=== PATIENT | male | born 1970 | race Caucasian/White ===

== ENCOUNTER 2017-07-04 15:00 | Outpatient (RCR) | payer MEDICAID, SELFPAY ==
--- NOTE | 2017-06-15 13:02 | HP.PTEVAL_ITS ---
Patient's Visit Information CHINYERE RESENDEZ is a 47 year old M referred to Physical Therapy by VON TONG with a diagnosis of B RTC syndrome. Date of Evaluation: 06/13/17 Physical Therapist: Donta Adkins - Visit Plan Frequency: 2x /Week Duration: 4 Weeks Plan: Start with - Subjective Subjective: Pt. is here today for his initial evaluation with diagnosis of B shoulder RTC syndrome. He reports having pain for many years. Pt. reports pain mostly in his shoulders, into his shoulder blades. He denies radiating pain into his arms. Pt. reports no mechanism of injury, but has had a gradual onset of symptoms. He work for a [employer] company and reports increased difficulty with reaching over head. Pt. reports both shoulders are similar in pain. Increases pain: raising arm over head, lifting, exercises, work over head and sleeping. Pt. reprots a gradual worsening of symptoms and now are to a point where he is having difficulty with many ADLs and recreational activities. He reports having difficulty picking up his children and any cleaning with pressure through his shoulders. He has not had any Xrays or MRIs at this point in time. He is hopeful to reduce symptoms in order to get back to all recreational and work related activities with increased tolerance. - Pain R shoulder Pain Intensity (Out of 10): 2 Pain Intensity Range: 0, 6 L shoulder Pain Intensity (Out of 10): 2 Pain Intensity Range: 0, 6 - Objective POSTURE: Pt. has rounded shoulders, protracted scapulea, FH positioing. Pt. tends to have increased shoulder elevation bilaterally. PALPATION: Pt. has increased tenderness to palpation of bilateral bicipital groove, bilateral anterior subacromial space. Pt. has tenderness along medial board of scapulea bilaterally. No pain at AC joint or clavicle. NEUROLOGICAL: Pt. has normal sensation throughout bilateral UEs to light and sharp touch. Pt. has 2+ biceps and triceps DTR bilaterally. ROM: AROM- R shoulder- flexion 125deg, abd 118deg , ext 50deg, functional ER external auditory meatus (abherrant motion), functional IR L5 increase NW. L shoulder- flexion 129deg, abd 118deg, ext 48deg , functional ER external auditory meatus, functional IR L5 increase NW. PROM- R shoulder flexion 165deg, abd 161deg, ER at 90deg 65deg. L shoulder- flexion 168deg, abd 161deg, ER at 90deg 68deg. Pt. limited secondary to pain with all AROM and PROM motions. Pt. had empty end feels with all PROM motions. MMT- RUE - elbow 5/5 throughout; shoulder- flexion 4+/5 increase NW, abd 4/5 increase NW , ER 4/5 increase NW, IR 5/5 NE, ext 5/5 NE. LUE- elbow 5/5 throughout; shoulder- flexion 4+/5 increase NW, abd 4/5 increase NW, ER 4/5 increase NW, IR 5-/5 NE, ext 5-/5 NE. - Special Tests R Shoulder Lift Off Test - Subscapular Tear: Positive R Shoulder Drop Sign - IS Test: Negative R Shoulder Empty Can - SS: Positive R Shoulder Belly Press - SupScap: Positive R Shoulder Neer - Impingement: Positive R Shoulder Valdez Bsasem - Impingement: Positive R Shoulder Biceps Load Test - Labrum: Negative R Shoulder Yeargasons - SLAP: Negative R Shoulder Speeds Test - Labrum/Biceps: Positive R Shoulder Shrug Sign - OA/Adhesive Capsulitis: Negative L Shoulder Lift Off Test - Subscapular Tear: Positive L Shoulder Drop Sign - IS Test: Negative L Shoulder Empty Can - SS: Positive L Shoulder Belly Press - SupScap: Positive L Shoulder Neer - Impingement: Positive L Shoulder Valdez Bassem - Impingement: Positive L Shoulder Biceps Load Test - Labrum: Negative L Shoulder Yeargasons - SLAP: Negative L Shoulder Speeds Test - Labrum/Biceps: Positive - Goals Goal 1:: Pt. to be I with HEP. Goal Time Frame: 4-6 Weeks Goal 2:: Pt. to have increased AROM of bilateral shoulders by 25% without increase in symptoms in all directions. Goal Time Frame: 4-6 Weeks Goal 3:: Pt. to have increased bilateral shoulder strength increased by 1/2 grade of all effected musculature. Goal Time Frame: 4-6 Weeks Goal 4:: Pt. to sleep throughout the night with 0-2/10 pain allowing for increased quality of life. Goal Time Frame: 4-6 Weeks Goal 5:: Pt. to complete all work related activities with 0-2/10 pain in bilatearl shoulders. Goal Time Frame: 4-6 Weeks - Rehabilitation Potential Physical Therapy Diagnosis: Pt. has signs and symptoms consistent with RTC syndrome of bilateral shoulders. He has positive signs of impingement syndrome bilaterally, but has increased symptoms with contractile tissue. He has poor posture reducing subacromial space with overhead activities as well. 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 All of this suggests over use injury resulting in RTC tendonitis with possibly degenerative tearing bilaterally. Rehabilitation Potential: Fair - Anticipated Interventions Patient/Client Instruction: Educate patient on: Condition, Plan of Care, Risk Factors, Benefits of Fitness Program For the Purpose of:: To improve health and function, To foster healthy habits, To improve decision making, To facilitate caregiver knowledge, To improve self management, To prevent re-injury, To improve ability to perform tasks related to life management, To improve tolerance to ADL's Therapeutic Exercise to Include: Strength training, Power training, Postural training, Flexibilty training, Passive ROM, Active ROM, [place] Exercises, Scapular Strength/Stabilization For the Purpose of:: To decrease pain, To increase ROM, To improve nutrient delivery to tissue, To increase oxygenation perfusion, To improve muscle performance and motor function, To improve ability to perform ADL's, To increase tolerance to activity/condition/position, To improve health of tissue, To decrease soft tissue restriction, To increase flexibility/ROM Manual Therapy Techniques to Include: Mobilization, Passive ROM, Functional dry needling, Soft tissue mobilization For the Purpose of:: To decrease pain, To increase ROM, To improve nutrient delivery to tissue, To increase oxygenation perfusion, To improve muscle performance and motor function IF ES: Yes Cryotherapy (ice pack, ice massage): Yes Thermo therapy (hot pack): Yes Ultrasound (thermal/non thermal): Yes For the Purpose of:: To decrease pain, To decrease swelling/inflammation, To increase ROM, To improve nutrient delivery to tissue, To increase oxygenation perfusion Thank you for the opportunity to evaluate your patient. For Medicare and Medicare HMO plans, please review the plan of care and approve it. It will need to be FAXED BACK to us at [phone] for Medicare purposes. Please let me know if there are questions or concerns regarding this plan of care. Physician Signature: Date:
--- NOTE | 2017-07-05 13:56 | HP.PTREVAL_ITS ---
VON RAZA, ,VON It has been my pleasure to treat CHINYERE RESENDEZ over the last 4 visits for B RTC syndrome. Please see the progress note below for an update on the physical therapy plan of care! Subjective: Pt. reports I am about the same. Nothing has really helped me out. He reports increased pain with all exercises, but does tolerated light RTC isometrics. Pt. has increased pain with inferior glides and capsule stretching. Pt. reports continued pain with reaching overhead and with work related activities as well as with upper body dressing. Objective/Function: ROM- AROM- R shoulder- flexion 160deg abherrant motion, abd 135deg abherrant motion, functional ER external auditory meatus, IR SI region. L shoulder- flexion 159deg, abd 142deg, functional ER occiput, functional IR L5. PROM- R shoulder- flexon 176deg, abd 167deg, ER at 90deg 30deg, IR at 90deg of abd 22deg. L shoulder- flexion 173deg increase NW, abd 164deg increase NW, ER at 90deg of abd 40deg, IR at 90deg of abd 23deg. MMT- R shoulder- flexion 4/5 increase NW, abd 4/5 increase NW, ER 4/5 increase NE IR 4+ /5 NE, ext 4+/5 NE/. L shoulder- flexion 4/5 increase NW, abd 4/5 increase NW, ER 4/5 increase NW, IR 4+/5 increase NW, ext 5/5 increase NW Plan Plan: Pt. to be referred back to physician at this point in time to determine best course of action. Goals Goal 1:: Pt. to be I with HEP. Goal Time Frame: 4-6 Weeks Goal Progress: Goal Met Goal 2:: Pt. to have increased AROM of bilateral shoulders by 25% without increase in symptoms in all directions. Goal Time Frame: 4-6 Weeks Goal Progress: Progressing Goal 3:: Pt. to have increased bilateral shoulder strength increased by 1/2 grade of all effected musculature. Goal Time Frame: 4-6 Weeks Goal Progress: Not Progressing Goal 4:: Pt. to sleep throughout the night with 0-2/10 pain allowing for increased quality of life. Goal Time Frame: 4-6 Weeks Goal Progress: Not Progressing Goal 5:: Pt. to complete all work related activities with 0-2/10 pain in bilatearl shoulders. Goal Time Frame: 4-6 Weeks Anticipated Interventions Patient/Client Instruction: Educate patient on: Condition, Plan of Care, Risk Factors, Benefits of Fitness Program For the Purpose of:: To improve health and function, To foster healthy habits, To improve decision making, To facilitate caregiver knowledge, To improve self management, To prevent re-injury, To improve ability to perform tasks related to life management, To improve tolerance to ADL's Therapeutic Exercise to Include: Strength training, Power training, Postural training, Flexibilty training, Passive ROM, Active ROM, [place] Exercises, Scapular Strength/Stabilization For the Purpose of:: To decrease pain, To increase ROM, To improve nutrient delivery to tissue, To increase oxygenation perfusion, To improve muscle performance and motor function, To improve ability to perform ADL's, To increase tolerance to activity/condition/position, To improve health of tissue, To decrease soft tissue restriction, To increase flexibility/ROM Manual Therapy Techniques to Include: Mobilization, Passive ROM, Functional dry needling, Soft tissue mobilization For the Purpose of:: To decrease pain, To increase ROM, To improve nutrient delivery to tissue, To increase oxygenation perfusion, To improve muscle performance and motor function IF ES: Yes Cryotherapy (ice pack, ice massage): Yes Thermo therapy (hot pack): Yes Ultrasound (thermal/non thermal): Yes For the Purpose of:: To decrease pain, To decrease swelling/inflammation, To increase ROM, To improve nutrient delivery to tissue, To increase oxygenation perfusion Please do not hesitate to contact me at [phone] by phone or Fax: if you have questions or concerns regarding this new plan of care! Sincerely, Donta Adkins
--- NOTE | 2017-10-23 19:01 | HP.PTDCSUM_ITS ---
HP - PT D/C Summary It has been my pleasure to treat CHINYERE RESENDEZ under orders from VON RAZA, for the diagnosis of B RTC syndrome for a total of 4 visit(s). Discharge Date: Please see the following information for a summary of their discharge status. - Subjective Subjective: Pt. reports I am about the same. Nothing has really helped me out. He reports increased pain with all exercises, but does tolerated light RTC isometrics. Pt. has increased pain with inferior glides and capsule stretching. Pt. reports continued pain with reaching overhead and with work related activities as well as with upper body dressing. - Pain R shoulder Pain Intensity (Out of 10): 4 L shoulder Pain Intensity (Out of 10): 4 - Objective Objective/Function: ROM- AROM- R shoulder- flexion 160deg abherrant motion, abd 135deg abherrant motion, functional ER external auditory meatus, IR SI region. L shoulder- flexion 159deg, abd 142deg, functional ER occiput, functional IR L5. PROM- R shoulder- flexon 176deg, abd 167deg, ER at 90deg 30deg, IR at 90deg of abd 22deg. L shoulder- flexion 173deg increase NW, abd 164deg increase NW, ER at 90deg of abd 40deg, IR at 90deg of abd 23deg. MMT- R shoulder- flexion 4/5 increase NW, abd 4/5 increase NW, ER 4/5 increase NE IR 4+ /5 NE, ext 4+/5 NE/. L shoulder- flexion 4/5 increase NW, abd 4/5 increase NW, ER 4/5 increase NW, IR 4+/5 increase NW, ext 5/5 increase NW - Goals Goal 1:: Pt. to be I with HEP. Goal Progress: Goal Met Goal 2:: Pt. to have increased AROM of bilateral shoulders by 25% without increase in symptoms in all directions. Goal Progress: Progressing Goal 3:: Pt. to have increased bilateral shoulder strength increased by 1/2 grade of all effected musculature. Goal Progress: Not Progressing Goal 4:: Pt. to sleep throughout the night with 0-2/10 pain allowing for increased quality of life. Goal Progress: Not Progressing Goal 5:: Pt. to complete all work related activities with 0-2/10 pain in bilatearl shoulders. - Plan Plan: Pt. to be referred back to physician at this point in time to determine best course of action. - D/C Information If there are questions or concerns regarding this patient's physical therapy, please feel free to call me at [phone]. Thank you for the referral of this patient. Sincerely, Donta Adkins
== END 2017-07-04 19:00 | disposition home or self-care (01) ==
LOC: PT 15:00
DX: M75.102 Unspecified rotator cuff tear or rupture of left shoulder, not specified as traumatic (principal); M75.101 Unspecified rotator cuff tear or rupture of right shoulder, not specified as traumatic
CPT/HCPCS: 97035; 97110; 97162; 97530

== ENCOUNTER 2017-11-29 08:03 | Day surgery (SDC) | payer MEDICAID, SELFPAY ==
--- NOTE | 2017-11-29 | LES_PTH ---
PATIENT: CHINYERE RESENDEZ LOC: [facility] [place] U[place][id number] AGE/SX: 47/M ROOM: RE11/29/[address]: Dr. Fredis Xiao MD : 1970 BED: DIS: 11/29/2017 SPEC #: [id number] RECD: 11/29/17 10:40 STATUS: VIRA SOPHIA #: [id number] VERÓNICA: 11/29/17 00:[address]: Fredis Xiao DEPT: SURGICAL PATHOLOGY RECD BY: Kimo Calloway ENTERED: 11/29/17 11:42 SP TYPE: Lesion OTHR DR: Out of Town Doctor Tissues: Skin of lip, NOS Procedures: Surgery Specimen Level IV HEADER OPERATION: Excision, lesion, lip PRE-OP DIAGNOSIS: Lip lesion TISSUE SUBMITTED: Lip lesion MICROSCOPIC DIAGNOSIS Lip lesion, excision: Minor salivary gland tissue with acute and chronic inflammation and reactive changes. Negative for malignancy. See comment. 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 Case has been reviewed in consultation with Dr. Mckinney who concurs with the above diagnosis. IDC:AM MICROSCOPIC DESCRIPTION Slides are reviewed. GROSS DESCRIPTION Received in fixative is one container labeled with the patient's name and designated lip lesion. The specimen consists of an irregular fragment of barbosa tissue measuring 1 x 0.6 x 0.2 cm. The specimen is totally submitted in one cassette. / AM:richard 11/29/17 TC:5 CPT: 73577
[2017-11-29 08:30] VITALS: BP 126/81; PULSE 74; RESP 16; TEMP 37.1; O2SAT 99; BMI 41.8
--- NOTE | 2017-11-29 10:07 | PCM.DC ---
You will use the following diet at home:: No restrictions Discharge Activity: Return to Normal Activity Call your doctor if your incision/area has: Increased Pain/ Swelling Allergies/Adverse Reactions: Allergies cephalexin [From Keflex] Adverse Reaction (Verified 11/29/17 08:30) makes him feel bad Medications to take at Discharge Fluoxetine [Prozac] 60 mg PO DAILY 12/21/14 Lisinopril/Hydrochlorothiazide [Zestoretic 20-12.5 mg Tablet] 1 each PO DAILY 11/22/17 Omeprazole [Omeprazole] 20 mg PO DAILY 11/22/17 Acetaminophen/Codeine #3 [Tylenol#3] 1 tab PO Q6H PRN PRN 2 Days #5 tab 11/29/17 The following prescriptions were given: Acetaminophen/Codeine #3 [Tylenol#3] 1 tab PO Q6H PRN PRN 2 Days #5 tab PRN Reason: Pain Primary Care Physician: [facility] Doctor,Out of [Primary Care Provider] - Test Results: Test results from this visit will be discussed in further detail at your follow-up appointment, if applicable. Please Follow Up With: Brody Xiao MD When: 1 month
--- NOTE | 2017-11-29 10:08 | PCM.OPRPT ---
Problem List (1) Lip mass Status: Chronic Report of Operation Date of Procedure: 11/29/17 Pre-Operative Diagnosis: lip mass Post-Operative Diagnosis: lip mass Surgery/Procedure Performed:: excision lip mass Type of Anesthesia:: General Description of Procedure: on the day of the procedure, after appropriate informed consent was obtained, the patient was brought to the operating room and placed in supine position on the operating table. he was placed under MAC anesthesia and the right lower lip was injected with lidocaine/epinephrine. an incision was made over the cyst with a igiugig blade. fluid from the cyst was expressed. the cyst was circumferentially dissected with iris scissors. hemostasis was achieved with the bipolar. the cyst was removed and the lip was closed with 4-0 vicryl. the patient was transferred to the PACU in stable condition.
--- NOTE | 2017-11-29 10:12 | OP.PCM_ITS ---
Problem List (1) Lip mass Status: Chronic Report of Operation Date of Procedure: 11/29/17 Pre-Operative Diagnosis: lip mass Post-Operative Diagnosis: lip mass Surgery/Procedure Performed:: excision lip mass Type of Anesthesia:: General Description of Procedure: on the day of the procedure, after appropriate informed consent was obtained, the patient was brought to the operating room and placed in supine position on the operating table. he was placed under MAC anesthesia and the right lower lip was injected with lidocaine/epinephrine. an incision was made over the cyst with a tatitlek blade. fluid from the cyst was expressed. the cyst was circumferentially dissected with iris scissors. hemostasis was achieved with the bipolar. the cyst was removed and the lip was closed with 4-0 vicryl. the patient was transferred to the PACU in stable condition.
[2017-11-29 10:15] VITALS: BP 119/74; BP 126/81; PULSE 78; RESP 16; TEMP 37.3; O2SAT 94
[2017-11-29 10:20] VITALS: BP 120/78; BP 126/81; PULSE 84; RESP 16; O2SAT 96
[2017-11-29 10:25] VITALS: BP 114/82; BP 126/81; PULSE 75; RESP 16; O2SAT 97
[2017-11-29 10:30] VITALS: BP 115/81; BP 126/81; PULSE 77; RESP 16; TEMP 37.2; O2SAT 96
[2017-11-29 10:54] VITALS: BP 126/81
== END 2017-11-29 11:15 | disposition home or self-care (01) ==
LOC: SDC 08:05 → AC 08:06
PROVIDERS: Visit Provider Otolaryngology
DX: D10.0 Benign neoplasm of lip (principal); I10 Essential (primary) hypertension; F32.9 Major depressive disorder, single episode, unspecified
CPT/HCPCS: 00170; 40812; 88305; J7120; J2405

== ENCOUNTER 2019-03-09 07:34 | Day surgery (SDC) | payer OTHER, SELFPAY ==
[2019-02-15 15:00] VITALS: BMI 41.8
--- NOTE | 2019-02-19 08:43 | HP_ITS ---
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 Allergies cephalexin [From Keflex] Adverse Reaction (Verified 02/15/19 14:54) makes him feel bad Medications Fluoxetine [Prozac] 60 mg PO DAILY 12/21/14 [History Confirmed 02/15/19] Acetaminophen/Codeine #3 [Tylenol#3] 1 tab PO Q6H PRN PRN 2 Days #5 tab 11/29/17 [Rx Confirmed 02/15/19] PFSH Medical History Depression (Acute) Environmental allergies (Acute) Surgical History S/P carpal tunnel release (Acute) S/P inguinal hernia repair (Acute) s/p lip cyst removal (Acute) Family History Father Arthritis Social History (Updated 02/19/19 @ 08:40 by Saulo Warren MD) Smoking Status: Former smoker alcohol intake: current HPI HPI HPI: CHINYERE RESENDEZ, is a 48 M who presents to the office today for HPI HPI Surgical H&P: Yes HPI: CHINYERE RESENDEZ, is a 48 M who presents to the office today for hemorrhoids. The patient has itching and discomfort. He said that occasionally he sees some bright red blood when he wipes but there is none in his stool. He is not having any abdominal pain. He has no family history of colon cancer. ROS General General: No weight change, appetite, fatigue, colon cancer, breast cancer or weakness HEENT HEENT: No difficulty swallowing, eye injury, eye surgery, swollen glands or hoarseness Endo Endocrine: No thyroid disease, diabetes mellitus, thyroid cancer, Hair loss, heat intolerance or cold intolerance Skin Skin: No rash or changing moles Breast Breast: No left breast lump, right breast lump, nipple discharge, breast pain, abnormal mammogram, abnormal US or breast enlargement Musc Musculoskeletal: Yes arthritis; no back problems, rheumatoid arthritis, gout or joint pain Cardio Cardiovascular: Yes high blood pressure; no murmur, pacemaker, heart disease, atrial fibrillation, heart attack, heart stent, palpitations, shortness of breat with exertion or chest pain Psych Psychiatric: Yes depression; no anxiety or hearing voices Resp Respiratory: No shortness of breath, Yes sleep apnea, No cough, No COPD, No asthma, No emphysema, No wheezing Gastro Gastrointestinal: No abdominal pain, No nausea or vomiting, No diarrhea, No constipation, No blood in stool, No acid reflux, Yes hemorrhoids, No ulcers, No gallbladder problem, No black,tarry stools Zacarias Hematologic: No blood thinners, No blood disorders, No bleeding, No anemia, No blood clots Neuro Neurologic: No system reviewed and no additional complaints, except as docu, No as per HPI, No abnormal walking, No abnormal hearing, No abnormal movements, No abnormal speech, No behavioral changes, No burning sensations, No confusion, No seizure-like activity, No unsteadiness, No dizziness, No localized weakness, No frequent falls, No headache(s), No lack of coordination, No loss of vision, No memory loss, No numbness, No other visual disturbances, No radiating pain, No restless legs, No sensory deficit, No fainting, No tingling, No tremor(s), No weakness, No other Exam Const General: cooperative Orientation: alert, oriented x3 Chest Breast Palpation: No nipple discharge Resp Effort & Inspection: normal respiratory effort Auscultation: clear to auscultation bilaterally Cardio Rate: regular rate Rhythm: regular rhythm Heart Sounds: no murmurs GI Inspection: non-distended Palpation: soft, nontender Rectal Exam: visual inspection normal Assessment & Plan Problems 1. Rectal itching L29.0 2. Encounter for screening for malignant neoplasm of colon Z12.11 Plan The patient has no appreciable hemorrhoids on rectal exam. He is complaining of itching and pain in the rectal area. The patient has never had a screening colonoscopy so I would recommend he have a colonoscopy now. I explained endoscopy in detail to the patient. I explained the risks including but not limited to stroke or heart attack with anesthesia, perforation of the GI tract, bleeding, infection. I explained that any of these could necessitate further emergency surgery. The patient understands and all questions were answered sufficiently. The patient wishes to proceed with procedure. Saulo Warren MD Pager: [facility] [address] [place] [address], [address] [place] [address] Office: Orders Orders: Colonoscopy 02/15/19 Z12.11 Coding Level of Care Code Off vis,new,level 3 Diagnoses Rectal itching L29.0 Encounter for screening for malignant neoplasm of colon Z12.11 02/19/19 0840 <Electronically signed by Saulo lind MD> Date _ Saulo Warren MD I have re-examined the patient. There are no clinical changes since date of exam.
[2019-03-09 07:50] VITALS: BP 126/92; PULSE 77; RESP 16; TEMP 37.1; O2SAT 100; BMI 39.9
[2019-03-09] MEDS: Lactated Ringers 1,000 ML 100 ML IV (08:01)
--- NOTE | 2019-03-09 08:30 | COLBX_PTH ---
PATIENT: CHINYERE RESENDEZ LOC: [facility] U#:[id number] AGE/SX: 49/M ROOM: RE03/09/[address]: Dr. Saulo Warren MD : 1970 BED: DIS: 03/09/2019 SPEC #: [id number] RECD: 03/09/19 10:26 STATUS: VIRA REEvon #: [id number] VERÓNICA: 03/09/19 08:[address]: Saulo Warren DEPT: SURGICAL PATHOLOGY RECD BY: Cedrick Mario ENTERED: 03/09/19 12:21 SP TYPE: COLON BX OTHR DR: Dr. True Clarke MD Tissues: Sigmoid colon biopsy Procedures: Surgery Specimen Level IV HEADER OPERATION: Colonoscopy (MAC) PRE-OP DIAGNOSIS: Hemorrhoids TISSUE SUBMITTED: Sigmoid polyp MICROSCOPIC DIAGNOSIS Sigmoid polyp, biopsy: Tubular adenoma. SJ:richard 03/12/19 MICROSCOPIC DESCRIPTION Slides are reviewed. GROSS DESCRIPTION Received in fixative is one container labeled with the patient's name and designated sigmoid polyp. The specimen consists of a pink-red polyp measuring 1 x 0.8 x 0.6 cm. The apparent base is inked. The polyp is bisected and submitted entirely in one cassette. / SJ:rg 03/09/19 TC:1 CPT: 81980
--- NOTE | 2019-03-09 08:42 | OP.ENDO_ITS ---
03/09/2019 True Clarke MD [address] [place] [address] Re : Colonoscopy procedure for Segun Cooley Dear Dr. Clarke This procedure was performed on Saturday, March 09, 2019. My impressions and recommendations are as follows: Impressions : - One polyp in the sigmoid colon, removed with a hot snare. Resected and retrieved. - The examination was otherwise normal on direct and retroflexion views. Recommendations : - Discharge patient to home. - Resume previous diet. - Continue present medications. - Await pathology results. - Repeat colonoscopy date to be determined after pending pathology results are reviewed for surveillance. My findings are described in the full procedure note, which is enclosed. If I can be of further assistance, please feel free to contact me at Doctor phone number(s): , Work: . Sincerely, Saulo Warren MD 03/09/2019 8:42:42 AM This report has been signed electronically.
[2019-03-09 08:43] VITALS: BP 114/83; BP 126/92; PULSE 65; RESP 16; TEMP 36.7; O2SAT 95
[2019-03-09 08:45] VITALS: BP 117/81; BP 126/92; PULSE 64; RESP 16; O2SAT 93
[2019-03-09 08:49] VITALS: BP 114/79; BP 126/92; PULSE 64; RESP 16; O2SAT 97
[2019-03-09 08:53] VITALS: BP 117/92; BP 126/92; PULSE 60; RESP 16; TEMP 36.7; O2SAT 96
[2019-03-09 09:17] VITALS: BP 126/92
== END 2019-03-09 09:24 | disposition home or self-care (01) ==
LOC: EN 07:34 → AC 07:35
PROVIDERS: Family Provider Family Medicine; PCP Family Medicine; Referring Provider Family Medicine; Visit Provider Surgery
PROC: 0DJD8ZZ Inspection of Lower Intestinal Tract, Via Natural or Artificial Opening Endoscopic (ICD-10-PCS; CPT 45378; principal; 2019-03-09 08:25)
DX: Z12.11 Encounter for screening for malignant neoplasm of colon (principal); D12.5 Benign neoplasm of sigmoid colon; L29.0 Pruritus ani; Z87.891 Personal history of nicotine dependence; Z88.1 Allergy status to other antibiotic agents
CPT/HCPCS: 45385; 88305; J7120

== ENCOUNTER → 2019-07-27 08:32 | Outpatient (CLI) | payer OTHER, SELFPAY ==
[2019-07-27 11:17] LABS: Anion Gap 4 (5-15); BUN 14 mg/dL (7-18); Calcium,Total 9.8 mg/dL (8.5-10.1); Chloride 111 mmol/L (98-107); Cholesterol 221 mg/dL (200); Creatinine, Serum 0.88 mg/dL (0.70-1.30); EST Glomerular Filtration Rate 98 mL/min (>60); Est Glom Filt Rate - Afr Amer 118 mL/min (>60); Glucose 104 mg/dL (74-106); High Density Lipoprotein 46 mg/dL; Potassium 4.5 mmol/L (3.5-5.1); Sodium Level 142 mmol/L (136-145); Triglycerides 144 mg/dL; Very Low Density Lipoprotein 29 mg/dL (5-40)
== END ==
PROVIDERS: PCP Family Medicine; Referring Provider Family Medicine; Visit Provider Family Medicine
DX: I10 Essential (primary) hypertension (principal)
CPT/HCPCS: 36415; 80048; 80061

== ENCOUNTER → 2021-02-26 15:20 | Outpatient (CLI) | payer OTHER, SELFPAY ==
--- NOTE | 2021-02-26 15:25 | RAD_ITS ---
STUDY: X-RAY - LEFT KNEE REASON FOR EXAM: Male, 51 years old. PAIN TECHNIQUE: 4 view(s) of the knee. COMPARISON: None. FINDINGS: Normal visualized distal femur. Normal visualized proximal tibia and fibula. Normal proximal tibiofibular articulation. Normal medial femorotibial compartment. Normal lateral femorotibial compartment. There is moderate degenerative arthrosis of the patellofemoral articulation. There is no demonstrated joint effusion. The soft tissue structures are unremarkable. RAD/Knee 4 or More Views IMPRESSION: Patellofemoral joint arthrosis. Electronically Signed: Adonis Whitlock MD (Brooks) at 16:26 EDT , Service support ,
--- NOTE | 2021-02-26 15:25 | RAD_ITS ---
STUDY: X-RAY - LEFT SHOULDER REASON FOR EXAM: Male, 51 years old. PAIN TECHNIQUE: 4 view(s) of the shoulder. COMPARISON: None. FINDINGS: There is severe degenerative arthrosis of the glenohumeral articulation. Normal acromioclavicular joint. Normal acromion. Normal humeral head and visualized proximal humerus. The soft tissue structures are unremarkable. Normal visualized pulmonary apex. RAD/Shoulder min 2 Views IMPRESSION: Severe arthrosis of the left glenohumeral joint Electronically Signed: Adonis Whitlock MD (Brooks) at 16:24 EDT , Service support ,
--- NOTE | 2021-02-26 15:25 | RAD_ITS ---
STUDY: X-RAY - RIGHT SHOULDER REASON FOR EXAM: Male, 51 years old. PAIN TECHNIQUE: 4 view(s) of the shoulder. COMPARISON: None. FINDINGS: There is moderate degenerative arthrosis of the glenohumeral articulation with elevation of the humeral head suggesting chronic rotator cuff pathology. Normal acromioclavicular joint. Normal acromion. Normal humeral head and visualized proximal humerus. The soft tissue structures are unremarkable. Normal visualized pulmonary apex. RAD/Shoulder min 2 Views IMPRESSION: Moderate glenohumeral joint arthrosis. Probable chronic rotator cuff pathology. Electronically Signed: Adonis Whitlock MD ([place]oks) at 8:02 EDT , Service support ,
--- NOTE | 2021-02-26 15:25 | RAD_ITS ---
STUDY: X-RAY - RIGHT KNEE REASON FOR EXAM: Male, 51 years old. PAIN TECHNIQUE: 4 view(s) of the knee. COMPARISON: None. FINDINGS: Normal visualized distal femur. Normal visualized proximal tibia and fibula. Normal proximal tibiofibular articulation. Normal medial femorotibial compartment. There is severe degenerative arthrosis of the lateral femorotibial compartment with severe joint space narrowing and valgus formation. There is mild degenerative arthrosis of the patellofemoral articulation. There is no demonstrated joint effusion. The soft tissue structures are unremarkable. RAD/Knee 4 or More Views IMPRESSION: Lateral abdominal osteoarthrosis with valgus deformity. Electronically Signed: Adonis Whitlock MD ([place]) at 16:26 EDT , Service support ,
== END ==
PROVIDERS: PCP Family Medicine; Referring Provider Family Medicine; Visit Provider Family Medicine
DX: M25.511 Pain in right shoulder (principal); M25.512 Pain in left shoulder; M25.561 Pain in right knee; M25.562 Pain in left knee
CPT/HCPCS: 73030; 73564

== ENCOUNTER 2021-03-11 09:04 | Emergency (ER) | payer OTHER, SELFPAY ==
[2021-03-11 09:05] VITALS: BP 163/103; PULSE 92; RESP 18; TEMP 37.1; O2SAT 100; BMI 40.2
--- NOTE | 2021-03-11 09:17 | MRI_ITS ---
STUDY: MRI BRAIN WITHOUT CONTRAST REASON FOR EXAM: Male, 51 years old. stroke symptoms, confusion TECHNIQUE: Standardized multiplanar fat and water weighted pulse sequences were obtained. COMPARISON: None. FINDINGS: Normal size of the ventricles and extra-axial spaces for the patient''s age. Normal white matter tracts of the supratentorial brain. There is no evidence for recent intracranial ischemia or other cause of cytotoxic edema on diffusion weighted imaging (DWI). Normal T2* images of the brain without demonstrated susceptibility artifact. There is no demonstrated hemosiderin stain. Normal bilateral basal ganglia. Normal thalami. There is no extra-axial fluid accumulation. Normal flow voids within the major intracranial circulation suggesting patency by spin echo criteria. Normal sella turcica, pituitary gland, infundibular stalk, optic chiasm and hypothalamus. Normal tectal plate and pineal gland. Normal midbrain, saniya and medulla. Normal cerebellum. Normal basal cisterns. Normal bilateral temporal bones. Normal bilateral internal auditory canals. No demonstrated orbital abnormality, within the constraints of a routine brain study. Normal visualized paranasal sinuses. Normal calvarium and skull base. Normal visualized soft tissue structures. Normal visualized upper cervical spine. MRI/Brain without Contrast IMPRESSION: Normal unenhanced MRI of the brain. Electronically Signed: Conor Davila MD at 10:36 EDT Tel , Service support ,
--- NOTE | 2021-03-11 09:19 | EKG12_ITS ---
Test Reason : NEURO Blood Pressure : / mmHG Vent. Rate : 082 BPM Atrial Rate : 082 BPM P-R Int : 144 ms QRS Dur : 086 ms QT Int : 356 ms P-R-T Axes : 034 012 056 degrees QTc Int : 415 ms Normal sinus rhythm Normal ECG Confirmed by KENY FAM, KENNEDI ([id number]), health editor HANY ELISE ([id number]) on 03/12/2021 1:47:41 P M Referred By: PC Confirmed By:KRISHAN BUSTILLO MD
[2021-03-11 09:34] VITALS: BMI 38.9
[2021-03-11 09:34] LABS: Absolute Lymphocyte Count 0.61 X10^3/uL (0.83-4.51); Absolute Neutrophil Count 12.8 X10^3/uL (2.0-7.7); Basophil# 0.08 X10^3/uL; Basophil% 0.5 % (0-1); Eosinophil# 0.03 X10^3/uL; Eosinophils% 0.2 % (0-5); Hematocrit 53.3 % (40-54); Hemoglobin 17.4 g/dL (13.0-16.5); Lymphocyte # 0.61 X10^3/ul (0.83-4.51); Lymphocyte % 4.1 % (19-41); Mean Corp Hgb Conc 32.6 g/dL (32-36); Mean Corpuscular Hgb 29.5 pg (27.0-32.0); Mean Corpuscular Volume 90.5 fL (80-94); Mean Platelet Vol. 10.8 fl (6.2-12.0); Monocyte# 1.22 X10^3/uL; Monocyte% 8.1 % (0-10); NRBC Flagged by Analyzer 0 % (0-5); Neutrophil # 12.78 X10^3/uL (2.7-7.7); Neutrophil % 85.4 % (47-70); Platelet Count 211 K/mm3 (150-450); RBC Distribution Width CV 13.2 % (11.6-14.6); RBC Distribution Width SD 43.8 fl (35.1-43.9); Red Blood Count 5.89 M/mm3 (4.6-6.2)
[2021-03-11 09:55] LABS: ALB/GLOB Ratio 0.9 RATIO (0.9-2.4); AST(SGOT) 13 U/L (15-37); Alanine Aminotransfer ALT/SGPT 33 U/L (16-61); Albumin, Serum 3.6 g/dL (3.2-5.0); Alkaline Phosphatase 105 U/L (45-117); Anion Gap 7 (5-15); BUN 23 mg/dL (7-18); BUN/Creat Ratio 22.5 RATIO (10-20); Calcium,Total 9.3 mg/dL (8.5-10.1); Chloride 101 mmol/L (98-107); Creatinine, Serum 1.02 mg/dL (0.70-1.30); EST Glomerular Filtration Rate 82 mL/min (>60); Est Glom Filt Rate - Afr Amer 99 mL/min (>60); Estimated Creatinine Clearance 73.69 ml/min; Globulin 4.2 g/dL (2.2-4.2); Glucose 97 mg/dL (74-106); Potassium 3.9 mmol/L (3.5-5.1); Protein, Total 7.8 g/dL (6.4-8.2); Sodium Level 136 mmol/L (136-145); Troponin-I HS 7 pg/mL (3.0-78.0)
--- NOTE | 2021-03-11 10:30 | ED.VIS.STROK ---
HPI History of Present Illness Chief Complaint: Neuro S/Sx Narrative Narrative: Patient is complaining of not feeling well. He has intermittent episodes of the last 2 or 3 seconds when he walks where he does not feel just right. He feels like he can see everything but he sees himself outside of his body he tells me his vision is not impaired but he just sees himself differently. Otherwise he has no neurological symptoms, he does not have any weakness or paresthesias he has no speech difficulty he does not feel confused. He has no chest pain or shortness of breath. No recent cold cough or flu. [facility] Medical History Depression Environmental allergies Hypertension Home Medications bupropion HCl 300 mg PO DAILY 03/11/21 [History Last Taken Unknown] losartan-hydrochlorothiazide 1 tab PO DAILY 03/11/21 [History Last Taken Unknown] meloxicam 15 mg PO DAILY 03/11/21 [History Last Taken Unknown] sulfamethoxazole-trimethoprim 1 tab PO DAILY 03/11/21 [History Last Taken Unknown] Allergy/AdvReac Type Severity Reaction Status Date / Time cephalexin [From Keflex] AdvReac makes him Verified 03/11/21 09:07 feel bad Family History Father Arthritis Surgical History S/P carpal tunnel release S/P inguinal hernia repair s/p lip cyst removal Social History Smoking Status: Former smoker alcohol intake: current ROS ROS ED ROS Narrative Past medical history: Reviewed, significant for high blood pressure, depression and obesity. Medications: Reviewed Social history: Noncontributory Review of systems: All systems negative except as indicated General: No fever Eyes: No visual changes ENT: No upper airway congestion, normal voice Neck: No neck pain Cardiovascular: No chest pain Respiratory: No shortness of breath or cough Gastrointestinal: No abdominal pain, nausea vomiting or diarrhea Genitourinary: No dysuria Musculoskeletal: Denies myalgias no difficulty with ambulation Skin: No rash Neurological: No memory loss, confusion or any focal weakness otherwise as in HPI Psych: No recent behavioral changes Hematologic: No easy bleeding or easy bruising EXAM Physical Exam Narrative Exam Narrative: Physical exam General: Well nourished, Well developed, No Acute Distress Head: Normocephalic, Atraumatic Eyes: Conjunctiva not pale ENT: Moist mucous membranes Neck: Supple, Nontender, No lymphadenopathy Cardiovascular: Regular rate, Regular rhythm Respiratory: No distress, CTA bilaterally Abdomen: Soft, Nontender, Nondistended Back: Nontender, Normal Inspection. Negative for: CVA tenderness Extremities: Nontender, No edema Skin: Normal color, No rash Neurological: Alert, Normal Strength, Normal Sensation. NIH stroke scale is 0 see below. Psychological: Normal affect Const Vital Signs: 03/11/21 09:05 Temperature 98.8 F Temperature Source Temporal Pulse Rate 92 Respiratory Rate 18 Blood Pressure 163/103 H Blood Pressure Mean 123 Pulse Ox 100 Oxygen Delivery Method Room Air STROKE Vital Signs/Narrative: Vital Signs Temp Pulse Resp BP Pulse Ox 03/11/21 09:05 98.8 F 92 18 163/103 H 100 NIHSS Initial: 1a Level of Consciousness: 0 1b LOC Questions (Score 2 if aphasic/stupor): 0 1c LOC Commands (Only score 1st attempt): 0 2 Best Gaze (If aphasic, use reflexive mvmts.): 0 3 Visual: 0 4 Facial Palsy: 0 5 Motor Arm Right (UN = amputation/fusion): 0 5 Motor Arm Left: 0 6 Motor Leg Right: 0 6 Motor Leg Left: 0 7 Limb ataxia (Only + if out of proportion): 0 8 Sensory (Aphasia/stupor=0 or 1, coma=2): 0 9 Best Language: 0 10 Dysarthria (mute, coma=2, intubated=UN): 0 11 Extinction and Inattention (only scored if +): 0 Total Score: 0 MDM MDM MDM Narrative Medical decision making narrative: Patient is found to have an unremarkable work-up other than slight leukocytosis I talked to him he tells me he has no cough congestion fever chills urinary symptoms or any other symptoms. He appears well a Covid test is pending but I believe he is safe for discharge. Lab Data Labs: Laboratory Results - last 24 hr 03/11/21 03/11/21 09:25 09:25 WBC 15.0 H RBC 5.89 Hgb 17.4 H Hct 53.3 MCV 90.5 MCH 29.5 MCHC 32.6 RDW Std Deviation 43.8 RDW Coeff of Stefanie 13.2 Plt Count 211 MPV 10.8 Immature Gran % (Auto) 1.700 H Neut % (Auto) 85.4 H Lymph % (Auto) 4.1 L Ida % (Auto) 8.1 Eos % (Auto) 0.2 Baso % (Auto) 0.5 Absolute Neuts (auto) 12.8 H Absolute Lymphs (auto) 0.61 L Nucleated RBC % 0 Sodium 136 Potassium 3.9 Chloride 101 Carbon Dioxide 28.0 Anion Gap 7 BUN 23 H Creatinine 1.02 Estim Creat Clear Calc 73.69 Est GFR (MDRD) Af Amer 99 Est GFR (MDRD) Non-Af 82 BUN/Creatinine Ratio 22.5 H Glucose 97 Calcium 9.3 Total Bilirubin 0.40 AST 13 L ALT 33 Alkaline Phosphatase 105 Troponin I High Sens 7 Total Protein 7.8 Albumin 3.6 Globulin 4.2 Albumin/Globulin Ratio 0.9 Radiography Diagnostic Testing: Clinical Impression(s) from Imaging Studies Brain MRI 03/11/21 09:17 IMPRESSION: Normal unenhanced MRI of the brain. Electronically Signed: Conor Davila MD at 10:36 EDT Tel , Service support , Discharge Plan Triage Chief Complaint: Neuro S/Sx ED Provider: True [place] Dx/Rx/DC Orders Clinical Impression: Leukocytosis, Weakness Instructions: ED Weakness (Uncertain Cause) Prescriptions: No Action meloxicam 15 mg tablet 15 mg PO DAILY RF: 0 sulfamethoxazole-trimethoprim 800-160 mg tablet 1 tab PO DAILY RF: 0 losartan-hydrochlorothiazide 100-25 mg tablet 1 tab PO DAILY RF: 0 bupropion HCl 300 mg tablet extended release 24 hr 300 mg PO DAILY RF: 0 Primary Care Provider: True Clarke Referrals: True Clarke MD [Primary Care Provider] - 2 Days Disposition Disposition: Home, Self Care
[2021-03-11 11:14] VITALS: BP 123/87; PULSE 87; RESP 16; TEMP 36.1
== END 2021-03-11 11:15 | disposition home or self-care (01) ==
PROVIDERS: Emergency Provider Emergency Medicine; PCP Family Medicine
DX: D72.829 Elevated white blood cell count, unspecified (principal); R53.1 Weakness; I10 Essential (primary) hypertension; F32.9 Major depressive disorder, single episode, unspecified; Z79.899 Other long term (current) drug therapy; Z87.891 Personal history of nicotine dependence
CPT/HCPCS: 70551; 80053; 84484; 85025; 87426; 93005; 99283; A4216

== ENCOUNTER 2022-02-10 08:52 | Emergency (ER) | payer OTHER, SELFPAY ==
[2022-02-10 08:53] VITALS: BP 140/92; PULSE 77; RESP 18; TEMP 36.2; O2SAT 100; BMI 40.1
--- NOTE | 2022-02-10 09:10 | EDS_ITS ---
HPI History of Present Illness Chief Complaint: Back Informant: patient Onset/Context/Timing Onset: Weeks (3-4) Context: Gradual Onset Timing: Continuous Quality: Aching Location: Buttock and Left Leg Current Severity: Severe Maximum Severity: Severe Worsened by: improves with Movement, Bending, Lifting and - (Sitting for extended period) Relieved by: Remaining Still Associated Symptoms Associated Symptoms: Radiation to Left Leg; Negative for Numbness, Tingling, Radiation to Right Leg, Fever, Unable to Ambulate, Unable to Transfer, Urinary Retention, Urinary Incontinence, Constipation or Fecal Incontinence Narrative Narrative: Patient has been having 3 to 4 weeks worth of left low back pain with radiation down to his left lower extremity. He states it has been tolerable, continuous. However over the past 3 to 4 days, it has been significantly worse. He did a lot of work in the yard the day that it became worse, he was doing lifting and lots of bending over, he did not notice suddenly acute worsening, rather gradual. However the pain has been severe in that period of time. He mentioned all of this to his doctor when he had a visit within the last couple weeks, however it was not as bad as it is now. He has not had any x-rays. He has had recent cortisone injections in his right knee and his left shoulder due to DJD, he states it has been recommended to him to have joint replacements of both shoulders and both knees. He does not have any hip problems that he knows of. [facility] Medical History (Updated 02/10/22 @ 10:[address] Phillip Mckeon MD) Depression DJD of both shoulders Environmental allergies Hypertension Home Medications bupropion HCl 300 mg 24 hr tablet, extended release 300 mg PO DAILY 03/11/21 [History Last Taken Unknown] losartan 100 mg-hydrochlorothiazide 25 mg tablet 1 tab PO DAILY 03/11/21 [History Last Taken Unknown] meloxicam 15 mg tablet 15 mg PO DAILY 03/11/21 [History Last Taken Unknown] cholecalciferol (vitamin D3) 100 mcg (4,000 unit) capsule 100 mcg PO DAILY 02/10/22 [History Last Taken Unknown] gabapentin 300 mg capsule 300 mg PO TID #89 caps 02/10/22 [Rx Last Taken Unknown] omega-3 fatty acids 1,000 mg PO DAILY 02/10/22 [History Last Taken Unknown] prednisone 20 mg tablet 40 mg PO DAILY #10 TABLETS 02/10/22 [Rx Last Taken Unknown] Allergy/AdvReac Type Severity Reaction Status Date / Time cephalexin [From Keflex] AdvReac makes him Verified 02/10/22 09:03 feel bad Family History Father Arthritis Surgical History S/P carpal tunnel release S/P inguinal hernia repair s/p lip cyst removal Social History Smoking Status: Former smoker alcohol intake: current ROS ROS ED Constitutional Constitutional ED: Denies chills or fever(s) Gastrointestinal Gastrointestinal: Denies abdominal pain, constipation, fecal incontinence, nausea or vomiting Genitourinary Genitourinary ED: Reports other Details: no urinary retention ; Denies abdominal discomfort or urinary incontinence Musculoskeletal Musculoskeletal: Reports as per HPI and back pain; Denies neck pain Integumentary Denies rash or wounds Neurologic Neurologic: Denies headache(s), paresthesias or weakness EXAM Physical Exam Const Vital Signs: 02/10/22 08:53 Temperature 97.2 F L Temperature Source Temporal Pulse Rate 77 Respiratory Rate 18 Blood Pressure 140/92 H Blood Pressure Mean 108 Pulse Ox 100 Oxygen Delivery Method Room Air Positive well nourished and well developed General Appearance ED: well developed and NAD HEENT Negative for trauma or tenderness Eyes PERRL and EOMs intact bilaterally Neck full ROM and supple GI normal to inspection, nondistended, normoactive bowel sounds, soft to palpation and non-tender Back/Spine normal to inspection Back/Spine Narrative: Mildly tender medial left buttock, left side sciatic notch. Negative cross leg straight leg raises Lumbar Spine / Lower Back: ROM limited and straight leg raise positive - left at 60 degrees; Negative for lumbar spinal tenderness or straight leg raise positive right Extremity normal to inspection, full ROM and no pedal edema Extremity Narrative: Likely arthritic deformity right knee with slight valgus status at resting Neuro oriented x3 and no sensory deficits noted Sensorium / Orientation: alert Motor Exam: strength 5/5 throughout and clonus absent Deep Tendon Reflexes: Rt Patellar (L4): 1+, Lt Patellar (L4): 1+, Rt Ankle (S1): 1+ and Lt Ankle (S1): 1+ Deep Tendon Reflexes Back: Rt Patellar (L4): 1+, Lt Patellar (L4): 1+, Rt Ankle (S1): 1+ and Lt Ankle (S1): 1+ Plantar Reflex: Downgoing: bilateral Psych mental status grossly normal and thought process normal Skin no rashes or lesions noted and no wounds MDM MDM MDM Narrative Medical decision making narrative: I obtained 3 view lumbar spine x-ray series and on my interpretation, it shows a significant narrowed interspace at L4-L5 with some degenerative anterolisthesis. This is probably the problem area. Radiology also notes a T12 fracture which appears chronic, he is not having pain there so I do not think he needs an emergent CT of this as suggested by them. I discussed that with the patient. He does not have symptoms of cauda equina syndrome. I am going to place him on gabapentin and a short burst of prednisone since he just had cortisone injections in 2 joints, and have him follow-up he is comfortable with that plan. Radiography Diagnostic Testing: Clinical Impression(s) from Imaging Studies Lumbar Spine X-Ray 02/10/22 09:25 IMPRESSION: 1. Mild to moderate anterior wedge compression fracture of the upper T12 vertebral body. This is probably not recent. CT will help confirm/clarify if there is severe back pain at the thoracic cord junction area. 2. Mild old anterior wedge compression fracture of the lower L1 vertebral body. 3. Nearly grade 1 degenerative anterolisthesis of L4 on L5 with moderate disc space height narrowing and endplate sclerosis. 4. Minimal degenerative anterolisthesis of L5 on S1. Electronically Signed: Lei Umaña MD at 9:52 EDT , Discharge Plan Triage Chief Complaint: Back ED Provider: Phillip Mckeon Dx/Rx/DC Orders Clinical Impression: Acute left lumbar radiculopathy, T12 compression fracture Instructions: Understanding Lumbar Radiculopathy Prescriptions: New gabapentin 300 mg capsule 300 mg PO TID Qty: 89 0RF Rx Instructions: on first day, take 1 cap BID only prednisone 20 mg tablet 40 mg PO DAILY Qty: 10 0RF No Action meloxicam 15 mg tablet 15 mg PO DAILY losartan-hydrochlorothiazide 100-25 mg tablet 1 tab PO DAILY bupropion HCl 300 mg tablet extended release 24 hr 300 mg PO DAILY [place] 3 Capsule 1,000 mg PO DAILY Vitamin D3 100 mcg (4,000 unit) Capsule 100 mcg PO DAILY Primary Care Provider: True Clarke Referrals: Rl Macedo DO [Med Staff - Active Staff] - (Call for follow-up appointment) True Clarke MD [Primary Care Provider] - None Activity Restrictions/Additional Instructions: Start both of your prescriptions tomorrow 02/11 Disposition Disposition: Home, Self Care
[2022-02-10] MEDS: predniSONE 20 MG Tablet 40 MG PO (09:16)
--- NOTE | 2022-02-10 09:25 | RAD_ITS ---
EXAM: XR LUMBOSACRAL SPINE, 2 OR 3 VIEWS CLINICAL INDICATION: Back pain. TECHNIQUE: Frontal and lateral views of the lumbar spine and sacrum. This report was created using [employer] report [employer] technology. COMPARISON: None. FINDINGS: VERTEBRAE: Nearly grade 1 degenerative anterolisthesis of L4 on L5 with mild endplate sclerosis. Minimal degenerative anterolisthesis of L5 on S1. Mild to moderate anterior wedge compression fracture of the upper T12 vertebral body. Mild anterior wedge compression fracture of the lower L1 vertebral body. Preservation of the normal lumbar lordosis. No significant facet arthropathy. DISC SPACES: Mild narrowing of the disc space heights at L2-L3 and L3-L4 disc space levels. Moderate L4-L5 disc space height narrowing. Normal L5-S1 disc space height. GASTROINTESTINAL TRACT: Unremarkable as visualized. Included bowel gas pattern is non-obstructive. RAD/Lumbar Spine 2 or 3 Views IMPRESSION: 1. Mild to moderate anterior wedge compression fracture of the upper T12 vertebral body. This is probably not recent. CT will help confirm/clarify if there is severe back pain at the thoracic cord junction area. 2. Mild old anterior wedge compression fracture of the lower L1 vertebral body. 3. Nearly grade 1 degenerative anterolisthesis of L4 on L5 with moderate disc space height narrowing and endplate sclerosis. 4. Minimal degenerative anterolisthesis of L5 on S1. Electronically Signed: Lei Umaña MD at 9:52 EDT ,
[2022-02-10] MEDS: Gabapentin 300 MG Capsule PO (09:37)
[2022-02-10 10:23] VITALS: BP 136/97; PULSE 70; RESP 18; TEMP 36.5; O2SAT 100
== END 2022-02-10 10:24 | disposition home or self-care (01) ==
PROVIDERS: Emergency Provider Emergency Medicine; PCP Family Medicine; Visit Provider Emergency Medicine
DX: M43.16 Spondylolisthesis, lumbar region (principal); S22.080A Wedge compression fracture of T11-T12 vertebra, initial encounter for closed fracture; M54.16 Radiculopathy, lumbar region; Z96.611 Presence of right artificial shoulder joint; Z87.891 Personal history of nicotine dependence; I10 Essential (primary) hypertension; M19.012 Primary osteoarthritis, left shoulder; Z96.612 Presence of left artificial shoulder joint; F32.A Depression, unspecified
CPT/HCPCS: 72100; 99283

== ENCOUNTER → 2022-04-29 | Outpatient (CLI) | payer OTHER, SELFPAY ==
--- NOTE | 2022-04-29 16:50 | CT_ITS ---
EXAM: CT RIGHT LOWER EXTREMITY WITHOUT INTRAVENOUS CONTRAST CLINICAL INDICATION: templating for right TKA TECHNIQUE: Helically acquired images were obtained of the right lower extremity without intravenous contrast. 2-D reformats were performed by the technologist. CTDIvol = ( 18.71 ) mGy, DLP = ( 3010.79 ) mGycm This CT exam was performed using one or more of the following dose reduction techniques: automated exposure control, adjustment of the mA and/or kV according to patient size, and/or use of iterative reconstruction technique. This report was created using [email or web address] report Jalbum technology. COMPARISON: None. FINDINGS: Colonic diverticulosis. No free fluid in the pelvis. Small fat-containing right inguinal hernia. At least moderate-sized right knee joint effusion with small Terry''s cyst noted. Prepatellar soft tissue swelling with no organized fluid collections in this area. No other focal soft tissue abnormalities. Mild degenerative changes involving the hip joints bilaterally. Moderate tricompartmental osteoarthrosis involving the right knee. No unusual lytic or sclerotic lesions of bone. Mild calcaneal enthesopathy. Subchondral cysts at the tibial plafond. Ankle mortise is intact. CT/Extremity Lower without Contra IMPRESSION: 1. Preoperative planning study for right total knee arthroplasty. 2. Incidental findings as above. Electronically Signed: Tejas Butterfield MD at 19:22 EST ,
== END | disposition home or self-care (01) ==
LOC: CT 16:49
PROVIDERS: PCP Family Medicine; Referring Provider Orthopaedic Surgery; Visit Provider Orthopaedic Surgery
DX: M17.11 Unilateral primary osteoarthritis, right knee (principal)
CPT/HCPCS: 73700

== ENCOUNTER → 2022-05-04 | Outpatient (CLI) | payer OTHER, SELFPAY ==
[2022-05-04 10:07] LABS: Absolute Lymphocyte Count 1.12 X10^3/uL (0.83-4.51); Absolute Neutrophil Count 8.4 X10^3/uL (2.0-7.7); Basophil# 0.09 X10^3/uL; Basophil% 0.8 % (0-1); Eosinophil# 0.34 X10^3/uL; Hematocrit 52.2 % (40-54); Hemoglobin 16.8 g/dL (13.0-16.5); Lymphocyte # 1.12 X10^3/ul (0.83-4.51); Lymphocyte % 9.9 % (19-41); Mean Corp Hgb Conc 32.2 g/dL (32-36); Mean Corpuscular Volume 93.2 fL (80-94); Mean Platelet Vol. 11.3 fl (6.2-12.0); Monocyte# 1.27 X10^3/uL; Monocyte% 11.2 % (0-10); NRBC Flagged by Analyzer 0 % (0-5); Neutrophil # 8.38 X10^3/uL (2.7-7.7); Platelet Count 223 K/mm3 (150-450); RBC Distribution Width CV 12.8 % (11.6-14.6); RBC Distribution Width SD 43.6 fl (35.1-43.9); White Blood Count 11.3 K/mm3 (4.4-11.0)
[2022-05-04 14:16] LABS: ALB/GLOB Ratio 1.3 RATIO (0.9-2.4); AST(SGOT) 22 U/L (15-37); Alanine Aminotransfer ALT/SGPT 35 U/L (16-61); Albumin, Serum 3.9 g/dL (3.2-5.0); Alkaline Phosphatase 93 U/L (45-117); Anion Gap 8 (5-15); BUN 23 mg/dL (7-18); BUN/Creat Ratio 24.8 RATIO (10-20); Calcium,Total 9.4 mg/dL (8.5-10.1); Chloride 103 mmol/L (98-107); Creatinine, Serum 0.93 mg/dL (0.70-1.30); EST Glomerular Filtration Rate 90 mL/min (>60); Est Glom Filt Rate - Afr Amer 109 mL/min (>60); Globulin 3.1 g/dL (2.2-4.2); Glucose 96 mg/dL (74-106); Potassium 4.2 mmol/L (3.5-5.1); Sodium Level 139 mmol/L (136-145)
== END | disposition home or self-care (01) ==
LOC: MFPLAB 09:20
PROVIDERS: PCP Family Medicine; Visit Provider Family Medicine
DX: Z01.818 Encounter for other preprocedural examination (principal)
CPT/HCPCS: 36415; 80053; 85025

== ENCOUNTER 2022-05-25 05:39 | Day surgery (SDC) | payer OTHER, SELFPAY ==
[2022-05-07 17:44] LABS: International Normalized Ratio 1.1; Prothrombin Time (Protime)PT. 13.7 SECONDS (11.7-14.9)
[2022-05-07 17:45] LABS: Partial Thromboplast Time 27.4 Seconds (24.1-36.2)
[2022-05-07 18:04] LABS: Anion Gap 11 (5-15); BUN 21 mg/dL (7-18); BUN/Creat Ratio 24.5 RATIO (10-20); Calcium,Total 9.7 mg/dL (8.5-10.1); Chloride 102 mmol/L (98-107); Creatinine, Serum 0.86 mg/dL (0.70-1.30); EST Glomerular Filtration Rate 99 mL/min (>60); Est Glom Filt Rate - Afr Amer 120 mL/min (>60); Glucose 121 mg/dL (74-106); Potassium 3.6 mmol/L (3.5-5.1); Sodium Level 141 mmol/L (136-145)
[2022-05-07 18:14] LABS: Magnesium 2.3 mg/dL (1.6-2.6)
[2022-05-07 18:16] LABS: Hemoglobin A1c 5.6 % (3.8-5.6)
[2022-05-09 13:36] LABS: Fructosamine 220 umol/L (0-285)
[2022-05-25] VITALS (9 sets, daily range): BP systolic 95–145; BP diastolic 67–91; PULSE 70–79; RESP 16–20; TEMP 36.8–37.8; O2SAT 90–96; BMI 38.1
[2022-05-25] MEDS: Acetaminophen 500 MG Tablet 1000 MG PO ×2 (06:34→14:29)
[2022-05-25] MEDS: Gabapentin 600 MG Tablet PO (06:34)
[2022-05-25] MEDS: Celecoxib 200 MG Capsule 400 MG PO (06:34)
[2022-05-25] MEDS: Lactated Ringers 1,000 ML 15 ML IV (06:41)
[2022-05-25] MEDS: Scopolamine 1mg/72hr Patch 1 PATCH TD (06:42)
--- NOTE | 2022-05-25 07:20 | HP.PCM_ITS ---
History and Physical Date of Admission: 05/25/22 CHINYERE RESENDEZ??52??M??1970 ? Allergy/Adv: acetaminophen, cephalexin, hydrocodone (More??) Close Sign Orthopedics Visit (Signed) Dante Stpehens - 05/07/22 15:48 Physical Therapy Evaluation (Signed) Donta Adkins - 03/22/22 08:30 BMS Internal Correspondence (Scanned) 03/12/22 10:03 Orthopedics Visit (Signed) Apolinar Pa - 03/08/22 15:43 Orthopedics Visit (Signed) Duc Smith - 02/15/22 15:58 ER Physician Documentation (Signed) Phillip Mckeon - 02/10/22 10:12 ED Discharge Packet (Viewable) 02/10/22 10:11 BMS Internal Correspondence (Scanned) 06/18/21 14:48 Orthopedics Visit (Signed) Apolinar Pa - 06/17/21 16:07 BMS HIPAA (Scanned) 06/17/21 15:33 External Correspondence (Scanned) 06/11/21 11:57 EKG (Scanned) 03/19/21 12:03 Electrocardiogram (Signed) Nikolas Kirk - 03/12/21 13:51 ER Physician Documentation (Signed) True Hermosillo - 03/11/21 10:59 ED Discharge Packet (Viewable) 03/11/21 10:59 human services case manager [place] Sheet (Scanned) 03/11/19 10:24 Anesthesia Record (Scanned) 03/11/19 10:24 Progress Note: Post-Anes Eval (Scanned) 03/11/19 10:24 Anesthesia Evaluation Form (Scanned) 03/11/19 10:24 Operative Notes (Signed) Saulo Warren - 03/09/19 08:13 Provation Operative Report (Scanned) 03/09/19 00:01 History & Physical (Signed) Saulo Warren - 02/19/19 08:43 Surgery Visit (Signed) Saulo Warren - 02/15/19 14:52 BMS HIPAA (Scanned) 02/14/19 15:17 BMS Other Facility Consult (Scanned) 02/06/19 13:33 human services case manager [place] Sheet (Scanned) 11/30/17 10:17 Anesthesia Record (Scanned) 11/30/17 10:17 Progress Note: Post-Anes Eval (Scanned) 11/30/17 10:17 Anesthesia Evaluation Form (Scanned) 11/30/17 10:17 History and Physical Report (Scanned) 11/30/17 10:17 Operative Report (Signed) Brody Xiao - 11/29/17 10:08 Discharge Instructions (Signed) Brody Xiao - 11/29/17 10:07 Physical Therapy Discharge Summary (Signed) Sipben Donta - 10/23/17 19:01 Rehab Re-evaluation (Signed) Sipos, Donta - 07/05/17 13:55 Physical Therapy Evaluation (Signed) Sipben, Donta - 06/15/17 13:02 ED T-Form (Scanned) 12/23/14 11:20 ER Physician Documentation (Signed) Kati Daniel - 12/21/14 07:52 ED Discharge Packet (Viewable) 12/21/14 07:51 Discharge Instructions (Signed) Kati Daniel - 12/21/14 07:49 Venous Doppler (Scanned) 10/28/14 14:18 Addendum [facility] [address] [place] [address] OFFICE VISIT Date of Service:? 03/08/22 MR#: [id number] Acct: [id number] Name:CHINYERE METCALF Rep #: [id number] : 1970 ? ? Provider: Dr. Apolinar Pa, DO Age/Sex:? 52/M ? ? Location: [facility] [place] Status: Signed Intake Intake Visit Reasons:?RIGHT KNEE Allergies cephalexin [From Keflex] Adverse Reaction (Verified 02/15/22 15:23) makes him feel bad Medications bupropion HCl 300 mg 24 hr tablet, extended release 300 mg PO DAILY 03/11/21 [History Confirmed 03/08/22] losartan 100 mg-hydrochlorothiazide 25 mg tablet 1 tab PO DAILY 03/11/21 [History Confirmed 03/08/22] meloxicam 15 mg tablet 15 mg PO DAILY 03/11/21 [History Confirmed 03/08/22] cholecalciferol (vitamin D3) 100 mcg (4,000 unit) capsule 100 mcg PO DAILY 02/10/22 [History Confirmed 03/08/22] gabapentin 300 mg capsule 300 mg PO TID #89 caps 02/10/22 [Rx Confirmed 03/08/22] omega-3 fatty acids 1,000 mg PO DAILY 02/10/22 [History Confirmed 03/08/22] PFSH Medical History?(Updated 03/08/22 @ 15:[address] Apolinar Pa, ) Bilateral primary osteoarthritis of knee Depression DJD of both shoulders Environmental allergies Hammertoe of right foot Hypertension Primary osteoarthritis, right shoulder Surgical History? S/P carpal tunnel release S/P inguinal hernia repair s/p lip cyst removal Family History? Father Arthritis Social History? Smoking Status:? Former smoker quit date: 05/23/98 alcohol intake:? current HPI RIGHT KNEE Details: Parts of this documentation were recorded by a scribe, this documentation accurately reflects the service provided and the decisions made by me, Dr. Apolinar Pa, 03/08/22 0880. CHINYERE RESENDEZ is a 52 year old M here today for? BL knee pain. He states that he has been having this pain for many years. He states that the right knee is worse than the left knee. Right knee has gotten worse over the last 6 months. He has been using a knee compression sleeve on the right knee. Denies any previous surgery of the knees. He did have a right knee steroid injection in the past and was not even helpful for 3 months. He has full extension and past 90 flexion.? He has always been knocked kneed on that side but he feels it is progressed and he is now walking on the lateral border of his foot as it is rolling in further to correct for the deformity as he has I believe always walked with an inverted foot to some degree secondary to his clubfoot on both feet. Left knee bothersome for 1 year to 8 months. loud popping under left knee cap. Denies any previous surgery or injections of the left knee. He had a hammer toe and club feet at that were not treated. Ortho Exam General General: Yes no acute distress Neurologic: Yes alert and Yes oriented x3 Psychologic: Yes reasonable and appropriate Right Knee Homans Sign: No Knee ROM: Yes ROM-Extension -20 to 0 and No ROM-Flexion 0-140 (120) Examination: Yes Med jt line tenderness, Yes Lat jt line tenderness, Yes Crepitus, Yes Pain with flexion and Yes Pain with extention Stability: NML: Valgus 0, NML: Valgus 30, NML: Varus 0 and NML: Varus 30 Patella Translation: 1 Patella Grind: Yes KNEE: no active infections no ulcers on the feet fixed 12-13 degree valgus deformity no joint effusion He does invert his foot when walking and attempt to compensate Left Knee Skin/Wound: No ecchymosis, No erythema and No swelling Homans Sign: No Knee ROM: Yes ROM-Extension -20 to 0 and Yes ROM-Flexion 0-140 Examination: No med jt line tenderness, No Lat jt line tenderness, Yes Crepitus and Yes Pain with flexion Stability: NML: Anterior Drawer, NML: Posterior Drawer, NML: Valgus 0, NML: Valgus 30, NML: Varus 0 and NML: Varus 30 Apprehension with Lateral Translation: No Patella Translation: 1 Patella Grind: Yes Office Procedures Ortho Injections Injections Yes Knee Left Details: Obtained consent for injection.? Under sterile conditions, injected the patient's left knee with 1.5cc bupivacaine, 1.5cc lidocaine and 1cc depomedrol.? The patient tolerated the injection well without any noted complication.? Patient should call our office if redness develops, pain worsens or if they have any concerns. Office Meds Depo-Medrol Performing Provider: Apolinar Pa DO Administered by: Apolinar Pa DO on 03/08/22 14:42 Dose Route Admin Location Lot Number Expiration Date NDC Supervisor Telephone Answering Service 60 mg intra-articular left knee [id number] 08/21/24 0 [id number] PHARMACI/PFIZER Supplemental Info Supplemental Info: 06/08/2021 x-ray right knee: Advanced knee arthrosis with valgus deformity progressed from previous x-rays 03/08/2022 x-ray left knee: Preserved medial and lateral compartments there is severe patellofemoral arthrosis 02/26/2021 x-ray right knee advanced lateral compartment arthrosis with valgus deformity moderate patellofemoral arthrosis Coding Level of Care Code Off vis,est,level 3 Diagnoses Bilateral primary osteoarthritis of knee? M17.0 Valgus deformity, not elsewhere classified, right knee? M21.061 Patellofemoral arthritis of left knee? M17.12 Congenital clubfoot? Q66.89 Obesity? E66.9 CPT Codes global consumer sector vice president.knee ([id number]) Assessment and Plan Assessment and Plan (1) Bilateral primary osteoarthritis of knee: ?Status:?Acute (2) Valgus deformity, not elsewhere classified, right knee: ?Status:?Acute (3) Patellofemoral arthritis of left knee: ?Status:?Acute (4) Congenital clubfoot: ?Status:?Acute (5) Obesity: ?Status:?Acute ? ? ? Orders: Orders Ortho Injections Today M17.12 - Unilateral primary osteoarthritis, left knee ? Knee 4 or More Views Today M25.561 - Pain in right knee ? Knee 4 or More Views Today M25.562 - Pain in left knee ? Referrals Physical Therapy Referral ? M17.11 - Unilateral primary osteoarthritis, right knee ? Plan Educated that he has severe OA of the right knee with severe valgus deformity left knee patellofemoral arthrosis severe, bilateral congenital clubfoot. Treatment options are do nothing or bracing or steroid injections or NSAIDs, therapy or TKA.?Risks, benefits and alternatives of surgery reviewed including but not limited to bleeding, infection, nerve, artery and/or tissue damage, fracture, VTE, mechanical feel of the knee, continued pain, stiffness and expected post-operative course.?Educated that there is an increased risk of nerve injury with his valgus deformity. This is the nerve that allows him to lift the foot, so could develop a foot drop with some alignment correction, he understands that his limb alignment will not be completely corrected, and correction of the valgus deformity 20 degree may make his inverted clubfoot ankle worse as he is already stretched out the lateral ankle ligaments he may have increased pain in his ankle and may require bracing/therapy of his ankle for stability. He wishes to proceed with right total knee arthroplasty despite the known risks. He will need about 3 months off work for recovery but may be longer and up to 2 years to fully recover from knee arthroplasty, he will need PT after surgery. Will also need prophylactic ATBs for life prior to any dental work/cleanings. Will need medical clearance for the patient. Educated that his BMI is right at the cusp of the cut off limit. Encouraged that he will need to keep in to not gain any additional weight. He would also like to have the IOVERA treatment if this is covered by insurance. Would also recommend Pre-hab if able to do so prior to surgery. He would also require therapy for the right ankle after surgery and he may have increased right ankle pain after the right TKA d/t his right lateral ankle being stretched out. He would need to plan to be off work for about 3 months post op. Educated that he does have arthritis of the left knee as well mostly patellofemoral. Educated that the treatment options are do nothing or bracing or NSAIDs or steroid injection or viscosupplementation or TKA versus patellofemoral arthroplasty if we go down that road would require MRI to further evaluate the medial lateral compartments. Recommended that he tries conservative care prior to surgery for the left knee. He will also proceed with left knee steroid injection today. Patient does have a vacation planned to fly to [facility] 05/08/22 through 05/18/22. Educated that he can have increased risk of blood clot with flying within 5 weeks post arthroplasty. Patient and wish to further discuss if he would like to do surgery prior to vacation or after surgery. They will call the office with the decision. He will sign consent during his IOvera visit ? Follow up 2 weeks post op or sooner if pain, swelling, numbness or associated symptoms, or concerns develop.? All questions answered. Patient in agreement of plan. 03/08/22 1543 <Electronically signed by Apolinar Pa DO> Date Apolinar Pa DO Cosigner Signature: Date (if applicable) ? CC:? Dr. True Clarke MD ~
[2022-05-25 07:45] LABS: Bedside Glucose 102 mg/dL (74-106)
--- NOTE | 2022-05-25 08:15 | KNEE_PTH ---
PATIENT: CHINYERE RESENDEZ LOC[place] [facility] [place] U#:[id number] AGE/SX: 52/M ROOM: RE05/25/[address]: Dr. Apolinar Pa DO : 1970 BED: DIS: 05/25/2022 SPEC #: [id number] RECD: 05/25/22 13:03 STATUS: VIRA REEvon #: [id number] VERÓNICA: 05/25/22 08:[address]: Apolinar Pa DEPT: SURGICAL PATHOLOGY RECD BY: Jill Pearson ENTERED: 05/25/22 13:39 SP TYPE: TOTAL KNEE OTHR DR: MD Dr. True Hawthorne MD Tissues: Knee, NOS Procedures: Decalcification bone/plaque Surgery Specimen Level IV HEADER OPERATION: ERAS, total knee replacement robotic arm assist PRE-OP DIAGNOSIS: Osteoarthritis of knee, valgus deformity, congenital clubfoot TISSUE SUBMITTED: Bone from right knee MICROSCOPIC DIAGNOSIS Bone, right knee, total knee replacement/resection: Pieces of bone with degenerative osteoarthritic changes. CHELSEA:richard 05/28/2022 MICROSCOPIC DESCRIPTION Slides are reviewed. GROSS DESCRIPTION Received is one container designated bone right knee. The specimen consists of multiple fragments of barbosa-yellow bone measuring in aggregate 11 x 7 x 2 cm. No soft tissue is identified. A number of bony fragments contain articular surfaces consistent with tibial plateau and femoral condyle and displaying prominent osteophyte formation, eburnation and bone erosion. [place] Laborer sections are submitted in one cassette after decalcification. / AM:richard 05/25/2022 TC:5 CPT: 79961, 66905
[2022-05-25] MEDS: TXA 1000mg in NS100 100ml (IVPB at Incision) 660 MG IV (08:19)
[2022-05-25] MEDS: TXA 1000mg in NS100 100ml (IVPB at Closure) 660 MG IV (09:51)
[2022-05-25] MEDS: Betamethasone/Betamethasone 30 MG/5 ML Vial 4 MG OPERA.SITE (09:57)
[2022-05-25] MEDS: 0.9% Normal Saline (Pres. free 10 ML Vial (09:57)
[2022-05-25] MEDS: Epinephrine (1 mg/ml) 1 MG/ML VIAL (09:57)
--- NOTE | 2022-05-25 10:52 | OP.PCM_ITS ---
Operative Report Date of Procedure: 05/25/22 Preoperative diagnosis: Right knee DJD with severe valgus deformity Postoperative diagnosis: Same Procedure: Right total knee arthroplasty CT guided Robotic Assisted Implant: Giana triathlon press fit, femoral component size2, tibial baseplate size 3, asymmetric patella cemented size 29, polyethylene X3 size 9 CS Anesthesia: Spinal with adductor canal block Tourniquet time: 12 minutes at 300 mmHg Complications: None Condition: Stable to PACU Estimated blood loss: 250 cc Indication for procedure: This is a 52-year-old male patient with congenital clubfoot and severe valgus deformity of right knee with long standing degenerative joint disease of the knee who has failed conservative treatment and wished to proceed with elective total knee arthroplasty. Risk benefits and alternatives were reviewed including; risk of bleeding, infection, nerve artery and tissue damage, continued pain, postoperative stiffness, venous thromboembolism, need for postoperative rehabilitation, mechanical feel to the knee, and expected postoperative course. The pre- operative CT and templating was performed with component sizing. Procedure: The patient was met in the preoperative holding area. The operative extremity was identified by both patient and physician and was marked. Patient was met by anesthesia. An adductor canal block was placed by anesthesia postoperatively the patient was brought back to the operating room on a wheeled cart and transferred to the operating table in the supine position. Anesthesia was started. A well-padded tourniquet was placed on the operative extremity. The patient was prepped and draped in the usual sterile fashion. A timeout was called to ensure the proper patient procedure and extremity were being contemplated. An esmarch was used to exsanguinate the extremity. The tourniquet was inflated. A 10 blade scalpel was used to make a midline incision down through the skin and subcutaneous tissue. Skin retractors placed. Bovie and Aquamantis were used to perform meticulous hemostasis. full-thickness flaps were elevated medial and lateral along the joint capsule. A deep blade scalpel was used to perform a medial parapatellar arthrotomy. The knee was brought to full extension. A bovie was used to release the soft tissues off the most proximal aspect of the medial tibial plateau, a three-quarter inch curved osteotome was also used in this process. The infrapatellar fat pad was excised. The suprapatellar fat pad was excised partially anteriorolateraly and portion the anterioromedial pad was elevated from the femur. At this point our intra- articular femoral array was placed at a 45 degree angle proximal and posterior to the medial epicondyle. femoral checkpoint was placed at this time. Our tibial array was placed greater than 1 hands breath below the incision at a 20 degree angle stab incisions were made with a 15 blade scalpel and pins were placed and attached to the tibial array , tibial checkpoint was placed in the proximal tibial metaphysis. Tourniquet was let down. At this point registration abarca were taken throughout the knee . Once the knee was registered we then tensioned the medial and lateral ligaments in extension and 90 degrees of flexion. We then used these numbers to adjust our components within parameters to balance the knee in both flexion and extension once this was done on our monitor we then proceeded with using the robotic arm to make our tibial plateau cut, anterior and posterior chamfer and distal femur cuts. we removed the cut fragments with the use of a bovie and Elba, we did use a lamina senior market research analyst to insure we visualized and removed all posterior osteophytes and at this time also used the Aquamantis on the posterior joint capsule. we then trialed and achieved the desired plan with a well-balanced knee. we used the green probe to gisselle the corresponding tibial rotation based on our CT template. Lug holes were drilled in the femur the tibia preparation was completed with the appropriate sized base plate pinned based on previous rotation gisselle. An appropriate sized fin punch was used on the tibia and 4 corner drill was used for the press fit component and the patella was prepared by first using a caliper to ensure sufficient bone stock and a patellar reamer to remove the desired amount of bone. lug holes drilled for an asymmetric poly. We then brought the knee through range of motion with excellent patellar tracking. We thoroughly irrigated the knee. Trial components were removed a posterior capsular injection was preformed with our standard cocktail. In addition the aqua Mantis was also used to aid in hemostasis. Betadine rinse was allowed to sit and washed out completely. Components were press-fit into place. The patella component was cemented in place . Aricept rinse was then used followed by several more liters of irrigation after it was allowed to sit. The joint capsule was closed with #1 Ethibond [id number] followed by Vicryl in the subcutaneous tissues with tyson in the skin. Arrays and checkpoints were removed prior to closure all counts were correct stab incisions were closed with a staple standard dressing in the form of Mepilex AG for the main incision and a small Mepilex over the pin holes. Thigh-high SHAMAR hose applied over top of dressing. Patient tolerated the procedure well and was directed to PACU in stable condition . There were no intraoperative complications.
--- NOTE | 2022-05-25 10:53 | DCINST_ITS ---
Discharge Instructions Activity Keep extremity elevated above heart level: Operative Extremity Dressing / Incision Call your doctor if you observe: Shortness of breath and Chest pain Additional Dressing/Incision Instructions:: Ice and elevate lower extremities 2 weeks while not ambulating. Ambulation is encouraged. Weight bearing as tolerated. Use assistive devise for stability. Encourage FULL knee extension and flexion 1 time EVERY time you get up and down and MULTIPLE times per day. No showering 72 hours after surgery. Begin showering postop day #3. Remove the dressing prior to shower and gently wash with warm water and antibacterial soap then pat dry and place abdominal pad (or plain gauze) and SHAMAR hose over top. This is to be done daily. Do not submerge for 3 weeks. If not showering daily after the initial 72 hours then you must clean incision and change dressing daily. Do not allow animals near the incision area. Keep clean. Follow anti- coagulation recommendations as prescribed. Do not take any NSAIDs while on blood thinner. Do not take any additional narcotic pain medication other than what was prescribed on your surgery day without discussing with physician. Narcotic medication can be addictive. Do not drink alcohol while taking narcotics. Supplement narcotic prescription with acetaminophen 1000 mg 4 times a day. Start physical therapy. If you are not currently scheduled for physical therapy or you are unsure of appointment time please call office [facility] to arrange. Call Dr. Pa with any concerns. Follow Up Care Please Follow Up With: Apolinar Pa DO When: 2 weeks Test Results: Test results from this visit will be discussed in further detail at your follow- up appointment, if applicable. Discharge Plan Admission Primary Reason for Your Visit: Right total knee arthroplasty Attending Provider: Apolinar Pa Primary Care Provider: True Clarke Consulting Providers: Jerald Green Discharge Orders/Prescriptions Prescriptions: New acetaminophen [acetaminophen] 500 mg tablet 1,000 mg PO Q6H PRN Qty: 100 0RF Eliquis 2.5 mg tablet 2.5 mg PO BID Qty: 30 0RF clindamycin HCl 300 mg capsule 300 mg PO Q8H Qty: 4 0RF Rx Instructions: Take 2 tabs 9 PM day of surgery and take 2 tabs morning after surgery oxycodone 5 mg tablet 5 mg PO Q4H PRN (Reason: pain) 7 Days Qty: 60 0RF ondansetron HCl 4 mg tablet 4 mg PO Q6H PRN (Reason: nausea and vomiting) Qty: 5 0RF No Action meloxicam 15 mg tablet 15 mg PO DAILY losartan-hydrochlorothiazide 100-25 mg tablet 1 tab PO DAILY bupropion HCl 300 mg tablet extended release 24 hr 300 mg PO DAILY Divernon 3 Capsule 1,000 mg PO DAILY Vitamin D3 100 mcg (4,000 unit) Capsule 100 mcg PO DAILY Referrals / Follow Up: True Clarke MD [Primary Care Provider] - Disposition Disposition (needs filled in before D/C Order can be placed): Home, Self Care
--- NOTE | 2022-05-25 11:00 | RAD_ITS ---
STUDY: X-RAY - RIGHT KNEE REASON FOR EXAM: Male, 52 years old. Postop TKA in PACU. TECHNIQUE: 2 view(s) of the knee. COMPARISON: March 08, 2022. FINDINGS: There is a 3 component total knee arthroplasty in anatomic position. There are expected post-operative findings. There are no complications. No other significant abnormality is identified. RAD/Knee 1 or 2 Views IMPRESSION: Total knee arthroplasty in anatomic alignment without complications. Electronically Signed: Jb Boyd, at 11:37 EST ,
[2022-05-25] MEDS: oxyCODONE 5 MG Tablet PO (12:28)
[2022-05-25] MEDS: Clindamycin 900 MG/50 ML BAG 75 MG IV (12:28)
== END 2022-05-25 17:00 | disposition home or self-care (01) ==
LOC: SDC 05:43 → AC 05:43
PROVIDERS: Anesthesiology; PCP Family Medicine; Referring Provider Orthopaedic Surgery; Visit Provider Orthopaedic Surgery
PROC: 0SRC0JZ Replacement of Right Knee Joint with Synthetic Substitute, Open Approach (ICD-10-PCS; CPT 27447; principal; 2022-05-25 07:45)
DX: M17.0 Bilateral primary osteoarthritis of knee (principal); M21.061 Valgus deformity, not elsewhere classified, right knee; E66.9 Obesity, unspecified; Z68.38 Body mass index [BMI] 38.0-38.9, adult; Z79.01 Long term (current) use of anticoagulants; Z79.899 Other long term (current) drug therapy; Z87.891 Personal history of nicotine dependence
CPT/HCPCS: 27447; 01402; 64447; 36415; 73560; 80048; 82962; 82985; 83036; 83735; 85610; 85730; 87081; 88305; 88311; 97162; C1776; J7040; J7120; J0702; J2405; J3475; J3490

== ENCOUNTER 2022-07-19 09:30 | Outpatient (RCR) | payer OTHER, SELFPAY ==
--- NOTE | 2022-03-22 08:30 | HP.PTEVAL ---
Patient's Visit Information CHINYERE RESENDEZ is a 52 year old M referred to Physical Therapy by Dr. Apolinar Pa DO with a diagnosis of R knee OA. Date of Evaluation: 03/19/22 Physical Therapist: Donta Adkins DPT - Visit Plan Frequency: 2x /Week Duration: 4 Weeks Plan: Start with glute, HS, quad and ankle eVR strengthening. Progress to HEP with increased functional component as tolerated. - Subjective Pt. is here today for his initial evaluation with diagnosis of L knee OA. Pt. reports having issues for many years, but has been getting worse. also he has increased R ankle pain with INV/supinated positioning. He did recently start wearing both a R knee and R ankle brace which has been helping. He works a [employer] with a lot of standing. He denies N/T, but does report having a an underlying issues from . Pt. has not done much strengthening exercises, but has been trying to walk more. Pt. is hopeful to have a R knee replacement, but physician would like him to be stronger prior to surgery. 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 - Pain R knee Pain Intensity (Out of 10): 3 Pain Intensity Range: 1, 7 - Objective POSTURE: Pt. stands with R knee in valgus positioning with hyper extension, He also has his R ankle in inv/supinated positioning. [place]: Pt. has no pain with palpation of knee or ankle. NEURO: Normal sensation noted throughout BLEs. ROM: R KNEE: 05-0-110deg. Pt. has a bit of hyper extension in R knee. ANKLE: DF: 6DF, PF 48DEG, INV 20deg, EVR 8deg. Pt. has tightness in B HS as well. MMT: LLE: 5/5 throughout. RLE: ankle 5/5 throughout, except 4/5 ankle EVR. KNEE: flexion 5-/5, flexion 4+/5; hip: flexion 4+/5, ext 4+/5, abd 4/5. Core strength- poor. GAIT: Pt. ambulates without AD. During R stance phase patient has increased R knee hyper extension, valgus positioning with R ankle in supinated/INV. He has normal step length. STAIRS: step to pattern noted with loading LLE only. - Balance/Special Test Scores Lower Extremity Functional Score: 34 TUG Test Time Seconds: 9.1 - Goals Goal 1:: LTG: PT. to be I with HEP for quad, glute and HS strengthening. Goal Time Frame: 4-6 Weeks Goal 2:: LTG: Pt. to have increased R ankle EVR strength to at least 5-/5 in order to reduce supinated/INV positioning during stance phase of gait Goal Time Frame: 4-6 Weeks Goal 3:: LTG: Pt. to have increase R knee ext, flexion, glute med/max strength increased to at least 5-/5 throughout. Goal Time Frame: 4-6 Weeks Goal 4:: LTG: Pt. to ambulate with decreased hyper extended and valgus positioning with improved ankle positioning to increase tolerance to gait. Goal Time Frame: 4-6 Weeks - Rehabilitation Potential Physical Therapy Diagnosis: Pt. 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 Pt. has marked hyper extension of R knee with valgus deformity. Pt. is doing better with bracing, but yuri has marked deformity. Pt. would benefit from PT to increase R ankle and knee stability and build strength prior to having R TKA. Rehabilitation Potential: Good - Anticipated Interventions Patient/Client Instruction: Educate patient on: Condition, Plan of Care, Risk Factors, Benefits of Fitness Program For the Purpose of:: To foster healthy habits, To improve decision making, To facilitate caregiver knowledge, To improve self management, To prevent re-injury, To improve ability to perform tasks related to life management Therapeutic Exercise to Include: Strength training, Power training, Balance training, Coordination, Postural training, Flexibilty training, Gait and locomotor training, Dynamic Lumbar Stabilization For the Purpose of:: To decrease pain, To increase ROM, To improve nutrient delivery to tissue, To increase oxygenation perfusion, To improve muscle performance and motor function, To improve ability to perform ADL's, To increase tolerance to activity/condition/position, To improve performance and independence with ADL's, To improve gait and locomotor functions, To improve health of tissue, To decrease soft tissue restriction, To increase flexibility/ROM Thank you for the opportunity to evaluate your patient. For Medicare and Medicare HMO plans, please review the plan of care and approve it. It will need to be FAXED BACK to us at [phone] for Medicare purposes. For Medicare only, by signing this I certify the plan of care. Please let me know if there are questions or concerns regarding this plan of care. Physician Signature: Date:
--- NOTE | 2022-05-27 13:38 | HP.PTREVAL_ITS ---
Dr. Apolinar Pa, DO, It has been my pleasure to treat CHINYERE RESENDEZ over the last 2 visits for R knee TKA DOS: 05/25/22. Please see the progress note below for an update on the physical therapy plan of care! Subjective: I saw patient today after have his R TKA on 05/25/22. Pt. did prehab here and was instructed in HEP. He is now back to PT after surgery. He reports overall doing well, but is having 7/10 pain in his R knee and leg. He denies N/T in either LE. He is walking at home with standard walker and doing his HEP as prescribed. Objective/Function: ROM: L knee 0-10-80deg. supine. Pt. achieved 90deg of flexion in sitting and 0deg of extension with heel propped on step. MMT: RLE: knee ext 2#, flexion 10#; hip; flexion 4#, abd 5#. GAIT: pt. ambulates with standard walker with good tolerance. He has some antalgic movements, but overall did well. He does a step to pattern when loading RLE. Pt. does heavily use AD to off load RLE. Pt. has minimal knee flexion during swing phase. TU.1sec with standard walker. marked edema, 4cm difference in circumference at mid patella. Overall much improved varus positioning of his knee. Plan Plan: Pt. would benefit from PT to work initially on his ROM, edema control and pain control. Progress to gait and functional strengtheing once tolerated. Use of vaso and ice for pain control. I would like to see him x3 per week for 3 weeks then progress to x2 for another 3 week. 15 visits in total Balance/Gait/Functional tests - Balance/Special Test Scores Lower Extremity Functional Score: 34 TUG Test Time Seconds: 9.1 Tug Test: <10 sec.=free mobile WOMAC Total Score: 72 WOMAC Percentage: 25.0000 Goals Goal 1:: LTG: PT. to be I with HEP for quad, glute and HS strengthening. Goal Time Frame: 4-6 Weeks Goal 2:: STG: Pt. to sleep throughout the night without increase in symptoms allowing for increased quality of life. Goal Time Frame: 4-6 Weeks Goal Progress: Progressing Goal 3:: LTG: Pt. to have increase R knee ext, flexion, glute med/max strength increased to at least 5-/5 throughout. Goal Time Frame: 4-6 Weeks Goal Progress: Progressing Goal 4:: LTG: Pt. to ambulate with walker with normalized gait pattern without increase in symptoms for unlimited distances. Goal Time Frame: 4-6 Weeks Goal 5:: LTG: Pt. to have increased R knee ROM to at least 0-0-120deg allowing for good tolerance to all functional mobility. Goal Time Frame: 4-6 Weeks Goal 6:: LTG: Anticipated Interventions Patient/Client Instruction: Educate patient on: Condition, Plan of Care, Risk Factors, Benefits of Fitness Program For the Purpose of:: To foster healthy habits, To improve decision making, To facilitate caregiver knowledge, To improve self management, To prevent re-i njury, To improve ability to perform tasks related to life management Therapeutic Exercise to Include: Strength training, Power training, Balance training, Coordination, Postural training, Flexibilty training, Gait and locomotor training, Dynamic Lumbar Stabilization For the Purpose of:: To decrease pain, To increase ROM, To improve nutrient delivery to tissue, To increase oxygenation perfusion, To improve muscle performance and motor function, To improve ability to perform ADL's, To increase tolerance to activity/condition/position, To improve performance and independence with ADL's, To improve gait and locomotor functions, To improve health of tissue, To decrease soft tissue restriction, To increase flexibility/ROM Please do not hesitate to contact me at [phone] by phone or if you have questions or concerns regarding this new plan of care! Sincerely, Donta Adkins DPT
--- NOTE | 2022-07-05 09:58 | HP.PTREVAL_ITS ---
Dr. Apolinar Pa, DO, It has been my pleasure to treat ROGE RESENDEZ over the last 13 visits for R knee TKA DOS: 05/25/22. Please see the progress note below for an update on the physical therapy plan of care! Subjective: Pt. reports overall doing well. Pt. very pleased. pt. to follow up with physician later this date. No pain noted. Objective/Function: ROM: 0-0-120deg. MMT: 5/5 strength throughout RLE. No edema noted. GAIT: Pt. has good gait pattern, he does have slight R ankle INV during swing, but has been present prior to surgery. STAIRS: normal without HR. Pt. did have questions about returning to work. I talked to him about increasing time spent with walking and standing to simulate work activities. Overall roge is doing very well. I am very pleased with how hard he work to get to where he is now. Pt. pleased. Plan Plan: Pt. to follow up with physician then talk to PT to determine if further PT is warranted. Balance/Gait/Functional tests - Balance/Special Test Scores Lower Extremity Functional Score: 34 TUG Test Time Seconds: 9.1 Tug Test: <10 sec.=free mobile WOMAC Total Score: 72 WOMAC Percentage: 25.0000 Goals Goal 1:: LTG: PT. to be I with HEP for quad, glute and HS strengthening. Goal Time Frame: 4-6 Weeks Goal 2:: STG: Pt. to sleep throughout the night without increase in symptoms allowing for increased quality of life. Goal Time Frame: 4-6 Weeks Goal Progress: Progressing Goal 3:: LTG: Pt. to have increase R knee ext, flexion, glute med/max strength increased to at least 5-/5 throughout. Goal Time Frame: 4-6 Weeks Goal Progress: Progressing Goal 4:: LTG: Pt. to ambulate with walker with normalized gait pattern without increase in symptoms for unlimited distances. Goal Time Frame: 4-6 Weeks Goal 5:: LTG: Pt. to have increased R knee ROM to at least 0-0-120deg allowing for good tolerance to all functional mobility. Goal Time Frame: 4-6 Weeks Goal 6:: LTG: Anticipated Interventions Patient/Client Instruction: Educate patient on: Condition, Plan of Care, Risk Factors, Benefits of Fitness Program For the Purpose of:: To foster healthy habits, To improve decision making, To facilitate caregiver knowledge, To improve self management, To prevent re- injury, To improve ability to perform tasks related to life management Therapeutic Exercise to Include: Strength training, Power training, Balance training, Coordination, Postural training, Flexibilty training, Gait and locomotor training, Dynamic Lumbar Stabilization For the Purpose of:: To decrease pain, To increase ROM, To improve nutrient delivery to tissue, To increase oxygenation perfusion, To improve muscle performance and motor function, To improve ability to perform ADL's, To increase tolerance to activity/condition/position, To improve performance and independence with ADL's, To improve gait and locomotor functions, To improve health of tissue, To decrease soft tissue restriction, To increase flexibility/ROM Please do not hesitate to contact me at [phone] by phone or if you have questions or concerns regarding this new plan of care! Sincerely, Donta Adkins DPT
--- NOTE | 2022-07-19 10:23 | HP.PTDCNRP_ITS ---
ROGE RESENDEZ was seen in my office for initial evaluation on 03/19/22. The following Plan of Care was established for this patient: Initial Frequency: 2x /Week Initial Duration: 4 Weeks Patient/Client Instruction: Educate patient on: Condition, Plan of Care, Risk Factors, Benefits of Fitness Program For the Purpose of:: To foster healthy habits, To improve decision making, To facilitate caregiver knowledge, To improve self management, To prevent re- injury, To improve ability to perform tasks related to life management Therapeutic Exercise to Include: Strength training, Power training, Balance training, Coordination, Postural training, Flexibilty training, Gait and locomotor training, Dynamic Lumbar Stabilization For the Purpose of:: To decrease pain, To increase ROM, To improve nutrient delivery to tissue, To increase oxygenation perfusion, To improve muscle performance and motor function, To improve ability to perform ADL's, To increase tolerance to activity/condition/position, To improve performance and indep endence with ADL's, To improve gait and locomotor functions, To improve health of tissue, To decrease soft tissue restriction, To increase flexibility/ROM This patient was last seen in our office 07/19/22. Pertinent comments regarding their Physical therapy will appear below: I talked to roge today. He is doing great. His insurance approval ran out today. I offered to request more, but he reported that he is doing well and wants to be done today. Pt. is doing very well. He is to continue with his ankle strengthening as home as well. Roge did great with his R TKR and is progr essing with his R ankle instability. Pt. to continue with this on his own at this point in time. At this point I will be discontinuing this patient from physical therapy. I would be happy to see this patient again in the future if found appropriate by the physician. Thank you! Donta Adkins, DPT Balance/Gait/Functional tests - Balance/Special Test Scores Lower Extremity Functional Score: 76 TUG Test Time Seconds: 9.1 Tug Test: <10 sec.=free mobile WOMAC Total Score: 72 WOMAC Percentage: 25.0000
== END 2022-07-19 12:40 | disposition home or self-care (01) ==
LOC: PT 09:30
PROVIDERS: PCP Family Medicine; Referring Provider Orthopaedic Surgery; Visit Provider Orthopaedic Surgery
DX: M17.11 Unilateral primary osteoarthritis, right knee (principal)
CPT/HCPCS: 97110; 97161; 97164

== ENCOUNTER → 2022-11-12 | Outpatient (CLI) | payer OTHER, SELFPAY ==
[2022-11-12 15:37] LABS: ALB/GLOB Ratio 1.1 RATIO (0.9-2.4); AST(SGOT) 23 U/L (15-37); Alanine Aminotransfer ALT/SGPT 35 U/L (16-61); Albumin, Serum 3.8 g/dL (3.2-5.0); Alkaline Phosphatase 86 U/L (45-117); Anion Gap 8 (5-15); BUN 19 mg/dL (7-18); BUN/Creat Ratio 22.7 RATIO (10-20); Calcium,Total 9.3 mg/dL (8.5-10.1); Chloride 105 mmol/L (98-107); Cholesterol 189 mg/dL (200); Creatinine, Serum 0.84 mg/dL (0.70-1.30); EST Glomerular Filtration Rate 102 mL/min (>60); Est Glom Filt Rate - Afr Amer 123 mL/min (>60); Globulin 3.4 g/dL (2.2-4.2); Glucose 78 mg/dL (74-106); High Density Lipoprotein 50 mg/dL; Potassium 3.6 mmol/L (3.5-5.1); Protein, Total 7.2 g/dL (6.4-8.2); Sodium Level 140 mmol/L (136-145); Triglycerides 148 mg/dL; Very Low Density Lipoprotein 30 mg/dL (5-40)
== END | disposition home or self-care (01) ==
LOC: MTLAB 12:33
PROVIDERS: PCP Family Medicine; Referring Provider Family Medicine; Visit Provider Family Medicine
DX: E66.01 Morbid (severe) obesity due to excess calories (principal)
CPT/HCPCS: 36415; 80053; 80061

== ENCOUNTER → 2023-01-21 | Outpatient (CLI) | payer OTHER, SELFPAY ==
--- NOTE | 2023-01-21 09:54 | VDLE_ITS ---
Reason For Study: LLE Pain RIGHT LEFT CFV is compressible, spontaneous, phasic, GSV is normal. competent and demonstrates normal CFV is compressible, spontaneous, phasic, augmentation. competent, and demonstrates normal Procedure augmentation. This is a venous duplex using B-mode, color FV is compressible, spontaneous, phasic, flow and spectral Doppler. competent and demonstrates normal Exam performed in department. augmentation. A preliminary report was called and/or faxed POP V is compressible, spontaneous, phasic, to Dr. Clarke. competent and demonstrates normal augmentation. T/P Trunk is compressible. PTV is compressible. LT PerV is compressible. Heterogeneous, non vascular structure noted Lt Medial Knee measuring 1.54cm x 4.87cm. VL/Venous Duplex US, Unilateral Interpretation Summary Deep veins of the left lower extremity are patent and compressible segmentally. There is no evidence of left lower extremity deep vein thrombosis. Valvular competence appears intac t within the proximal deep venous system on the left . The left great saphenous vein appears patent a nd compressible segmentally. The right common femoral vein is patent and compressible . A non-v ascular, heterogeneous structure is noted medial to the left knee, measuring 1.54 cm x 4 .87 cm. This may represent a seroma or hematoma. Clinical correlation is advised. Ordering Physician: True Clarke Referring Physician: True Clarke Performed By: Vivian Calderon, MONOCS, RVT
== END | disposition home or self-care (01) ==
LOC: CVS 09:46
PROVIDERS: PCP Family Medicine; Referring Provider Family Medicine; Visit Provider Family Medicine
DX: M79.605 Pain in left leg (principal)
CPT/HCPCS: 93971

== ENCOUNTER 2023-06-17 11:34 | Day surgery (SDC) | payer OTHER, SELFPAY ==
--- NOTE | 2023-06-09 13:37 | EKG12_ITS ---
Test Reason : PRE OP Blood Pressure : / mmHG Vent. Rate : 077 BPM Atrial Rate : 077 BPM P-R Int : 160 ms QRS Dur : 088 ms QT Int : 372 ms P-R-T Axes : 061 009 -06 degrees QTc Int : 420 ms Normal sinus rhythm Normal ECG Confirmed by KATIA FAM, MASTER ([id number]), book or script editor HANY ELISE ([id number]) on 06/10/2023 7:54:07 AM Referred By: Rod Kim Confirmed By:MASTER MONTALVO MD
[2023-06-09 14:42] LABS: Hematocrit 51.1 % (40-54); Hemoglobin 17.1 g/dL (13.0-16.5); Mean Corp Hgb Conc 33.5 g/dL (32-36); Mean Corpuscular Hgb 30.4 pg (27.0-32.0); Mean Corpuscular Volume 90.9 fL (80-94); Mean Platelet Vol. 11.4 fl (6.2-12.0); Platelet Count 253 K/mm3 (150-450); RBC Distribution Width CV 13.2 % (11.6-14.6); RBC Distribution Width SD 44.1 fl (35.1-43.9); Red Blood Count 5.62 M/mm3 (4.6-6.2); White Blood Count 8.7 K/mm3 (4.4-11.0)
[2023-06-09 15:02] LABS: Anion Gap 5 (5-15); BUN 19 mg/dL (7-18); BUN/Creat Ratio 18.6 RATIO (10-20); Calcium,Total 10.2 mg/dL (8.5-10.1); Chloride 105 mmol/L (98-107); Creatinine, Serum 1.02 mg/dL (0.70-1.30); EST Glomerular Filtration Rate 81 mL/min (>60); Est Glom Filt Rate - Afr Amer 98 mL/min (>60); Glucose 85 mg/dL (74-106); Potassium 3.7 mmol/L (3.5-5.1); Sodium Level 141 mmol/L (136-145)
[2023-06-17] VITALS (7 sets, daily range): BP systolic 112–133; BP diastolic 76–86; PULSE 66–74; RESP 16–18; TEMP 37.1; O2SAT 92–99; BMI 36.1
[2023-06-17] MEDS: Lactated Ringers 1,000 ML 15 ML IV (11:56)
--- NOTE | 2023-06-17 12:00 | RAD_ITS ---
STUDY: X-RAY - RIGHT CALCANEUS REASON FOR EXAM: Male, 53 years old. PAIN TECHNIQUE: 2 fluoroscopic guided view(s) of the calcaneus were obtained. . 0.12 seconds of fluoroscopic time were utilized COMPARISON: None. FINDINGS: 2 fluoroscopic guided views of the heel would obtained demonstrating partially threaded screw traversing the calcaneus and talus. For more complete information recommend correlation with operative notes RAD/Calcaneus min 2 Views IMPRESSION: Fluoroscopic guided views of the calcaneus status post stabilization Electronically Signed: Javier Merchant MD at 19:37 EST ,
--- OUTSIDE RECORDS SUMMARY | 2023-06-17 12:04 | XMS RPT_ITS | CCD ---
Author Name Unknown Address [email or web address] [place] [address] Organization [facility] Care Team Providers Care Fountain Pen Turner Name Role Phone Distel, Yasmin Unavailable Unavailable Distel, Yasmin Unavailable Unavailable Distel, Yasmin Unavailable Unavailable Scaglione, Ana Unavailable Unavailable Distel, Yasmin Unavailable Unavailable Distel, Yasmin Unavailable Unavailable Distel, Yasmin Unavailable Unavailable Distel, Yasmin Unavailable Unavailable Distel, Yasmin Unavailable Unavailable Problems Problem Classification Problem Date Documented Da te Episodic/Chronic Disorders of lipid metabolism (2 sources) Hyperlipidemia, unspecified; Translations: [Hyperlipidemia, unspecified] Onset: 06-25-2017 Chronic Essential hypertension (2 sources) Essential (primary) hypertension; Translations: [Essential (primary) hypertension] Onset: 06-25-2017 Chronic Osteoarthritis (6 sources) Primary osteoarthritis, left shoulder; Translations: [Primary osteoarthritis, right shoulder] Onset: 08-29-2017 Chronic Other nervous system disorders (2 sources) Other chronic pain; Translations: [Other chronic pain] Onset: 08-29-2017 Chronic Other non-traumatic joint disorders (2 sources) Pain in right shoulder; Translations: [Pain in right shoulder] Onset: 08-29-2017 Episodic Results Test Name Value Interpretation Reference Range Facil ity Encounters Encounter Date Encounter Type Care Provider Facility Start: 09-07-2017 Ambulatory Yamsin Distel [facility] Start: 08-29-2017 Ambulatory Yasmin Distel [facility] Start: 06-25-2017 Ambulatory Ana Scaglione [facility] Payers Date Payer Category Payer Policy ID Unknown Summary Purpose Family History No Family History Records FoundNo Family History Records Found Advance Directives No Advanced Directives Records FoundNo Advanced Directives Records Found Additional Source Comments (unrecognized sect ion and content) No Status Records FoundNo Status Records Found INFORMATION SOURCE (unrecogn ized section and content) DATE CREATED AUTHOR AUTHOR'S FATOU ATION 07/04/2019 [facility] FOR RECORDS PERTAINING TO PATIENTS WHO ARE OR HAVE BEEN ENROLLED IN A CHEMICAL DEPENDENCY/SUBSTANCEABUSE PROGRAM, SOME INFORMATION MAY BE OMITTED. This clinical summary was aggregated from multiple sources. Caution should be exercised in using it in the provision of clinical care. This summary normalizes information from multiple sources, and as a consequence, information in this document may materially change the coding, format and clinical context of patient data. In addition, data may be omitted in some cases. CLINICAL DECISIONS SHOULD BE BASED ON THE PRIMARY CLINICAL RECORDS. [employer] provides no warranty or guarantee of the accuracy or completeness of information in this document.
[2023-06-17] MEDS: Cefazolin 2 GM in 0.9% Normal Saline (100mL Bag) 100 ML IV (13:04)
[2023-06-17] MEDS: Bupivacaine Mpf 0.5% 30 ML VIAL (13:15)
[2023-06-17] MEDS: Lidocaine 1% (30 ml sdv) 30 ML Vial (13:15)
--- NOTE | 2023-06-17 14:23 | PCM.OPRPT ---
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 no ankle instability noted after STJ fusion Surgeon: Rod Kim Type of Anesthesia: General/Supplemental Estimated Blood Loss (mL): 10ml Description of Procedure: Patient is brought to the operating room placed on table in the supine position. General anesthesia was administered and the local anesthetic was injected as a ankle block. A total of 30 mL of a one-to-one mixture of half percent Marcaine plain and 1% lidocaine plain was used. The foot was prepped and draped in the usual sterile fashion elevated and exsanguinated and the tourniquet was inflated to 250 mmHg. Attention was directed laterally where a lateral incision was made from the tip of the lateral malleolus to the calcaneocuboid joint it was deepened by sharp and blunt dissection taking care to preserve all vital structures and Bovie bleeders as necessary incision was carried down through the periosteum and capsule gaining access to the subtalar joint the subtalar joint was significantly anterior Dean and medially rotated and displaced essentially the subtalar joint was rounded like a ball and socket. Combination of rongeur and a saw was used to create an osteotomy and remove both mating surfaces of cartilage. The foot could then easily be dorsiflexed and externally rotated into an appropriate position. A small incision was made on the posterior plantar junction of the heel where a guidewire for a six 5 mm Arthrex screw was inserted through the calcaneal body and into the talar body. This essentially corrected the majority of the deformities that he had there was still some forefoot abduction but very little in the foot had no equinus. Therefore this was the only procedure to be performed. The talonavicular joint and the calcaneocuboid joint looked well aligned once the subtalar joint was held in its appropriate anatomic position. A drill was used to create some subchondral fenestration on both mating surfaces screw length was measured and a 6 5 mm headless cannulated screw from Arthrex was inserted across the osteotomy site prior to tightening the screw a was inserted in the fusion siteCancellous bone mixture and then the screw was tightened down and checked under C-arm fluoroscopy and noted not to enter the ankle joint and it was in appropriate position adequately creating bone to bone apposition and alignment. The foot was in surprisingly good alignment with just the simple subtalar joint fusion so no further procedures were performed the wound was flushed with copious amounts normal saline solution. The deep tissue was closed with 3-0 Vicryl. And the skin was closed with 3-0 nylon. A dry sterile dressing was applied. Tourniquet was deflated and full vascular status was restored to the foot and its digits. A posterior splint was applied. Patient tolerated the anesthesia procedure well. Grafts/Implants Used: cancellous bone slurry/arthrex, 6.5 arthrex headless cannulated screw Complications none Admit VTE Documentation VTE Mechan Device Prophylaxis: SCD's VTE Pharm Prophylaxis ordered?: No Reason prophylaxis not ordered:: Treatment Not Indicated
== END 2023-06-17 15:28 | disposition home or self-care (01) ==
LOC: SDC 11:37 → AC 11:37
PROVIDERS: Anesthesiology; PCP Family Medicine; Referring Provider Podiatrist Foot & Ankle Surgery; Visit Provider Podiatrist Foot & Ankle Surgery
PROC: (CPT 28292; principal; 2023-06-17 12:45)
DX: M25.371 Other instability, right ankle (principal); M20.5X1 Other deformities of toe(s) (acquired), right foot; Z96.651 Presence of right artificial knee joint; I10 Essential (primary) hypertension; Z87.891 Personal history of nicotine dependence
CPT/HCPCS: 28715; 01480; 36415; 73650; 76000; 80048; 85027; 93005; C1713; J7120; J2405

== ENCOUNTER → 2023-12-22 | Outpatient (CLI) | payer OTHER, SELFPAY ==
--- NOTE | 2023-12-22 15:06 | RAD_ITS ---
STUDY: X-RAY - RIGHT ANKLE REASON FOR EXAM: Male, 53 years old. PAIN TECHNIQUE: 3 views of the right ankle. COMPARISON: None. FINDINGS: Normal visualized distal tibia and fibula. Normal medial and lateral malleoli. Normal tibiotalar articulation and ankle mortise. Intact visualized talus and calcaneus. There is an os trigonum. There is a talocalcaneal fusion screw in place. The visualized talonavicular, calcaneocuboid and tarsal articulations are normal. There is no demonstrated fracture. There is soft tissue swelling around the ankle. RAD/Ankle min 3 Views IMPRESSION: Talocalcaneal fusion screw in place. No demonstrated fracture. Soft tissue swelling around the ankle. Electronically Signed: Tito Moran MD at 15:59 EDT ,
--- NOTE | 2023-12-22 15:06 | RAD_ITS ---
STUDY: X-RAY - LEFT ANKLE REASON FOR EXAM: Male, 53 years old. Pain. TECHNIQUE: 3 views of the left ankle. COMPARISON: None. FINDINGS: Normal visualized distal tibia and fibula. Normal medial and lateral malleoli. Normal tibiotalar articulation and ankle mortise. Intact visualized talus and calcaneus. There are small plantar and posterior calcaneal tuberosity spurs. The visualized subtalar, talonavicular, calcaneocuboid and tarsal articulations are normal. There is no demonstrated fracture. There is mild soft tissue swelling around the ankle. RAD/Ankle min 3 Views IMPRESSION: Small plantar and posterior calcaneal tuberosity spurs. Mild soft tissue swelling around the ankle. No demonstrated fracture. Electronically Signed: Tito Moran MD at 15:51 EDT ,
--- NOTE | 2023-12-22 15:06 | RAD_ITS ---
STUDY: X-RAY - RIGHT FOOT CLINICAL: Male, 53 years old. PAIN TECHNIQUE: 3 views of the right foot. COMPARISON: None. FINDINGS: Intact talus, calcaneus, and tarsal bones. There is an os trigonum. There is a talocalcaneal fusion screw in place. Normal visualized talonavicular, calcaneocuboid, tarsal and tarsometatarsal articulations. Normal metatarsi. Normal metatarsophalangeal joint of the great toe. Normal tibial and fibular sesamoid bones. Normal interphalangeal joint of the great toe. Normal phalanges of the great toe. Normal second through fifth metatarsophalangeal joints. Normal interphalangeal joints and phalanges of the lesser toes. The soft tissue structures are unremarkable. There is no demonstrated fracture. RAD/Foot min 3 Views IMPRESSION: Talocalcaneal fusion screw in place. No demonstrated fracture. Electronically Signed: Tito Moran MD at 16:02 EDT ,
--- NOTE | 2023-12-22 15:10 | RAD_ITS ---
STUDY: X-RAY - LEFT FOOT CLINICAL: Male, 53 years old. PAIN TECHNIQUE: 3 views of the left foot. COMPARISON: None. FINDINGS: Intact talus, calcaneus, and tarsal bones. There are small plantar and posterior calcaneal tuberosity spurs. Normal visualized subtalar, talonavicular, calcaneocuboid, tarsal and tarsometatarsal articulations. Normal metatarsi. Normal metatarsophalangeal joint of the great toe. Normal tibial and fibular sesamoid bones. Normal interphalangeal joint of the great toe. Normal phalanges of the great toe. Normal second through fifth metatarsophalangeal joints. Normal interphalangeal joints and phalanges of the lesser toes. The soft tissue structures are unremarkable. There is no demonstrated fracture. RAD/Foot min 3 Views IMPRESSION: Small plantar and posterior calcaneal tuberosity spurs. No demonstrated fracture. Electronically Signed: Tito Moran MD at 15:52 EDT ,
== END | disposition home or self-care (01) ==
PROVIDERS: PCP Family Medicine; Referring Provider Podiatrist; Visit Provider Podiatrist
DX: M25.572 Pain in left ankle and joints of left foot (principal); M25.571 Pain in right ankle and joints of right foot; M79.671 Pain in right foot; M79.672 Pain in left foot
CPT/HCPCS: 73610; 73630

== ENCOUNTER → 2024-04-26 | Outpatient (CLI) | payer OTHER, SELFPAY ==
--- NOTE | 2024-04-26 15:01 | RAD_ITS ---
EXAM: XR RIGHT SHOULDER COMPLETE, 2 OR MORE VIEWS CLINICAL INDICATION: PAIN TECHNIQUE: Two or more views of the right shoulder. COMPARISON: 02/26/2021 FINDINGS: BONES/JOINTS: There are degenerative changes with narrowing of the glenohumeral joint. No acute fracture. No subluxation. Normal alignment. No sclerotic or destructive changes observed. SOFT TISSUES: Unremarkable. No soft tissue swelling or gas. No radiopaque foreign body. RAD/Shoulder min 2 Views IMPRESSION: Degenerative changes with narrowing of the glenohumeral joint. There are no acute osseous abnormalities. Electronically Signed: Albert Alexander MD at 23:55 EST ,
--- NOTE | 2024-04-26 15:01 | RAD_ITS ---
EXAM: XR LEFT SHOULDER COMPLETE, 2 OR MORE VIEWS CLINICAL INDICATION: PAIN TECHNIQUE: Two or more views of the left shoulder. COMPARISON: No relevant prior studies available. FINDINGS: BONES/JOINTS: There is severe narrowing of the glenohumeral joint with flattening of the humeral head. There is also an osteophyte in the inferior ASPECTS of the humeral head. There are subchondral cysts seen in the humeral head and in the glenoid. No acute fracture. No subluxation. Normal alignment. No sclerotic or destructive changes observed. SOFT TISSUES: Unremarkable. No soft tissue swelling or gas. No radiopaque foreign body. RAD/Shoulder min 2 Views IMPRESSION: Severe degenerative changes in the glenohumeral joint with joint space narrowing, subchondral cysts and flattening of the humeral head. There are no acute osseous abnormalities. Electronically Signed: Albert Alexander MD at 23:56 EST ,
== END | disposition home or self-care (01) ==
PROVIDERS: PCP Family Medicine; Referring Provider Family Medicine; Visit Provider Family Medicine
DX: M25.519 Pain in unspecified shoulder (principal)
CPT/HCPCS: 73030

== ENCOUNTER → 2024-05-21 | Outpatient (CLI) | payer OTHER, SELFPAY ==
[2024-05-21 08:15] LABS: ALB/GLOB Ratio 0.9 RATIO (0.9-2.4); AST(SGOT) 19 U/L (15-37); Alanine Aminotransfer ALT/SGPT 36 U/L (16-61); Albumin, Serum 3.4 g/dL (3.2-5.0); Alkaline Phosphatase 96 U/L (45-117); Anion Gap 5 (5-15); BUN 23 mg/dL (7-18); BUN/Creat Ratio 27.3 RATIO (10-20); Calcium,Total 9.3 mg/dL (8.5-10.1); Chloride 105 mmol/L (98-107); Cholesterol 191 mg/dL (200); Creatinine, Serum 0.84 mg/dL (0.70-1.30); EST Glomerular Filtration Rate 100 mL/min (>60); Est Glom Filt Rate - Afr Amer 121 mL/min (>60); Globulin 3.6 g/dL (2.2-4.2); Glucose 103 mg/dL (74-106); High Density Lipoprotein 49 mg/dL; Potassium 3.8 mmol/L (3.5-5.1); Sodium Level 138 mmol/L (136-145); Triglycerides 166 mg/dL; Very Low Density Lipoprotein 33 mg/dL (5-40)
== END | disposition home or self-care (01) ==
LOC: LAB 06:58
PROVIDERS: PCP Family Medicine; Referring Provider Family Medicine; Visit Provider Family Medicine
DX: I10 Essential (primary) hypertension (principal)
CPT/HCPCS: 36415; 80053; 80061

== ENCOUNTER → 2024-05-28 | Outpatient (CLI) | payer OTHER, SELFPAY ==
--- NOTE | 2024-05-28 18:57 | CT_ITS ---
STUDY: CT LEFT SHOULDER REASON FOR EXAM: Male, 54 years old. OA, surgical planning. RADIATION DOSAGE (If Supplied By Facility): CTDIvol = ( 40.26 ) mGy, DLP = ( 1101.46 ) mGycm TECHNIQUE: The patient was scanned in a multi detector CT scanner. High resolution transaxial imaging was performed without the administration of intravenous contrast material. Sagittal and coronal images were reconstructed. Individualized dose optimization techniques were used for this CT. COMPARISON: None. FINDINGS: There is advanced glenohumeral arthrosis, with joint space narrowing, [id number]-excw, marginal osteophyte formation, and subchondral cyst formation. Normal glenoid neck and visualized scapula. Normal humeral head, neck and tuberosities. Normal coracoid process. Normal visualized lateral clavicle. There is minimal acromioclavicular arthrosis. There is a Type II morphology (curved), with a neutral orientation. There is no demonstrated acute fracture. Normal visualized muscles and soft tissue structures. CT/Extremity Upper without Contra IMPRESSION: Advanced glenohumeral arthrosis. Minimal acromioclavicular arthrosis. Electronically Signed: Tito Moran MD at 13:03 EST ,
== END | disposition home or self-care (01) ==
PROVIDERS: PCP Family Medicine; Referring Provider Orthopaedic Surgery Sports Medicine; Visit Provider Orthopaedic Surgery Sports Medicine
DX: M25.511 Pain in right shoulder (principal); M25.512 Pain in left shoulder; M19.012 Primary osteoarthritis, left shoulder
CPT/HCPCS: 73200

== ENCOUNTER → 2024-06-11 | Outpatient (CLI) | payer OTHER, SELFPAY ==
--- NOTE | 2024-06-11 17:26 | MRI_ITS ---
STUDY: MRI LEFT SHOULDER REASON FOR EXAM: Male, 54 years old. OA, surgical planning. TECHNIQUE: Standardized fat and water weighted pulse sequences were obtained in all 3 orthogonal planes. COMPARISON: CT left shoulder dated 05/28/2024. FINDINGS: Normal supraspinatus tendon. Normal infraspinatus tendon. Normal subscapularis tendon. Normal teres minor tendon. Normal supraspinatus muscle. Normal infraspinatus muscle. Normal subscapularis muscle. Normal teres minor muscle. There is severe glenohumeral arthrosis with [id number]-[id number], marginal osteophyte formation, articular surface remodeling, and subchondral cyst formation. There is overall degeneration of the glenoid labrum. Intact humeral head and visualized proximal humerus. Intact biceps labral complex. Normal intracapsular long biceps tendon. Normal rotator interval. There is minimal acromioclavicular arthrosis. There is a Type II morphology (curved), with a neutral orientation. There is no subacromial-subdeltoid bursal fluid. Normal visualized coracohumeral and coracoacromial ligaments. Normal quadrilateral space. Normal axillary space. Normal deltoid muscle. Normal trapezius muscle. MRI/Upper Ext Joint Only(Routine) IMPRESSION: Severe glenohumeral arthrosis with overall degeneration of the glenoid labrum. Minimal acromioclavicular arthrosis. No rotator cuff tear. Electronically Signed: Tito Moran MD at 10:44 EST ,
== END | disposition home or self-care (01) ==
PROVIDERS: PCP Family Medicine; Referring Provider Orthopaedic Surgery Sports Medicine; Visit Provider Orthopaedic Surgery Sports Medicine
DX: M25.511 Pain in right shoulder (principal); M25.512 Pain in left shoulder; M19.012 Primary osteoarthritis, left shoulder
CPT/HCPCS: 73221

== ENCOUNTER 2024-08-29 05:56 | Day surgery (SDC) | payer OTHER, SELFPAY ==
--- NOTE | 2024-08-21 13:26 | EKG12_ITS ---
Test Reason : PREOP Blood Pressure : */* mmHG Vent. Rate : 77 BPM Atrial Rate : 75 BPM P-R Int : 130 ms QRS Dur : 76 ms QT Int : 368 ms P-R-T Axes : 9 -12 -32 degrees QTcB Int : 416 ms Normal sinus rhythm Voltage criteria for left ventricular hypertrophy Inferior infarct , age undetermined Abnormal ECG Confirmed by KATIA FAM, MASTER ([id number]), editor news HANY ELISE ([id number]) on 08/22/2024 6:37:43 AM Referred By: Duc Smith Confirmed By: MASTER MONTALVO MD
[2024-08-21 14:21] LABS: Absolute Lymphocyte Count 1.77 X10^3/uL (0.83-4.51); Absolute Neutrophil Count 4.4 X10^3/uL (2.0-7.7); Basophil# 0.08 X10^3/uL; Eosinophil# 0.36 X10^3/uL; Eosinophils% 4.4 % (0-5); Hematocrit 51.3 % (40-54); Hemoglobin 17.1 g/dL (13.0-16.5); Lymphocyte # 1.77 X10^3/ul (0.83-4.51); Lymphocyte % 21.6 % (19-41); Mean Corp Hgb Conc 33.3 g/dL (32-36); Mean Corpuscular Hgb 29.9 pg (27.0-32.0); Mean Corpuscular Volume 89.7 fL (80-94); Mean Platelet Vol. 10.8 fl (6.2-12.0); Monocyte# 1.49 X10^3/uL; Monocyte% 18.2 % (0-10); NRBC Flagged by Analyzer 0 % (0-5); Neutrophil # 4.38 X10^3/uL (2.7-7.7); Neutrophil % 53.6 % (47-70); Platelet Count 235 K/mm3 (150-450); RBC Distribution Width CV 13.1 % (11.6-14.6); RBC Distribution Width SD 42.3 fl (35.1-43.9); Red Blood Count 5.72 M/mm3 (4.6-6.2); White Blood Count 8.2 K/mm3 (4.4-11.0)
[2024-08-21 14:34] LABS: International Normalized Ratio 1.1; Partial Thromboplast Time 27.2 Seconds (24.1-36.2); Prothrombin Time (Protime)PT. 13.9 SECONDS (11.7-14.9)
[2024-08-21 14:51] LABS: Magnesium 2.2 mg/dL (1.5-2.2)
[2024-08-21 14:52] LABS: Hemoglobin A1c 5.5 % (<=5.6)
[2024-08-21 15:18] LABS: Anion Gap 15 (5-15); BUN 21 mg/dL (4-19); Calcium,Total 9.6 mg/dL (7.6-11.0); Carbon Dioxide 22.3 mmol/L (21.0-32.0); Chloride 104 mmol/L (98-108); Creatinine, Serum 0.82 mg/dL (0.70-1.20); EST Glomerular Filtration Rate 104 (>60); Glucose 93 mg/dL (70-99); Potassium 3.6 mmol/L (3.3-5.1); Sodium Level 141 mmol/L (133-145)
--- NOTE | 2024-08-21 15:49 | PAT.ANESEVAL ---
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 When Was Last Pacemaker Check QUESTION #4 FULL TEXT: You/Your Family Experience fever (hyperthermia) with Anesthesia Last Oral Intake Last Oral intake: Last Oral Intake NPO since Meds taken in AM with sips of water? Meds patient instructed to take am of surgery PONV PONV - senior loan processor: PONV - senior loan processor Female No 08/15/24 15:33 HX of Motion Sickness No 08/15/24 15:33 HX of N/V After Surgery No 08/15/24 15:33 Non-Smoker Yes 08/15/24 15:33 Duration of Surgery greater Yes 08/15/24 15:33 than 60 minutes Number of Risk Factors 2 08/15/24 15:33 PONV Score Moderate Risk 08/15/24 15:33 Height & Weight Height & Weight: Anesthesia: Height & Weight Height 5 ft 3 in 05/10/24 15:02 Respiratory Assessment Respiratory Assessment - senior loan processor: Respiratory Tract Infection Hx - senior loan processor Hx Respiratory Tract Infection No 08/15/24 15:33 STOP Sleep Apnea STOP Sleep Apnea - senior loan processor: STOP Sleep Apnea - senior loan processor Hx Hypertension Yes: CONTROLLED WITH MED 08/15/24 15:33 Hx Sleep Apnea Yes: AUTOPAP 08/15/24 15:33 CPAP No 08/15/24 15:33 BIPAP No 08/15/24 15:33 Do you snore loudly (louder than talking or can be heard Do you often feel tired/ fatigued/ sleepy during daytime? Has anyone observed you stop breathing during sleep? STOP Results Positive 08/15/24 15:33 QUESTION #5 FULL TEXT : Do you snore loudly (louder than talking or can be heard through closed doors)? 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 Specify any problems Hx of Preganancy in last 3 N/A 08/15/24 15:33 Months Nurse Filling Out Transfusion DSCHRIBER 08/15/24 15:33 & Questions: Date: 08/15/24 08/15/24 15:33 Time: 15:36 08/15/24 15:33 Patient unable to answer at this time (ie. confused, unrespo /Reproduction History /Reproductive History - senior loan processor: /Reproductive Hx- senior loan processor Hx Now No 08/15/24 15:33 Gestational Age (in weeks): EDC: Hx Hx Para Hx Section SAB No 08/15/24 15:33 PFSH Medical History (Updated 08/15/24 @ 15:39 by Maria Ines Stallings) History of pain when walking History of edema Bilateral shoulder pain Former smoker Wears glasses Arthritis CPAP (continuous positive airway pressure) dependence Hammertoe of right foot Bilateral primary osteoarthritis of knee Primary osteoarthritis, right shoulder DJD of both shoulders Hypertension Depression Home Medications ?Medication ?Instructions ?Recorded ?Last Taken ?Type bupropion HCl 300 mg 24 hr tablet, 300 mg PO DAILY 03/11/21 06/16/23 History extended release losartan 100 1 tab PO DAILY 03/11/21 06/16/23 05:30 History mg-hydrochlorothiazide 25 mg tablet meloxicam 15 mg tablet 15 mg PO DAILY 03/11/21 06/09/23 History cyclosporine 0.05 % eye drops in a 1 drp ophthalmic (eye) BID 03/07/23 06/16/23 History dropperette doxycycline hyclate 50 mg capsule 50 mg PO DAILY 03/07/23 06/16/23 History acetaminophen 650 mg 650 mg PO Q12H PRN pain 05/10/24 Unknown History tablet,extended release (Tylenol Arthritis Pain) Allergy/AdvReac Type Severity Reaction Status Date / Time acetaminophen (From Vicodin) AdvReac Nausea Verified 08/15/24 14:42 cephalexin (From Keflex) AdvReac makes him Verified 08/15/24 14:42 feel bad hydrocodone (From Vicodin) AdvReac Nausea Verified 08/15/24 14:42 Family History Father Arthritis Surgical History History of ankle surgery History of total right knee replacement s/p lip cyst removal S/P carpal tunnel release S/P inguinal hernia repair Social History Smoking Status: Former smoker quit date: 05/23/98 alcohol intake: current Audit: Pertinent Findings Pertinent Findings EKG Perinent findings: June 09, 2023. Normal sinus rhythm. Recommendation Anesthesia Recommendation Anesthesia recommendation: OPTIMIZED for anesthesia
[2024-08-23 05:07] LABS: Fructosamine 212 umol/L (0-285)
[2024-08-29] VITALS (9 sets, daily range): BP systolic 107–127; BP diastolic 70–92; PULSE 69–81; RESP 16; TEMP 36.1–36.9; O2SAT 96–98; BMI 37.8
[2024-08-29] MEDS: Scopolamine 1mg/72hr Patch 1 PATCH TD (06:47)
[2024-08-29] MEDS: Gabapentin 600 MG Tablet PO (06:47)
[2024-08-29] MEDS: Acetaminophen 500 MG Tablet 1000 MG PO (06:47)
[2024-08-29] MEDS: Magnesium 1 GM over 15 mins IV (06:48)
[2024-08-29] MEDS: Lactated Ringers 1,000 ML 15 ML IV (06:48)
[2024-08-29 07:23] LABS: Bedside Glucose 131 mg/dL (74-106)
--- NOTE | 2024-08-29 07:53 | HP.PCM_ITS ---
HPI - General HPI Narrative CHINYERE RESENDEZ, is a 54 M who presents for left reverse total shoulder arthroplasty. NO change to H and P. Had discussed over the phone given retroversion and subluxation. RAB, post op instructions and narcotic counselling. Left shoulder marked. Plan for block. OK to proceed. OFFICE VISIT Date of Service: 07/09/24 MR#: [id number] Acct: [id number] Name: CHINYERE RESENDEZ Rep #: [id number] : 1970 Provider: Dr. Duc Smith MD Age/Sex: 54/M Location: [facility] [place] Status: Signed Intake Vital Signs 05/10/2415:02 Height 5 ft 3 in Weight: 223 lb 8 oz BMI 39.6 Intake Visit Reasons: RIGHT SHOULDER Chief Complaint: MRI review Is patient in pain?: Yes (Right shoulder ) Pain scale (1-10): 8 Allergies acetaminophen (From Vicodin) Adverse Reaction (Verified 07/09/24 14:46) Nauseacephalexin (From Keflex) Adverse Reaction (Verified 07/09/24 14:46) makes him feel badhydrocodone (From Vicodin) Adverse Reaction (Verified 07/09/24 14:46) Nausea Medications ?Medication ?Instructions ?Recorded ?Confirmed ?Type bupropion HCl 300 mg 24 hr tablet, 300 mg PO DAILY 03/11/21 07/09/24 Histor y extended release losartan 100 1 tab PO DAILY 03/11/21 07/09/24 History mg-hydrochlorothiazide 25 mg tablet meloxicam 15 mg tablet 15 mg PO DAILY 03/11/21 07/09/24 History cyclosporine 0.05 % eye drops in a 1 drp ophthalmic (eye) BID 03/07/2306/23 History dropperette doxycycline hyclate 50 mg capsule 50 mg PO DAILY 03/07/23 07/09/24 History multivitamin 1 tab PO DAILY 03/07/23 07/09/24 History acetaminophen 650 mg 650 mg PO Q12H PRN 05/10/24 07/09/24 His tory tablet,extended release (Tylenol Arthritis Pain) PFSH Medical History Bilateral shoulder pain History of steroid therapy Former smoker BiPAP (biphasic positive airway pressure) dependence Loss of hearing Wears glasses Arthritis CPAP (continuous positive airway pressure) dependence Sleep apnea Hammertoe of right foot Bilateral primary osteoarthritis of knee Primary osteoarthritis, right shoulder DJD of both shoulders Hypertension Environmental allergies Depression Surgical History History of ankle surgery History of total right knee replacement s/p lip cyst removal S/P carpal tunnel release S/P inguinal hernia repair Family History Father Arthritis Social History Smoking Status: Former smoker quit date: 05/23/98 alcohol intake: current HPI RIGHT SHOULDER Details: This documentation accurately reflects the service provided and the decisions made by me, Dr. Duc Smith MD 07/09/24 1100. Part of today?s visit was documented by [ ], acting as scribe. CHINYERE RESENDEZ is a 54 year old M here today for follow-up left shoulder CT and MRI for surgical planning. Patient still has stiffness and pain with lifting. Supplemental Info [facility] Imaging Services [address] [place] [address] Extremity Upper without Contra MR#: [id number] Acct: [id number] Name: CHINYERE RESENDEZ Rep #: [id number] : 1970 M 54 From: Tito Moran MD PCP: Dr. True Clarke MD Status: REG CLI Study: Extremity Upper without Contra Date of Exam: 05/28/24 Exam# [id number] Ordering Dr: Duc Smith MD STUDY: CT LEFT SHOULDER REASON FOR EXAM: Male, 54 years old. OA, surgical planning. RADIATION DOSAGE (If Supplied By Facility): CTDIvol = ( 40.26 ) mGy, DLP = ( 1101.46 ) mGycm TECHNIQUE: The patient was scanned in a multi detector CT scanner. High resolution transaxial imaging was performed without the administration of intravenous contrast material. Sagittal and coronal images were reconstructed. Individualized dose optimization techniques were used for this CT. COMPARISON: None. FINDINGS: There is advanced glenohumeral arthrosis, with joint space narrowing, [id number]-[id number], marginal osteophyte formation, and subchondral cyst formation. Normal glenoid neck and visualized scapula. Normal humeral head, neck and tuberosities. Normal coracoid process. Normal visualized lateral clavicle. There is minimal acromioclavicular arthrosis. There is a Type II morphology (curved), with a neutral orientation. There is no demonstrated acute fracture. Normal visualized muscles and soft tissue structures. CT/Extremity Upper without Contra IMPRESSION: Advanced glenohumeral arthrosis. Minimal acromioclavicular arthrosis. Electronically Signed: Tito Moran MD at 13:03 [facility] Reading Location ID and State: [address] [place] [address] , Service support , [facility] Imaging Services [address] [place] [address] [phone] Upper Ext Joint Only(Routine) MR#: [id number] Acct: [id number] Name: CHINYERE RESENDEZ Rep #: [id number] : 1970 M 54 From: Tito Moran MD PCP: Dr. True Clarke MD Status: REG CLI Study: Upper Ext Joint Only(Routine) Date of Exam: 06/11/24 Exam# [id number] Ordering Dr: Duc Smith MD STUDY: MRI LEFT SHOULDER REASON FOR EXAM: Male, 54 years old. OA, surgical planning. TECHNIQUE: Standardized fat and water weighted pulse sequences were obtained in all 3 orthogonal planes. COMPARISON: CT left shoulder dated 05/28/2024. FINDINGS: Normal supraspinatus tendon. Normal infraspinatus tendon. Normal subscapularis tendon. Normal teres minor tendon. Normal supraspinatus muscle. Normal infraspinatus muscle. Normal subscapularis muscle. Normal teres minor muscle. There is severe glenohumeral arthrosis with [id number]-wr-[id number], marginal osteophyte formation, articular surface remodeling, and subchondral cyst formation. There is overall degeneration of the glenoid labrum. Intact humeral head and visualized proximal humerus. Intact biceps labral complex. Normal intracapsular long biceps tendon. Normal rotator interval. There is minimal acromioclavicular arthrosis. There is a Type II morphology (curved), with a neutral orientation. There is no subacromial-subdeltoid bursal fluid. Normal visualized coracohumeral and coracoacromial ligaments. Normal quadrilateral space. Normal axillary space. Normal deltoid muscle. Normal trapezius muscle. MRI/Upper Ext Joint Only(Routine) IMPRESSION: Severe glenohumeral arthrosis with overall degeneration of the glenoid labrum. Minimal acromioclavicular arthrosis. No rotator cuff tear. Electronically Signed: Tito Moran MD at 10:44 EST Reading Location ID and State: [address] [place] [address] , Service support , I independently reviewed the imaging. Concur with radiologist report. Coding Level of Care Code Off vis,est,level 3 Diagnoses DJD of left shoulder M19.012 Assessment and Plan Assessment and Plan (1) DJD of left shoulder: Status: Acute Plan: 54-year-old man with left shoulder advanced osteoarthritis with an intact rotator cuff tendon. Typical surgical solution for this would be total shoulder arthroplasty given the patient's age and intact cuff with good strength. Discussed the pros and cons risks and benefits of continued conservative management versus surgery in the form of left anatomic total shoulder arthroplasty. The patient is interested to go ahead with surgery discussed the postoperative recovery for this usually at least 3 months before going back to any sort of significant heavy lifting. He understands no further questions or concerns. Pros and cons risks and benefits were discussed with the patient including but not limited to infection, pain, stiffness, bleeding, damage to surrounding structures, neurovascular injury, recurrence or retear, failure or wear of hardware or fixation, instability, fracture, deep vein thrombosis and pulmonary embolism, anesthetic risks, , patient dissatisfaction, need for further surgery and other risks. Patient understood and wished to proceed with surgery, and signed the informed consent documentation. Patient counselled on non-operative and operative means of treating shoulder pain. Conservative options include but not limited to: 1. Rest and Activity Modification: Giving your shoulder time to heal by avoiding movements that cause pain can help. This may involve limiting overhead activities or heavy lifting. 2. Physical Therapy: A physical therapist can guide you through exercises that strengthen the muscles around the shoulder, improve flexibility, and reduce strain on the rotator cuff tendon. 3. Ice and Heat Therapy: Applying ice to the shoulder can help reduce swelling and pain, especially after activity. Heat can be helpful to relax tense muscles and improve blood flow before exercises. 4. Anti-Inflammatory Medications: Mwna-itc-zsvafyw medications like ibuprofen or naproxen can help reduce pain and inflammation in the tendon. 5. Corticosteroid Injections: If the pain is more severe, a steroid injection can reduce inflammation in the shoulder and provide relief for a longer period. 6. Platelet-Rich Plasma (PRP) Injection: This treatment involves using your own blood to promote healing in the tendon. The plasma is rich in growth factors that can encourage tissue repair. 7. TENS (Transcutaneous Electrical Nerve Stimulation): This therapy uses a small electrical current to help manage pain and promote healing by stimulating nerves. Ortho Exam General General: Yes no acute distress Neurologic: Yes alert and Yes oriented x3 Psychologic: Yes reasonable and appropriate Left Shoulder Skin/Wound: Yes CDI, No ecchymosis, No erythema and No swelling SHOULDER: Active and passive forward elevation about 80 degrees external rotation 0 degrees. Strength in forward elevation and external rotation both 4/5. [facility] Medical History (Updated 08/15/24 @ 15:39 by Maria Ines Stallings) History of pain when walking History of edema Bilateral shoulder pain Former smoker Wears glasses Arthritis CPAP (continuous positive airway pressure) dependence Hammertoe of right foot Bilateral primary osteoarthritis of knee Primary osteoarthritis, right shoulder DJD of both shoulders Hypertension Depression Home Medications ?Medication ?Instructions ?Recorded ?Last Taken ?Type bupropion HCl 300 mg 24 hr tablet, 300 mg PO DAILY 08/27/24 History extended release losartan 100 1 tab PO DAILY 03/11/2101/14 History mg-hydrochlorothiazide 25 mg tablet meloxicam 15 mg tablet 15 mg PO DAILY 03/11/2107/17 History cyclosporine 0.05 % eye drops in a 1 drp ophthalmic (e ye) BID 03/07/23 08/27/24 History dropperette doxycycline hyclate 50 mg capsule 50 mg PO DAILY 03/0708/27/24 History acetaminophen 650 mg 650 mg PO Q12H PRN pain 04/22 02/13 Unknown History tablet,extended release (Tylenol Arthritis Pain) Allergy/AdvReac Type Severity Reaction Status Date / Time acetaminophen (From Vicodin) AdvReac Nausea Verified 08/15/24 14:42 cephalexin (From Keflex) AdvReac makes him Verified 08/15/24 14:42 feel bad hydrocodone (From Vicodin) AdvReac Nausea Verified 08/15/24 14:42 Family History Father Arthritis Surgical History History of ankle surgery History of total right knee replacement s/p lip cyst removal S/P carpal tunnel release S/P inguinal hernia repair Social History Smoking Status: Former smoker quit date: 05/23/98 alcohol intake: current Vital Signs Vital Signs Vital Signs: 08/29/24 07:01 08/29/24 07:04 Temperature 98.5 F Temperature Source Temporal Pulse Rate 81 Respiratory Rate 16 Respiratory Pattern Normal Blood Pressure 127/92 H Blood Pressure Mean 103 Blood Pressure Source Monitor Blood Pressure Position Semi-Fowlers Blood Pressure Location Right Arm Pulse Ox 98 Oxygen Delivery Method Room Air Weight Weight: 227 lb 1.218 oz Body Mass Index (BMI) 37.8 Results Lab / Micro Data 08/21/24 13:38 08/21/24 13:38 Labs: Laboratory Results - last 24 hr 08/29/24 06:30: POC Glucose 131 H
[2024-08-29] MEDS: Cefazolin 2 GM in Syringe 10 ML IV (08:00)
--- NOTE | 2024-08-29 08:00 | FEM._PTH ---
PATIENT: CHINYERE RESENDEZ LOC: [facility] – [place] U#:[id number] AGE/SX: 54/M ROOM: RE08/29/[address]: Dr. Duc Smith MD : 1970 BED: DIS: 08/29/2024 SPEC #: [id number] RECD: 08/29/24 11:41 STATUS: VIRA REQ #: [id number] VERÓNICA: 08/29/24 08:[address]: Duc Smith DEPT: SURGICAL PATHOLOGY RECD BY: Didier Philip ENTERED: 08/29/24 11:41 SP TYPE: FEM HEAD OTHR DR: Dr. True Clarke MD Tissues: A - Hip, NOS Procedures: Decalcification bone/plaque Surgery Specimen Level IV HEADER OPERATION: ERAS, left reverse anatomic total shoulder replacement PRE-OP DIAGNOSIS: Degenerative joint disease of left shoulder TISSUE SUBMITTED: A- Left humeral head MICROSCOPIC DIAGNOSIS A. Left humeral head, total arthroplasty: * Benign cartilage and bone with degenerative changes MICROSCOPIC DESCRIPTION Slides are reviewed. GROSS DESCRIPTION A. Received in formalin in a container labeled with the patient's name, date of , and left humeral head is a red-barbosa, firm, and semispherical humeral head measuring 5.0 x 4.3 x 2.2 cm. There is a detached 1.7 x 0.8 x 0.2 cm fragment of firm bone. The margin is smooth and firm, and the opposing cortexes pitted and granular with smooth areas of eburnation. Sectioning reveals firm surfaces. Non Ferrous Material Handler sections submitted in A1 following decalcification. [facility] 08-29-2024 CPT:47900,46011
[2024-08-29] MEDS: dexAMETHasone 10 MG/ML Vial IV (08:10)
[2024-08-29] MEDS: TXA 1000mg in NS100 100ml (IVPB at Incision) 660 MG IV (08:11)
--- NOTE | 2024-08-29 09:45 | RAD_ITS ---
PROCEDURE: SHOULDER 1 VIEW 08/29/2024 REASON FOR EXAM: TOTAL SHOULDER REPLACEMENT TECHNIQUE: One (1) view of the left shoulder Fluoroscopy: 2.1 sec Dose: 0.31 mGy COMPARISON: No relevant prior FINDINGS: Bones: A total left humeral arthroplasty has been inserted. Joints: Glenohumeral articulation in good alignment. Soft tissues: Unremarkable. Other: No periprosthetic fractures. RAD/Shoulder min 2 Views IMPRESSION: Status post insertion of left total humeral arthroplasty. Reading Location: [place] [address]
[2024-08-29] MEDS: TXA 1000mg in NS100 100ml (IVPB at Closure) 660 MG IV (10:04)
[2024-08-29] MEDS: Vancomycin IV 1,000 MG/20 ML Vial 1000 MG OPERA.SITE (10:06)
--- NOTE | 2024-08-29 10:21 | OP.PCM_ITS ---
Problems Associated Problem List Diagnoses (1) DJD of left shoulder: Procedures Musculoskeletal [id number]-29xxx: Other Procedure See Report Operative Report (Standard) Operative Information Date of Procedure: 08/29/24 Pre-Operative Diagnosis: Left shoulder osteoarthritis Post-Operative Diagnosis: Same Surgery/Procedure Performed: Left reverse total shoulder arthroplasty and biceps tenodesis carry in worker: Yes Environmental Research Project Manager: eran Tasks completed by broker assistant: Retracting Additional billing and accounting staff assistant?: No Type of Anesthesia: Block,Regional and General RN Documented Start/Stop Times: Operation Date: 08/29/24 08:00 Case Time Into Pre-Op 08/29/24 06:05 Anesthesia Start 08/29/24 08:00 Into Room 08/29/24 08:00 Procedure Start 08/29/24 08:36 Procedure End 08/29/24 10:21 Anesthesia End 08/29/24 10:29 Out of Room 08/29/24 10:29 Procedure Start Time: 08:36 Procedure Stop Time: 10:21 Select all DRAINS/GRAFTS/IMPLANTS that apply: Prosthetic device Prosthetic device details: Tornier perform reverse total shoulder arthroplasty Estimated Blood Loss: 100 Specimen collected: Yes Description of specimen(s) removed: Humeral head Description of surgery: Patient brought to the operating room theater. Placed supine on the beachchair positioner. General anesthesia induced. 2 g IV Ancef administered prior to the start of the case. TXA used as well 1 g IV at the beginning and end. All bony prominences padded. SCDs on the legs. Patient sat up at a 45 degree angle. Arm positioner used the patient's left side. Upper extremity prepped and draped in the usual sterile fashion with chlorhexidine-based prep solution allowing over 3 minutes drying time prior to draping. Preoperative timeout performed to confirm the site patient and the surgery. Began by making a standard deltopectoral incision. Carried the dissection down through skin and subcutaneous tissue achieved meticulous hemostasis. Identified the interval identified the cephalic vein. This was in quite an oblique course. I ligated this in the mid aspect and retracted deltoid laterally without tearing the vein. Identified the conjoined tendon dissected on the lateral aspect of this and retracted it medially. Identified the circumflex humeral vessels ligated and controlled those. Identified the long head of the biceps. Followed this through the rotator interval. I did a biceps tenodesis to the superior aspect of the pectoralis major tendon after releasing a small amount to the superior aspect of the pectoralis major insertion. I then performed lesser tuberosity osteotomy with a small cortical bone lavern. I dissected out the capsule and remove the capsule and labrum from the anterior aspect of the glenoid. I protected the axillary nerve. Next I turned my attention to the humerus. I made a standard cut in 30 degrees of retroversion using the extramedullary guide. I released tissue from the inferior medial aspect of the humeral metaphyseal area. I removed the head segment. I excised osteophytes from the inferior medial aspect of the humeral metaphysis. I did achieve full external rotation. I released a small amount of the supraspinatus. I then placed my number 2 disc on the guidepin for the reamer for the humeral side. I reamed to a size 2 placed the size 2 broach this achieved good circumferential press-fit. This I then turned my attention back to the glenoid. I circumferentially excised the labrum and remaining biceps tendon. I slightly released the triceps attachment inferiorly. I then placed the guidepin in the center of the glenoid slightly anterior and inferior per preoperative templating. I then used a circumferential reaming with 15 degrees retroversion plan for a full wedge baseplate. I placed the wedge at 3:00 on the clock face. This achieved good punctate bleeding bone circumferentially. I then drilled for the central screw up to a 30 mm length. I selected my baseplate with 15 degrees to reverse full wedge augmented baseplate as well as a 30 mm central screw. I inserted this again with the wedge portion at 3:00 this achieved good backside seating. Very good purchase. I then inserted the compression screw at the 3 o'clock position followed by the locking screws all 3 of them. This achieved good purchase. I had thoroughly irrigated prior to placing the baseplate as well as using pulse lavage. I then placed the glenosphere a size [address] and going back and forth between screwing and tapping on the glenosphere until this was fully seated. I turned my attention back to the humerus. I trialed using a size 2 humeral stem with a 0 mm polyethylene retentive. This achieved good full range of motion without impingement normal shuck test and good tension on the conjoined tendon. I removed the trial components and then assembled the components on the back table. I drilled 2 holes just medial and lateral to the lesser tuberosity osteotomy site on the humerus and then passed a suture. The suture I passed behind the component. I impacted the component into place using a size 2+ Tornier perform humeral stem with 39 mm +0 mm retentive reverse insert. I then reduced the shoulder trialed again good stability no impingement repair of the subscapularis passive tuberosity osteotomy using the sutures in a mattress fashion. I thoroughly irrigated. I took final radiographs to ensure that the component position. I used vancomycin powder. I thoroughly irrigated the wound prior to placing the vancomycin antibiotic powder. I then closed the subcutaneous tissue with 2-0 Vicryl sutures and the 3-0 Monocryl. Skin was cleaned with wet dry dressing followed by patient's Steri-Strips and silver Mepilex border dressing with an abduction pillow sling. Patient woken up from the general anesthetic transferred off the operating table taken to postanesthetic care unit in stable condition. Plan for the patient discharged home according to day surgery criteria when they are comfortable. Follow-up in the office next week. CPT 59133, 21019? Surgical Findings: As above Complications Complications: No Admit VTE Documentation VTE Present on Admission: No VTE Mechan Device Prophylaxis: SCD's VTE Pharm Prophylaxis ordered?: No Reason prophylaxis not ordered: Treatment Not Indicated
--- NOTE | 2024-08-29 10:33 | EX.PCM.DISCH ---
Discharge Instructions Diet Discharge Diet: No restrictions Activity Ice area for (Minutes): 10 Lifting Restrictions: pendulums only 4x/day Additional Activity Instructions:: ok to remove sling at rest Dressing / Incision Call your doctor if your incision/area has: Continuous Slow Oozing, Sudden Increased Bleeding, Increased Pain/ Swelling, Increased Redness, Foul Smelling Discharge and Swelling at the incision site Call your doctor if you observe: Fever of 101 or Higher, Coldness, Increased Pain and Numbness or Tingling Remove Dressing in: leave until fall off Cleanse incision/area with: Do not get Incision Wet Follow Up Care Please Follow Up With: Duc Smith MD When: next week Test Results: Test results from this visit will be discussed in further detail at your follow-up appointment, if applicable. Discharge Plan Admission Attending Provider: Duc Smith Primary Care Provider: True Clarke Instructions Print Language: [place] Discharge Orders/Prescriptions Prescriptions: New oxycodone-acetaminophen [Endocet] 5-325 mg tablet 1 tab PO Q4H MDD 6 PRN (Reason: pain) 5 Days Qty: 30 0RF cephalexin 500 mg capsule 500 mg PO Q6H MDD 4 1 Days Qty: 4 0RF No Action doxycycline hyclate 50 mg capsule 50 mg PO DAILY cyclosporine 0.05 % dropperette 1 drp ophthalmic (eye) BID acetaminophen [Tylenol Arthritis Pain] 650 mg tablet extended release 650 mg PO Q12H PRN (Reason: pain) meloxicam 15 mg tablet 15 mg PO DAILY losartan-hydrochlorothiazide 100-25 mg tablet 1 tab PO DAILY bupropion HCl 300 mg tablet extended release 24 hr 300 mg PO DAILY Referrals / Follow Up: True Clarke MD [Primary Care Provider] - Disposition Disposition (needs filled in before D/C Order can be placed): Home, Self Care
--- NOTE | 2024-08-29 10:35 | PCM.POST.ANE ---
Anesthesia: Postop Eval I Current Vital Signs Temperature: 97 F Pulse Rate: 72 Blood Pressure: 114/80 Respiratory Rate: 16 Pulse Ox: 97 Assessment Airway patent: Yes Spontaneous unlabored respirations: Yes nausea: No Vomiting: No Anesthesia Complication: No Fluid Hydration Crystalloid volume administer (ml): 1,200 Total IV fluid infused: 1,200 Progress Note Anesthesia document: Postop Eval 1 completed: Yes
--- NOTE | 2024-08-29 11:12 | POSTOPAN2_ITS ---
Anesthesia Postop Eval I Sum Postop Eval Completion status Anesthesia document: Postop Eval 1 completed: Yes Anesthesia Postop Eval I Summary Anesthesia Postop Eval I Summary: Anesthesia Postop Eval I: Assessment Summary Airway patent Yes 08/29/24 10:35 CONDUIT REAMER [email or web address] Spontaneous unlabored Yes 08/29/24 10:35 CONDUIT REAMER [email or web address] respirations Mental status nausea No 08/29/24 10:35 CONDUIT REAMER [email or web address] Vomiting No 08/29/24 10:35 CONDUIT REAMER [email or web address] Anesthesia Postop Eval I: Fluid Summary Crystalloid volume administer 1,200 08/29/24 10:35 CONDUIT REAMER [email or web address] (ml) Colloids volume administered ( ml) Blood Product volume administered (ml) Total IV fluid infused 1,200 08/29/24 10:35 CONDUIT REAMER [email or web address] Anesthesia Postop Eval I: Summary Notes Anesthesia Complication No 08/29/24 10:35 CONDUIT REAMER [email or web address] Anesthesia Complication Comment: Post-operative progress note Anesthesia: Postop Eval II Evaluation Mental status: Awake Pain Level: 3 nausea: No Vomiting: No
--- NOTE | 2024-08-29 11:12 | PCM.POSTANE2 ---
Anesthesia Postop Eval I Sum Postop Eval Completion status Anesthesia document: Postop Eval 1 completed: Yes Anesthesia Postop Eval I Summary Anesthesia Postop Eval I Summary: Anesthesia Postop Eval I: Assessment Summary Airway patent Yes 08/29/24 10:35 [email or web address] Spontaneous unlabored Yes 08/29/24 10:35 [email or web address] respirations Mental status nausea No 08/29/24 10:35 [email or web address] Vomiting No 08/29/24 10:35 [email or web address] Anesthesia Postop Eval I: Fluid Summary Crystalloid volume administer 1,200 08/29/24 10:35 [email or web address] (ml) Colloids volume administered ( ml) Blood Product volume administered (ml) Total IV fluid infused 1,200 08/29/24 10:35 [email or web address] Anesthesia Postop Eval I: Summary Notes Anesthesia Complication No 08/29/24 10:35 [email or web address] Anesthesia Complication Comment: Post-operative progress note Anesthesia: Postop Eval II Evaluation Mental status: Awake Pain Level: 3 nausea: No Vomiting: No
== END 2024-08-29 12:16 | disposition home or self-care (01) ==
LOC: SDC 05:57 → AC 05:57
PROVIDERS: Anesthesiology; PCP Family Medicine; Referring Provider Orthopaedic Surgery Sports Medicine; Visit Provider Orthopaedic Surgery Sports Medicine
PROC: (CPT 23472; principal; 2024-08-29 07:30)
DX: M19.012 Primary osteoarthritis, left shoulder (principal); Z87.891 Personal history of nicotine dependence; I10 Essential (primary) hypertension; Z99.89 Dependence on other enabling machines and devices; G47.30 Sleep apnea, unspecified
CPT/HCPCS: 23472; 23430; 01638; 64450; 36415; 73030; 76000; 80048; 82962; 82985; 83036; 83735; 85025; 85610; 85730; 86850; 86900; 86901; 87081; 88305; 88311; 93005; C1713; C1776; J2405; J3475

== ENCOUNTER 2024-11-16 09:00 | Outpatient (RCR) | payer OTHER, SELFPAY ==
--- NOTE | 2024-09-04 13:12 | HP.PTEVAL ---
Patient's Visit Information Visit Information Visit Information: CHINYERE RESENDEZ is a 54 year old M referred to Physical Therapy by Dr. Dcu Smith MD with a diagnosis of L rev TSA 08/29/24. Date of Evaluation: 09/04/24 Physical Therapist: Master Solis, PT, ATC Visit Plan Frequency: 2-3x /Week Duration: 6-8 weeks Plan: L shoulder PROM x 2 weeks. Then progress to AROM when ordered per surgeon. Plan on beginning strengthening at 6 weeks post of with focus on rotator cuff strengthening, scap stab ex's, and HEP Subjective Subjective: DOS: 08/29/24. Pt reports he had a L TSA performed at that time. Pt reports he doesnt have a lot of pain at this time, but needs pain meds in order to sleep well. 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 Pt notes he gets occasional numbness in L UE in the pinky and ring fingers at this time. Pt notes he has been compliant with HEP of pendulums at this time. Pt is R hand dominant. Pt reports he has to get his R shoulder replaced when his L shoulder is better. Pt reports his R shoulder pain is worse than the L shoulder pain prior to surgery. Pt reports he is limited with all his IADL's and ADL's at this time secondary to pain. 0/10 pain at rest, 4/10 pain at worst. Pain L shoulder: Pain Intensity (Out of 10): 0 Pain Intensity Range: 4 Objective Objective: Neuro: B UE sensation is WNL to light touch. Observation: Incisions are still covered at this time. No signs of infection. ROM: R shoulder AROM: flex= 85, abd= 60, ER= 0, IR= severly limited; L shoulder PROM flex= 110, abd= 110 degrees MMT: R shoulder flex= 7, abd= 14, ER= 12, IR= 10 #F. L shoulder not tested Balance/Special Test Scores Quick DASH Score: 50.0000 Goals Goal 1:: Decrease L shoulder pain x 50% to aid with sleep Goal Time Frame: 6-8 Weeks Goal 2:: Increase L shoulder flex and abd ROM x 30 degrees to aid with overhead lifting Goal Time Frame: 6-8 Weeks Goal 3:: Increase L shoulder strength x 90% of R shoulder strength to aid with return to work Goal Time Frame: 6-8 Weeks Goal 4:: I with HEP Goal Time Frame: 6-8 Weeks Rehabilitation Potential Physical Therapy Diagnosis: Pt has L shoulder pain, weakness, and limited ROM secondary to L TSA Rehabilitation Potential: Good Anticipated Interventions Patient/Client Instruction: Educate patient on: Condition and Plan of Care For the Purpose of:: To improve self management Therapeutic Exercise to Include: Strength training, Endurance training, Postural training, Passive ROM, Active ROM and Scapular Strength/Stabilization For the Purpose of:: To decrease pain, To increase ROM and To improve muscle performance and motor function Cryotherapy (ice pack, ice massage): Yes For the Purpose of:: To decrease pain Text: Thank you for the opportunity to evaluate your patient. For Medicare and Medicare HMO plans, please review the plan of care and approve it. It will need to be FAXED BACK to us at [phone] for Medicare purposes. For Medicare only, by signing this I certify the plan of care. Please let me know if there are questions or concerns regarding this plan of care. Physician Signature: Date:
--- NOTE | 2024-10-02 09:32 | HP.PTREVAL ---
Re-Evaluation Intro: Dr. Duc Smith MD, It has been my pleasure to treat CHINYERE RESENDEZ over the last 9 visits for L rev TSA 08/29/24. Please see the progress note below for an update on the physical therapy plan of care! Subjective Subjective: Pain is very minimal. None at rest Objective Objective/Function: L shoulder pain ranges from 0-2/10 L shoulder ROM: flex= 130, abd= 120, ER= 45, IR= to belt line Pt is showing excellent progress at this time. Plan Plan Plan: L shoulder PROM x 2 weeks. Then progress to AROM when ordered per surgeon. Plan on beginning strengthening at 6 weeks post-op with focus on rotator cuff strengthening, scap stab ex's, and HEP Balance/Gait/Functional tests Balance/Special Test Scores Quick DASH Score: 31.8175 Goals Goals Goal 1:: Decrease L shoulder pain x 50% to aid with sleep Goal Time Frame: 6-8 Weeks Goal 2:: Increase L shoulder flex and abd ROM x 30 degrees to aid with overhead lifting Goal Time Frame: 6-8 Weeks Goal 3:: Increase L shoulder strength x 90% of R shoulder strength to aid with return to work Goal Time Frame: 6-8 Weeks Goal 4:: I with HEP Goal Time Frame: 6-8 Weeks Anticipated Interventions Anticipated Interventions Patient/Client Instruction: Educate patient on: Condition and Plan of Care For the Purpose of:: To improve self management Therapeutic Exercise to Include: Strength training, Endurance training, Postural training, Passive ROM, Active ROM and Scapular Strength/Stabilization For the Purpose of:: To decrease pain, To increase ROM and To improve muscle performance and motor function Cryotherapy (ice pack, ice massage): Yes For the Purpose of:: To decrease pain Re-Evaluation Ending Re-evaluation ending: Please do not hesitate to contact me at [phone] by phone or if you have questions or concerns regarding this new plan of care! Sincerely, Master Solis, PT, ATC
--- NOTE | 2024-11-16 09:31 | HP.PTDCSUM ---
Discharge Summary D/C summary: It has been my pleasure to treat CHINYERE RESENDEZ referred by Dr. Duc Smith MD, with the diagnosis of L rev TSA 08/29/24 for a total of 20 visit(s). Discharge Date: Please see the following information for a summary of their discharge status. Subjective Subjective: Pt reports no pain today. He is ready for I HEP Pain L shoulder: Pain Intensity (Out of 10): 0 Overall Improvement % Improvement: 75 Objective Objective/Function: L shoulder pain 0/10 Pt is I with HEP L shoulder ROM: flex= 150, abd= 125 degrees L shoulder MMT: flex= 10, abd= 18, ER= 11, IR= 11 #F Goals Goal 1:: Decrease L shoulder pain x 50% to aid with sleep Goal Progress: Goal Met Goal 2:: Increase L shoulder flex and abd ROM x 30 degrees to aid with overhead lifting Goal 3:: Increase L shoulder strength x 90% of R shoulder strength to aid with return to work Goal 4:: I with HEP Goal Progress: Goal Met Plan Plan: Discharge to [facility] D/C Information d/c sentence: If there are questions or concerns regarding this patient's physical therapy, please feel free to call me at [phone]. Thank you for the referral of this patient. Sincerely, Master Solis, PT, ATC Balance/Gait/Functional tests Balance/Special Test Scores Quick DASH Score: 15.9075 Improvement % Improvement: 75
--- NOTE | 2024-11-16 09:31 | HP.PTDCSUM ---
Discharge Summary D/C summary: It has been my pleasure to treat CHINYERE RESENDEZ referred by Dr. Duc Smith MD, with the diagnosis of L rev TSA 08/29/24 for a total of 20 visit(s). Discharge Date: Please see the following information for a summary of their discharge status. Subjective Subjective: Pt reports no pain today. He is ready for I HEP Pain L shoulder: Pain Intensity (Out of 10): 0 Overall Improvement % Improvement: 75 Objective Objective/Function: L shoulder pain 0/10 Pt is I with HEP L shoulder ROM: flex= 150, abd= 125 degrees L shoulder MMT: flex= 10, abd= 18, ER= 11, IR= 11 #F Goals Goal 1:: Decrease L shoulder pain x 50% to aid with sleep Goal Progress: Goal Met Goal 2:: Increase L shoulder flex and abd ROM x 30 degrees to aid with overhead lifting Goal 3:: Increase L shoulder strength x 90% of R shoulder strength to aid with return to work Goal 4:: I with HEP Goal Progress: Goal Met Plan Plan: Discharge to [facility] D/C Information d/c sentence: If there are questions or concerns regarding this patient's physical therapy, please feel free to call me at [phone]. Thank you for the referral of this patient. Sincerely, Master Solis, PT, ATC Balance/Gait/Functional tests Balance/Special Test Scores Quick DASH Score: 15.9075 Improvement % Improvement: 75
== END 2024-11-16 19:00 | disposition home or self-care (01) ==
LOC: PT 09:00
PROVIDERS: PCP Family Medicine; Referring Provider Orthopaedic Surgery Sports Medicine; Visit Provider Orthopaedic Surgery Sports Medicine
DX: M25.511 Pain in right shoulder (principal); M25.512 Pain in left shoulder
CPT/HCPCS: 97110; 97140; 97161; 97530

== ENCOUNTER → 2025-05-15 | Outpatient (CLI) | payer OTHER, SELFPAY ==
--- OUTSIDE RECORDS SUMMARY | 2025-05-15 09:31 | XMS RPT_ITS | CCD ---
Author Organization [facility] Care Team Providers Care Consulting Database Administrator Name Role Phone Distel, Von Unavailable Unavailable Distel, Von Unavailable Unavailable Distel, Von Unavailable Unavailable Scaglione, Mellissa Unavailable Unavailable Distel, Von Unavailable Unavailable Distel, Von Unavailable Unavailable Distel, Von Unavailable Unavailable Distel, Von Unavailable Unavailable Distel, Von Unavailable Unavailable Dr. True Clarke Primary Care Provider 1([facility])[phone] True Clarke Referring Provider 1([facility])[phone] MD Duc Smith Attending Provider 1([facility])- [phone] Dr. Apolinar Pa Attending Provider 1([facility])[phone] Dr. Miguel Angel Garibay Attending Provider 1([facility])-[phone] JENNIE De La Vega Attending Provider 1([facility])[phone] Dr. Apolinar Pa Referring Provider 1([facility])[phone] Dr. Apolinar Pa Other Provider 1([facility])[phone] Jerald Green Other Provider Dr. True Clarke Primary Care Provider 1([facility])[phone] Dr. True Clarke Referring Provider 1([facility])[phone] Apolinar Pa Attending Provider 1([facility])[phone] Dr. Miguel Angel Garibay Attending Provider 1([facility])-[phone] True Clarke Primary Care Provider 1([facility])[phone] Kim Trinh Attending Provider Unavailable Dr. True Clarke Primary Care Provider 1([facility])[phone] Dr. True Clarke Referring Provider 1([facility])[phone] Apolinar Pa Attending Provider [place], Dr. Michelle Attending Provider Julio, Dr. Velasco Referring Provider Vince FAM, Dr. Biswas Primary Care Provider [phone] Vince FAM, Dr. Biswas Referring Provider Sarah FAM, Duc Attending Provider Vince FAM, Dr. Biswas Attending Provider Sarah FAM, Duc Referring Provider [place] FAM, Dr. Michelle Attending Provider Sarah FAM, Duc Other Provider Vince FAM, Dr. Biswas Primary Care Provider [phone] Vince FAM, Dr. Biswas Referring Provider Sarah FAM, Duc Attending Provider Sarah FAM, Duc Referring Provider [phone] Julee Rader Attending Provider Vince FAM, Dr. Biswas Primary Care Provider [phone] Sarah FAM, Duc Attending Provider [phone] Vince FAM, Dr. Biswas Referring Provider Clarke, True Referring Unavailable Mollison, Duc Attending Unavailable Clarke, True Primary Care Unavailable Clarke, True Primary Care Unavailable Mollison, Duc Attending Unavailable Mollison, Duc Referring Unavailable Clarke, True Primary Care Unavailable Mollison, Duc Attending Unavailable Mollison, Duc Consulting Unavailable Mollison, Duc Referring Unavailable Clarke, True Referring Unavailable Mollison, Duc Attending Unavailable Clarke, True Primary Care Unavailable Clarke, True Referring Unavailable Mollison, Duc Attending Unavailable Clarke, True Primary Care Unavailable Clarke, True Primary Care Unavailable Clarke, True Referring Unavailable Mollison, Duc Attending Unavailable Clarke, True Primary Care Unavailable [place], Miguel Angel Attending Unavailable Mollison, Duc Attending Unavailable Clarke, True Referring Unavailable Clarke, True Primary Care Unavailable Mollison, Duc Attending Unavailable Clarke, True Referring Unavailable Clarke, True Primary Care Unavailable Julee Valenzuela Attending Unavailable Clarke, True Referring Unavailable Clarke, True Primary Care Unavailable Mollison, Duc Attending Unavailable Clarke, True Primary Care Unavailable Clarke, Rtue Referring Unavailable Clarke, True Referring Unavailable Mollison, Duc Attending Unavailable Clarke, True Primary Care Unavailable Clarke, True Primary Care Unavailable Miguel Angel Garibay Attending Unavailable Mollison, Duc Referring Unavailable Clarke, True Primary Care Unavailable Mollison, uDc Attending Unavailable Mollison, Duc Referring Unavailable Clarke, True Referring Unavailable Clarke, True Attending Unavailable Clarke, True Primary Care Unavailable Clarke, True Referring Unavailable Clarke, True Attending Unavailable Clarke, True Primary Care Unavailable Mollison, Duc Attending Unavailable Mollison, Duc Referring Unavailable Clarke, True Primary Care Unavailable Mollison, Duc Attending Unavailable Mollison, Duc Referring Unavailable Clarke, True Primary Care Unavailable FIGAS, HODA Referring Unavailable SCAGLIONE, MELLISSA Primary Care Unavailable FIGAS, HODA Attending Unavailable SCAGLIONE, MELLISSA Primary Care Unavailable SCAGLIONE, MELLISSA Primary Care Unavailable FIGAS, HODA Attending Unavailable SCAGLIONE, MELLISSA Primary Care Unavailable Allergies Allergy Classification Reported Allergen(s) Allergy Type Date of Onset Reaction(s) Facility (12 sources) Cephalexin Drug Allergy 2 makes him feel bad [facility] (9 sources) Acetaminophen Drug Allergy 3 Nausea [facility] Comment on above: nausea and dizziness (9 sources) HYDROcodone Drug Allergy 3 Nausea [facility] Comment on above: nausea and dizziness (1 source) Acetaminophen Drug Allergy 5 [facility] Repository (1 source) Cephalexin Drug Allergy 5 [facility] (1 source) HYDROcodone Drug Allergy 5 [facility] Medications Current Medications Medication Drug Class(es) Dates Sig (Normalized) Sig (Original) 8 hr acetaminophen 650 mg extended release oral tablet (13 sources) Start: 05-10-2024 take 1 tablet by mouth every twelve hours as needed for pain Acetaminophen (Tylenol Arthritis Pain) 650 mg tablet extended release Active 650 mg PO Q12H as needed for pain May 10, 2024 1:00am Start: 05-25-2022 End: 05-10-2024 take 2 tablets by mouth every six hours as needed Acetaminophen 500 mg tablet Discontinued 1000 mg PO EVERY 6 HOURS NEEDED 100 0 May 25, 2022 1:00am May 10, 2024 4:04pm Start: 05-25-2022 take 1000 mg by mout h every six hours as needed Acetaminophen Active 1000 MG PO EVERY 6 HOURS NEEDED May 25, 2022 12:00am 24 hr buPROPion hydrochloride 300 mg extended release oral tablet (12 sources) Aminoketone Start: 03-11-2021 take 1 tablet by mouth once daily Bupropion Hcl 300 mg tablet extended release 24 hr Active 300 mg PO DAILY March 11, 2021 12:00am cycloSPORINE (1 source) Calcineurin Inhibitor Immunosuppressant Start: 03-07-2023 Cyclosporine Active 1 DRP OPHTHALMIC TWICE A DAY March 06, 2023 11:00pm Cyclosporine 0.05 % dropperette (4 sources) Start: 03-07-2023 Cyclosporine 0.05 % dropperette Active 1 NMA OPHTHALMIC TWICE A DAY March 07, 2023 12:00am doxycycline hyclate 50 mg oral capsule (5 sources) Tetracycline-class Drug Start: 03-07-2023 take 1 capsule by mouth once daily Doxycycline Hyclate 50 mg capsule Active 50 mg PO DAILY March 07, 2023 12:00am gabapentin 300 mg oral capsule (1 source) Anti-epileptic Agent Start: 02-10-2022 Gabapentin Active 300 MG PO THREE TIMES A DAY February 10, 2022 12:00am on first day, take 1 cap BID only hydroCHLOROthiazide 25 mg / losartan potassium 100 mg oral tablet (12 sources) Thiazide Diuretic, Angiotensin 2 Receptor Oscar Start: 03-11-2021 Losartan-Hydroch lorothiazide 100-25 mg tablet Active 1 {tbl} PO DAILY March 11, 2021 12:00am Start: 03-11-2021 take 1 tablet by venice th once daily Losartan-Hydrochlorothiazide Active 1 TA BLET PO DAILY March 10, 2021 11:00pm Ipratropium Saxe 42 mcg ( 0.06 %) spray,non-aerosol (3 sources) Start: 11-02-2024 Ipratropium Br omide 42 mcg (0.06 %) spray,non-aerosol Active 2 NMA INTRANASAL THREE TIMES A DAY 04 10November 02, 2024 12:00am administer into each nostril Start: 11-02-2024 Ipratropium Br omide 42 mcg (0.06 %) spray,non-aerosol Active 2 NMA INTRANASAL THREE TIMES A DAY November 02, 2024 12:00am administer into each nostril meloxicam 15 mg oral tablet (13 sources) Nonsteroidal Anti-inflammatory Drug Start: 03-11-2021 End: 11-26-2024 Meloxicam 15 mg tablet Active 15 mg PO .as needed November 26, 2024 9:21am Multivitamin preparation (1 source) Start: 03-07-2023 take 1 tablet by mouth once daily Multivitamin Active 1 TABLET PO DAILY March 06, 2023 11:00pm Completed/Discontinued Medications Medication Drug Class(es) Dates Sig (Normalized) Sig (Original) acetaminophen 325 mg / oxyCODONE hydrochloride 5 mg oral tablet (4 sources) Opioid Agonist Start: 08-29-2024 End: 10-12-2024 Oxycodone-Acetamino phen (Endocet) 5-325 mg tablet Discontinued 1 {tbl} PO Q4H as needed for pain 30 5 0 August 29, 2024 October 12, 2024 9:16am Osteoarthritis of left shoulder Primary osteoarthritis, left shoulder amoxicillin 500 mg oral tablet (5 sources) Penicillin-class Antibacterial Start: 03-23-2023 End: 05-10-2024 take 4 tablets by mouth every hour Amoxicillin 500 mg tablet Discontinued 2000 mg PO ONCE 4 March 23, 2023 12:00am May 10, 2024 4:04pm take 4 tabs within 1 hr prior to dental procedure. Start: 03-23-2023 take 4 tablets by mo uth every hour Amoxicillin Active 2000 MG PO ONCE 4 March 22, 2023 11:00pm take 4 tabs within 1 hr prior to dental procedure. apixaban 2.5 mg oral tablet (9 sources) Factor Xa Inhibitor Start: 05-25-2022 End: 07-05-2022 take 1 tablet by mouth twice daily Apixaban (Eliquis) 2.5 mg tablet Discontinued 2.5 mg PO TWICE A DAY 30 0 May 25, 2022 1:00am July 05, 2022 11:07am cephalexin 500 mg oral capsule (4 sources) Cephalosporin Antibacterial Start: 08-29-2024 End: 09-03-2024 take 1 capsule by mouth every six hours Cephalexin 500 mg capsule Discontinued 500 mg PO EVERY 6 HOURS 4 1 0 August 29, 2024 12:00am Darlyn 14th, 2025 1:32pm Osteoarthritis of left shoulder Primary osteoarthritis, left shoulder infection prevention Cholecalciferol (12 sources) Vitamin D Start: 02-10-2022 End: 05-10-2024 take 1 capsule by mouth once daily Cholecalciferol (Vitamin D3) (Vitamin D3) 100 mcg (4,000 unit) Capsule Discontinued 100 ug PO DAILY February 10, 2022 12:00am May 10, 2024 4:04pm Start: 02-10-2022 take 1 capsule by mo uth once daily Cholecalciferol (Vitamin D3) (Vitamin D3) 100 mcg (4,000 unit) Capsule Active 100 MCG PO DAILY February 10, 2022 12:00am Start: 02-10-2022 take 1 capsule by mo uth once daily Cholecalciferol (Vitamin D3) (Vitamin D3) 100 mcg (4,000 unit) Capsule Active 100 MCG PO DAILY February 09, 2022 11:00pm Start: 02-10-2022 take 1 capsule by mo uth once daily Cholecalciferol (Vitamin D3) (Vitamin D3) 100 mcg (4,000 unit) Capsule Active 100 MCG PO DAILY February 09, 2022 11:00pm clindamycin 300 mg oral capsule (16 sources) Lincosamide Antibacterial Start: 08-18-2022 End: 03-07-2023 take 2 capsules by mouth once Clindamycin Hcl 300 mg capsule Discontinued 600 mg PO ONCE 3 0 August 18, 2022 12:00am March 07, 2023 3:01pm Take within 1 hour prior to dental procedure Start: 08-18-2022 End: 03-07-2023 take 600 mg by mouth once Clindamycin Hcl Discontinued 600 MG PO ONCE 3 August 17, 2022 11:00pm March 07, 2023 2:01pm Take within 1 hour prior to dental procedure Start: 05-25-2022 End: 07-05-2022 Clindamycin Hcl 300 mg capsu le Discontinued 300 mg PO Q8H 4 0 May 25, 2022 1:00am July 05, 2022 11:07am Take 2 tabs 9 PM day of surgery and take 2 tabs morning after surgery hydroCHLOROthiazide 12.5 mg / lisinopril 20 mg oral tablet (12 sources) Thiazide Diuretic, Angiotensin Converting Enzyme Inhibitor Start: 11-22-2017 End: 02-15-2019 Lisinopril-Hydrochlorothiazi de 1 EACH tablet Discontinued 1 NMA PO DAILY November 22, 2017 12:00am February 15, 2019 3:00pm Start: 11-22-2017 End: 02-15-2019 Lisinopril-Hydrochlorothiazi de Discontinued 1 EACH PO DAILY November 21, 2017 11:00pm February 15, 2019 2:00pm Multivitamin tablet (4 sources) Start: 03-07-2023 End: 08-15-2024 Multivitamin tablet Discontinued 1 {tbl} PO DAILY March 07, 2023 12:00am August 15, 2024 2:43pm Ch-1-Bzc-Epa-Fish Oil-Vit D3 360 mg- 12.5 mcg capsule (4 sources) Start: 05-10-2024 End: 07-09-2024 Jr-9-Uvi-Epa-Fish Oil-Vit D3 360 mg- 12.5 mcg capsule Discontinued NMA PO May 10, 2024 1:00am July 09, 2024 3:47pm [place]-3 Fatty Acids ([place] 3) Capsule (12 sources) Start: 02-10-2022 End: 03-07-2023 take 1 capsule by mouth once daily [place]-3 Fatty Acids ([place] 3) Capsule Discontinued 1000 mg PO DAILY February 10, 2022 12:00am March 07, 2023 3:01pm Start: 02-10-2022 End: 03-07-2023 take 1 capsule by mouth once daily [place]-3 Fatty Acids ([place] 3) Capsule Discontinued 1000 MG PO DAILY February 09, 2022 11:00pm March 07, 2023 2:01pm Start: 02-10-2022 take 1 capsule by mo [facility] once daily [place]-3 Fatty Acids ([place] 3) Capsule Active 1000 MG PO DAILY February 09, 2022 11:00pm Start: 02-10-2022 take 1 capsule by mo ut once daily [place]-3 Fatty Acids ([place] 3) Capsule Active 1000 MG PO DAILY February 10, 2022 12:00am omeprazole 20 mg delayed release oral capsule (12 sources) Proton Pump Inhibitor Start: 11-22-2017 End: 02-15-2019 take 1 capsule by mouth once daily Omeprazole 20 capsule,delayed release(DR/EC) Discontinued 20 mg PO DAILY November 22, 2017 12:00am February 15, 2019 3:00pm ondansetron 4 mg oral tablet (9 sources) Serotonin-3 Receptor Antagonist Start: 05-25-2022 End: 03-07-2023 take 1 tablet by mouth every six hours as needed for nausea and vomiting Ondansetron Hcl 4 mg tablet Discontinued 4 mg PO EVERY 6 HOURS as needed for nausea and vomiting 5 0 May 25, 2022 11:57am March 07, 2023 3:02pm oxyCODONE hydrochloride 5 mg oral tablet (17 sources) Opioid Agonist Start: 06-07-2022 End: 06-14-2022 take 5-10 mg by mouth every six hours as needed for pain Oxycodone 5 mg tablet Discontinued 5 - 10 mg PO EVERY 6 HOURS as needed for Pain Score 6-10/10 50 7 0 June 07, 2022 June 13, 2022 1:00am June 14, 2022 1:03am Other acute postprocedural pain Start: 05-25-2022 End: 07-05-2022 take 1 tablet by mouth every four hours as needed for pain Oxycodone 5 mg tablet Discontinued 5 mg PO Q4H as needed for pain 60 7 0 May 25, 2022 July 05, 2022 11:07am Other acute postprocedural pain Other acute postprocedural pain predniSONE 20 mg oral tablet (12 sources) Start: 02-10-2022 End: 02-15-2022 take 2 tablets by mouth once daily Prednisone 20 mg tablet Discontinued 40 mg PO DAILY 10 February 10, 2022 12:00am February 15, 2022 3:23pm Start: 02-10-2022 End: 02-15-2022 take 40 mg by mouth once daily Prednisone Discontinued 40 MG PO DAILY February 09, 2022 11:00pm February 15, 2022 2:23pm sulfamethoxazole 800 mg / trimethoprim 160 mg oral tablet (12 sources) Dihydrofolate Reductase Inhibitor Antibacterial, Sulfonamide Antimicrobial Start: 03-11-2021 End: 06-17-2021 Sulfamethoxazole-Trimethopri m 800-160 mg tablet Discontinued 1 {tbl} PO DAILY March 11, 2021 12:00am June 17, 2021 4:37pm Start: 03-11-2021 End: 06-17-2021 take 1 tablet by mouth once daily Sulfamethoxazole-Trimethoprim Discontinu ed 1 TABLET PO DAILY March 10, 2021 11:00pm June 17, 2021 3:37pm Problems Active Problems Problem Classification Problem Date Documented Date Episodic/Chronic Acquired foot deformities (14 sources) Clubbing of toes; Translations: [Other deformities of toe(s) (acquired), right foot] Onset: 03-04-2025 03-08-2022 Episodic Comment on above: congenital Complications of surgical procedures or medical care (2 sources) Pseudarthrosis after fusion or arthrodesis; Translations: [Nonunion of subtalar arthrodesis] Onset: 03-04-2025 Episodic Diseases of mouth; excluding dental (12 sources) Diseases of lips; Translations: [Mass of lip] 11-29-2017 Episodic Diseases of white blood cells (12 sources) Leukocytosis; Translations: [Elevated white blood cell count, unspecified] 03-19-2021 Chronic Disorders of lipid metabolism (2 sources) Hyperlipidemia, unspecified; Translations: [Hyperlipidemia, unspecified] Onset: 06-25-2017 Chronic Essential hypertension (3 sources) Essential (primary) hypertension; Translations: [Essential (primary) hypertension] Onset: 06-25-2017 Chronic Malaise and fatigue (12 sources) Asthenia; Translations: [Weakness] 03-19-2021 Episodic Nutritional deficiencies (1 source) Vitamin D deficiency, unspecified; Translations: [Vitamin D deficiency] Onset: 03-04-2025 Chronic Osteoarthritis (20 sources) Primary osteoarthritis, left shoulder; Translations: [Primary osteoarthritis, right shoulder] Onset: 08-29-2017 Chronic Other acquired deformities (11 sources) Acquired valgus deformity of right knee; Translations: [Valgus deformity, not elsewhere classified, right knee] 03-08-2022 Episodic Other acquired deformities (3 sources) Valgus deformity, not elsewhere classified, right knee; Translations: [Genu valgum (acquired)] Episodic Other and unspecified benign neoplasm (12 sources) History of polyp of colon; Translations: [Personal history of colonic polyps] 12-29-2021 Episodic Other congenital anomalies (11 sources) Talipes equinovarus; Translations: [Other specified congenital deformities of feet] 03-08-2022 Chronic Other congenital anomalies (3 sources) Other specified congenital deformities of feet; Translations: [Talipes, unspecified] Chronic Other connective tissue disease (5 sources) History of total knee arthroplasty; Translations: [Presence of right artificial knee joint] 03-07-2023 Chronic Other connective tissue disease (1 source) Muscle weakness (generalized); Translations: [Muscle weakness affecting movement of foot] Onset: 03-27-2025 Episodic Other fractures (12 sources) Fracture of twelfth thoracic vertebra; Translations: [Wedge compression fracture of T11-T12 vertebra, initial encounter for closed fracture] 02-18-2022 Episodic Other lower respiratory disease (5 sources) Cough; Translations: [Cough] 11-02-2024 Episodic Other nervous system disorders (4 sources) Other chronic pain; Translations: [Other chronic pain] Onset: 08-29-2017 Chronic Other nervous system disorders (9 sources) Acute postoperative pain; Translations: [Other acute postprocedural pain] 05-25-2022 Episodic Other non-traumatic joint disorders (12 sources) Rotator cuff arthropathy of right shoulder; Translations: [Other specific arthropathies, not elsewhere classified, right shoulder] 06-17-2021 Chronic Other non-traumatic joint disorders (20 sources) Pain in left knee; Translations: [Left knee pain] 03-08-2022 Episodic Other non-traumatic joint disorders (1 source) Other instability, right ankle; Translations: [Other joint derangement, not elsewhere classified, ankle and foot] 07-05-2022 Episodic Other non-traumatic joint disorders (11 sources) Shoulder pain; Translations: [Pain in right shoulder] 05-10-2024 Episodic Other non-traumatic joint disorders (2 sources) Pain in right ankle and joints of right foot; Translations: [Chronic pain of right ankle] Onset: 03-04-2025 Episodic Other nutritional; endocrine; and metabolic disorders (11 sources) Obesity; Translations: [Obesity, unspecified] 03-08-2022 Chronic Other nutritional; endocrine; and metabolic disorders (3 sources) Obesity, unspecified; Translations: [Obesity, unspecified] Chronic Residual codes; unclassified (6 sources) Obstructive sleep apnea syndrome; Translations: [Obstructive sleep apnea (adult) (pediatric)] 11-02-2024 Chronic Spondylosis; intervertebral disc disorders; other back problems (12 sources) Lumbar radiculopathy; Translations: [Radiculopathy, lumbar region] 02-18-2022 Episodic Unclassified (8 sources) Bilateral shoulder pain; Translations: [M25.511 - Pain in right shoulder,M25.512 - Pain in left shoulder] Unclassified (1 source) Cough, unspecified; Translations: [Cough, unspecified] Onset: 11-02-2024 Unclassified (2 sources) Congenital pes cavus, right foot; Translations: [Cavus deformity of right foot] Onset: 03-04-2025 Past or Other Problems Problem Classification Problem Date Documented Da te Episodic/Chronic Other non-traumatic joint disorders (3 sources) Pain in right shoulder; Translations: [Pain in right shoulder] Onset: 08-29-2017 Episodic Other non-traumatic joint disorders (1 source) Pain in left shoulder; Translations: [Pain in left shoulder] Onset: 11-22-2024 Episodic Other non-traumatic joint disorders (1 source) Pain in unspecified shoulder; Translations: [Pain in unspecified shoulder] Onset: 05-29-2024 Episodic Unclassified (12 sources) s/p lip cyst removal 12-20-2021 Results Test Name Value Interpretation Reference Range Facility [facility] 03-27-2025 [facility] Office Visit ([facility]) CHINYERE COOLEY ([id number]) 1970 M Date Time Provider Department 03/27/25 11:15 AM HODA CASTRO [facility] During your visit today, we recorded the following information about you: Respiration Weight Height 18/minute 104.3 kg 1.651 m Hoda Castro DPM 03/27/2025 12:33 PM Signed PODIATRIC SURGERY CC: right STJ nonunion/malunion HPI: Chinyere Cooley is a 55-year-old male presenting for follow-up after a STJ fusion with persistent foot pain. DOS was 06/17/[address] Kim. He is accompanied by his who provides additional history. Chinyere reports persistent pain in the subtalar region of his right foot, which is most severe with weight-bearing. He reports numbness in both feet, worse on the left, that occurs when sitting for prolonged periods. He also reports difficulty controlling his toes, which he describes as doing their own thing. Describing tremors. He has a history of foot deformities since childhood. He works in [employer] and is currently able to perform his job with accommodations that allow him to sit while working. He has an AFO that does not provide relief. PCP: Mellissa Blum NP History reviewed. No pertinent past medical history.: Current Outpatient Medications Medication Sig oxybutynin (DITROPAN) 5 mg tablet Take 1 tablet by mouth every 12 hours. meloxicam (MOBIC) 15 mg tablet Take 15 mg by mouth as needed. losartan-hydroCHLOROt hiazide (HYZAAR) 100-25 mg per tablet Take 1 tablet by mouth once daily. fluorometholone (FML LIQUID FILM) 0.1 % ophthalmic suspension Use 1 drop in both eyes two times a day. doxycycline (VIBRAMYCIN) 50 mg capsule Take 1 capsule by mouth once daily. cycloSPORINE (RESTASIS) 0.05 % ophthalmic emulsion Use 1 drop in both eyes two times a day. buPROPion XL (WELLBUTRIN XL) 300 mg 24 hr tablet Take 300 mg by mouth once daily. No current facility-administered medications for this visit. : ALLERGIES Not on File: History reviewed. No pertinent surgical history. History reviewed. No pertinent family history.: SOCIAL HISTORY[1] Physical Exam: Resp 18 Ht 165.1 cm (5' 5) Wt 104.3 kg (230 lb) BMI 38.27 kg/m? Patient is alert and oriented to person to person, place, and time. Appears to be in no acute distress. Normal mood and affect. Vasc: DP and PT pulses are palpable. CFT brisk to the the toes. Skin temperature is warm to warm from proximal to distal. Hair growth is present. mild edema noted to the right right ankle and hindfoot. Neuro: Light touch intact in the feet. Intact protective sensation. Derm: Skin with well healed lateral hindfoot scar. no erythema. no ecchymosis. no rashes. no subcutaneous nodules. Ulcer is not noted. Hyperkeratotic tissue is not noted. MSK: +5/5 muscle strength AT, EHL, PT, FHL, achilles 0/5 peroneal muscle strength Pain to palpation of the sinus tarsi. 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 The forefoot to rearfoot is adducted. The first ray is plantarflexed. The lateral border of the foot is adducted. Subtalar joint with absent with pain. Ankle joint with diminished range of motion without pain. No pain to palpation of the ankle joint. In stance, the forefoot to rearfoot is adducted and RCSP is varus. In stance the foot is rectus relative to the leg. Goff block test reveals no change to RCSP. Gait examination reveals antalgic gait with decreased angle and base. At midstance the foot is supinated. The first ray is stable in propulsion. Radiographs: 3 views of the right foot, ankle and calcaneus Radiographic evaluation: No obvious fracture or dislocation is noted. No soft tissue gas. Bone density appear typical for age of patient. 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 Hardware intact without breakage, there is haloing around the screw consistent with loosening. No acute destructive changes. Calcaneus is in varus. Increased medial clear space on ankle. Remote avulsion fracture of the medial malleolus. Talus is in varus as well. Digital contractures noted. 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 No osseous fusion across the subtalar joint. Moderate tibiotalar joint osteoarthritis. Tibiotalar joint effusion. 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 Labs: Hemoglobin (g/dL) Date Value 03/04/2025 17.9 Hematocrit (%) Date Value 03/04/2025 54.0 WBC (k/uL) Date Value 03/04/2025 10.93 CRP Date Value Ref Range Status 03/04/2025 0.4 <0.9 mg/dL Final Sed Rate, Westergren Date Value Ref Range Status 03/04/2025 2 0 - 15 mm/hr Final Vitamin D 25 Hydroxy (ng/mL) Date Value 03/04/2025 29.6 As (more content not included)... Normal [facility] CT ANKLE WO IVCON RTon 03-13 CT ANKLE WO IVCON RT * * *Final Report* * * DATE OF EXAM: Mar 13 2025 3:50PM [facility] 0061 - CT ANKLE WO IVCON RT / PROCEDURE REASON: multiple diagnoses * * * * Physician Interpretation * * * * CT ANKLE WO IVCON RT CLINICAL HISTORY: Subtalar arthrodesis. Concern for nonunion TECHNIQUE: Axial CT images of the RIGHT ankle performed without contrast. Coronal sagittal reconstructions were created. Automated exposure control was utilized. COMPARISON: None. FINDINGS: Osteopenia. Subtalar joint arthrodesis with single intact screw. Lucency around the screw circumferential lucency around the screw consistent with loosening. Persistent visualization of the subtalar joint with cystic changes along the posterior subtalar joint. No bony ankylosis across the subtalar joint. Moderate tibiotalar joint space narrowing subchondral cystic changes and osteophytes. Midfoot alignment within normal limits. Moderate talofibular joint space narrowing with osteophytes. Remote avulsion fracture of the medial malleolus. Muscles demonstrate normal attenuation bulk. No intramuscular fluid collection. Large tibiotalar joint effusion. Fluid attenuation within the flexor hallucis longus and flexor digitorum tendon sheath which may be seen with tenosynovitis. Diffuse soft tissue edema. IMPRESSION: Subtalar joint arthrodesis with loosening of the arthrodesis screw. No osseous fusion across the subtalar joint. Moderate tibiotalar joint osteoarthritis. Tibiotalar joint effusion. 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 Client Onboarding Analyst[facility] Transcribe Date/Time: Mar 14 2025 4:44P Dictated by : AMBREEN COBB DO This examination was interpreted and the report reviewed and electronically signed by: AMBREEN COBB DO on Mar 14 2025 4:48PM EST [id number] N Normal [facility] 25(OH)D3 [facility] 2024 25-hydroxyvitamin D3 [Mass/Vol] 29.6 ng/mL Low >=30.0 [facility] Comment on above: Order Comment: Speci men Type: BLOOD SPECIMEN Ordering Facility: [facility] Address: [address] [place] [address] Result Comment: Clas sification of 25 [place] Vitamin D status: Deficiency: <= 20.0 ng/ml. Insufficiency: 21.0-29.0 ng/ml. Sufficiency: >= 30.0 ng/ml. Performed By: #### 1 989-3 #### [facility] CLIA [id number] [address] CBC panel Auto (Bld)on 03-04 Erythrocyte distribution width (RBC) [Ratio] 13.3 % Normal 11.5-15.0 [facility] Comment on above: Order Comment: Speci men Type: BLOOD SPECIMEN Ordering Facility: [facility] Address: [address] [place] [address] Performed By: #### 5 8410-2 #### [facility] CLIA [id number] [address] Hematocrit (Bld) [Volume fraction] 54.0 % High 39.0-51.0 [facility] Comment on above: Order Comment: Speci men Type: BLOOD SPECIMEN Ordering Facility: [facility] Address: [address] [place] [address] Performed By: #### 5 8410-2 #### [facility] CLIA [id number] [address] Hemoglobin (Bld) [Mass/Vol] 17.9 g/dL High 13.0-17.0 [facility] Comment on above: Order Comment: Speci men Type: BLOOD SPECIMEN Ordering Facility: [facility] Address: [address] [place] [address] Performed By: #### 5 8410-2 #### [facility] CLIA [id number] [address] MCH (RBC) [Entitic mass] 29.9 pg Normal 26.0-34.0 [facility] Comment on above: Order Comment: Speci men Type: BLOOD SPECIMEN Ordering Facility: [facility] Address: [address] [place] [address] Performed By: #### 5 8410-2 #### [facility] CLIA [id number] [address] MCHC (RBC) [Mass/Vol] 33.1 g/dL Normal 30.5-36.0 [facility] Comment on above: Order Comment: Speci men Type: BLOOD SPECIMEN Ordering Facility: [facility] Address: [address] [place] [address] Performed By: #### 5 8410-2 #### [facility] CLIA [id number] [address] MCV (RBC) [Entitic vol] 90.3 fL Normal 80.0-100.0 [facility] Comment on above: Order Comment: Speci men Type: BLOOD SPECIMEN Ordering Facility: [facility] Address: [address] [place] [address] Performed By: #### 5 8410-2 #### [facility] CLIA [id number] [address] Nucleated RBC (Bld) [#/Vol] 10*3/uL Normal <0.01 [facility] Comment on above: Order Comment: Speci men Type: BLOOD SPECIMEN Ordering Facility: [facility] Address: [address] [place] [address] Performed By: #### 5 8410-2 #### [facility] CLIA [id number] [address] Platelet mean volume (Bld) [Entitic vol] 11.9 fL Normal 9.0-12.7 [facility] Comment on above: Order Comment: Speci men Type: BLOOD SPECIMEN Ordering Facility: [facility] Address: [address] [place] [address] Performed By: #### 5 8410-2 #### [facility] CLIA [id number] [address] [place] Platelets (Bld) [#/Vol] 247 10*3/uL Normal 150-400 [facility] Comment on above: Order Comment: Speci men Type: BLOOD SPECIMEN Ordering Facility: [facility] Address: [address] [place], [place] [address], [place] [address] Performed By: #### 5 8410-2 #### [facility] CLIA [id number] [address] [facility] RBC (Bld) [#/Vol] 5.98 10*6/uL Normal 4.20-6.00 [facility] Comment on above: Order Comment: Speci men Type: BLOOD SPECIMEN Ordering Facility: [facility] Address: [address] [place] [address] Performed By: #### 5 8410-2 #### [facility] CLIA [id number] [address] [facility] WBC (Bld) [#/Vol] 10.93 10*3/uL Normal 3.70-11.00 [facility] Comment on above: Order Comment: Speci men Type: BLOOD SPECIMEN Ordering Facility: [facility] Address: [address] [place] [id number] Performed By: #### 5 8410-2 #### [facility] CLIA [id number] [address] [facility] CNOVon 03-04-2025 CNOV Office Visit (AGHWG1 ) CHINYERE COOLEY ([id number]) 1970 M Date Time Provider Department 03/04/25 10:30 AM HODA CASTRO [facility] During your visit today, we recorded the following information about you: Respiration Weight Height 18/minute 104.3 kg 1.651 m Hoda Castro DPM 03/25/2025 7:50 AM Signed PODIATRIC SURGERY CC: right ankle pain HPI: Chinyere is a 55-year-old male presenting with chronic right ankle pain and deformity following subtalar fusion. He is accompanied by his who provides additional history. Chinyere reports that after a knee replacement, his previously knock-kneed leg was straightened, but over the following year to year and a half, his ankle became weaker and began rolling out of his shoe. He was evaluated by Dr. Kim, who recommended surgery. The surgery was performed on 06/17/2023, undergoing an STJ fusion. Postoperatively, Chinyere?s foot was turned inward in a varus position, which he states was not present before surgery. He reports difficulty walking on flat ground and is unable to walk on sand or dirt. He experiences pain with walking and is unable to walk long distances without pain. He has returned to Dr. Kim multiple times, who advised that the screw would eventually pull in and the deformity would correct itself over time. However, Chinyere reports that the deformity has persisted and worsened over the past 21 months. Chinyere was referred to Dr. Erich Ramsay, who provided an AFO but this did not provie relief and ultimately advised that Chinyere needed more extensive surgery beyond his scope and was referred to us. Chinyere currently uses an articulating AFO but reports difficulty with driving and limited improvement in symptoms. He denies any postoperative infections and reports that he does not smoke or use nicotine products. PCP: Mellissa Blum, ROAD ROLLER ENGINEER, ROAD ROLLER ENGINEER History reviewed. No pertinent past medical history.: No current outpatient medications on file. No current facility-administered medications for this visit. : ALLERGIES Not on File: History reviewed. No pertinent surgical history. History reviewed. No pertinent family history.: SOCIAL HISTORY[1] Physical Exam: Resp 18 Ht 165.1 cm (5' 5) Wt 104.3 kg (230 lb) BMI 38.27 kg/m? Patient is alert and oriented to person to person, place, and time. Appears to be in no acute distress. Normal mood and affect. Vasc: DP and PT pulses are palpable. CFT brisk to the the toes. Skin temperature is warm to warm from proximal to distal. Hair growth is present. mild edema noted to the right right ankle and hindfoot. Neuro: Light touch intact in the feet. Derm: Skin with well healed lateral hindfoot scar. no erythema. no ecchymosis. no rashes. no subcutaneous nodules. Ulcer is not noted. Hyperkeratotic tissue is not noted. MSK: +5/5 muscle strength with dorsiflexion and plantarflexion. Difficulty inverting and everting the foot. Pain to palpation of the sinus tarsi. 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 The forefoot to rearfoot is adducted. The first ray is plantarflexed. The lateral border of the foot is adducted. Subtalar joint with absent with pain. Ankle joint with diminished range of motion with pain. In stance, the forefoot to rearfoot is adducted and RCSP is varus. In stance the foot is rectus relative to the leg. Goff block test reveals no change to RCSP. Gait examination reveals antalgic gait with decreased angle and base. At midstance the foot is supinated. The first ray is stable in propulsion. Radiographs: 3 views of the right foot, ankle and calcaneus were taken and evaluated today. Radiographic evaluation: No obvious fracture or dislocation is noted. No soft tissue gas. Bone density appear typical for age of patient. 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 Hardware intact without breakage, there is haloing around the screw consistent with loosening. No acute destructive changes. Calcaneus is in varus. Increased medial clear space on ankle. Remote avulsion fracture of the medial malleolus. Talus is in varus as well. Digital contractures noted. Assessment: Patient is a 55 year old male with history of knee replacement and subsequent subtalar joint fusion on 06/17/2023 now presents with chronic right ankle pain, varus deformity, and cavus foot structure. 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 Patient is currently using an articulating AFO, which does not fully address his pain. Plan: A history and physical examination were preformed. The patient was educated on clinical and radiographic findings, diagnosis and treatment plans. Patient state that he understands all that has been explained and all questions were answered to his apparent sati (more content not included)... Normal [facility] CRP SerPl-mCncon 03-04-2025 CRP [Mass/Vol] 0.4 mg/dL Normal <0.9 [facility] Comment on above: Order Comment: Speci men Type: BLOOD SPECIMEN Ordering Facility: [facility] Address: [address] [place] [address] Performed By: #### 1 988-5 #### [facility] CLIA [id number] [address] [place] ESR Westergren method (Bld) [Velocity]on 03-04-2025 ESR (Bld) [Velocity] 2 mm/h Normal 0-15 [facility] Comment on above: Order Comment: Speci men Type: BLOOD SPECIMEN Ordering Facility: [facility] Address: [address] [place] [address] Performed By: #### 4 537-7 #### [facility] CLIA [id number] [address] [place] [address] [place] CNPSandra 02-18-2025 CNPN Telephone (AGPOB1) LENORACHINYERE ([id number]) 1970 M Date Time Provider Department 02/18/25 [facility] AGPOB1 During your visit today, we recorded the following information about you: Annelise Nova 02/18/2025 12:21 PM Signed ----- Message from Alyce Fry sent at 02/18/2025 11:39 AM EDT ----- Regarding: Ortho/ New Patient - returning call to Annelise/ Pt checking to see if office has recieved medical records Subject Line Format: Orthopedics / [Provider Name or Open AND Body Part] / [Issue] Patient has been identified by name and Date of (Y/N): Yes Patient: Chinyere Cooley Date of : 1970 Previous Provider Seen: New Patient Body Part(s) Identified: right ankle Diagnosis/Reason For Visit: pain Reason for the call/escalation: Pt would like to know if previous medical records has been received By office If reason for call/escalation is discharge from ED/ER or Hospital, which facility was the patient seen at: N/A Was an appointment scheduled (Y/N): No Person calling if other than patient: N/A Return call to if other than patient: N/A Best contact number: [phone] Thank you, Alyce Noriega February 18, 2025 11:39 AM Annelise Nova 02/18/2025 1:06 PM Signed I called and talked with him and let him know we have no records in the chart. Annelise Kemp 02/18/2025 5:07 PM Signed Records were rec'd. I will let the executive legal secretary know so they can be reviewed. Annelise Nova Allergies As of Date: 02/18/2025 (Not on File) Date Reviewed: Never Reviewed Reason for Visit: Appointment [186] Problem List As Of Date: 02/18/2025 (None) Encounter Status:Closed by ANNELISE [facility] Telephone (AGPOB1) CHINYERE COOLEY ([id number]) 1970 M Date Time Provider Department 02/11/25 ORTH PO During your visit today, we recorded the following information about you: Annelise Nova 02/11/2025 3:16 PM Signed ----- Message from Alyce Fry sent at 02/11/2025 2:58 PM EDT ----- Regarding: Orthopedics / Ankle: Pain / Previous Surgery By A Non-AG Provider on 05/13/24 Subject Line Format: Orthopedics / [Provider Name or Open AND Body Part] / [Issue] Patient has been identified by name and Date of (Y/N): Yes Patient: Chinyere A Lenora Date of : 1970 Previous Provider Seen: New Patient Body Part(s) Identified: Right ankle Diagnosis/Reason For Visit: Reconstructive ankle surgery Reason for the call/escalation: Patient has had two different ankle surgeries. ( Randi ) believes last surgery was a year ago maybe longer If reason for call/escalation is discharge from ED/ER or Hospital, which facility was the patient seen at: N/A Was an appointment scheduled (Y/N): No Person calling if other than patient: Randi Return call to if other than patient: N/A Best contact number: Please call patient [phone]. If you're unable to get in contact with him please call randi [phone]. Thank you, Alyce Noriega February 11, 2025 2:58 PM Annelise Nova 02/11/2025 3:19 PM Signed I called and talked with him and let him know we need to get his surgical information and office notes. We may at some point need xrays but notes is where we will start. I let him know once we get those and review them, he will get a call Annelise Kemp 2025 8:33 AM Signed Records have been rec'd and scanned to chart. I will send to Dr. Patterson and Dr. Castro to see who he can be scheduled with. Annelise Nunezy [facility]Sis 02/20/2025 1:11 PM Signed Hoda Castro DPM You; Annelise Nova; Julee Mcdonald DPM56 minutes ago (12:13 PM) I can see him, but no guarantee for additional surgeries. This would just be an initial evaluation You Hoda Castro DPM; Annelise Nova; Jluee Mcdonald DPM4 hours ago (8:41 AM) [place] Looking for a 2nd opinion but also someone to do future surgeries due to the original surgeon did not do what he said that he would do and he is having pain just putting his foot down to walk Hoda Castro DPM You; Annelise Nova; Julee Mcdonald DPM19 hours ago (5:39 PM) I only saw one surgery in there. Was there a reason they were not going back to their original surgeon? Are they looking for a second opinion? From the notes it looks like he was last seen by his surgeon last November and he still never fully recovered from his STJ fusion and they had recommended an AFO but also possible ankle fusion. Tremaine Stevedoring Supervisor Ppg, Sis 02/20/2025 1:12 PM Signed Spoke with patient and he will call back to schedule once he has his schedule Sis Sarmientochey Stevedoring Supervisor Ppg Allergies As of Date: 02/11/2025 (Not on File) Date Reviewed: Never Reviewed Reason for Visit: Appointment [186] Problem List As Of Date: 02/11/2025 (None) Encounter Status:Closed by ANNELISE NOVA on 02/11/25 Normal [facility] Orthopedic Visit Reporton Orthopedic Visit Report [facility] [address] [place] [address] [place] [address] OFFICE VISIT Date of Service: 11/26/24 MR#: [id number] Acct: [id number] Name: CHINYERE COOLEY Rep #: [id number] : 1970 Provider: Dr. Duc collazo MD Age/Sex: 54/M [facility] Status: Signed Intake Vital Signs 08/29/24 07:04 11/02/24 06:11 Height 5 ft 5 in 5 ft 5 in Weight: 230 lb BMI 38.2 BP 114/75 Blood Pressure Location Lt brachial Position Sitting Respiration 20 H Pulse 79 Pulse Source Monitor Temp 97.5 F L Pulse Oximetry (%) 96 Oxygen Delivery Method room air Intake Visit Reasons: LEFT SHOULDER Chief Complaint: left shoulder post-op Is patient in pain?: No Allergies acetaminophen (From Vicodin) Adverse Reaction (Verified 11/26/24 09:21) Nausea cephalexin (From Keflex) Adverse Reaction (Verified 11/26/24 09:21) makes him feel bad hydrocodone (From Vicodin) Adverse Reaction (Verified 11/26/24 09:21) Nausea Medications ???Medication ???Instructions ???Recorded ???Confirmed ???Type bupropion HCl 300 mg 24 hr tablet, 300 mg PO DAILY 03/11/21 5 History extended release losartan 100 1 tab PO DAILY 03/11/21 11/02/24 H istory mg-hydrochlorothiazid e 25 mg tablet cyclosporine 0.05 % eye drops in a 1 drp ophthalmic (eye) BID 03/0711/02/24 History dropperette doxycycline hyclate 50 mg capsule 50 mg PO DAILY 03/07/23 11/02/24 History acetaminophen 650 mg 650 mg PO Q12H PRN pain 05/10/24 0 11/02/24 History tablet,extended release (Tylenol Arthritis Pain) ipratropium bromide 42 mcg (0.06 2 spray intranasal TID #15 mL 10/2111/02/24 Rx %) nasal spray meloxicam 15 mg tablet 15 mg PO .as needed 11/26/2411/26 History PFSH Medical History (Updated 11/02/24 @ 09:13 by Julee Valenzuela, ROAD ROLLER ENGINEER-C) History of pain when walking History of edema Bilateral shoulder pain Former smoker Wears glasses Arthritis CPAP (continuous positive airway pressure) dependence Hammertoe of right foot Bilateral primary osteoarthritis of knee Primary osteoarthritis, right shoulder DJD of both shoulders Hypertension Depression Surgical History (Updated 11/02/24 @ 08:44 by Flavia Mccall) History of left shoulder replacement History of ankle surgery History of total right knee replacement s/p lip cyst removal S/P carpal tunnel release S/P inguinal hernia repair Family History Father Arthritis Social History Smoking Status: Former smoker quit date: 05/23/98 alcohol intake: current HPI LEFT SHOULDER Details: This documentation accurately reflects the service provided and the decisions made by me, Dr. Duc Smith MD 11/26/24 08. Part of today???s visit was documented by [ ], acting as scribe. CHINYERE COOLEY is a 54 year old M here today for 3 months follow-up left reverse total shoulder arthroplasty. He complains of numbness into his 5th finger, into his 5th metacarpal area and the tip of his 4th finger. Overall doing well no pain good range of motion. Coding Level of Care Code Global Post Op Diagnoses DJD of left shoulder M19.012 Assessment and Plan Assessment and Plan (1) DJD of left shoulder: Status: Acute Plan: CHINYERE COOLEY is a 54 year old M here today for 3 months follow-up left reverse total shoulder arthroplasty. overall the patient is doing well could have a cubital tunnel syndrome or also neuropraxia from the operation or even from being in the sling postoperatively. Will monitor this if this is no better in 3 months time asked the patient to let me know so that we get her studies. Overall I recommend returning to work at this point no lifting greater than 20 pounds left upper extremity and follow-up in years time for postoperative radiographs patient understands no further questions or concerns. Ortho Exam General General: Yes no acute distress Neurologic: Yes alert and Yes oriented x3 Psychologic: Yes reasonable and appropriate Left Shoulder Skin/Wound: Yes CDI, Yes healed, No ecchymosis, No erythema and No swelling (mild) SHOULDER: nvi mru ain/pin, ax nerve. strong rad pulse. good elbow wrist ROM. Active forward elevation 170 degrees external rotation 45 degrees. 11/26/24 0939 Date Duc Smith MD Cosign Signature: Date (if applicable) CC: Normal [facility] PT D/C Summary (1)on 025 PT D/C Summary (1) [facility] Physical Therapy [address] [place] [address] / REHABILITATION SERVICES DISCHARGE SUMMARY MR#: [id number] Acct: [id number] Name: CHINYERE COOLEY Rep #: [id number] : 1970 54 From: Master Solis PT, ATC Referring Dr.: Dr. Duc Smith MD Status: R EG RCR [facility] [employer]F [facility]URANCE Discharge Summary D/C summary: It has been my pleasure to treat CHINYERE COOLEY referred by Dr. Duc Smith MD, with the diagnosis of L rev TSA 08/29/24 for a total of 20 visit(s). Discharge Date: Please see the following information for a summary of their discharge status. Subjective Subjective: Pt reports no pain today. He is ready for I HEP Pain L shoulder: Pain Intensity (Out of 10): 0 Overall Improvement % Improvement: 75 Objective Objective/Function: L shoulder pain 0/10 Pt is I with HEP L shoulder ROM: flex= 150, abd= 125 degrees L shoulder MMT: flex= 10, abd= 18, ER= 11, IR= 11 #F Goals Goal 1:: Decrease L shoulder pain x 50% to aid with sleep Goal Progress: Goal Met Goal 2:: Increase L shoulder flex and abd ROM x 30 degrees to aid with overhead lifting Goal 3:: Increase L shoulder strength x 90% of R shoulder strength to aid with return to work Goal 4:: I with HEP Goal Progress: Goal Met Plan Plan: Discharge to HEP D/C Information d/c sentence: If there are questions or concerns regarding this patient's physical therapy, please feel free to call me at [phone]. Thank you for the referral of this patient. Sincerely, Master Solis, PT, ATC Balance/Gait/Function al tests Balance/Special Test Scores Quick DASH Score: 15.9075 Improvement % Improvement: 75 11/16/24 0931 CC: Dr. True Clarke MD; Dr. Duc Smith MD [facility] Signed Normal [facility] Pulmonary Visit Reporton Pulmonary Visit Report [facility] [place] [address] [place] [address] OFFICE VISIT Date of Service: 11/02/24 MR#: [id number] Acct: [id number] Name: CHINYERE COOLEY Rep #: [id number] : 1970 Provider: Julee Valenzuela NP Age/Sex: 54/M Location: [facility] Status: Signed Assessment and Plan Assessment and Plan (1) Obstructive sleep apnea: Status: Chronic Plan: Patient is using and benefiting from Pap therapy.??? No indication for titration study at this time. Contact the office for any new or worsening symptoms in the meantime.??? Follow-up in 6 months. (2) Cough: Status: Chronic Plan: His NIOX is within normal limits. The previous PFT was grossly normal. There is no evidence of asthma or COPD. I suspect that the morning cough is due to chronic postnasal drainage and I have recommended that he begin ipratropium bromide nasal spray. I have discussed recommendations for changes in comfort settings on his PAP device to see if this will decrease his morning secretions. Orders: Orders NIOX Today R05.9 - Cough, unspecified Medications: New ipratropium bromide administer into each nostril 2 sprays intranasal TID 15 mL 5RF Plan Details Follow Up: 6 Months (LMR) HPI HPI Comments Details: Patient is a 54-year-old male who presents today to establish for sleep apnea. He is ambulatory and currently on room air. He underwent a split-night study March 11, 2023 which showed the recommendation to utilize BiPAP at 14 over 10 cm. He had previous lung functioning studies from April 18, 2023 which showed a grossly normal pulmonary function test. He underwent a 6-minute walk test which showed no requirement for supplemental oxygen. The patient had struggled with the high air pressure and so his device was decreased to BiPAP at 12 over 8 cm. The patient is tolerating his current air pressure without difficulty. He is using a nasal style of mask. He is feeling refreshed upon awakening in the morning. Nocturia rarely occurs.he reports that dry mouth occurs on occasion. He is not running the humidity with the device. It makes him cough clear sputum when he does. He does nap on occasion with his machine. Smoking history includes side stream smoke for 20 years. He did smoke for 7 years, 1.5 pack per day. He has been exposed to a significant amount of dust. 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 He is reporting frustration with a cough that occurs each morning for at least an hour with clear thin sputum. He has tried to make adjustment to his comfort settings on his pap device. He has tried Claritin, Flonase, Vanessa, Zyrtec without benefit. Compliance download from October 30, 2024 shows AHI 0.1, minimal air leak, 100% compliance using the device 8 hours and 59 minutes nightly average. His BiPAP is set at 12 over 8 cm. This is reviewed with patient today. Intake Vital Signs 08/29/24 07:04 11/02/24 06:11 Height 5 ft 5 in 5 ft 5 in Weight: 230 lb BMI 38.2 BP 114/75 Blood Pressure Location Lt brachial Position Sitting Respiration 20 H Pulse 79 Pulse Source Monitor Temp 97.5 F L Temperature Source Temporal Artery Pulse Oximetry (%) 96 Oxygen Delivery Method room air Intake Visit Reasons: Sleep apnea Turbine Inspector Required: No DME Vendor: [employer] Accompanied by: Self Is patient in pain?: No Allergies acetaminophen (From Vicodin) Adverse Reaction (Verified 11/02/24 08:42) Nausea cephalexin (From Keflex) Adverse Reaction (Verified 11/02/24 08:42) makes him feel bad hydrocodone (From Vicodin) Adverse Reaction (Verified 11/02/24 08:42) Nausea Medications ???Medication ???Instructions ???Recorded ???Confirmed ???Type bupropion HCl 300 mg 24 hr tablet, 300 mg PO DAILY 03/11/21 5 History extended release losartan 100 1 tab PO DAILY 03/11/21 11/02/24 H istory mg-hydrochlorothiazid e 25 mg tablet meloxicam 15 mg tablet 15 mg PO DAILY 03/11/21 11/02/24 H istory cyclosporine 0.05 % eye drops in a 1 drp ophthalmic (eye) BID 03/0711/02/24 History dropperette doxycycline hyclate 50 mg capsule 50 mg PO DAILY 03/07/23 11/02/24 History acetaminophen 650 mg 650 mg PO Q12H PRN pain 05/10/24 0 11/02/24 History tablet,extended release (Tylenol Arthritis Pain) ipratropium bromide 42 mcg (0.06 2 spray intranasal TID #15 mL 10/2111/02/24 Rx %) nasal spray PFSH Medical History (Updated 11/02/24 @ 09:13 by Julee Valenzuela NP-C) History of pain when walking History of edema Bilateral shoulder pain Former smoker Wears glasses Arthritis CPAP (continuous positive airway pressure) dependence Hammertoe of right foot Bilateral primary osteoarthritis of knee Primary osteoarthritis, right shoulder DJD o (more content not included)... Normal [facility] Orthopedic Visit Reporton Orthopedic Visit Report [facility] [address] [place] [address] OFFICE VISIT Date of Service: 10/12/24 MR#: [id number] Acct: [id number] Name: CHINYERE COOLEY Rep #: [id number] : 1970 Provider: Dr. Duc collazo MD Age/Sex: 54/M Location: [facility] Status: Signed Intake Vital Signs 08/29/24 07:04 Height 5 ft 5 in Intake Visit Reasons: LEFT SHOULDER Chief Complaint: left shoulder post-op Accompanied by: Is patient in pain?: No Allergies acetaminophen (From Vicodin) Adverse Reaction (Verified 10/12/24 09:16) Nausea cephalexin (From Keflex) Adverse Reaction (Verified 10/12/24 09:16) makes him feel bad hydrocodone (From Vicodin) Adverse Reaction (Verified 10/12/24 09:16) Nausea Medications ???Medication ???Instructions ???Recorded ???Confirmed ???Type bupropion HCl 300 mg 24 hr tablet, 300 mg PO DAILY 03/11/21 5 History extended release losartan 100 1 tab PO DAILY 03/11/21 10/12/24 H istory mg-hydrochlorothiazid e 25 mg tablet meloxicam 15 mg tablet 15 mg PO DAILY 03/11/21 10/12/24 H istory cyclosporine 0.05 % eye drops in a 1 drp ophthalmic (eye) BID 03/0710/12/24 History dropperette doxycycline hyclate 50 mg capsule 50 mg PO DAILY 03/07/23 10/12/24 History acetaminophen 650 mg 650 mg PO Q12H PRN pain 05/10/24 0 10/12/24 History tablet,extended release (Tylenol Arthritis Pain) PFSH Medical History History of pain when walking History of edema Bilateral shoulder pain Former smoker Wears glasses Arthritis CPAP (continuous positive airway pressure) dependence Hammertoe of right foot Bilateral primary osteoarthritis of knee Primary osteoarthritis, right shoulder DJD of both shoulders Hypertension Depression Surgical History History of ankle surgery History of total right knee replacement s/p lip cyst removal S/P carpal tunnel release S/P inguinal hernia repair Family History Father Arthritis Social History Smoking Status: Former smoker quit date: 05/23/98 alcohol intake: current HPI LEFT SHOULDER Details: This documentation accurately reflects the service provided and the decisions made by me, Dr. Duc Smith MD 10/12/24 0844. Part of today???s visit was documented by [ ], acting as scribe. CHINYERE COOLEY is a 54 year old M here today for 6 weeks follow-up left reverse total shoulder arthroplasty. Doing well no pain no changes. Has not yet started strengthening of the upper extremity. 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 Supplemental Info Radiographs were deferred until next visit there is no xr tech in the office. Coding Level of Care Code Global Post Op Diagnoses Bilateral shoulder pain M25.511; M25.512 Assessment and Plan Assessment and Plan (1) Bilateral shoulder pain: Status: Acute Plan: CHINYERE COOLEY is a 54 year old M here today for 6 weeks follow-up left reverse total shoulder arthroplasty. Patient doing very well with good range of motion. I warned him that should not be doing any sort of heavy lifting beyond a few pounds at this point gradually strengthen the shoulder over the next 6 weeks I wrote him a note to be off work for another 6 weeks and then we will reassess his ability to do any sort of more demanding labor with the upper extremity at that follow- up visit before returning back to work. He understands no further questions or concerns and will take a follow-up x-ray at next visit. Ortho Exam General General: Yes no acute distress Neurologic: Yes alert and Yes oriented x3 Psychologic: Yes reasonable and appropriate Left Shoulder Skin/Wound: Yes CDI, Yes healed, No ecchymosis, No erythema and No swelling (mild) SHOULDER: nvi mru ain/pin, ax nerve. strong rad pulse. good elbow wrist ROM. Active forward elevation 170 degrees external rotation 45 degrees. 10/12/24924 Date Duc Smith MD Cosigner Signature: Date (if applicable) CC: Normal [facility] Re-Evaluation - PT (1)on Re-Evaluation - PT (1) [facility] Physical Therapy [facility] [address] [place] [address] [address] [place] [address] / REEVALUATION / MEDICARE RECERTIFICATION PHYSICAL THERAPY MR#: [id number] Acct: [id number] Name: CHINYERE COOLEY Rep #: [id number] : 1970 54 From: Master Solis PT, ATC Referring Dr.: Dr. Duc Smith MD Status:REG R Insurance: [facility] JUST FOR ME SELF PAY INSURANCE Re-Evaluation Intro: Dr. Duc Smith MD, It has been my pleasure to treat CHINYERE COOLEY over the last 9 visits for L rev TSA 08/29/24. Please see the progress note below for an update on the physical therapy plan of care! Subjective Subjective: Pain is very minimal. None at rest Objective Objective/Function: L shoulder pain ranges from 0-2/10 L shoulder ROM: flex= 130, abd= 120, ER= 45, IR= to belt line Pt is showing excellent progress at this time. Plan Plan Plan: L shoulder PROM x 2 weeks. Then progress to AROM when ordered per surgeon. Plan on beginning strengthening at 6 weeks post-op with focus on rotator cuff strengthening, scap stab ex's, and HEP Balance/Gait/Function al tests Balance/Special Test Scores Quick DASH Score: 31.8175 Goals Goals Goal 1:: Decrease L shoulder pain x 50% to aid with sleep Goal Time Frame: 6-8 Weeks Goal 2:: Increase L shoulder flex and abd ROM x 30 degrees to aid with overhead lifting Goal Time Frame: 6-8 Weeks Goal 3:: Increase L shoulder strength x 90% of R shoulder strength to aid with return to work Goal Time Frame: 6-8 Weeks Goal 4:: I with HEP Goal Time Frame: 6-8 Weeks Anticipated Interventions Anticipated Interventions Patient/Client Instruction: Educate patient on: Condition and Plan of Care For the Purpose of:: To improve self management Therapeutic Exercise to Include: Strength training, Endurance training, Postural training, Passive ROM, Active ROM and Scapular Strength/Stabilizatio n For the Purpose of:: To decrease pain, To increase ROM and To improve muscle performance and motor function Cryotherapy (ice pack, ice massage): Yes For the Purpose of:: To decrease pain Re-Evaluation Ending Re-evaluation ending: Please do not hesitate to contact me at [phone] by phone or if you have questions or concerns regarding this new plan of care! Sincerely, Master Solis, PT, ATC 10/02/24 0932 CC: Dr. True Clarke MD; Dr. Duc Smith MD [facility] Signed For Medicare only, by signing this I certify the plan of care. Physicians Signature Date Normal [facility] Orthopedic Visit Reporton Orthopedic Visit Report [facility] [address] [place] [address] OFFICE VISIT Date of Service: 09/14/24 MR#: [id number] Acct: [id number] Name: CHINYERE COOLEY Rep #: [id number] : 1970 Provider: Dr. Duc collazo MD Age/Sex: 54/M Location: [facility] Status: Signed Intake Vital Signs 05/10/24 15:02 08/29/24 07:04 Height 5 ft 3 in 5 ft 5 in Intake Visit Reasons: left shoulder Chief Complaint: left shoulder Allergies acetaminophen (From Vicodin) Adverse Reaction (Verified 09/14/24 09:08) Nausea cephalexin (From Keflex) Adverse Reaction (Verified 09/14/24 09:08) makes him feel bad hydrocodone (From Vicodin) Adverse Reaction (Verified 09/14/24 09:08) Nausea Medications ???Medication ???Instructions ???Recorded ???Confirmed ???Type bupropion HCl 300 mg 24 hr tablet, 300 mg PO DAILY 03/11/21 5 History extended release losartan 100 1 tab PO DAILY 03/11/21 09/14/24 H istory mg-hydrochlorothiazid e 25 mg tablet meloxicam 15 mg tablet 15 mg PO DAILY 03/11/21 09/14/24 H istory cyclosporine 0.05 % eye drops in a 1 drp ophthalmic (eye) BID 03/0709/14/24 History dropperette doxycycline hyclate 50 mg capsule 50 mg PO DAILY 03/07/23 09/14/24 History acetaminophen 650 mg 650 mg PO Q12H PRN pain 05/10/24 0 09/14/24 History tablet,extended release (Tylenol Arthritis Pain) oxycodone-acetaminoph en 5 mg-325 1 tab PO Q4H PRN pain 5 days #30 0 08/29/24 09/14/24 Rx mg tablet (Endocet) tabs PFSH Medical History History of pain when walking History of edema Bilateral shoulder pain Former smoker Wears glasses Arthritis CPAP (continuous positive airway pressure) dependence Hammertoe of right foot Bilateral primary osteoarthritis of knee Primary osteoarthritis, right shoulder DJD of both shoulders Hypertension Depression Surgical History History of ankle surgery History of total right knee replacement s/p lip cyst removal S/P carpal tunnel release S/P inguinal hernia repair Family History Father Arthritis Social History Smoking Status: Former smoker quit date: 05/23/98 alcohol intake: current HPI left shoulder Details: This documentation accurately reflects the service provided and the decisions made by me, Dr. Duc Smith MD 09/14/24 09. Part of today???s visit was documented by [ ], acting as scribe. CHINYERE COOLEY is a 54 year old M here today for 2 weeks follow-up left reverse total shoulder arthroplasty. Patient doing very well no pain good range of motion has started physical therapy. Has started weaning out of the sling. Ortho Exam General General: Yes no acute distress Neurologic: Yes alert and Yes oriented x3 Psychologic: Yes reasonable and appropriate Left Shoulder Skin/Wound: Yes CDI, Yes healed, No ecchymosis, No erythema and No swelling (mild) SHOULDER: nvi mru ain/pin, ax nerve. strong rad pulse. good elbow wrist ROM. Active forward elevation 135 degrees external rotation 25 degrees. Coding Level of Care Code Global Post Op Diagnoses Primary osteoarthritis, right shoulder M19.011 Assessment and Plan Assessment and Plan (1) Primary osteoarthritis, right shoulder: Status: Acute Plan: CHINYERE COOLEY is a 54 year old M here today for 2 weeks follow-up left reverse total shoulder arthroplasty. Patient doing well okay to discontinue the sling still recommend wearing that at night for sleeping. For another 2 weeks. Patient started physical therapy okay for gentle active and passive range of motion spine the postoperative restrictions no strengthening until 6 weeks postoperatively okay to shower over top of the incision the patient understands no further questions or concerns. 09/14/24927 Date Duc Smith MD Cosigner Signature: Date (if applicable) CC: Normal [facility] Inital Evaluation (1) - PTon 09-04-2024 Inital Evaluation (1) - PT [facility] Physical Therapy [facility] [address] [place] [address] / REHABILITATION SERVICES INITIAL EVALUATION MR#: [id number] Acct: [id number] Name: CHINYERE COOLEY Rep #: [id number] : 1970 54 From: Master Solis PT, ATC Referring Dr.: Dr. Duc Smith MD Status: R EG RCR Insurance: [employer] 49 FOR ME SELF PAY INSURANCE Patient's Visit Information Visit Information Visit Information: CHINYERE COOLEY is a 54 year old M referred to Physical Therapy by Dr. Duc Smith MD with a diagnosis of L rev TSA 08/29/24. Date of Evaluation: 09/04/24 Physical Therapist: Master Solis, PT, ATC Visit Plan Frequency: 2-3x /Week Duration: 6-8 weeks Plan: L shoulder PROM x 2 weeks. Then progress to AROM when ordered per surgeon. Plan on beginning strengthening at 6 weeks post of with focus on rotator cuff strengthening, scap stab ex's, and HEP Subjective Subjective: DOS: 08/29/24. Pt reports he had a L TSA performed at that time. Pt reports he doesnt have a lot of pain at this time, but needs pain meds in order to sleep well. 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 Pt notes he gets occasional numbness in L UE in the pinky and ring fingers at this time. Pt notes he has been compliant with HEP of pendulums at this time. Pt is R hand dominant. Pt reports he has to get his R shoulder replaced when his L shoulder is better. Pt reports his R shoulder pain is worse than the L shoulder pain prior to surgery. Pt reports he is limited with all his IADL's and ADL's at this time secondary to pain. 0/10 pain at rest, 4/10 pain at worst. Pain L shoulder: Pain Intensity (Out of 10): 0 Pain Intensity Range: 4 Objective Objective: Neuro: B UE sensation is WNL to light touch. Observation: Incisions are still covered at this time. No signs of infection. ROM: R shoulder AROM: flex= 85, abd= 60, ER= 0, IR= severly limited; L shoulder PROM flex= 110, abd= 110 degrees MMT: R shoulder flex= 7, abd= 14, ER= 12, IR= 10 #F. L shoulder not tested Balance/Special Test Scores Quick DASH Score: 50.0000 Goals Goal 1:: Decrease L shoulder pain x 50% to aid with sleep Goal Time Frame: 6-8 Weeks Goal 2:: Increase L shoulder flex and abd ROM x 30 degrees to aid with overhead lifting Goal Time Frame: 6-8 Weeks Goal 3:: Increase L shoulder strength x 90% of R shoulder strength to aid with return to work Goal Time Frame: 6-8 Weeks Goal 4:: I with HEP Goal Time Frame: 6-8 Weeks Rehabilitation Potential Physical Therapy Diagnosis: Pt has L shoulder pain, weakness, and limited ROM secondary to L TSA Rehabilitation Potential: Good Anticipated Interventions Patient/Client Instruction: Educate patient on: Condition and Plan of Care For the Purpose of:: To improve self management Therapeutic Exercise to Include: Strength training, Endurance training, Postural training, Passive ROM, Active ROM and Scapular Strength/Stabilizatio n For the Purpose of:: To decrease pain, To increase ROM and To improve muscle performance and motor function Cryotherapy (ice pack, ice massage): Yes For the Purpose of:: To decrease pain Text: Thank you for the opportunity to evaluate your patient. For Medicare and Medicare HMO plans, please review the plan of care and approve it. It will need to be FAXED BACK to us at [phone] for Medicare purposes. For Medicare only, by signing this I certify the plan of care. Please let me know if there are questions or concerns regarding this plan of care. Physician Signature: Date : 09/04/24 1312 CC: Dr. True Clarke MD; Dr. Duc Smith MD [facility] Signed Normal [facility] Orthopedic Visit Reporton Orthopedic Visit Report [facility] [address] [place] [address] OFFICE VISIT Date of Service: 09/03/24 MR#: [id number] Acct: [id number] Name: CHINYERE COOLEY Rep #: [id number] : 1970 Provider: Dr. Duc collazo MD Age/Sex: 54/M Location: [facility] Status: Signed Intake Vital Signs 05/10/24 15:02 08/29/24 07:04 Height 5 ft 3 in 5 ft 5 in Intake Visit Reasons: left shoulder Chief Complaint: post-op Is patient in pain?: Yes Pain scale (1-10): 2 Allergies acetaminophen (From Vicodin) Adverse Reaction (Verified 09/03/24 13:32) Nausea cephalexin (From Keflex) Adverse Reaction (Verified 09/03/24 13:32) makes him feel bad hydrocodone (From Vicodin) Adverse Reaction (Verified 09/03/24 13:32) Nausea Medications ???Medication ???Instructions ???Recorded ???Confirmed ???Type bupropion HCl 300 mg 24 hr tablet, 300 mg PO DAILY 03/11/21 5 History extended release losartan 100 1 tab PO DAILY 03/11/21 09/03/24 H istory mg-hydrochlorothiazid e 25 mg tablet meloxicam 15 mg tablet 15 mg PO DAILY 03/11/21 09/03/24 H istory cyclosporine 0.05 % eye drops in a 1 drp ophthalmic (eye) BID 03/0709/03/24 History dropperette doxycycline hyclate 50 mg capsule 50 mg PO DAILY 03/07/23 09/03/24 History acetaminophen 650 mg 650 mg PO Q12H PRN pain 05/10/24 0 09/03/24 History tablet,extended release (Tylenol Arthritis Pain) oxycodone-acetaminoph en 5 mg-325 1 tab PO Q4H PRN pain 5 days #30 0 08/29/24 09/03/24 Rx mg tablet (Endocet) tabs PFSH Medical History History of pain when walking History of edema Bilateral shoulder pain Former smoker Wears glasses Arthritis CPAP (continuous positive airway pressure) dependence Hammertoe of right foot Bilateral primary osteoarthritis of knee Primary osteoarthritis, right shoulder DJD of both shoulders Hypertension Depression Surgical History History of ankle surgery History of total right knee replacement s/p lip cyst removal S/P carpal tunnel release S/P inguinal hernia repair Family History Father Arthritis Social History Smoking Status: Former smoker quit date: 05/23/98 alcohol intake: current HPI left shoulder Details: This documentation accurately reflects the service provided and the decisions made by me, Dr. Duc Smith MD 09/03/24 7045. Part of today???s visit was documented by [ ], acting as scribe. CHINYERE COOLEY is a 54 year old M here today for POD 5 Left reverse total shoulder arthroplasty and biceps tenodesis. Doing well pain well-controlled doing the pendulum exercises. Using the sling. Supplemental Info xr 2 view L shoulder - good placement, no complications of the RTSA Coding Level of Care Code Global Post Op Diagnoses Bilateral shoulder pain M25.511; M25.512 Assessment and Plan Assessment and Plan (1) Bilateral shoulder pain: Status: Acute Plan: CHINYERE COOLEY is a 54 year old M here today for POD 5 Left reverse total shoulder arthroplasty and biceps tenodesis. Okay to continue on pendulum exercises wear the sling for 2 weeks and another 2 weeks after that for sleeping only. Okay for hand wrist and elbow exercises no lifting over 1 pound follow-up in the office in 2 weeks time keep the incision clean and dry change dressing every few days okay to start physical therapy this week. Orders: Orders Shoulder min 2 Views Today M25.511 - Pain in right shoulder, M25.512 - Pain in left shoulder Referrals PT Referral M25.511 - Pain in right shoulder, M25.512 - Pain in left shoulder Ortho Exam General General: Yes no acute distress Neurologic: Yes alert and Yes oriented x3 Psychologic: Yes reasonable and appropriate Left Shoulder Skin/Wound: Yes CDI, Yes healing, No ecchymosis, No erythema and Yes swelling (mild) SHOULDER: nvi mru ain/pin, ax nerve. strong rad pulse. good elbow wrist ROM. 09/03/24 1352 Date Duc Smith MD Cosigner Signature: Date (if applicable) CC: Normal [facility] Shoulder min 2 Viewson 09-03 Shoulder min 2 Views [facility] Services [address] [place] [address] Shoulder min 2 Views MR#: [id number] Acct: [id number] Name: CHINYERE COOLEY Rep #: [id number] : 1970 M 54 From: Rod lofton MD PCP: Dr. True Clarke MD Status: DEP AMB Study: Shoulder min 2 Views Date of Exam: 09/03/24 Exam# [id number] Ordering Dr: Duc Smith MD PROCEDURE: SHOULDER MIN 2 VIEWS 09/03/2024 REASON FOR EXAM: 2 VIEW ONLY POST OP RTSA TECHNIQUE: TWO VIEWS OF THE LEFT SHOULDER. COMPARISON: NONE. FINDINGS: Mild osteopenia. Left shoulder reverse arthroplasty with unremarkable metallic prosthesis. Soft tissue emphysema which is probably secondary to recent surgical intervention. No acute fracture or dislocation is seen. No lytic or blastic bone lesion is identified. RAD/Shoulder min 2 Views IMPRESSION: 1. Left shoulder reverse arthroplasty with unremarkable metallic prosthesis. 2. Soft tissue emphysema which is probably secondary to recent surgical intervention. 3. No acute fracture or dislocation is seen. [facility] CC: Dr. True Clarke MD; Dr. Duc Smith MD Client Onboarding Analyst: Signed Normal [facility] Bedside Glucoseon 08-29-2024 FINGERSTICK GLU 131 mg/dL High 74-106 [facility] Comment on above: Result Comment: RAQUEL GEMENT OF PATIENT CARE PER NURSING PROTOCOL Performed By: #### L 501.080 #### [facility] [place], [address] Decalcification bone/plaqueo n 08-29-2024 Decalcification bone/plaque -------- Patient Age/Sex Location Account Attending Physician -------- CHINYERE COOLEY /[place] [facility] [id number] Dr. Duc Smith MD -------- Specimen: [id number] Received: 08/29/24 Status: VIRA Little Num: [id number] Spec Type: FEM HEAD Subm Dr: Dr. Duc Smith MD HEADER OPERATION: SAMEER, left reverse anatomic total shoulder replacement PRE-OP DIAGNOSIS: Degenerative joint disease of left shoulder TISSUE SUBMITTED: A- Left humeral head -------- MICROSCOPIC DIAGNOSIS A. Left humeral head, total arthroplasty: * Benign cartilage and bone with degenerative changes MICROSCOPIC DESCRIPTION Slides are reviewed. GROSS DESCRIPTION A. Received in formalin in a container labeled with the patient's name, date of , and left humeral head is a red-barbosa, firm, and semispherical humeral head measuring 5.0 x 4.3 x 2.2 cm. There is a detached 1.7 x 0.8 x 0.2 cm fragment of firm bone. The margin is smooth and firm, and the opposing cortexes pitted and granular with smooth areas of eburnation. Sectioning reveals firm surfaces. Ad Operations Associate sections submitted in A1 following decalcification. [facility] 08-29-2024 CPT:50355,76388 -------- Patient Age/Sex Location Account Attending Physician -------- CHINYERE COOLEY 54/M [facility] [id number] Dr. Duc Smith MD -------- Signed (signature on file) Dr. Kitty Diaz, 08/31/24 1500 -------- Normal [facility] Comment on above: Performed By: #### P DEC ####[facility] [address] [facility] [place], [address] Discharge Instructionon Discharge Instruction [facility] Medical Records Department [address] [place] [address] Instructions for Home/Discharge Instructions 08/29/24 1033 MR#: [id number] Acct: [id number] Name: CHINYERE COOLEY Rep #: [id number] : 1970 54 From: Duc Smith MD PCP: Dr. True Clarke MD Status:REG [facility] Discharge Instructions Diet Discharge Diet: No restrictions Activity Ice area for (Minutes): 10 Lifting Restrictions: pendulums only 4x/day Additional Activity Instructions:: ok to remove sling at rest Dressing / Incision Call your doctor if your incision/area has: Continuous Slow Oozing, Sudden Increased Bleeding, Increased Pain/ Swelling, Increased Redness, Foul Smelling Discharge and Swelling at the incision site Call your doctor if you observe: Fever of 101 or Higher, Coldness, Increased Pain and Numbness or Tingling Remove Dressing in: leave until fall off Cleanse incision/area with: Do not get Incision Wet Follow Up Care Please Follow Up With: Duc Smith MD When: next week Test Results: Test results from this visit will be discussed in further detail at your follow-up appointment, if applicable. Discharge Plan Admission Attending Provider: Duc Smith Primary Care Provider: True Clarke Instructions Print Language: Mauritian Discharge Orders/Prescriptions Prescriptions: New oxycodone-acetaminoph en [Endocet] 5-325 mg tablet 1 tab PO Q4H MDD 6 PRN (Reason: pain) 5 Days Qty: 30 0RF cephalexin 500 mg capsule 500 mg PO Q6H MDD 4 1 Days Qty: 4 0RF No Action doxycycline hyclate 50 mg capsule 50 mg PO DAILY cyclosporine 0.05 % dropperette 1 drp ophthalmic (eye) BID acetaminophen [Tylenol Arthritis Pain] 650 mg tablet extended release 650 mg PO Q12H PRN (Reason: pain) meloxicam 15 mg tablet 15 mg PO DAILY losartan-hydrochlorot hiazide 100-25 mg tablet 1 tab PO DAILY bupropion HCl 300 mg tablet extended release 24 hr 300 mg PO DAILY Referrals / Follow Up: True Clarke MD [Primary Care Provider] - Disposition Disposition (needs filled in before D/C Order can be placed): Home, Self Care 08/29/24 1036 Duc Smith MD CC: Dr. True Clarke MD Signed Normal [facility] de[facility]dered By: Duc Smith on 08-29-2024 Bedside Glucose (Misc Panel) 131 mg/dL High 74-106 [facility] Comment on above: MANAGEMENT OF PATIEN T CARE PER NURSING PROTOCOL Glucose [Mass/Vol] 131 mg/dL High 74-106 [facility] Comment on above: MANAGEMENT OF PATIEN T CARE PER NURSING PROTOCOL MR/POSTOP.ANEon 08-29-2024 MR[facility]OP[facility] Medical Records Department [address] [place] [address] Anesthesia Postop Eval I 08/29/24 1035 MR#: [id number] Acct: [id number] Name: CHINYERE COOLEY Rep #: [id number] : 1970 54 From: David Parry CRNA PCP: Dr. True Clarke MD Status:REG SDC Y Race: C Location: [place] [address] Anesthesia: Postop Eval I Current Vital Signs Temperature: 97 F Pulse Rate: 72 Blood Pressure: 114/80 Respiratory Rate: 16 Pulse Ox: 97 Assessment Airway patent: Yes Spontaneous unlabored respirations: Yes nausea: No Vomiting: No Anesthesia Complication: No Fluid Hydration Crystalloid volume administer (ml): 1,200 Total IV fluid infused: 1,200 Progress Note Anesthesia document: Postop Eval 1 completed: Yes 08/29/24 1036 Date David Parry CHURCH ORGANIST Cosigner Signature: Date CC: Signed Normal [facility] MR/[id number] 08-29-2024 MR/POSTOPAN2 [facility] Medical Records Department [address] [place] [address] Anesthesia Postop Eval II 08/29/24 1112 MR#: [id number] Acct: [id number] Name: CHINYERE COOLEY Rep #: [id number] : 1970 54 From: Manju Tong PCP: Dr. True Clarke MD Status:REG [facility] Y Race: C Location: [place] [address] Anesthesia Postop Eval I Sum Postop Eval Completion status Anesthesia document: Postop Eval 1 completed: Yes Anesthesia Postop Eval I Summary Anesthesia Postop Eval I Summary: Anesthesia Postop Eval I: Assessment Summary Airway patent Yes 08/29/24 10:35 CHURCH ORGANIST.TNES Spontaneous unlabored Yes 08/29/24 10:35 CHURCH ORGANIST.TNES respirations Mental status nausea No 08/29/24 10:35 CHURCH ORGANIST.TNES Vomiting No 08/29/24 10:35 CHURCH ORGANIST.TNES Anesthesia Postop Eval I: Fluid Summary Crystalloid volume administer 1,200 08/29/24 10:35 CHURCH ORGANIST.TNES (ml) Colloids volume administered ( ml) Blood Product volume administered (ml) Total IV fluid infused 1,200 08/29/24 10:35 CHURCH ORGANIST.TNES Anesthesia Postop Eval I: Summary Notes Anesthesia Complication No 08/29/24 10:35 CHURCH ORGANIST.TNES Anesthesia Complication Comment: Post-operative progress note Anesthesia: Postop Eval II Evaluation Mental status: Awake Pain Level: 3 nausea: No Vomiting: No 08/29/24 1112 Date Manju Zeng Signature: Date CC: Signed Normal [facility] Operative Reporton 5 Operative Report [facility] Medical Records Department [address] [place] [address] Operative Report 08/29/24 1021 MR#: [id number] Acct: [id number] Name: CHINYERE COOLEY Rep #: [id number] : 1970 54 From: Duc Smith MD PCP: Dr. True Clarke MD Status:[facility] Location: [place] [address] Problems Associated Problem List Diagnoses (1) DJD of left shoulder: Procedures Musculoskeletal 20xxx-29xxx: Other Procedure See Report Operative Report (Standard) Operative Information Date of Procedure: 08/29/24 Pre-Operative Diagnosis: Left shoulder osteoarthritis Post-Operative Diagnosis: Same Surgery/Procedure Performed: Left reverse total shoulder arthroplasty and biceps tenodesis shellfish manager: Yes Book Solicitor: eran Tasks completed by first coat sander: Retracting Additional reference assistant?: No Type of Anesthesia: Block,Regional and General RN Documented Start/Stop Times: Operation Date: 08/29/24 08:00 Case Time Into Pre-Op 08/29/24 06:05 Anesthesia Start 08/29/24 08:00 Into Room 08/29/24 08:00 Procedure Start 08/29/24 08:36 Procedure End 08/29/24 10:21 Anesthesia End 08/29/24 10:29 Out of Room 08/29/24 10:29 Procedure Start Time: 08:36 Procedure Stop Time: 10:21 Select all DRAINS/GRAFTS/IMPLANT S that apply: Prosthetic device Prosthetic device details: Emma perform reverse total shoulder arthroplasty Estimated Blood Loss: 100 Specimen collected: Yes Description of specimen(s) removed: Humeral head Description of surgery: Patient brought to the operating room theater. Placed supine on the beachchair positioner. General anesthesia induced. 2 g IV Ancef administered prior to the start of the case. TXA used as well 1 g IV at the beginning and end. All bony prominences padded. SCDs on the legs. Patient sat up at a 45 degree angle. Arm positioner used the patient's left side. Upper extremity prepped and draped in the usual sterile fashion with chlorhexidine-based prep solution allowing over 3 minutes drying time prior to draping. Preoperative timeout performed to confirm the site patient and the surgery. Began by making a standard deltopectoral incision. Carried the dissection down through skin and subcutaneous tissue achieved meticulous hemostasis. Identified the interval identified the cephalic vein. This was in quite an oblique course. I ligated this in the mid aspect and retracted deltoid laterally without tearing the vein. Identified the conjoined tendon dissected on the lateral aspect of this and retracted it medially. Identified the circumflex humeral vessels ligated and controlled those. Identified the long head of the biceps. Followed this through the rotator interval. I did a biceps tenodesis to the superior aspect of the pectoralis major tendon after releasing a small amount to the superior aspect of the pectoralis major insertion. I then performed lesser tuberosity osteotomy with a small cortical bone lavern. I dissected out the capsule and remove the capsule and labrum from the anterior aspect of the glenoid. I protected the axillary nerve. Next I turned my attention to the humerus. I made a standard cut in 30 degrees of retroversion using the extramedullary guide. I released tissue from the inferior medial aspect of the humeral metaphyseal area. I removed the head segment. I excised osteophytes from the inferior medial aspect of the humeral metaphysis. I did achieve full external rotation. I released a small amount of the supraspinatus. I then placed my number 2 disc on the guidepin for the reamer for the humeral side. I reamed to a size 2 placed the size 2 broach this achieved good circumferential press-fit. This I then turned my attention back to the glenoid. I circumferentially excised the labrum and remaining biceps tendon. I slightly released the triceps attachment inferiorly. I then placed the guidepin in the center of the glenoid slightly anterior and inferior per preoperative templating. I then used a circumferential reaming with 15 degrees retroversion plan for a full wedge baseplate. I placed the wedge at 3:00 on the clock face. This achieved good punctate bleeding bone circumferentially. I then drilled for the central screw up to a 30 mm length. I selected my baseplate with 15 degrees to reverse full wedge augmented baseplate as well as a 30 mm central screw. I inserted this again with the wedge portion at 3:00 this achieved good backside seating. Very good purchase. I then inserted the compression screw at the 3 o'clock position followed by the locking screws all 3 of them. This achieved good purchase. I had thoroughly irrigated prior to placing the baseplate as well as using pulse lavage. I then placed the glenosphere a size [address] and going back and forth between screwing and tapping on the glenosphere until this was fully seated. I turned my attention (more content not included)... Normal [facility] Shoulder min 2 Viewson 08-29 Shoulder min 2 Views [facility] Imaging Services [address] [place], [place] [id number] Shoulder min 2 Views MR#: [id number] Acct: [id number] Name: CHINYERE COOLEY Rep #: [id number] : 1970 M 54 From: Jerald Lugo MD PCP: Dr. True Clarke MD Status: [facility] Study: Shoulder min 2 Views Date of Exam: 08/29/24 Exam# [id number] Ordering Dr: Duc Smith MD PROCEDURE: SHOULDER 1 VIEW 08/29/2024 REASON FOR EXAM: TOTAL SHOULDER REPLACEMENT TECHNIQUE: One (1) view of the left shoulder Fluoroscopy: 2.1 sec Dose: 0.31 mGy COMPARISON: No relevant prior FINDINGS: Bones: A total left humeral arthroplasty has been inserted. Joints: Glenohumeral articulation in good alignment. Soft tissues: Unremarkable. Other: No periprosthetic fractures. RAD/Shoulder min 2 Views IMPRESSION: Status post insertion of left total humeral arthroplasty. Reading Location: [place] [address] CC: Dr. True Clarke MD; Dr. Duc Smith MD Client Onboarding Analyst: Signed Normal [facility] Fructosamineon 08-23-2024 FRUCTOSAMINE 212 umol/L Normal 0-285 [facility] Comment on above: Result Comment: Publ ished reference interval for apparently healthy subjects between age 20 and 60 is 205 - 285 umol/L and in a poorly controlled diabetic population is 228 - 563 umol/L with a mean of 396 umol/L. Performed at: [facility] [address] [id number] Em Physician: Jesus Chisholm PhD, Phone: [phone] Performed By: #### L 300.4310, L300.3900, L500.2500, L501.9985, L100.0100, L3400.0100, M100.651, BTSPAT ####[facility] [address] [place], [address] Electrocardiogram reportOrde red By: Miguel Angel Garibay on 08-22-2024 EKG study [facility] Cardiovascular Services [address] [place] [address] 12 Lead EKG 08/21/24 1331 MR#: [id number] Acct: [id number] Name: CHINYERE COOLEY Rep #:[id number] : 1970 54 From: Miguel Angel Garibay MD Attending Dr: Dr. Duc Smith MD Status: PRE [facility] Ordering Dr: Duc Smith MD Date: 08/21/24 Location: [facility] Sex: M C Admitted: Test Reason : PREOP Blood Pressure : */* mmHG Vent. Rate : 77 BPM Atrial Rate : 75 BPM P-R Int : 130 ms QRS Dur : 76 ms QT Int : 368 ms P-R-T Axes : 9 -12 -32 degrees QTcB Int : 416 ms Normal sinus rhythm Voltage criteria for left ventricular hypertrophy Inferior infarct , age undetermined Abnormal ECG Confirmed by MIGUEL ANGEL GARIBAY MD ([id number]), news video editor HANY ELISE ([id number]) on 08/22/2024 6:37:43 AM Referred By: Duc Smith Confirmed By: MIGUEL NAGEL GARIBAY MD 08/22/24 0637 Date _ Miguel Angel Garibay MD CC: Dr. True Clarke MD; Dr. Duc Smith MD ~ Signed [facility] Work Phone: MRSA/SAID NASAL SCREENon MRSA+SAID SCRN Reason for Exam: Surgery MRSA MRSA Negative S. AUREUS S. aureus Negative Normal [facility] Comment on above: Performed By: #### L 300.4310, L300.3900, L500.2500, L501.9985, L100.0100, L3400.0100, M100.651, BTSPAT ####[facility] [address] [facility] [place], [address] 12 Lead EKGon 08-21-2024 12 Lead EKG [facility] Cardiovascular Services [address] [place] [address] 12 Lead EKG 08/21/24 1331 MR#: [id number] Acct: [id number] Name: CHINYERE COOLEY Rep #: [id number] : 1970 54 From: Miguel Angel Garibay MD Attending Dr: Dr. Duc Smith MD Status: TN E [facility] Ordering Dr: Duc Smith MD Date: 08/21/24 Location: [facility] Sex: M C Admitted: Test Reason : PREOP Blood Pressure : */* mmHG Vent. Rate : 77 BPM Atrial Rate : 75 BPM P-R Int : 130 ms QRS Dur : 76 ms QT Int : 368 ms P-R-T Axes : 9 -12 -32 degrees QTcB Int : 416 ms Normal sinus rhythm Voltage criteria for left ventricular hypertrophy Inferior infarct , age undetermined Abnormal ECG Confirmed by PHOENIX FAM, MIGUEL ANGEL ([id number]), news video editor HANY ELISE ([id number]) on 08/22/2024 6:37:43 AM Referred By: Duc Smith Confirmed By: MIGUEL ANGEL GARIBAY MD 08/22/24 0637 Date Miguel Angel Garibay MD CC: Dr. True Clarke MD; Dr. Duc Smith MD Signed Normal [facility] Absolute lymphocyte countOrd ered By: Duc Smith on 08-21-2024 Lymphocytes Auto (Unsp spec) [#/Vol] 1.77 10*3/uL 0.83-4.51 [facility] Absolute neutrophil countOrd ered By: Duc Smith on 08-21-2024 Neutrophils (Bld) [#/Vol] 4.4 10*3/uL 2.0-7.7 [facility] Activated partial thrombopla stin time (aPTT) in platelet poor plasma by coagulation aOrdered By: Duc Smith on 08-21-2024 aPTT Coag (PPP) [Time] 27.2 s 24.1-36.2 [facility] Anion gap in Serum or Plasma Ordered By: Duc Smith on 08-21-2024 Anion gap [Moles/Vol] 15 mmol/L 5-15 [facility] Automated lymphocyte count a s percentage of total leukocytesOrdered By: Duc Smith on 08-21-2024 Lymphocytes/100 WBC Auto (Unsp spec) 21.6 % 19-41 [facility] BUN/creatinine ratioOrdered By: Duc Smith on 08-21-2024 Urea nitrogen/Creatinine [Mass ratio] 25.0 mg/mg High 10-20 [facility] Basic Metabolic Profile (BMP )on 08-21-2024 BUN/CRE 25.0 RATIO High 10-20 [facility] Comment on above: Performed By: #### L 300.4310, L300.3900, L500.2500, L501.9985, L100.0100, L3400.0100, M100.651, BTSPAT ####[facility] [address] [place], [place], [id number] Calcium [Mass/Vol] 9.6 mg/dL Normal 7.6-11.0 [facility] Comment on above: Performed By: #### L 300.4310, L300.3900, L500.2500, L501.9985, L100.0100, L3400.0100, M100.651, BTSPAT ####[facility] [address] [place], [place], [phone](973) Chloride [Moles/Vol] 104 mmol/L Normal 98-108 [facility] Comment on above: Performed By: #### L 300.4310, L300.3900, L500.2500, L501.9985, L100.0100, L3400.0100, M100.651, BTSPAT ####[facility] [address] [place], [place], [phone] CO2 [Moles/Vol] 22.3 mmol/L Normal 21.0-32.0 [facility] Comment on above: Performed By: #### L 300.4310, L300.3900, L500.2500, L501.9985, L100.0100, L3400.0100, M100.651, BTSPAT ####[facility] [address] [place], [place], [phone]) Creatinine [Mass/Vol] 0.82 mg/dL Normal 0.70-1.20 [facility] Comment on above: Performed By: #### L 300.4310, L300.3900, L500.2500, L501.9985, L100.0100, L3400.0100, M100.651, BTSPAT ####[facility] [address] [place], [place], [phone] GAP 15 Normal 5-15 [facility] Comment on above: Performed By: #### L 300.4310, L300.3900, L500.2500, L501.9985, L100.0100, L3400.0100, M100.651, BTSPAT ####[facility] [address] [place], [place], [phone](602) GFR/1.73 sq M.predicted among non-blacks MDRD (S/P/Bld) [Vol rate/Area] 104 mL/min/{1.73_m2} Normal >60 [facility] Comment on above: Result Comment: mL/m in/1.73m2 CKD-EPI Creatinine Equation (2020) Performed By: #### L 300.4310, L300.3900, L500.2500, L501.9985, L100.0100, L3400.0100, M100.651, BTSPAT ####[facility] [address] [place], [address] Glucose [Mass/Vol] 93 mg/dL Normal 70-99 [facility] Comment on above: Performed By: #### L 300.4310, L300.3900, L500.2500, L501.9985, L100.0100, L3400.0100, M100.651, BTSPAT ####[facility] [address] [place], [address] Potassium [Moles/Vol] 3.6 mmol/L Normal 3.3-5.1 [facility] Comment on above: Performed By: #### L 300.4310, L300.3900, L500.2500, L501.9985, L100.0100, L3400.0100, M100.651, BTSPAT ####[facility] [address] [place], [address] Sodium [Moles/Vol] 141 mmol/L Normal 133-145 [facility] Comment on above: Performed By: #### L 300.4310, L300.3900, L500.2500, L501.9985, L100.0100, L3400.0100, M100.651, BTSPAT ####[facility] [address] [place], [address] Urea nitrogen [Mass/Vol] 21 mg/dL High 4-19 [facility] Comment on above: Performed By: #### L 300.4310, L300.3900, L500.2500, L501.9985, L100.0100, L3400.0100, M100.651, BTSPAT ####[facility] [address] [place], [address] Basophil percentageOrdered B y: Duc Smith on 08-21-2024 Basophils/100 WBC (Bld) 1.0 % 0-1 [facility] CBC W/Diff, Automatedon 04- Absolute Lymph 1.77 X10 3/uL Normal 0.83-4.51 [facility] Comment on above: Performed By: #### L 300.4310, L300.3900, L500.2500, L501.9985, L100.0100, L3400.0100, M100.651, BTSPAT ####[facility] [address] [place], [address] Absolute Neut 4.4 X10 3/uL Normal 2.0-7.7 [facility] Comment on above: Performed By: #### L 300.4310, L300.3900, L500.2500, L501.9985, L100.0100, L3400.0100, M100.651, BTSPAT ####[facility] [address] [place], [address] Basophils/100 WBC (Bld) 1.0 % Normal 0-1 [facility] Comment on above: Performed By: #### L 300.4310, L300.3900, L500.2500, L501.9985, L100.0100, L3400.0100, M100.651, BTSPAT ####[facility] [address] [place], [address] Eosinophils/100 WBC (Bld) 4.4 % Normal 0-5 [facility] Comment on above: Performed By: #### L 300.4310, L300.3900, L500.2500, L501.9985, L100.0100, L3400.0100, M100.651, BTSPAT ####[facility] [address] [place], [address] Erythrocyte distribution width (RBC) [Ratio] 13.1 % Normal 11.6-14.6 [facility] Comment on above: Performed By: #### L 300.4310, L300.3900, L500.2500, L501.9985, L100.0100, L3400.0100, M100.651, BTSPAT ####[facility] [address] [place], [address] Hematocrit (Bld) [Volume fraction] 51.3 % Normal 40-54 [facility] Comment on above: Performed By: #### L 300.4310, L300.3900, L500.2500, L501.9985, L100.0100, L3400.0100, M100.651, BTSPAT ####[facility] [address] [place], [address] Hemoglobin (Bld) [Mass/Vol] 17.1 g/dL High 13.0-16.5 [facility] Comment on above: Performed By: #### L 300.4310, L300.3900, L500.2500, L501.9985, L100.0100, L3400.0100, M100.651, BTSPAT ####[facility] [address] [place], [address] IG% 1.200 High 0.0-0.9 [facility] Comment on above: Result Comment: IG% - Immature Granulocytes (promyelocytes, myelocytes and metamyelocytes) > 1% indicates that a LEFT SHIFT is Present. Performed By: #### L 300.4310, L300.3900, L500.2500, L501.9985, L100.0100, L3400.0100, M100.651, BTSPAT ####[facility] [address] [place], [address] Lymphocytes/100 WBC (Bld) 21.6 % Normal 19-41 [facility] Comment on above: Performed By: #### L 300.4310, L300.3900, L500.2500, L501.9985, L100.0100, L3400.0100, M100.651, BTSPAT ####[facility] [address] [place], [address] MCH (RBC) [Entitic mass] 29.9 pg Normal 27.0-32.0 [facility] Comment on above: Performed By: #### L 300.4310, L300.3900, L500.2500, L501.9985, L100.0100, L3400.0100, M100.651, BTSPAT ####[facility] [address] [place], [address] MCHC (RBC) [Mass/Vol] 33.3 g/dL Normal 32-36 [facility] Comment on above: Performed By: #### L 300.4310, L300.3900, L500.2500, L501.9985, L100.0100, L3400.0100, M100.651, BTSPAT ####[facility] [address] [place], [address] MCV (RBC) [Entitic vol] 89.7 fL Normal 80-94 [facility] Comment on above: Performed By: #### L 300.4310, L300.3900, L500.2500, L501.9985, L100.0100, L3400.0100, M100.651, BTSPAT ####[facility] [address] [place], [address] Monocytes/100 WBC (Bld) 18.2 % High 0-10 [facility] Comment on above: Performed By: #### L 300.4310, L300.3900, L500.2500, L501.9985, L100.0100, L3400.0100, M100.651, BTSPAT ####[facility] [address] [place], [address] Neutrophils/100 WBC (Bld) 53.6 % Normal 47-70 [facility] Comment on above: Performed By: #### L 300.4310, L300.3900, L500.2500, L501.9985, L100.0100, L3400.0100, M100.651, BTSPAT ####[facility] [address] [place], [address] Nucleated RBC (Bld) [#/Vol] 0 10*3/uL Normal 0-5 [facility] Comment on above: Performed By: #### L 300.4310, L300.3900, L500.2500, L501.9985, L100.0100, L3400.0100, M100.651, BTSPAT ####[facility] [address] [place], [address] Platelet mean volume (Bld) [Entitic vol] 10.8 fL Normal 6.2-12.0 [facility] Comment on above: Performed By: #### L 300.4310, L300.3900, L500.2500, L501.9985, L100.0100, L3400.0100, M100.651, BTSPAT ####[facility] [address] [place], [address] Platelets (Bld) [#/Vol] 235 10*3/uL Normal 150-450 [facility] Comment on above: Performed By: #### L 300.4310, L300.3900, L500.2500, L501.9985, L100.0100, L3400.0100, M100.651, BTSPAT ####[facility] [address] [place], [address] RBC (Bld) [#/Vol] 5.72 10*6/uL Normal 4.6-6.2 [facility] Comment on above: Performed By: #### L 300.4310, L300.3900, L500.2500, L501.9985, L100.0100, L3400.0100, M100.651, BTSPAT ####[facility] [address] [place], [address] RDW SD 42.3 fl Normal 35.1-43.9 [facility] Comment on above: Performed By: #### L 300.4310, L300.3900, L500.2500, L501.9985, L100.0100, L3400.0100, M100.651, BTSPAT ####[facility] [address] [facility] [place], [address] WBC (Bld) [#/Vol] 8.2 10*3/uL Normal 4.4-11.0 [facility] Comment on above: Performed By: #### L 300.4310, L300.3900, L500.2500, L501.9985, L100.0100, L3400.0100, M100.651, BTSPAT ####[facility] [address] [facility] [place], [address] Carbon dioxide, total [Moles /volume] in Central venous bloodOrdered By: Duc Smith on 08-21-2024 CO2 [Moles/Vol] 22.3 mmol/L 21.0-32.0 [facility] Chloride assayOrdered By: Lee Smith on 08-21-2024 Chloride [Moles/Vol] 104 mmol/L 98-108 [facility] Eosinophil percentageOrdered By: Duc Smith on 08-21-2024 Eosinophils/100 WBC (Bld) 4.4 % 0-5 [facility] Erythrocyte distribution wid th (RBC) [Ratio]Ordered By: Duc Smith on 08-21-2024 Erythrocyte distribution width (RBC) [Entitic vol] 42.3 fL 35.1-43.9 [facility] Erythrocyte distribution wid th ratioOrdered By: Duc Smith on 08-21-2024 Erythrocyte distribution width (RBC) [Ratio] 13.1 % 11.6-14.6 [facility] Erythrocyte distribution wid th standard deviationOrdered By: Duc Smith on 08-21-2024 Erythrocyte distribution width (RBC) [Ratio] 42.3 fl 35.1-43.9 [facility] FructosamineOrdered By: Zaki Smith on 08-21-2024 Fructosamine 212 umol/L 0-285 [facility] Comment on above: Published reference interval for apparently healthysubjects between age 20 and 60 is 205 - 285 umol/L and in apoorly controlled diabetic population is 228 - 563 umol/Lwith a mean of 396 umol/L.Performed at: [facility] [id number] Director: Jesus Chisholm PhD, Phone: [phone] GFR/1.73 sq M.predicted luli g non-blacks MDRD (S/P/Bld) [Vol rate/Area]Ordered By: Duc Smith on 08-21-2024 Estimated GFR (MDRD) Non-Af Amer 104 >60 [facility] Comment on above: mL/min/1.73m2 CKD-EP I Creatinine Equation (2020) Glomerular filtration rate ( GFR) estimation/1.73 sq m using serum, plasma, or whole bOrdered By: Duc Smith on 08-21-2024 GFR/1.73 sq M.predicted among non-blacks MDRD (S/P/Bld) [Vol rate/Area] 104 mL/min/{1.73_m2} >60 [facility] Comment on above: mL/min/1.73m2 CKD-EP I Creatinine Equation (2020) Hematocrit Auto (Bld) [Volum e fraction]Ordered By: Duc Smith on 08-21-2024 Hematocrit (Bld) [Volume fraction] 51.3 % 40-54 [facility] Hemoglobin A1con 08-21-2024 HbA1c (Bld) [Mass fraction] 5.5 % Low <=5.6 [facility] Comment on above: Performed By: #### L 300.4310, L300.3900, L500.2500, L501.9985, L100.0100, L3400.0100, M100.651, BTSPAT ####[facility] [address] [place], [address] Hemoglobin A1c percentageOrd ered By: Duc Smith on 08-21-2024 HbA1c (Bld) [Mass fraction] 5.5 % Low >5.7 [facility] Hemoglobin measurementOrdere d By: Duc Smith on 08-21-2024 Hemoglobin (Bld) [Mass/Vol] 17.1 g/dL High 13.0-16.5 [facility] Immature granulocytes/100 WB C Auto (Bld)Ordered By: Duc Smith on 08-21-2024 Immature granulocytes/100 WBC (Bld) 1.200 % High 0.0-0.9 [facility] Comment on above: IG% - Immature Granu locytes (promyelocytes, myelocytes and metamyelocytes) > 1% indicates that a LEFT SHIFT is Present. International normalized rat io (INR) calculationOrdered By: Duc Smith on 08-21-2024 INR Coag (Bld) [Relative time] 1.1 {INR} [facility] Lymphocytes Auto (Unsp spec) [#/Vol]Ordered By: Duc Smith on 08-21-2024 Lymphocytes (Bld) [#/Vol] 1.77 10*3/uL 0.83-4.51 [facility] Lymphocytes/100 WBC Auto (Un sp spec)Ordered By: Duc Smith on 08-21-2024 Lymphocytes/100 WBC (Bld) 21.6 % 19-41 [facility] MCV (mean corpuscular volume ) determinationOrdered By: Duc Smith on 08-21-2024 MCV (RBC) [Entitic vol] 89.7 fL 80-94 [facility] MR/PAT.ANEon 08-21-2024 MR/PAT.ANE [facility] Medical Records Department [address] [place] [address] PAT - Anesthesia 08/21/24 1549 MR#: [id number] Acct: [id number] Name: CHINYERE COOLEY Rep #: [id number] : 1970 54 From: Jesus Pinto MD PCP: Dr. 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 When Was Last Pacemaker Check QUESTION #4 FULL TEXT: You/Your Family Experience fever (hyperthermia) with Anesthesia Last Oral Intake Last Oral intake: Last Oral Intake NPO since Meds taken in AM with sips of water? 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 Has anyone observed you stop breathing during sleep? STOP Results Positive 08/15/24 15:33 QUESTION #5 FULL TEXT : Do you snore loudly (louder than talking or can be heard through closed doors)? 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 Specify any problems Hx of Preganancy in last 3 N/A 08/15/24 15:33 Months Nurse Filling Out Transfusion DSCHRIBER 08/15/24 15:33 Questions: Date: 08/15/24 08/15/24 15:33 Time: 15:36 08/15/24 15:33 Patient unable to answer at this time (ie. confused, unrespo /Reproductio n History /Reproductiv e History - bank clerk: /Reproductiv e Hx- bank clerk Hx Now No 08/15/24 15:33 Gestational Age (in weeks): EDC: Hx Hx Para Hx Section SAB No 08/15/24 15:33 [facility] Medical History (Updated 08/15/24 @ 15:39 by Maria Ines Stallings) History of pain when walking History of edema Bilateral shoulder pain Former smoker Wears glasses Arthritis CPAP (continuous positive airway pressure) dependence Hammertoe of right foot Bilateral primary osteoarthritis of knee Primary osteoarthritis, right shoulder DJD of both shoulders Hypertension Depression Home Medications ???Medication ???Instructions ???Recorded ???Last Taken ???Type bupropion HCl 300 mg 24 hr tablet, 300 mg PO DAILY 03/11/21 4 History extended release losartan 100 1 tab PO DAILY 03/11/21 06/16/23 0 5:30 History mg-hydrochlorothiazid e 25 mg tablet meloxicam 15 mg tablet 15 mg PO DAILY 03/11/21 06/09/23 H istory cyclosporine 0.05 % eye drops in a 1 drp ophthalmic (eye) BID 03/0706/16/23 Hi (more content not included)... Normal [facility] MRSA screenOrdered By: Duc Smith on 08-21-2024 MRSA DNA KODAK+probe Ql (Unsp spec) [facility] Nasal Screen MRSA/MSSA [facility] Magnesiumon 08-21-2024 Magnesium [Mass/Vol] 2.2 mg/dL Normal 1.5-2.2 [facility] Comment on above: Performed By: #### L 501.5200 ####[facility] [address] [place], [place], [address] Magnesium (Unsp spec) [Mass/ Vol]Ordered By: Josiah Rosas on 08-21-2024 Magnesium [Mass/Vol] 2.2 mg/dL 1.5-2.2 [facility] Magnesium measurement (mass/ volume)Ordered By: Josiah Rosas on 08-21-2024 Magnesium (Unsp spec) [Mass/Vol] 2.2 mg/dL 1.5-2.2 [facility] Mean corpuscular hemoglobin (MCH) determinationOrdered By: Duc Smith on 08-21-2024 MCH (RBC) [Entitic mass] 29.9 pg 27.0-32.0 [facility] Mean corpuscular hemoglobin concentration (MCHC) determinationOrdered By: Duc Smith on 08-21-2024 MCHC (RBC) [Mass/Vol] 33.3 g/dL 32-36 [facility] Mean platelet volume determi nationOrdered By: Duc Smith on 08-21-2024 Platelet mean volume (Bld) [Entitic vol] 10.8 fL 6.2-12.0 [facility] Monocyte percentageOrdered B y: Duc Smith on 08-21-2024 Monocytes/100 WBC (Bld) 18.2 % High 0-10 [facility] Neutrophil percentageOrdered By: Duc Smith on 08-21-2024 Neutrophils/100 WBC (Bld) 53.6 % 47-70 [facility] Nucleated red blood cell per centageOrdered By: Duc Smith on 08-21-2024 Nucleated RBC/100 WBC (Bld) [Ratio] 0 % 0-5 [facility] Partial Thromboplast Timeon 08-21-2024 aPTT Coag (Bld) [Time] 27.2 s Normal 24.1-36.2 [facility] Comment on above: Performed By: #### L 300.4310, L300.3900, L500.2500, L501.9985, L100.0100, L3400.0100, M100.651, BTSPAT ####[facility] [address] [place], [place], [address] Platelet countOrdered By: Lee Smith on 08-21-2024 Platelets (Bld) [#/Vol] 235 10*3/uL 150-450 [facility] Potassium (Unsp spec) [Mass/ Vol]Ordered By: Duc Smith on 08-21-2024 Potassium [Moles/Vol] 3.6 mmol/L 3.3-5.1 [facility] Potassium measurement (mass/ volume)Ordered By: Duc Smith on 08-21-2024 Potassium (Unsp spec) [Mass/Vol] 3.6 mmol/L 3.3-5.1 [facility] Prothrombin Time w/INRon INR Coag (PPP) [Relative time] 1.1 {INR} Normal [facility] Comment on above: Performed By: #### L 300.4310, L300.3900, L500.2500, L501.9985, L100.0100, L3400.0100, M100.651, BTSPAT ####[facility] [address] [place], [address] PT Coag (PPP) [Time] 13.9 s Normal 11.7-14.9 [facility] Comment on above: Performed By: #### L 300.4310, L300.3900, L500.2500, L501.9985, L100.0100, L3400.0100, M100.651, BTSPAT ####[facility] [address] [place], [place], [address] Prothrombin timeOrdered By: Duc Smith on 08-21-2024 PT Coag (PPP) [Time] 13.9 s 11.7-14.9 [facility] RBC Auto (Bld) [#/Vol]Ordere d By: Duc Smith on 08-21-2024 RBC (Bld) [#/Vol] 5.72 10*6/uL 4.6-6.2 [facility] Serum creatinine measurement (mass/volume)Ordered By: Duc Smith on 08-21-2024 Creatinine [Mass/Vol] 0.82 mg/dL 0.70-1.20 [facility] Serum glucose measurement (m ass/volume)Ordered By: Duc Smith on 08-21-2024 Glucose [Mass/Vol] 93 mg/dL 70-99 [facility] Serum or plasma calcium zeynep urement (mass/volume)Ordered By: Duc Smith on 08-21-2024 Calcium [Mass/Vol] 9.6 mg/dL 7.6-11.0 [facility] Serum or plasma urea nitroge n measurement (mass/volume)Ordered By: Duc Smith on 08-21-2024 Urea nitrogen [Mass/Vol] 21 mg/dL High 4-19 [facility] Sodium levelOrdered By: Zaki Smith on 08-21-2024 Sodium [Moles/Vol] 141 mmol/L 133-145 [facility] Type AND Screen - PAT ONLYon 08-21-2024 Ab SCREEN GEL Negative Normal [facility] Comment on above: Order Comment: Surge ry Date: 08/21/24Reason for Laboratory Test [id number] TOTAL SHOULDER Performed By: #### L 300.4310, L300.3900, L500.2500, L501.9985, L100.0100, L3400.0100, M100.651, BTSPAT ####[facility] [address] [place], [address] White blood cell (WBC) count Ordered By: Duc Smith on 08-21-2024 WBC (Bld) [#/Vol] 8.2 10*3/uL 4.4-11.0 [facility] aP[facility] Coag (PPP) [Time]Ordere d By: Duc Smith on 08-21-2024 aPTT Coag (Bld) [Time] 27.2 s 24.1-36.2 [facility] Orthopedic Visit Reporton Orthopedic Visit Report [facility] [address] [place] [address] [address] [place] [address] OFFICE VISIT Date of Service: 09/14/24 MR#: [id number] Acct: [id number] Name: CHINYERE COOLEY Rep #: [id number] : 1970 Provider: Dr. Duc collazo MD Age/Sex: 54/M Location: [facility] Status: Signed Intake Vital Signs 05/10/24 15:02 Height 5 ft 3 in Intake Visit Reasons: left shoulder Chief Complaint: MRI review Allergies acetaminophen (From Vicodin) Adverse Reaction (Verified 08/15/24 14:42) Nausea cephalexin (From Keflex) Adverse Reaction (Verified 08/15/24 14:42) makes him feel bad hydrocodone (From Vicodin) Adverse Reaction (Verified 08/15/24 14:42) Nausea PFSH Medical History (Updated 08/15/24 @ 15:39 by Maria Ines Stallings) History of pain when walking History of edema Bilateral shoulder pain Former smoker Wears glasses Arthritis CPAP (continuous positive airway pressure) dependence Hammertoe of right foot Bilateral primary osteoarthritis of knee Primary osteoarthritis, right shoulder DJD of both shoulders Hypertension Depression Surgical History History of ankle surgery History of total right knee replacement s/p lip cyst removal S/P carpal tunnel release S/P inguinal hernia repair Family History Father Arthritis Social History Smoking Status: Former smoker quit date: 05/23/98 alcohol intake: current HPI left shoulder Details: This documentation accurately reflects the service provided and the decisions made by me, Dr. Duc Smith MD 08/20/2405. Part of today???s visit was documented by [ ], acting as scribe. CHINYERE COOLEY is a 54 year old M here today for phone call follow-up for surgical planning Coding Level of Care Code No Charge Diagnoses Primary osteoarthritis, right shoulder M19.011 Assessment and Plan Assessment and Plan (1) Primary osteoarthritis, right shoulder: Status: Acute Plan: 54-year-old man with a severely retroverted shoulder. We went to plan the CT for the anatomic but this is quite a bit of dysplastic glenoid and retroverted and show this to other shoulder arthroplasty high-volume surgeons as well as discussing with the surgical employer relations representative the case plan this would be less risk to do actually reverse total shoulder arthroplasty. I called the patient today at 9:06 AM had a discussion about that and we will switch the plan to being a reverse total shoulder arthroplasty the patient can lose some internal rotation but this would be a safer operation given the amount of dysplasia. 08/20/24906 Date Duc Smith MD [facility] Signature: Date (if applicable) CC: Normal [facility] Orthopedic Visit Reporton Orthopedic Visit Report [facility] [address] [place], [place] [id number] OFFICE VISIT Date of Service: 07/09/24 MR#: [id number] Acct: [id number] Name: CHINYERE COOLEY Rep #: [id number] : 1970 Provider: Dr. Duc collazo MD Age/Sex: 54/M Location: [facility] Status: Signed Intake Vital Signs 05/10/24 15:02 Height 5 ft 3 in Weight: 223 lb 8 oz BMI 39.6 Intake Visit Reasons: RIGHT SHOULDER Chief Complaint: MRI review Is patient in pain?: Yes (Right shoulder ) Pain scale (1-10): 8 Allergies acetaminophen (From Vicodin) Adverse Reaction (Verified 07/09/24 14:46) Nausea cephalexin (From Keflex) Adverse Reaction (Verified 07/09/24 14:46) makes him feel bad hydrocodone (From Vicodin) Adverse Reaction (Verified 07/09/24 14:46) Nausea Medications ???Medication ???Instructions ???Recorded ???Confirmed ???Type bupropion HCl 300 mg 24 hr tablet, 300 mg PO DAILY 03/11/21 5 History extended release losartan 100 1 tab PO DAILY 03/11/21 07/09/24 H istory mg-hydrochlorothiazid e 25 mg tablet meloxicam 15 mg tablet 15 mg PO DAILY 03/11/21 07/09/24 H istory cyclosporine 0.05 % eye drops in a 1 drp ophthalmic (eye) BID 03/0707/09/24 History dropperette doxycycline hyclate 50 mg capsule 50 mg PO DAILY 03/07/23 07/09/24 History multivitamin 1 tab PO DAILY 03/07/23 07/09/24 H istory acetaminophen 650 mg 650 mg PO Q12H PRN 05/10/24 History tablet,extended release (Tylenol Arthritis Pain) PFSH Medical History Bilateral shoulder pain History of steroid therapy Former smoker BiPAP (biphasic positive airway pressure) dependence Loss of hearing Wears glasses Arthritis CPAP (continuous positive airway pressure) dependence Sleep apnea Hammertoe of right foot Bilateral primary osteoarthritis of knee Primary osteoarthritis, right shoulder DJD of both shoulders Hypertension Environmental allergies Depression Surgical History History of ankle surgery History of total right knee replacement s/p lip cyst removal S/P carpal tunnel release S/P inguinal hernia repair Family History Father Arthritis Social History Smoking Status: Former smoker quit date: 05/23/98 alcohol intake: current HPI RIGHT SHOULDER Details: This documentation accurately reflects the service provided and the decisions made by me, Dr. Duc Smith MD 07/09/24 1100. Part of today???s visit was documented by [ ], acting as scribe. CHINYERE COOLEY is a 54 year old M here today for follow-up left shoulder CT and MRI for surgical planning. Patient still has stiffness and pain with lifting. Supplemental Info [facility] Imaging Services [address] [place] [address] Extremity Upper without Contra MR#: [id number] Acct: [id number] Name: CHINYERE COOLEY Rep #: [id number] : 1970 M 54 From: Tito Moran MD PCP: Dr. True Clarke MD Status: REG CLI Study: Extremity Upper without Contra Date of Exam: 05/28/24 Exam# [id number] Ordering Dr: Duc Smith MD [id number] STUDY: CT LEFT SHOULDER REASON FOR EXAM: Male, 54 years old. OA, surgical planning. RADIATION DOSAGE (If Supplied By Facility): CTDIvol = ( 40.26 ) mGy, DLP = ( 1101.46 ) mGycm TECHNIQUE: The patient was scanned in a multi detector CT scanner. High resolution transaxial imaging was performed without the administration of intravenous contrast material. Sagittal and coronal images were reconstructed. Individualized dose optimization techniques were used for this CT. COMPARISON: None. FINDINGS: There is advanced glenohumeral arthrosis, with joint space narrowing, [id number], marginal osteophyte formation, and subchondral cyst formation. Normal glenoid neck and visualized scapula. Normal humeral head, neck and tuberosities. Normal coracoid process. Normal visualized lateral clavicle. There is minimal acromioclavicular arthrosis. There is a Type II morphology (curved), with a neutral orientation. There is no demonstrated acute fracture. Normal visualized muscles and soft tissue structures. CT/Extremity Upper without Contra IMPRESSION: Advanced glenohumeral arthrosis. Minimal acromioclavicular arthrosis. Electronically Signed: Tito Moran MD at 13 (more content not included)... Normal [facility] Upper Ext Joint Only(Routine )on 06-11-2024 Upper Ext Joint Only(Routine) [facility] Imaging Services [address] [place], [place] [address] Upper Ext Joint Only(Routine) MR#: [id number] Acct: [id number] Name: CHINYERE COOLEY Rep #: [id number] : 1970 M 54 From: Tito Moran MD PCP: Dr. True Clarke MD Status: REG CL Study: Upper Ext Joint Only(Routine) Date of Exam: 0 06/11/24 Exam# [id number] Ordering Dr: Duc Smith MD [id number] STUDY: MRI LEFT SHOULDER REASON FOR EXAM: Male, 54 years old. OA, surgical planning. TECHNIQUE: Standardized fat and water weighted pulse sequences were obtained in all 3 orthogonal planes. COMPARISON: CT left shoulder dated 05/28/2024. FINDINGS: Normal supraspinatus tendon. Normal infraspinatus tendon. Normal subscapularis tendon. Normal teres minor tendon. Normal supraspinatus muscle. Normal infraspinatus muscle. Normal subscapularis muscle. Normal teres minor muscle. There is severe glenohumeral arthrosis with [id number]-xd-xtpy, marginal osteophyte formation, articular surface remodeling, and subchondral cyst formation. There is overall degeneration of the glenoid labrum. Intact humeral head and visualized proximal humerus. Intact biceps labral complex. Normal intracapsular long biceps tendon. Normal rotator interval. There is minimal acromioclavicular arthrosis. There is a Type II morphology (curved), with a neutral orientation. There is no subacromial-subdeltoi d bursal fluid. Normal visualized coracohumeral and coracoacromial ligaments. Normal quadrilateral space. Normal axillary space. Normal deltoid muscle. Normal trapezius muscle. MRI/Upper Ext Joint Only(Routine) IMPRESSION: Severe glenohumeral arthrosis with overall degeneration of the glenoid labrum. Minimal acromioclavicular arthrosis. No rotator cuff tear. Electronically Signed: Tito Moran MD at 10:44 EST Reading Location ID and State: [facility] / [place] , Service support , CC: Dr. True Clarke MD; Dr. Duc Smith MD Client Onboarding Analyst: Signed Normal [facility] Extremity Upper without Cont raon 05-28-2024 Extremity Upper without Contra [facility] Imaging Services [address] [place], [place] [address] Extremity Upper without Contra MR#: [id number] Acct: [id number] Name: CHINYERE COOLEY Rep #: [id number] : 1970 54 From: Tito Moran MD PCP: Dr. True Clarke MD Status: REG CLI Study: Extremity Upper without Contra Date of Exam: 0 05/28/24 Exam# [id number] Ordering Dr: Duc Smith MD [id number] STUDY: CT LEFT SHOULDER REASON FOR EXAM: Male, 54 years old. OA, surgical planning. RADIATION DOSAGE (If Supplied By Facility): CTDIvol = ( 40.26 ) mGy, DLP = ( 1101.46 ) mGycm TECHNIQUE: The patient was scanned in a multi detector CT scanner. High resolution transaxial imaging was performed without the administration of intravenous contrast material. Sagittal and coronal images were reconstructed. Individualized dose optimization techniques were used for this CT. COMPARISON: None. FINDINGS: There is advanced glenohumeral arthrosis, with joint space narrowing, opwg-wp-qcuf, marginal osteophyte formation, and subchondral cyst formation. Normal glenoid neck and visualized scapula. Normal humeral head, neck and tuberosities. Normal coracoid process. Normal visualized lateral clavicle. There is minimal acromioclavicular arthrosis. There is a Type II morphology (curved), with a neutral orientation. There is no demonstrated acute fracture. Normal visualized muscles and soft tissue structures. CT/Extremity Upper without Contra IMPRESSION: Advanced glenohumeral arthrosis. Minimal acromioclavicular arthrosis. Electronically Signed: Tito Moran MD at 13:03 EST , CC: Dr. True Clarke MD; Dr. Duc Smith MD Client Onboarding Analyst: Signed Normal [facility] Albumin to globulin ratioOrd ered By: True Clarke on 05-21-2024 Albumin/Globulin [Mass ratio] 0.9 {ratio} 0.9-2.4 [facility] Bilirubin, totalOrdered By: True Clarke on 05-21-2024 Bilirubin [Mass/Vol] 0.40 mg/dL 0.20-1.00 [facility] Comment on above: For patients on eltr ombopag therapy, use of Dimension [place] TBIL is not recommended. Blood urea nitrogen (BUN)/cr eatinine ratioOrdered By: True Clarke on 05-21-2024 Urea nitrogen/Creatinine [Mass ratio] 27.3 mg/mg High 10-20 [facility] Carbon dioxide measurementOr dered By: True Clarke on 05-21-2024 CO2 [Moles/Vol] 28.0 mmol/L 21.0-32.0 [facility] Chloride measurementOrdered By: True Clarke on 05-21-2024 Chloride [Moles/Vol] 105 mmol/L 98-107 [facility] Comprehensive Metabolic Prof ilon 05-21-2024 Albumin [Mass/Vol] 3.4 g/dL Normal 3.2-5.0 [facility] Comment on above: Performed By: #### L 500.4050, L500.4100 #### [facility] Laboratory [address] [place], [address] Albumin/Globulin [Mass ratio] 0.9 {ratio} Normal 0.9-2.4 [facility] Comment on above: Performed By: #### L 500.4050, L500.4100 #### [facility] Laboratory [address] [place], [address] ALK P 96 U/L Normal 45-117 [facility] Comment on above: Performed By: #### L 500.4050, L500.4100 #### [facility] [address] [place], [address] ALT [Catalytic activity/Vol] 36 U/L Normal 16-61 [facility] Comment on above: Performed By: #### L 500.4050, L500.4100 #### [facility] [address] [place], [address] AST [Catalytic activity/Vol] 19 U/L Normal 15-37 [facility] Comment on above: Performed By: #### L 500.4050, L500.4100 #### [facility] [address] [place], [address] Bilirubin [Mass/Vol] 0.40 mg/dL Normal 0.20-1.00 [facility] Comment on above: Result Comment: For patients on eltrombopag therapy, use of Dimension [place] TBIL is not recommended. Performed By: #### L 500.4050, L500.4100 #### [facility] [address] [place], [address] BUN/CRE 27.3 RATIO High 10-20 [facility] Comment on above: Performed By: #### L 500.4050, L500.4100 #### [facility] [address] [place], [address] CA,Total 9.3 mg/dL Normal 8.5-10.1 [facility] Comment on above: Performed By: #### L 500.4050, L500.4100 #### [facility] [address] [place], [address] Chloride [Moles/Vol] 105 mmol/L Normal 98-107 [facility] Comment on above: Performed By: #### L 500.4050, L500.4100 #### [facility] [address] [place], [address] CO2 [Moles/Vol] 28.0 mmol/L Normal 21.0-32.0 [facility] Comment on above: Performed By: #### L 500.4050, L500.4100 #### [facility] [address] [place], [address] Creatinine [Mass/Vol] 0.84 mg/dL Normal 0.70-1.30 [facility] Comment on above: Result Comment: The validity of the calculated GFR GFRAA in patients over 70 years has not been determined. Clinical correlation is essential. Performed By: #### L 500.4050, L500.4100 #### [facility] [address] [place], [address] EST GFR - AA 121 mL/min Normal >60 [facility] Comment on above: Result Comment: Afri can Andorran GFR Calc Performed By: #### L 500.4050, L500.4100 #### [facility] [address] [place], [address] GAP 5 Normal 5-15 [facility] Comment on above: Performed By: #### L 500.4050, L500.4100 #### [facility] [address] [place], [address] GFR/1.73 sq M.predicted among non-blacks MDRD (S/P/Bld) [Vol rate/Area] 100 mL/min/{1.73_m2} Normal >60 [facility] Comment on above: Result Comment: Non- GFR Calc Performed By: #### L 500.4050, L500.4100 #### [facility] [address] [place], [address] Globulin (S) [Mass/Vol] 3.6 g/dL Normal 2.2-4.2 [facility] Comment on above: Performed By: #### L 500.4050, L500.4100 #### [facility] [address] [place], [address] Glucose [Mass/Vol] 103 mg/dL Normal 74-106 [facility] Comment on above: Result Comment: Fast ing Glucose result from 100 to 125 mg/dL suggests IMPAIRED HOMEOSTASIS per A.D.A. criteria. Performed By: #### L 500.4050, L500.4100 #### [facility] [address] [place], [address] Potassium [Moles/Vol] 3.8 mmol/L Normal 3.5-5.1 [facility] Comment on above: Performed By: #### L 500.4050, L500.4100 #### [facility] [address] [place], [address] Sodium [Moles/Vol] 138 mmol/L Normal 136-145 [facility] Comment on above: Performed By: #### L 500.4050, L500.4100 #### [facility] [address] [place], [address] T PROT 7.0 g/dL Normal 6.4-8.2 [facility] Comment on above: Performed By: #### L 500.4050, L500.4100 #### [facility] [address] [place], [place], [address] Urea nitrogen [Mass/Vol] 23 mg/dL High 7-18 [facility] Comment on above: Performed By: #### L 500.4050, L500.4100 #### [facility] [address] [place], [place], [address] Estimated glomerular filtrat ion rate (GFR) AmericanOrdered By: True Clarke on 05-21-2024 Estimated GFR (MDRD) Amer 121 mL/min >60 [facility] Comment on above: GFR Calc Glomerular filtration rate ( GFR) estimationOrdered By: True Clarke on 05-21-2024 Estimated GFR (MDRD) Non-Af Amer 100 mL/min >60 [facility] Comment on above: Non- GFR Calc Glucose measurementOrdered B y: True Clarke on 05-21-2024 Glucose [Mass/Vol] 103 mg/dL 74-106 [facility] Comment on above: Fasting Glucose resu lt from 100 to 125 mg/dL suggests IMPAIRED HOMEOSTASIS per A.D.A. criteria. High density lipoprotein (HD L) measurementOrdered By: True Clarke on 05-21-2024 Cholesterol in HDL [Mass/Vol] 49 mg/dL >40 [facility] Comment on above: The drugs N-Acetylcy steine and Metamizole may falsely depress this assay. Reference Range HDL <40 mg/dL Low HDL Cholesterol HDL >or= 60 mg/dL High HDL Cholesterol Laboratory - Chemistry and C hemistry - challengeOrdered By: True Clarke on 05-21-2024 AST [Catalytic activity/Vol] 19 U/L 15-37 [facility] Lipid Profileon 05-21-2024 Cholesterol [Mass/Vol] 191 mg/dL Normal 200 [facility] Comment on above: Result Comment: <200 mg/dL Desirable 200-240 mg/dL Borderline >240 mg/dL High Risk Performed By: #### L 500.4050, L500.4100 #### [facility] [address] [place], [address] Cholesterol in HDL [Mass/Vol] 49 mg/dL Normal [facility] Comment on above: Result Comment: The drugs N-Acetylcysteine and Metamizole may falsely depress this assay. Reference Range HDL <40 mg/dL Low HDL Cholesterol HDL >or= 60 mg/dL High HDL Cholesterol Performed By: #### L 500.4050, L500.4100 #### [facility] [address] [place], [address] Cholesterol in LDL [Mass/Vol] 109 mg/dL Normal 0-130 [facility] Comment on above: Performed By: #### L 500.4050, L500.4100 #### [facility] [address] [place], [address] Cholesterol in VLDL [Mass/Vol] 33 mg/dL Normal 5-40 [facility] Comment on above: Performed By: #### L 500.4050, L500.4100 #### [facility] [address] [place], [address] Triglyceride [Mass/Vol] 166 mg/dL Normal [facility] Comment on above: Result Comment: The drugs N-Acetylcysteine and Metamizole may falsely depress this assay. Serum Triglycerides Reference Interval Normal <150 mg/dL Borderline high 150 - 199 mg/dL High 200 - 499 mg/dL Very High > or = 500 mg/dL Performed By: #### L 500.4050, L500.4100 #### [facility] [address] [place], [address] Low density lipoprotein (LDL ) cholesterol measurementOrdered By: True Clarke on 05-21-2024 Cholesterol in LDL [Mass/Vol] 109 mg/dL 0-130 [facility] Potassium measurementOrdered By: True Clarke on 05-21-2024 Potassium [Moles/Vol] 3.8 mmol/L 3.5-5.1 [facility] Serum anion gap measurementO rdered By: True Clarke on 05-21-2024 Anion gap [Moles/Vol] 5 mmol/L 5-15 [facility] Serum globulin measurementOr dered By: True Clarke on 05-21-2024 Globulin (S) [Mass/Vol] 3.6 g/dL 2.2-4.2 [facility] Serum or plasma alanine munguia otransferase (ALT) measurementOrdered By: True Clarke on 05-21-2024 ALT [Catalytic activity/Vol] 36 U/L 16-61 [facility] Serum or plasma albumin zeynep urement (mass/volume)Ordered By: True Clarke on 05-21-2024 Albumin [Mass/Vol] 3.4 g/dL 3.2-5.0 [facility] Serum or plasma alkaline nancy sphatase measurementOrdered By: True Clarke on 05-21-2024 ALP [Catalytic activity/Vol] 96 U/L 45-117 [facility] Serum or plasma calcium zeynep urement (mass/volume)Ordered By: True Clarke on 05-21-2024 Calcium [Mass/Vol] 9.3 mg/dL 8.5-10.1 [facility] Serum or plasma cholesterol measurement (mass/volume)Ordered By: True Clarke on 05-21-2024 Cholesterol [Mass/Vol] 191 mg/dL <200 [facility] Comment on above: <200 mg/dL Desirable 200-240 mg/dL Borderline >240 mg/dL High Risk Serum or plasma creatinine m easurement (mass/volume)Ordered By: True Clarke on 05-21-2024 Creatinine [Mass/Vol] 0.84 mg/dL 0.70-1.30 [facility] Comment on above: The validity of the calculated GFR & GFRAA in patients over 70 years has not been determined. Clinical correlation is essential. Serum or plasma urea nitroge n measurement (mass/volume)Ordered By: True Clarke on 05-21-2024 Urea nitrogen [Mass/Vol] 23 mg/dL High 7-18 [facility] Sodium levelOrdered By: True Clarke on 05-21-2024 Sodium [Moles/Vol] 138 mmol/L 136-145 [facility] Total proteinOrdered By: Deandra Clarke on 05-21-2024 Protein [Mass/Vol] 7.0 g/dL 6.4-8.2 [facility] Triglycerides measurementOrd ered By: True Clarke on 05-21-2024 Triglyceride [Mass/Vol] 166 mg/dL <199 [facility] Comment on above: The drugs N-Acetylcy steine and Metamizole may falsely depress this assay.Serum Triglycerides Reference Interval Normal <150 mg/dL Borderline high 150 - 199 mg/dL High 200 - 499 mg/dL Very High > or = 500 mg/dL Very low density lipoprotein (VLDL) cholesterol measurementOrdered By: True Clarke on 05-21-2024 VLDL Cholesterol 33 mg/dL 5-40 [facility] Orthopedic Visit Reporton Orthopedic Visit Report [facility] [address] [place] [address] [address] [place] [address] OFFICE VISIT Date of Service: 05/10/24 MR#: [id number] Acct: [id number] Name: CHINYERE COOLEY Rep #: [id number] : 1970 Provider: Dr. Duc collazo MD Age/Sex: 54/M Location: [facility] Status: Signed Intake Vital Signs 06/17/23 11:57 05/10/24 15:02 Height 5 ft 3 in 5 ft 3 in Weight: 223 lb 8 oz BMI 39.6 Intake Visit Reasons: BL SHOULDERS Chief Complaint: Both Shoulders Accompanied by: Self Is patient in pain?: Yes Pain scale (1-10): 7 Allergies acetaminophen (From Vicodin) Adverse Reaction (Verified 05/10/24 15:03) Nausea cephalexin (From Keflex) Adverse Reaction (Verified 05/10/24 15:03) makes him feel bad hydrocodone (From Vicodin) Adverse Reaction (Verified 05/10/24 15:03) Nausea Medications ???Medication ???Instructions ???Recorded ???Confirmed ???Type bupropion HCl 300 mg 24 hr tablet, 300 mg PO DAILY 03/11/21 05/10/24 History extended release losartan 100 1 tab PO DAILY 03/11/21 05/10/24 History mg-hydrochlorothiazid e 25 mg tablet meloxicam 15 mg tablet 15 mg PO DAILY 03/11/21 05/10/24 History cyclosporine 0.05 % eye drops in a 1 drp ophthalmic (eye) BID 03/07/23 05/10/24 History dropperette doxycycline hyclate 50 mg capsule 50 mg PO DAILY 03/07/23 05/10/24 History multivitamin 1 tab PO DAILY 03/07/23 05/10/24 History acetaminophen 650 mg 650 mg PO Q12H PRN 05/10/24 05/10/24 History tablet,extended release (Tylenol Arthritis Pain) omega-3 360 nm-zct-iqb-fish cap PO 05/10/24 05/10/24 History oil-vitamin D3 12.5 mcg capsule PFSH Medical History (Updated 05/10/24 @ 09:41 by Duc Smith MD) Bilateral shoulder pain History of steroid therapy Former smoker BiPAP (biphasic positive airway pressure) dependence Loss of hearing Wears glasses Arthritis CPAP (continuous positive airway pressure) dependence Sleep apnea Hammertoe of right foot Bilateral primary osteoarthritis of knee Primary osteoarthritis, right shoulder DJD of both shoulders Hypertension Environmental allergies Depression Surgical History (Updated 05/10/24 @ 15:07 by Cee Arnold) History of ankle surgery History of total right knee replacement s/p lip cyst removal S/P carpal tunnel release S/P inguinal hernia repair Family History Father Arthritis Social History Smoking Status: Former smoker quit date: 05/23/98 alcohol intake: current HPI BL SHOULDERS Details: This documentation accurately reflects the service provided and the decisions made by me, Dr. Duc Smith MD 05/10/24 0940. Part of today???s visit was documented by [ ], acting as scribe. CHINYERE COOLEY is a 54 year old M here today for bilateral shoulder pain. 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 location of the pain anterior and inside the joints. left side worse. been for years. has had cortisone injections - but last time did not work. trying tylenol arthritis multiple times a day. also has an unstable right ankle. and has some gel on there. Supplemental Info [facility] Imaging Services [address] [place], [place] [id number] Shoulder min 2 Views MR#: [id number] Acct: [id number] Name: CHINYERE COOLEY Rep #: [id number] : 1970 M 54 From: Albert Alexander MD PCP: Dr. True Clarke MD Status: REG CLI Study: Shoulder min 2 Views Date of Exam: 04/26/24 Exam# [id number] Ordering Dr: True Clarke MD [id number] EXAM: XR RIGHT SHOULDER COMPLETE, 2 OR MORE VIEWS CLINICAL INDICATION: PAIN TECHNIQUE: Two or more views of the right shoulder. COMPARISON: 02/26/2021 FINDINGS: BONES/JOINTS: There are degenerative changes with narrowing of the glenohumeral joint. No acute fracture. No subluxation. Normal alignment. No sclerotic or destructive changes observed. SOFT TISSUES: Unremarkable. No soft tissue swelling or gas. No radiopaque foreign body. RAD/Shoulder min 2 Views IMPRESSION: Degenerative changes with narrowing of the glenohumeral joint. There are no acute osseous abnormalities. Electronically Signed: Albert Alexander MD at 23:55 EST , [facility] Imaging Services [address] [place] [address] Shoulder min 2 Views MR#: [id number] Acct: [id number] Name: CHOLO COOLEY (more content not included)... Normal [facility] Shoulder min 2 Viewson 04-26 Shoulder min 2 Views [facility] Imaging Services [address] [place] [address] Shoulder min 2 Views MR#: [id number] Acct: [id number] Name: CHINYERE COOLEY Rep #: [id number] : 1970 M 54 From: Albert Alexander MD PCP: Dr. True Clarke MD Status: REG CLI Study: Shoulder min 2 Views Date of Exam: 04/26/24 Exam# [id number] Ordering Dr: True Clarke MD [id number] EXAM: XR LEFT SHOULDER COMPLETE, 2 OR MORE VIEWS CLINICAL INDICATION: PAIN TECHNIQUE: Two or more views of the left shoulder. COMPARISON: No relevant prior studies available. FINDINGS: BONES/JOINTS: There is severe narrowing of the glenohumeral joint with flattening of the humeral head. There is also an osteophyte in the inferior ASPECTS of the humeral head. There are subchondral cysts seen in the humeral head and in the glenoid. No acute fracture. No subluxation. Normal alignment. No sclerotic or destructive changes observed. SOFT TISSUES: Unremarkable. No soft tissue swelling or gas. No radiopaque foreign body. RAD/Shoulder min 2 Views IMPRESSION: Severe degenerative changes in the glenohumeral joint with joint space narrowing, subchondral cysts and flattening of the humeral head. There are no acute osseous abnormalities. Electronically Signed: Albert Alexander MD at 23:56 EST , CC: Dr. True Clarke MD Client Onboarding Analyst: Signed Normal [facility] Shoulder min 2 Views [facility] Imaging Services [address] [place] [address] Shoulder min 2 Views MR#: [id number] Acct: [id number] Name: CHINYERE COOLEY Rep #: [id number] : 1970 M 54 From: Albert Alexander MD PCP: Dr. True Clarke MD Status: REG CLI Study: Shoulder min 2 Views Date of Exam: 04/26/24 Exam# [id number] Ordering Dr: True Clarke MD [id number] EXAM: XR RIGHT SHOULDER COMPLETE, 2 OR MORE VIEWS CLINICAL INDICATION: PAIN TECHNIQUE: Two or more views of the right shoulder. COMPARISON: 02/26/2021 FINDINGS: BONES/JOINTS: There are degenerative changes with narrowing of the glenohumeral joint. No acute fracture. No subluxation. Normal alignment. No sclerotic or destructive changes observed. SOFT TISSUES: Unremarkable. No soft tissue swelling or gas. No radiopaque foreign body. RAD/Shoulder min 2 Views IMPRESSION: Degenerative changes with narrowing of the glenohumeral joint. There are no acute osseous abnormalities. Electronically Signed: Albert Alexander MD at 23:55 EST , CC: Dr. True Clarke MD Client Onboarding Analyst: Signed Normal [facility] Basophil percentageOrdered B y: Jesus [facility] on 06-09-2023 Chloride [Moles/Vol] 105 mmol/L 98-107 [facility] Glucose [Mass/Vol] 85 mg/dL 74-106 [facility] Hemoglobin (Bld) [Mass/Vol] 17.1 g/dL 13.0-16.5 [facility] Potassium [Moles/Vol] 3.7 mmol/L 3.5-5.1 [facility] Sodium [Moles/Vol] 141 mmol/L 136-145 [facility] WBC (Bld) [#/Vol] 8.7 10*3/uL 4.4-11.0 [facility] Determination of erythrocyte mean corpuscular volume (MCV)Ordered By: Jesus Pinto on 06-09-2023 MCV (RBC) [Entitic vol] 90.9 fL 80-94 [facility] Erythrocyte distribution wid th ratioOrdered By: [facility] on 06-09-2023 Erythrocyte distribution width (RBC) [Ratio] 13.2 % 11.6-14.6 [facility] Erythrocyte distribution wid th standard deviationOrdered By: [facility] on 06-09-2023 Erythrocyte distribution width (RBC) [Entitic vol] 44.1 fL 35.1-43.9 [facility] Hematocrit Auto (Bld) [Volum e fraction]Ordered By: Jesuskristofer Pinto on 06-09-2023 Hematocrit (Bld) [Volume fraction] 51.1 % 40-54 [facility] Laboratory - Chemistry and C hemistry - challengeOrdered By: Jesus Pinto on 06-09-2023 CO2 [Moles/Vol] 31.0 mmol/L 21.0-32.0 [facility] Urea nitrogen/Creatinine [Mass ratio] 18.6 mg/mg 10-20 [facility] Laboratory - Hematology and Cell countsOrdered By: Jesus Pinto on 06-09-2023 MCH (RBC) [Entitic mass] 30.4 pg 27.0-32.0 [facility] MCHC (RBC) [Mass/Vol] 33.5 g/dL 32-36 [facility] Platelets (Bld) [#/Vol] 253 10*3/uL 150-450 [facility] No Panel InformationOrdered By: Jesus Pinto on 06-09-2023 Estimated GFR (MDRD) Amer 98 mL/min >60 [facility] Comment on above: GFR Calc Estimated GFR (MDRD) Non-Af Amer 81 mL/min >60 [facility] Comment on above: Non- GFR Calc Platelet mean volume Derik-Ec ker (Bld) [Entitic vol]Ordered By: Jesus Pinto on 06-09-2023 Platelet mean volume (Bld) [Entitic vol] 11.4 fL 6.2-12.0 [facility] RBC Auto (Bld) [#/Vol]Ordere d By: Jesus Pinto on 06-09-2023 RBC (Bld) [#/Vol] 5.62 10*6/uL 4.6-6.2 [facility] Serum or plasma calcium zeynep urement (mass/volume)Ordered By: Jesus Pinto on 06-09-2023 Calcium [Mass/Vol] 10.2 mg/dL 8.5-10.1 [facility] Serum or plasma creatinine m easurement (mass/volume)Ordered By: Jesus Pinto on 06-09-2023 Creatinine [Mass/Vol] 1.02 mg/dL 0.70-1.30 [facility] Comment on above: The validity of the calculated GFR & GFRAA in patients over 70 years has not been determined. Clinical correlation is essential. Serum or plasma urea nitroge n measurement (mass/volume)Ordered By: Jesus Pinto on 06-09-2023 Urea nitrogen [Mass/Vol] 19 mg/dL 7-18 [facility] Thin prep Papanicolaou smear with manual screeningOrdered By: Jesus Pinto on 06-09-2023 Thin prep Papanicolaou smear with manual screening 5 5-15 [facility] Basophil percentageOrdered B y: Dr. Clarke on 11-12-2022 Bilirubin [Mass/Vol] 0.60 mg/dL 0.20-1.00 [facility] Comment on above: For patients on eltr ombopag therapy, use of Dimension [place] TBIL is not recommended. Chloride [Moles/Vol] 105 mmol/L 98-107 [facility] Cholesterol [Mass/Vol] 189 mg/dL <200 [facility] Comment on above: <200 mg/dL Desirable 200-240 mg/dL Borderline >240 mg/dL High Risk Glucose [Mass/Vol] 78 mg/dL 74-106 [facility] Potassium [Moles/Vol] 3.6 mmol/L 3.5-5.1 [facility] Protein [Mass/Vol] 7.2 g/dL 6.4-8.2 [facility] Sodium [Moles/Vol] 140 mmol/L 136-145 [facility] Triglyceride [Mass/Vol] 148 mg/dL <199 [facility] Comment on above: The drugs N-Acetylcy steine and Metamizole may falsely depress this assay.Serum Triglycerides Reference Interval Normal <150 mg/dL Borderline high 150 - 199 mg/dL High 200 - 499 mg/dL Very High > or = 500 mg/dL Laboratory - Chemistry and C hemistry - challengeOrdered By: Dr. Clarke on 11-12-2022 ALP [Catalytic activity/Vol] 86 U/L 45-117 [facility] ALT [Catalytic activity/Vol] 35 U/L 16-61 [facility] CO2 [Moles/Vol] 27.0 mmol/L 21.0-32.0 [facility] Globulin (S) [Mass/Vol] 3.4 g/dL 2.2-4.2 [facility] Urea nitrogen/Creatinine [Mass ratio] 22.7 mg/mg 10-20 [facility] No Panel InformationOrdered By: Dr. Clarke on 11-12-2022 Estimated GFR (MDRD) Amer 123 mL/min >60 [facility] Comment on above: GFR Calc Estimated GFR (MDRD) Non-Af Amer 102 mL/min >60 [facility] Comment on above: Non- GFR Calc Serum or plasma albumin zeynep urement (mass/volume)Ordered By: Dr. Clarke on 11-12-2022 Albumin [Mass/Vol] 3.8 g/dL 3.2-5.0 [facility] Serum or plasma albumin/glob ulin mass ratioOrdered By: Dr. Clarke on 11-12-2022 Albumin/Globulin [Mass ratio] 1.1 {ratio} 0.9-2.4 [facility] Serum or plasma calcium zeynep urement (mass/volume)Ordered By: Dr. Clarke on 11-12-2022 Calcium [Mass/Vol] 9.3 mg/dL 8.5-10.1 [facility] Serum or plasma cholesterol in HDL measurement (mass/volume)Ordered By: Dr. Clarke on 11-12-2022 Cholesterol in HDL [Mass/Vol] 50 mg/dL >40 [facility] Comment on above: The drugs N-Acetylcy steine and Metamizole may falsely depress this assay. Reference Range HDL <40 mg/dL Low HDL Cholesterol HDL >or= 60 mg/dL High HDL Cholesterol Serum or plasma cholesterol in VLDL measurement (mass/volume)Ordered By: Dr. Clarke on 11-12-2022 Cholesterol in VLDL [Mass/Vol] 30 mg/dL 5-40 [facility] Serum or plasma creatinine m easurement (mass/volume)Ordered By: Dr. Clarke on 11-12-2022 Creatinine [Mass/Vol] 0.84 mg/dL 0.70-1.30 [facility] Comment on above: The validity of the calculated GFR & GFRAA in patients over 70 years has not been determined. Clinical correlation is essential. Serum or plasma low density lipoprotein (LDL) cholesterol measurement (mass/volume)Ordered By: Dr. Clarke on 11-12-2022 Cholesterol in LDL [Mass/Vol] 109 mg/dL 0-130 [facility] Serum or plasma urea nitroge n measurement (mass/volume)Ordered By: Dr. Clarke on 11-12-2022 Urea nitrogen [Mass/Vol] 19 mg/dL 7-18 [facility] Thin prep Papanicolaou smear with manual screeningOrdered By: Dr. Clarke on 11-12-2022 Thin prep Papanicolaou smear with manual screening 23 U/L 15-37 [facility] Thin prep Papanicolaou smear with manual screening 8 5-15 [facility] Glucose Glucometer (BldC) [M ass/Vol]Ordered By: Dr. Pa on 05-25-2022 Glucose [Mass/Vol] 102 mg/dL 74-106 [facility] Comment on above: MANAGEMENT OF PATIEN T CARE PER NURSING PROTOCOL No Panel InformationOrdered By: Dr. Pa on 05-20-2022 Nasal Screen MRSA/MSSA [facility] Basophil percentageOrdered B y: Dr. Pa on 05-07-2022 Chloride [Moles/Vol] 102 mmol/L 98-107 [facility] Glucose [Mass/Vol] 121 mg/dL 74-106 [facility] Comment on above: Fasting Glucose resu lt from 100 to 125 mg/dL suggests IMPAIRED HOMEOSTASIS per A.D.A. criteria. Potassium [Moles/Vol] 3.6 mmol/L 3.5-5.1 [facility] Sodium [Moles/Vol] 141 mmol/L 136-145 [facility] INR in Blood by Coagulation assayOrdered By: Dr. Pa on 05-07-2022 INR Coag (Bld) [Relative time] 1.1 {INR} [facility] Laboratory - Chemistry and C hemistry - challengeOrdered By: Dr. Green on 05-07-2022 Magnesium [Mass/Vol] 2.3 mg/dL 1.6-2.6 [facility] Laboratory - Chemistry and C hemistry - challengeOrdered By: Dr. Pa on 05-07-2022 CO2 [Moles/Vol] 28.0 mmol/L 21.0-32.0 [facility] Urea nitrogen/Creatinine [Mass ratio] 24.5 mg/mg 10-20 [facility] Laboratory - CoagulationOrde red By: Dr. Pa on 05-07-2022 aPTT Coag (Bld) [Time] 27.4 s 24.1-36.2 [facility] PT Coag (PPP) [Time] 13.7 s 11.7-14.9 [facility] No Panel InformationOrdered By: Dr. Pa on 05-07-2022 Estimated GFR (MDRD) Amer 120 mL/min >60 [facility] Comment on above: GFR Calc Estimated GFR (MDRD) Non-Af Amer 99 mL/min >60 [facility] Comment on above: Non- GFR Calc Fructosamine 220 umol/L 0-285 [facility] Comment on above: Published reference interval for apparently healthysubjects between age 20 and 60 is 205 - 285 umol/L and in apoorly controlled diabetic population is 228 - 563 umol/Lwith a mean of 396 umol/L.Performed at: [email or web address] [address] [id number] Director: Jesus Chisholm PhD, Phone: [phone] Serum or plasma calcium zeynep urement (mass/volume)Ordered By: Dr. Pa on 05-07-2022 Calcium [Mass/Vol] 9.7 mg/dL 8.5-10.1 [facility] Serum or plasma creatinine m easurement (mass/volume)Ordered By: Dr. Pa on 05-07-2022 Creatinine [Mass/Vol] 0.86 mg/dL 0.70-1.30 [facility] Comment on above: The validity of the calculated GFR & GFRAA in patients over 70 years has not been determined. Clinical correlation is essential. Serum or plasma urea nitroge n measurement (mass/volume)Ordered By: Dr. Pa on 05-07-2022 Urea nitrogen [Mass/Vol] 21 mg/dL 7-18 [facility] Thin prep Papanicolaou smear with manual screeningOrdered By: Dr. Pa on 05-07-2022 Thin prep Papanicolaou smear with manual screening 11 5-15 [facility] Whole blood hemoglobin A1c/t otal hemoglobin ratio (mass fraction)Ordered By: Dr. Pa on 05-07-2022 HbA1c (Bld) [Mass fraction] 5.6 % 3.8-5.6 [facility] Comment on above: Normal < 5.7 % Predi abetic 5.7 - 6.4 % Diabetic >or= 6.5 % Please note range changes. Absolute lymphocyte countOrd ered By: Dr. Clarke on 05-04-2022 Lymphocytes Auto (Unsp spec) [#/Vol] 1.12 10*3/uL 0.83-4.51 [facility] Basophil percentageOrdered B y: Dr. Clarke on 05-04-2022 Basophils/100 WBC (Bld) 0.8 % 0-1 [facility] Bilirubin [Mass/Vol] 0.70 mg/dL 0.20-1.00 [facility] Comment on above: For patients on eltr ombopag therapy, use of Dimension [place] TBIL is not recommended. Chloride [Moles/Vol] 103 mmol/L 98-107 [facility] Eosinophils/100 WBC (Bld) 3.0 % 0-5 [facility] Glucose [Mass/Vol] 96 mg/dL 74-106 [facility] Neutrophils (Bld) [#/Vol] 8.4 10*3/uL 2.0-7.7 [facility] Neutrophils/100 WBC (Bld) 74.0 % 47-70 [facility] Potassium [Moles/Vol] 4.2 mmol/L 3.5-5.1 [facility] Protein [Mass/Vol] 7.0 g/dL 6.4-8.2 [facility] Sodium [Moles/Vol] 139 mmol/L 136-145 [facility] WBC (Bld) [#/Vol] 11.3 10*3/uL 4.4-11.0 [facility] Blood erythrocytes count (nu mber/volume)Ordered By: Dr. Clarke on 05-04-2022 RBC (Bld) [#/Vol] 5.60 10*6/uL 4.6-6.2 [facility] Blood hemoglobin measurement (mass/volume)Ordered By: Dr. Clarke on 05-04-2022 Hemoglobin (Bld) [Mass/Vol] 16.8 g/dL 13.0-16.5 [facility] Blood lymphocytes/100 leukoc ytesOrdered By: Dr. Clarke on 05-04-2022 Lymphocytes/100 WBC (Bld) 9.9 % 19-41 [facility] Blood monocytes/100 leukocyt esOrdered By: Dr. Clarke on 05-04-2022 Monocytes/100 WBC (Bld) 11.2 % 0-10 [facility] Blood platelet mean volumeOr dered By: Dr. Clarke on 05-04-2022 Platelet mean volume (Bld) [Entitic vol] 11.3 fL 6.2-12.0 [facility] Determination of erythrocyte mean corpuscular volume (MCV)Ordered By: Dr. Clarke on 05-04-2022 MCV (RBC) [Entitic vol] 93.2 fL 80-94 [facility] Hematocrit Auto (Bld) [Volum e fraction]Ordered By: Dr. Clarke on 05-04-2022 Hematocrit (Bld) [Volume fraction] 52.2 % 40-54 [facility] Laboratory - Chemistry and C hemistry - challengeOrdered By: Dr. Clarke on 05-04-2022 ALP [Catalytic activity/Vol] 93 U/L 45-117 [facility] ALT [Catalytic activity/Vol] 35 U/L 16-61 [facility] CO2 [Moles/Vol] 28.0 mmol/L 21.0-32.0 [facility] Globulin (S) [Mass/Vol] 3.1 g/dL 2.2-4.2 [facility] Urea nitrogen/Creatinine [Mass ratio] 24.8 mg/mg 10-20 [facility] Laboratory - Hematology and Cell countsOrdered By: Dr. Clarke on 05-04-2022 Erythrocyte distribution width (RBC) [Entitic vol] 43.6 fL 35.1-43.9 [facility] Erythrocyte distribution width (RBC) [Ratio] 12.8 % 11.6-14.6 [facility] Immature granulocytes/100 WBC (Bld) 1.100 % 0.0-0.9 [facility] Comment on above: IG% - Immature Granu locytes (promyelocytes, myelocytes and metamyelocytes) > 1% indicates that a LEFT SHIFT is Present. MCH (RBC) [Entitic mass] 30.0 pg 27.0-32.0 [facility] Nucleated RBC/100 WBC (Bld) [Ratio] 0 % 0-5 [facility] MCHC Auto (RBC) [Mass/Vol]Or dered By: Dr. Clarke on 05-04-2022 MCHC (RBC) [Mass/Vol] 32.2 g/dL 32-36 [facility] No Panel InformationOrdered By: Dr. Clarke on 05-04-2022 Estimated GFR (MDRD) Amer 109 mL/min >60 [facility] Comment on above: GFR Calc Estimated GFR (MDRD) Non-Af Amer 90 mL/min >60 [facility] Comment on above: Non- GFR Calc Platelets bldOrdered By: Dr. Clarke on 05-04-2022 Platelets (Bld) [#/Vol] 223 10*3/uL 150-450 [facility] Serum or plasma albumin zeynep urement (mass/volume)Ordered By: Dr. Clarke on 05-04-2022 Albumin [Mass/Vol] 3.9 g/dL 3.2-5.0 [facility] Serum or plasma albumin/glob ulin mass ratioOrdered By: Dr. Clarke on 05-04-2022 Albumin/Globulin [Mass ratio] 1.3 {ratio} 0.9-2.4 [facility] Serum or plasma calcium zeynep urement (mass/volume)Ordered By: Dr. Clarke on 05-04-2022 Calcium [Mass/Vol] 9.4 mg/dL 8.5-10.1 [facility] Serum or plasma creatinine m easurement (mass/volume)Ordered By: Dr. Clarke on 05-04-2022 Creatinine [Mass/Vol] 0.93 mg/dL 0.70-1.30 [facility] Comment on above: The validity of the calculated GFR & GFRAA in patients over 70 years has not been determined. Clinical correlation is essential. Serum or plasma urea nitroge n measurement (mass/volume)Ordered By: Dr. Clarke on 05-04-2022 Urea nitrogen [Mass/Vol] 23 mg/dL 7-18 [facility] Thin prep Papanicolaou smear with manual screeningOrdered By: Dr. Clarke on 05-04-2022 Thin prep Papanicolaou smear with manual screening 22 U/L 15-37 [facility] Thin prep Papanicolaou smear with manual screening 8 5-15 [facility] RF Arthrogram Aspir Inj Reynaldo Jt Lefton 09-07-2017 RF Arthrogram Aspir Inj Reynaldo Jt Left Patient Name: CHINYERE COOLEY Fluoroscopy Exam Date/Time 09/07/2017 15:21:31 EDT Exam RF Arthrogram Aspir Inj Reynaldo Jt Left Ordering Physician VON BRYANT Accession Number [id number] CTP4 Codes 48821 (), 84550 (RF FLUORO GUIDANCE NEEDLE PLACEMENT) Reason For Exam OA of left shoulder Report Examination: Fluoroscopic guided bilateral shoulder arthrogram and therapeutic injection Clinical Indication: DJD and pain Comparison: None Findings: Informed written consent was obtained from the patient after the risks, benefits, and alternatives to arthrography and therapeutic injection were adequately explained and all questions were answered. The right shoulder was prepared and draped in usual sterile fashion utilizing Chloraprep antisepsis. 1 percent preservative free Xylocaine was used for local anesthesia. A 20-gauge spinal needle was then introduced into the right hip joint space utilizing fluoroscopy. Approximately 1 mL of Isovue-300 contrast was used to confirm intra-articular location. Patient was then given injection of 2 mL of 40 mg/mL Kenalog (80mg) and 2 mL of 1 percent Xylocaine. The left shoulder was prepared and draped in usual sterile fashion utilizing Chloraprep antisepsis. 1 percent preservative free Xylocaine was used for local anesthesia. A 20-gauge spinal needle was then introduced into the right hip joint space utilizing fluoroscopy. Approximately 1 mL of Isovue-300 contrast was used to confirm intra-articular location. Patient was then given injection of 2 mL of 40 mg/mL Kenalog (80mg) and 2 mL of 1 percent Xylocaine. Patient had no immediate postprocedural complications. Patient described immediate postprocedural pain relief. Total fluoroscopic time 0.4 minutes. Two stored fluoroscopic images. Impression: Status post bilateral shoulder arthrogram and therapeutic injection. Report Dictated on Final Dictated: 09/07/2017 3:52 pm Dictating Physician: MD GUTIERREZ NEIL Signed Date and Time: 09/07/2017 3:54 pm Signed by: MD GUTIERREZ NEIL Transcribed Date and Time: 09/07/2017 3:52 Normal [facility] RF Arthrogram Aspir Inj Reynaldo Jt Righton 09-07-2017 RF Arthrogram Aspir Inj Reynaldo Jt Right Patient Name: CHINYERE COOLEY Fluoroscopy Exam Date/Time 09/07/2017 15:21:31 EDT Exam RF Arthrogram Aspir Inj Reynaldo Jt Right Ordering Physician VON BRYANT Accession Number [id number] [facility] Codes 85359 (), 53146 (RF FLUORO GUIDANCE NEEDLE PLACEMENT) Reason For Exam OA of right shoulder Report Examination: Fluoroscopic guided bilateral shoulder arthrogram and therapeutic injection Clinical Indication: DJD and pain Comparison: None Findings: Informed written consent was obtained from the patient after the risks, benefits, and alternatives to arthrography and therapeutic injection were adequately explained and all questions were answered. The right shoulder was prepared and draped in usual sterile fashion utilizing Chloraprep antisepsis. 1 percent preservative free Xylocaine was used for local anesthesia. A 20-gauge spinal needle was then introduced into the right hip joint space utilizing fluoroscopy. Approximately 1 mL of Isovue-300 contrast was used to confirm intra-articular location. Patient was then given injection of 2 mL of 40 mg/mL Kenalog (80mg) and 2 mL of 1 percent Xylocaine. The left shoulder was prepared and draped in usual sterile fashion utilizing Chloraprep antisepsis. 1 percent preservative free Xylocaine was used for local anesthesia. A 20-gauge spinal needle was then introduced into the right hip joint space utilizing fluoroscopy. Approximately 1 mL of Isovue-300 contrast was used to confirm intra-articular location. Patient was then given injection of 2 mL of 40 mg/mL Kenalog (80mg) and 2 mL of 1 percent Xylocaine. Patient had no immediate postprocedural complications. Patient described immediate postprocedural pain relief. Total fluoroscopic time 0.4 minutes. Two stored fluoroscopic images. Impression: Status post bilateral shoulder arthrogram and therapeutic injection. Report Dictated on Final Dictated: 09/07/2017 3:52 pm Dictating Physician: MD GUTIERREZ NEIL Signed Date and Time: 09/07/2017 3:54 pm Signed by: MD GUTIERREZ NEIL Transcribed Date and Time: 09/07/2017 3:52 Normal [facility] CR Shoulder 2+ Views Righton 08-30-2017 CR Shoulder 2+ Views Right Patient Name: CHINYERE COOLEY Diagnostic Radiology Exam Date/Time 08/29/2017 16:16:30 EDT Exam CR Shoulder 2+ Views Right Ordering Physician VON BRYANT Accession Number [id number] CPT4 Codes 26142 () Reason For Exam M25.511 Report Indication: Chronic pain. Three views of the right shoulder show no evidence of an acute fracture or dislocation. There is no evidence of bone destruction, erosion or periosteal reaction. There is narrowing of the glenohumeral joint with osteophytosis compatible with osteoarthritic degenerative changes. The right acromioclavicular joint is intact. There are no radiopaque foreign bodies. IMPRESSION: 1. No evidence of an acute bone process. 2. Osteoarthritic degenerative changes of the right glenohumeral joint. Report Dictated on Final Dictating Physician: DO JENSEN ANTHONY Signed Date and Time: 08/30/2017 7:28 am Signed by: DO JENSEN ANTHONY Transcribed Date and Time: 08/30/2017 7:30 Normal [facility] No Panel Information Nasal Screen MRSA/MSSA [facility] Work Phone: Vital Signs Date Time Vital Sign Value Performing Clinician Laura eng 11-02-2024 06:11-0400 Body mass index (BMI) [Ratio] 38.2 kg/m2 Dr. True Clarke MD Work Phone: [facility] 11-02-2024 06:11-0400 Body temperature 97.5 [degF] Dr. True Clarke MD Work Phone: 3(631)921-222116 [place] [address] 11-02-2024 06:11-0400 Body weight 104.[address] True Clarke MD Work Phone: 3(959)710-889016 [place] [address] 11-02-2024 06:11-0400 Diastolic blood pressure 75 mm[Hg] Dr. True Clarke MD Work Phone: 2(812)482-081816 [place] [address] 11-02-2024 06:11-0400 Heart rate 79 /min Dr. True Clarke MD Work Phone: 2(347)201-343116 [place] [address] 11-02-2024 06:11-0400 Respiratory rate 20 /min Dr. True Clarke MD Work Phone: 3(974)862-843116 [place] [address] 11-02-2024 06:11-0400 SaO2% (BldA) [Mass fraction] 96 % Dr. True Clarke MD Work Phone: 4(698)924-129416 [place] [address] 11-02-2024 06:11-0400 Systolic blood pressure 114 mm[Hg] Dr. True Clarke MD Work Phone: 8(099)189-286416 [place] [address] 08-29-2024 11:15-0400 Body temperature 97 [degF] Dr. True Clarke MD Work Phone: 6(395)083-392416 [place] [address] 08-29-2024 11:15-0400 Diastolic blood pressure 71 mm[Hg] Dr. True Clarke MD Work Phone: 3(553)989-458816 [place] [address] 08-29-2024 11:15-0400 Heart rate 70 /min Dr. True Clarke MD Work Phone: 0(787)179-526716 [place] [address] 08-29-2024 11:15-0400 Inhaled oxygen flow rate 4 L/min Dr. True Clarke MD Work Phone: 9(235)137-112616 [place] [address] 08-29-2024 11:15-0400 Respiratory rate 16 /min Dr. True Clarke MD Work Phone: 5(957)474-513016 [place] [address] 08-29-2024 11:15-0400 SaO2% (BldA) [Mass fraction] 97 % Dr. True Clarke MD Work Phone: 9(357)820-657216 [place] [address] 08-29-2024 11:15-0400 Systolic blood pressure 109 mm[Hg] Dr. True Clarke MD Work Phone: [facility] 08-29-2024 07:04-0400 Body height 165.[address] True Clarke MD Work Phone: [facility] 08-29-2024 07:04-0400 Body mass index (BMI) [Ratio] 37.8 kg/m2 Dr. True Clarke MD Work Phone: 4(321)696-454080 [place] [address] 08-29-2024 07:04-0400 Body weight [address] True Clarke MD Work Phone: 6(108)298-846326 [address] 05-10-2024 15:02-0500 Body mass index (BMI) [Ratio] 39.6 kg/m2 Dr. True Clarke MD Work Phone: 2(434)803-613380 [place] [address] 05-10-2024 15:02-0500 Body weight 101.[address] True Clarke MD Work Phone: 2(175)423-014480 [place] [address] 06-17-2023 14:45-0500 Body temperature 98.8 [degF] Dr. True Clarke Work Phone: 4(660)467-994480 [place] [address] 06-17-2023 14:45-0500 Diastolic blood pressure 86 mm[Hg] Dr. True Clarke Work Phone: 8(851)299-854726 [address] 06-17-2023 14:45-0500 Heart rate 74 /min Dr. True Clarke Work Phone: 6(833)520-930680 [place] [address] 06-17-2023 14:45-0500 Respiratory rate 16 /min Dr. True Clarke Work Phone: [facility] 06-17-2023 14:45-0500 SaO2% (BldA) [Mass fraction] 92 % Dr. True Clarke Work Phone: [facility] 06-17-2023 14:45-0500 Systolic blood pressure 119 mm[Hg] Dr. True Clarke Work Phone: 5(707)258-880480 [place] [address] 06-17-2023 14:25-0500 Inhaled oxygen flow rate 2 L/min Dr. True Clarke Work Phone: [facility] 06-17-2023 11:57-0500 Body height 160.[address] True Clarke Work Phone: [facility] 06-17-2023 11:57-0500 Body mass index (BMI) [Ratio] 36.1 kg/m2 Dr. True Clarke Work Phone: [facility] 06-17-2023 11:57-0500 Body weight 92.[address] True Clarke Work Phone: [facility] 03-07-2023 15:00-0400 Body mass index (BMI) [Ratio] 35.2 kg/m2 Dr. True Clarke Work Phone: [facility] 03-07-2023 15:00-0400 Body weight 96.[address] True Clarke Work Phone: [facility] 05-25-2022 14:30-0500 Body temperature 98.4 [degF] Dr. True Clarke Work Phone: [facility] 05-25-2022 14:30-0500 Diastolic blood pressure 67 mm[Hg] Dr. True Clarke Work Phone: [facility] 05-25-2022 14:30-0500 Heart rate 70 /min Dr. True Clarke Work Phone: [facility] 05-25-2022 14:30-0500 Respiratory rate 20 /min Dr. True Clarke Work Phone: [facility] 05-25-2022 14:30-0500 SaO2% (BldA) [Mass fraction] 90 % Dr. True Clarke Work Phone: [facility] 05-25-2022 14:30-0500 Systolic blood pressure 105 mm[Hg] Dr. True Clarke Work Phone: [facility] 05-25-2022 12:04-0500 Inhaled oxygen flow rate 4 L/min Dr. True Clarke Work Phone: [facility] 05-25-2022 06:12-0500 Body height 165.[address] True Clarke Work Phone: [facility] 05-25-2022 06:12-0500 Body mass index (BMI) [Ratio] 38.1 kg/m2 Dr. True Clarke Work Phone: [facility] 05-25-2022 06:12-0500 Body weight [address] True Clarke Work Phone: [facility] 03-08-2022 14:03-0400 Body height 160.[address] True Clarke Work Phone: [facility] Work Phone: 03-08-2022 14:03-0400 Body mass index (BMI) [Ratio] 40.1 kg/m2 Dr. True Clarke Work Phone: [facility] Work Phone: 03-08-2022 14:03-0400 Body weight 102.[address] True Clarke Work Phone: [facility] Work Phone: 02-10-2022 10:23-0400 Body temperature 97.7 [degF] [facility] Work Phone: 02-10-2022 10:23-0400 Diastolic blood pressure 97 mm[Hg] [facility] Work Phone: 02-10-2022 10:23-0400 Heart rate 70 /min [facility] Work Phone: 02-10-2022 10:23-0400 Respiratory rate 18 /min [facility] Work Phone: 02-10-2022 10:23-0400 SaO2% (BldA) [Mass fraction] 100 % [facility] Work Phone: 02-10-2022 10:23-0400 Systolic blood pressure 136 mm[Hg] [facility] Work Phone: 02-10-2022 08:53-0400 Body height 160.02 cm [facility] Work Phone: 02-10-2022 08:53-0400 Body mass index (BMI) [Ratio] 40.1 kg/m2 [facility] Work Phone: 02-10-2022 08:53-0400 Body weight 102.96 kg [facility] Work Phone: Encounters Encounter Date Encounter Type Care Provider Facility Start: 03-27-2025 End: 03-27-2025 ambulatory [facility] Start: 03-13-2025 ambulatory [facility] Facility :[facility] Start: 03-04-2025 End: 03-04-2025 ambulatory [facility] Start: 03-04-2025 End: 03-04-2025 ambulatory [facility] Start: 02-26-2025 ambulatory True Clarke Facility:[facility] Start: 11-26-2024 End: 11-26-[address] Duc Smith MD -[facility] Work Phone: Start: 11-26-2024 End: 11-26-[address] True Clarke MD Work Phone: -[facility] Start: 11-16-2024 End: 11-16-[address] True Clarke MD Work Phone: -Physical Therapy Start: 11-16-2024 End: 11-16-[address] Duc Smith MD -Physical Therapy Work Phone: Start: 11-02-2024 End: 11-02-2024 Patient encounter procedure HUGH Valenzuela -[facility] Work Phone: Start: 11-02-2024 End: 11-02-[address] True Clarke MD Work Phone: [facility] Work Phone: Start: 11-01-[address] Duc Smith MD -Physical Therapy Work Phone: Start: 10-12-2024 End: 10-12-[address] Duc Smith MD -[facility] Work Phone: Start: 10-12-2024 End: 10-12-2024 ambulatory Duc Smith Facility:[facility] Start: 09-14-2024 End: 09-14-[address] Duc Smith MD -[facility] Work Phone: Start: 09-14-2024 End: 09-14-2024 ambulatory Duc Smith Facility:[facility] Start: 09-10-2024 Encounter for other preprocedural examination Duc Smith [facility] Start: 09-03-2024 End: 09-03-[address] Duc Smith MD -[facility] Work Phone: Start: 09-03-2024 End: 09-03-2024 ambulatory True Clarke Facility:[facility] Start: 08-29-2024 ambulatory True Clarke [facility] Start: 08-29-2024 Non-patient / Non-visit Dr. Lee Smith MD -[facility] Start: 08-29-2024 End: 08-29-2024 Admission to same day surgery center Dr. Duc Smith MD -[facility] Start: 08-29-2024 End: 08-29-[address] True Clarke MD Work Phone: [facility] Work Phone: Start: 08-21-2024 End: 08-21-2024 ambulatory True Clarke Facility:[facility] Start: 08-21-2024 End: 08-21-2024 Non-patient / Non-visit Dr. Miguel Angel Garibay MD -[facility] Work Phone: Start: 07-09-2024 End: 07-09-[address] Duc Smith [facility] Work Phone: Start: 07-09-2024 End: 07-09-2024 ambulatory True Clarke Facility:[facility] Start: 06-18-2024 ambulatory True Clarke [facility] Start: 06-11-2024 End: 06-11-[address] Duc Smith MD -MRI - [facility] Work Phone: Start: 06-11-2024 End: 06-11-2024 ambulatory Duc Smith Facility:[facility] Start: 05-28-2024 End: 05-28-[address] Duc Smith MD -Cat Scan, [facility] Work Phone: Start: 05-28-2024 End: 05-28-2024 [facility] Start: 05-21-2024 End: 05-21-[address] True Clarke MD -Laboratory Work Phone: Start: 05-21-2024 End: 05-21-2024 ambulatory True Clarke Facility:[facility] Start: 05-10-2024 End: 05-10-2024 [facility]ulatory [facility] Start: 05-10-2024 End: 05-10-[address] Duc Smith MD -[facility] Work Phone: Start: 04-26-2024 End: 04-26-2024 [facility]ulatory [facility] Start: 06-17-2023 End: 06-17-2023 Admission to same day surgery center Dr. True lCarke Work Phone: [facility] Start: 06-17-2023 End: 06-17-[address] True Clarke Work Phone: [facility] Work Phone: Start: 06-09-2023 End: 06-09-2023 Non-patient / Non-visit Dr. True Clarke Work Phone: [facility] Work Phone: Start: 03-07-2023 End: 03-07-[address] True Clarke Work Phone: [facility] Work Phone: Start: 01-21-2023 End: 01-21-2023 ambulatory [facility] Work Phone: Start: 01-21-2023 End: 01-21-2023 Patient encounter procedure [facility]-Cardi[facility] Services Work Phone: Start: 11-12-2022 End: 11-12-[address] True Clarke Work Phone: [facility] Work Phone: Start: 11-12-2022 End: 11-12-[address] True Clarke Work Phone: [facility] Start: 08-17-2022 Non-patient / Non-visit Dr. Jennie Clarke Work Phone: [facility] Start: 07-19-2022 End: 07-19-[address] True Clarke Work Phone: [facility] Work Phone: Start: 07-19-2022 End: 07-19-[address] True Clarke Work Phone: [facility]-Physical Therapy Start: 07-05-2022 End: 07-05-[address] True Clarke Work Phone: [facility] Start: 06-07-2022 End: 06-07-[address] True Clarke Work Phone: [facility] Start: 05-25-2022 Non-patient / Non-visit Dr. Jennie Clarke Work Phone: [facility] Start: 05-25-2022 End: 05-25-2022 Admission to same day surgery center Dr. True Clarke Work Phone: [facility] Start: 05-25-2022 End: 05-25-[address] True Clarke Work Phone: [facility] Work Phone: Start: 05-07-2022 End: 05-07-[address] True Clarke Work Phone: [facility] Start: 05-04-2022 End: 05-04-[address] True Clarke Work Phone: [facility] Work Phone: Start: 05-04-2022 End: 05-04-[address] True Clarke Work Phone: [facility] Start: 04-29-2022 End: 04-29-[address] True Clarke Work Phone: [facility] Work Phone: Start: 04-29-2022 End: 04-29-[address] True Clarke Work Phone: [facility] Start: 03-19-[address] True Clarke Work Phone: [facility]-Physical Therapy Start: 03-08-2022 End: 03-08-[address] True Clarke Work Phone: [facility] Start: 02-15-2022 End: 02-15-[address] True Clarke Work Phone: [facility] Start: 02-10-2022 End: 02-10-2022 Emergency department patient visit [facility]-Emergency Department Start: 09-07-2017 Ambulatory [facility] Start: 08-29-2017 Ambulatory [facility] Start: 06-25-2017 Ambulatory [facility] Procedures Date Procedure Procedure Detail Performing Clinician Start: 09-03-2024 Plain X-ray of shoulder Dr. True Clarke MD Work Phone: Start: 08-29-2024 Fluoroscopic guidance Rona Clarke MD Work Phone: Start: 08-29-2024 Plain X-ray of shoulder Dr. True Clarke MD Work Phone: Start: 08-29-2024 Prosthetic total arthroplasty of left shoulder Dr. True Clarke MD Work Phone: Start: 08-21-2024 Methicillin resistan t Staphylococcus aureus screening test Dr. True Clarke MD Work Phone: Start: 08-21-[address] True Clarke MD Work Phone: Comment on above: Published reference interval for apparently healthysubjects between age 20 and 60 is 205 - 285 umol/L and in apoorly controlled diabetic population is 228 - 563 umol/Lwith a mean of 396 umol/L.Performed at: [address] Director: Jesus Chisholm PhD, Phone: [phone] Start: 06-11-2024 MRI of joint of lowe r extremity Dr. True Clarke MD Work Phone: Start: 05-28-2024 CT of upper limb wit hout contrast Dr. True Clarke MD Work Phone: Start: 06-17-[address] True Clarke Work Phone: Start: 06-17-2023 Fluoroscopic guidance Rona Clarke Work Phone: Start: 03-07-2023 End: 03-07-2023 Radiologic examination of knee Dr. True Clarke Work Phone: Start: 07-05-2022 Radiologic examinati on of knee Dr. True Clarke Work Phone: Start: 05-25-2022 Radiologic examinati on of knee Dr. True Clarke Work Phone: Start: 05-25-2022 Total Knee Replaceme nt Robotic Arm Yissel (Right) Dr. True Clarke Work Phone: Start: 04-29-2022 MRI of lower extremity Dr. True Clarke Work Phone: Start: 03-08-2022 Radiologic examinati on of knee Dr. True Clarke Work Phone: Start: 02-10-2022 X-ray of lumbar spin e, two or three views H/O: artificial joint History of left shoulder replacement Dr. True Clarke MD Work Phone: Comment on above: august 29 2024. Nasal Screen MRSA/MSSA Dr. Shauna Clarke Work Phone: Nasal Screen MRSA/MSSA Dr. Shauna Clarke Work Phone: Plan of Treatment Date Care Activity Detail Author Start: 09-03-2024 Patient referral [facility] Work Phone: Start: 08-29-2024 Anes arthroscopic total shoulder replacement ANESTH SHOULDER REPLACEMENT [facility] Start: 08-29-2024 Arthroplasty glenohumeral joint total shoulder RECONSTRUCT SHOULDER JOINT [facility] Start: 08-29-2024 Injection aa&/strd other peripheral nerve/branch NJX AA&/STRD OTHER PN/BRANCH [facility] Start: 08-29-2024 Tenodesis long tendon biceps REPAIR BICEPS TENDON [facility] Start: 08-29-2024 Patient discharge [facility] Start: 08-29-2024 Application of ice collar, cap or bag [facility] Start: 08-29-2024 Assessment of risk of venous thromboembolism [facility] Start: 08-29-2024 Catheterization of vein [facility] Start: 08-29-2024 Continuous positive airway pressure ventilation treatment [facility] Start: 08-29-2024 Following clinical pathway protocol [facility] Start: 08-29-2024 Incentive spirometry [facility] Start: 08-29-2024 Introduction of urinary catheter [facility] Start: 08-29-[address] [facility] Start: 08-29-2024 End: 08-29-2024 [facility] Start: 06-17-2023 Application of ice collar, cap or bag [facility] Start: 06-17-2023 Catheterization of vein [facility] Start: 06-17-2023 Elevation of foot of bed [facility] Start: 06-17-2023 Medical regimen orders management [facility] Start: 06-17-[address] [facility] Start: 06-17-2023 Patient discharge [facility] Start: 06-17-2023 Procedure discontinued [facility] Start: 06-17-[address] [facility] Start: 06-17-2023 [facility] Start: 06-17-2023 Diagnostic radiography of calcaneus Calcaneus min 2 Views [facility] Start: 06-17-2023 XR Calcaneus Views [facility] Start: 07-05-2022 Patient referral [facility] Work Phone: Start: 05-25-2022 Anesth open/surg arthrs total knee arthroplasty ANESTH KNEE ARTHROPLASTY [facility] Start: 05-25-2022 Arthrp kne condyle&platu medial&lat compartments TOTAL KNEE ARTHROPLASTY [facility] Start: 05-25-2022 Injection aa&/strd femoral nerve NJX AA&/STRD FEMORAL NRV IMG [facility] Start: 05-25-2022 Application of ice collar, cap or bag [facility] Start: 05-25-2022 Exercises [facility] Start: 05-25-2022 Incentive spirometry [facility] Start: 05-25-[address] [facility] Start: 05-25-2022 Patient discharge [facility] Start: 05-25-2022 Patient education [facility] Start: 05-25-2022 Provision of activity privileges [facility] Start: 05-25-2022 Recommendation to continue with treatment [facility] Start: 05-25-2022 Referral to service [facility] Start: 05-25-[address] [facility] Start: 05-25-2022 Wound care [facility] Start: 05-25-2022 [facility] Start: 03-08-2022 Patient referral [facility] Work Phone: Patient Education Understanding Lumbar Radiculopathy [facility] Work Phone: Patient referral [facility] Work Phone: Payers Date Payer Category Payer Self-pay [id number] 2022 Unknown [id number] Unknown Unknown [facility] [id number] Unknown [facility] [id number] Unknown [id number] Unknown [id number] Unknown [id number] Unknown [id number] Unknown [id number] Unknown [id number] Unknown [id number] Unknown [id number] Unknown [id number] Unknown [id number] Unknown [id number] Unknown [id number] Unknown [id number] [id number] Unknown [id number] Unknown [id number] Unknown [id number] Unknown [id number] Unknown [id number] Social History Date Type Detail Facility Start: 02-10-2022 End: 06-08-2023 Tobacco smoking status ORIS Unknown if ever smoked [facility] Start: 1970 Sex Assigned At Male [facility] Start: 08-15-2024 [facility] Start: 08-29-2024 Sex Male (finding) [facility] Medical Equipment Procedure Code Equipment Code Equipment Origin al Text Equipment Identifier Dates Bunionectomy 6.5 HEADLESS COMPRESSION SCREW FDA Start: 06-17-2023 Bunionectomy ALLOSYNC PURE, 10cc FDA Sta rt: 06-17-2023 Bunionectomy 6.5 HEADLESS COMPRESSION SCREW FDA Start: 06-17-2023 Bunionectomy ALLOSYNC PURE, 10cc FDA Sta rt: 06-17-2023 Bunionectomy 6.5 HEADLESS COMPRESSION SCREW FDA Start: 06-17-2023 Bunionectomy ALLOSYNC PURE, 10cc FDA Sta rt: 06-17-2023 Bunionectomy 6.5 HEADLESS COMPRESSION SCREW FDA Start: 06-17-2023 Bunionectomy ALLOSYNC PURE, 10cc FDA Sta rt: 06-17-2023 FEMUR FDA Start: 05-25-2022 PATELLA FDA Start: 05-25-2022 TIBIA FDA Start: 05-25-2022 TIBIAL INSERT FDA Start: 05-25-2022 Orthopaedic ceme nt, non-antimicrobial [id number] FDA Start: 05-25-2022 FEMUR FDA Start: 05-25-2022 PATELLA FDA Start: 05-25-2022 TIBIA FDA Start: 05-25-2022 TIBIAL INSERT FDA Start: 05-25-2022 FEMUR FDA Start: 05-25-2022 PATELLA FDA Start: 05-25-2022 TIBIA FDA Start: 05-25-2022 TIBIAL INSERT FDA Start: 05-25-2022 FEMUR FDA Start: 05-25-2022 PATELLA FDA Start: 05-25-2022 TIBIA FDA Start: 05-25-2022 TIBIAL INSERT FDA Start: 05-25-2022 FEMUR FDA Start: 05-25-2022 PATELLA FDA Start: 05-25-2022 TIBIA FDA Start: 05-25-2022 TIBIAL INSERT FDA Start: 05-25-2022 FEMUR FDA Start: 05-25-2022 PATELLA FDA Start: 05-25-2022 TIBIA FDA Start: 05-25-2022 TIBIAL INSERT FDA Start: 05-25-2022 Leslie Central Screw FDA Sta rt: 08-29-2024 Leslie Peripher al Screw FDA Start: 08-29-2024 Leslie Anitaer Perform Humeral System Humeral Stem, PLUS, SHORT FDA Start: 08-29-2024 Leslie Tornier Perform Humeral System Retentive Reversed Insert FDA Start: 08-29-2024 Leslie Anitaer Perform Reversed Augmented Glenoid Full-Wedge Augment Baseplate FDA Start: 08-29-2024 Giana Anitaer Perform Reversed Cannulated CoCr Standard Glenosphere FDA Start: 08-29-2024 Giana peripher al screw FDA Start: 08-29-2024 FEMUR FDA Start: 05-25-2022 PATELLA FDA Start: 05-25-2022 TIBIA FDA Start: 05-25-2022 TIBIAL INSERT FDA Start: 05-25-2022 Leslie Central Screw FDA Sta rt: 08-29-2024 Giana Peripher al Screw FDA Start: 08-29-2024 Giana Tornier Perform Humeral System Humeral Stem, PLUS, SHORT FDA Start: 08-29-2024 Leslie Tornier Perform Humeral System Retentive Reversed Insert FDA Start: 08-29-2024 Leslie Colbynier Perform Reversed Augmented Glenoid Full-Wedge Augment Baseplate FDA Start: 08-29-2024 Leslie Tornier Perform Reversed Cannulated CoCr Standard Glenosphere FDA Start: 08-29-2024 Leslie peripher al screw FDA Start: 08-29-2024 FEMUR FDA Start: 05-25-2022 PATELLA FDA Start: 05-25-2022 TIBIA FDA Start: 05-25-2022 TIBIAL INSERT FDA Start: 05-25-2022 Giana Central Screw FDA Sta rt: 08-29-2024 Giana Peripher al Screw FDA Start: 08-29-2024 Giana Tornier Perform Humeral System Humeral Stem, PLUS, SHORT FDA Start: 08-29-2024 Leslie Tornier Perform Humeral System Retentive Reversed Insert FDA Start: 08-29-2024 Giana Tornier Perform Reversed Augmented Glenoid Full-Wedge Augment Baseplate FDA Start: 08-29-2024 Giana Tornier Perform Reversed Cannulated CoCr Standard Glenosphere FDA Start: 08-29-2024 Giana peripher al screw FDA Start: 08-29-2024 Goals Date Patient Goal Desired Activity /State Mental Status Date Assessment Result Facility 08-29-2024 Cognitive function Voice/Name [facility] Work Phone: 06-17-2023 Cognitive function Voice/Name [facility] Work Phone: 05-25-2022 Cognitive function Voice/Name [facility] Work Phone: Clinical Notes 07-19-2022 to 03-27-2025 Note Date & Type Note Facility 03-27-2025 Note HNO ID: [id number] Author: HODA CASTRO DPM Service: ? Author Type: Physician Type: Progress Notes Filed: 03/27/2025 12:33 Note Text: PODIATRIC SURGERY CC: right STJ nonunion/malunion HPI: Chinyere Cooley is a 55-year-old male presenting for follow-up after a STJ fusion with persistent foot pain. DOS was 06/17/[address] Kim. He is accompanied by his who provides additional history. Chinyere reports persistent pain in the subtalar region of his right foot, which is most severe with weight-bearing. He reports numbness in both feet, worse on the left, that occurs when sitting for prolonged periods. He also reports difficulty controlling his toes, which he describes as doing their own thing. Describing tremors. He has a history of foot deformities since childhood. He works in [employer] and is currently able to perform his job with accommodations that allow him to sit while working. He has an AFO that does not provide relief. PCP: Mellissa Blum NP History reviewed. No pertinent past medical history.: Current Outpatient Medications Medication Sig oxybutynin (DITROPAN) 5 mg tablet Take 1 tablet by mouth every 12 hours. meloxicam (MOBIC) 15 mg tablet Take 15 mg by mouth as needed. losartan-hydroCHLOROthiazide (HYZAAR) 100-25 mg per tablet Take 1 tablet by mouth once daily. fluorometholone (FML LIQUID FILM) 0.1 % ophthalmic suspension Use 1 drop in both eyes two times a day. doxycycline (VIBRAMYCIN) 50 mg capsule Take 1 capsule by mouth once daily. cycloSPORINE (RESTASIS) 0.05 % ophthalmic emulsion Use 1 drop in both eyes two times a day. buPROPion XL (WELLBUTRIN XL) 300 mg 24 hr tablet Take 300 mg by mouth once daily. No current facility-administered medications for this visit. : ALLERGIES Not on File: History reviewed. No pertinent surgical history. History reviewed. No pertinent family history.: SOCIAL HISTORY[1] Physical Exam: Resp 18 Ht 165.1 cm (5' 5) Wt 104.3 kg (230 lb) BMI 38.27 kg/m? Patient is alert and oriented to person to person, place, and time. Appears to be in no acute distress. Normal mood and affect. Vasc: DP and PT pulses are palpable. CFT brisk to the the toes. Skin temperature is warm to warm from proximal to distal. Hair growth is present. mild edema noted to the right right ankle and hindfoot. Neuro: Light touch intact in the feet. Intact protective sensation. Derm: Skin with well healed lateral hindfoot scar. no erythema. no ecchymosis. no rashes. no subcutaneous nodules. Ulcer is not noted. Hyperkeratotic tissue is not noted. MSK: +5/5 muscle strength AT, EHL, PT, FHL, achilles 0/5 peroneal muscle strength Pain to palpation of the sinus tarsi. 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 The forefoot to rearfoot is adducted. The first ray is plantarflexed. The lateral border of the foot is adducted. Subtalar joint with absent with pain. Ankle joint with diminished range of motion without pain. No pain to palpation of the ankle joint. In stance, the forefoot to rearfoot is adducted and RCSP is varus. In stance the foot is rectus relative to the leg. Goff block test reveals no change to RCSP. Gait examination reveals antalgic gait with decreased angle and base. At midstance the foot is supinated. The first ray is stable in propulsion. Radiographs: 3 views of the right foot, ankle and calcaneus Radiographic evaluation: No obvious fracture or dislocation is noted. No soft tissue gas. Bone density appear typical for age of patient. 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 Hardware intact without breakage, there is haloing around the screw consistent with loosening. No acute destructive changes. Calcaneus is in varus. Increased medial clear space on ankle. Remote avulsion fracture of the medial malleolus. Talus is in varus as well. Digital contractures noted. 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 No osseous fusion across the subtalar joint. Moderate tibiotalar joint osteoarthritis. Tibiotalar joint effusion. 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 Labs: Hemoglobin (g/dL) Date Value 03/04/2025 17.9 Hematocrit (%) Date Value 03/04/2025 54.0 WBC (k/uL) Date Value 03/04/2025 10.93 CRP Date Value Ref Range Status 03/04/2025 0.4 <0.9 mg/dL Final Sed Rate, Westergren Date Value Ref Range Status 03/04/2025 2 0 - 15 mm/hr Final Vitamin D 25 Hydroxy (ng/mL) Date Value 03/04/2025 29.6 Assessment: Patient is a 55 year old male with history of knee replacement and subsequent subtalar joint fusion on 06/17/2023 now with nonunion and malunion that is not relief with AFO. Vitamin D deficiency noted. Does have some ankle varus and art (more content not included)... [facility] 03-13-2025 Note HNO ID: [id number] Author: MEENA KARIMI RT(R) Service: Radiology Author Type: Technologist Type: Progress Notes Filed: 03/13/2025 15:38 Note Text: Radiology Service Progress Note PATIENT NAME: Chinyere Cooley DATE OF SERVICE: March 13, 2025 TIME: 3:38 PM PATIENT IDENTITY VERIFICATION COMPLETED USING TWO (2) IDENTIFIERS: Name and Date of confirmed by patient verbally. FALL SCREENING: Has the patient had 2 falls in the last year or 1 fall with injury or currently using an Ambulatory Assistive Device (Walker, Cane, Wheelchair, Crutches, etc.)? No PATIENT GENDER DATA: Assigned male at PATIENT RELEVANT IMPLANT DATA REVIEWED: Not Applicable PATIENT PRESENTS WITH AN IMPLANTABLE OR ATTACHED CLOTH BEAMER: No RADIOLOGY DEPARTMENT: CT; Exam(s) Completed: Lower extremity . Anesthesia: No PERIPHERAL IV DATA: Not applicable SIGNED BY: RT Adeel(R) March 13, 2025 3:38 PM [facility] 03-04-2025 Note HNO ID: [id number] Author: HODA CASTRO DPM Service: ? Author Type: Physician Type: Progress Notes Filed: 03/25/2025 07:50 Note Text: PODIATRIC SURGERY CC: right ankle pain HPI: Chinyere is a 55-year-old male presenting with chronic right ankle pain and deformity following subtalar fusion. He is accompanied by his who provides additional history. Chinyere reports that after a knee replacement, his previously knock-kneed leg was straightened, but over the following year to year and a half, his ankle became weaker and began rolling out of his shoe. He was evaluated by Dr. Kim, who recommended surgery. The surgery was performed on 06/17/2023, undergoing an STJ fusion. Postoperatively, Chinyere?s foot was turned inward in a varus position, which he states was not present before surgery. He reports difficulty walking on flat ground and is unable to walk on sand or dirt. He experiences pain with walking and is unable to walk long distances without pain. He has returned to Dr. Kim multiple times, who advised that the screw would eventually pull in and the deformity would correct itself over time. However, Chinyere reports that the deformity has persisted and worsened over the past 21 months. Chinyere was referred to Dr. Erich Ramsay, who provided an AFO but this did not provie relief and ultimately advised that Chinyere needed more extensive surgery beyond his scope and was referred to us. Chinyere currently uses an articulating AFO but reports difficulty with driving and limited improvement in symptoms. He denies any postoperative infections and reports that he does not smoke or use nicotine products. PCP: Mellissa Blum, ROAD ROLLER ENGINEER, ROAD ROLLER ENGINEER History reviewed. No pertinent past medical history.: No current outpatient medications on file. No current facility-administered medications for this visit. : ALLERGIES Not on File: History reviewed. No pertinent surgical history. History reviewed. No pertinent family history.: SOCIAL HISTORY[1] Physical Exam: Resp 18 Ht 165.1 cm (5' 5) Wt 104.3 kg (230 lb) BMI 38.27 kg/m? Patient is alert and oriented to person to person, place, and time. Appears to be in no acute distress. Normal mood and affect. Vasc: DP and PT pulses are palpable. CFT brisk to the the toes. Skin temperature is warm to warm from proximal to distal. Hair growth is present. mild edema noted to the right right ankle and hindfoot. Neuro: Light touch intact in the feet. Derm: Skin with well healed lateral hindfoot scar. no erythema. no ecchymosis. no rashes. no subcutaneous nodules. Ulcer is not noted. Hyperkeratotic tissue is not noted. MSK: +5/5 muscle strength with dorsiflexion and plantarflexion. Difficulty inverting and everting the foot. Pain to palpation of the sinus tarsi. 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 The forefoot to rearfoot is adducted. The first ray is plantarflexed. The lateral border of the foot is adducted. Subtalar joint with absent with pain. Ankle joint with diminished range of motion with pain. In stance, the forefoot to rearfoot is adducted and RCSP is varus. In stance the foot is rectus relative to the leg. Goff block test reveals no change to RCSP. Gait examination reveals antalgic gait with decreased angle and base. At midstance the foot is supinated. The first ray is stable in propulsion. Radiographs: 3 views of the right foot, ankle and calcaneus were taken and evaluated today. Radiographic evaluation: No obvious fracture or dislocation is noted. No soft tissue gas. Bone density appear typical for age of patient. 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 Hardware intact without breakage, there is haloing around the screw consistent with loosening. No acute destructive changes. Calcaneus is in varus. Increased medial clear space on ankle. Remote avulsion fracture of the medial malleolus. Talus is in varus as well. Digital contractures noted. Assessment: Patient is a 55 year old male with history of knee replacement and subsequent subtalar joint fusion on 06/17/2023 now presents with chronic right ankle pain, varus deformity, and cavus foot structure. 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 Patient is currently using an articulating AFO, which does not fully address his pain. Plan: A history and physical examination were preformed. The patient was educated on clinical and radiographic findings, diagnosis and treatment plans. Patient state that he understands all that has been explained and all questions were answered to his apparent satisfaction. Etiology and treatment options were discussed with the patient. - Order CT scan to further evaluate the nonunion at the subtalar fusion site. - Order blood work to rule out infection and assess for factors contributing to nonunion. (more content not included)... [facility] 11-16-2024 Discharge summary Note Date/Time November 16, 2024 7:00 pm [facility] Physical Therapy [facility] [address] [place] [address] / REHABILITATION SERVICES DISCHARGE SUMMARY MR#: [id number] Acct: [id number] Name: CHINYERE COOLEY Rep #: [id number] : 1970 54 From: Master Solis PT, ATC Referring Dr.: Dr. Duc Smith MD Status: REG RCR Insurance: [employer] JUST FOR ME SELF PAY INSURANCE Discharge Summary D/C summary: It has been my pleasure to treat CHINYERE COOLEY referred by Dr. Duc Smith MD, with the diagnosis of L rev TSA 08/29/24 for a total of 20 visit(s). Discharge Date: Please see the following information for a summary of their discharge status. Subjective Subjective: Pt reports no pain today. He is ready for I HEP Pain L shoulder: Pain Intensity (Out of 10): 0 Overall Improvement % Improvement: 75 Objective Objective/Function: L shoulder pain 0/10 Pt is I with HEP L shoulder ROM: flex= 150, abd= 125 degrees L shoulder MMT: flex= 10, abd= 18, ER= 11, IR= 11 #F Goals Goal 1:: Decrease L shoulder pain x 50% to aid with sleep Goal Progress: Goal Met Goal 2:: Increase L shoulder flex and abd ROM x 30 degrees to aid with overhead lifting Goal 3:: Increase L shoulder strength x 90% of R shoulder strength to aid with return to work Goal 4:: I with HEP Goal Progress: Goal Met Plan Plan: Discharge to [facility] D/C Information d/c sentence: If there are questions or concerns regarding this patient's physical therapy, please feel free to call me at [phone]. Thank you for the referral of thispatient. Sincerely, Master Solis PT, ATC Balance/Gait/Functional tests Balance/Special Test Scores Quick DASH Score: 15.9075 Improvement % Improvement: 75 <Electronically signed by Master Solis PT, ATC> 11/16/24 0931 CC: Dr. True Clarke MD; Dr. Duc Smith MD ~ [facility] Signed [facility] Work Phone: [phone]) 271-350606-27-2025 Discharge summary [facility] Physical Therapy [address] [place] [address] / REHABILITATION SERVICES DISCHARGE SUMMARY MR#: [id number] Acct: [id number] Name: CHINYERE COOLEY Rep #: [id number] : 1970 54 From: Master Solis PT, ATC Referring Dr.: Dr. Duc Smith MD Status: REG RCR Insurance: [facility] JUST FOR ME SELF PAY INSURANCE Discharge Summary D/C summary: It has been my pleasure to treat CHINYERE COOLEY referred by Dr. Duc Smith MD, with the diagnosis of L rev TSA 08/29/24 for a total of 20 visit(s). Discharge Date: Please see the following information for a summary of their discharge status. Subjective Subjective: Pt reports no pain today. He is ready for I HEP Pain L shoulder: Pain Intensity (Out of 10): 0 Overall Improvement % Improvement: 75 Objective Objective/Function: L shoulder pain 0/10 Pt is I with HEP L shoulder ROM: flex= 150, abd= 125 degrees L shoulder MMT: flex= 10, abd= 18, ER= 11, IR= 11 #F Goals Goal 1:: Decrease L shoulder pain x 50% to aid with sleep Goal Progress: Goal Met Goal 2:: Increase L shoulder flex and abd ROM x 30 degrees to aid with overhead lifting Goal 3:: Increase L shoulder strength x 90% of R shoulder strength to aid with return to work Goal 4:: I with HEP Goal Progress: Goal Met Plan Plan: Discharge to HEP D/C Information d/c sentence: If there are questions or concerns regarding this patient's physical therapy, please feel free to call me at [phone]. Thank you for the referral of thispatient. Sincerely, Master Solis, PT, ATC Balance/Gait/Functional tests Balance/Special Test Scores Quick DASH Score: 15.9075 Improvement % Improvement: 75 11/16/24 0931 CC: Dr. True Clarke MD; Dr. Duc Smith MD ~ [facility] Signed [facility]04-09-2025 Consult note [facility] Medical Records Department [address] [place] [address] Anesthesia Postop Eval II 08/29/24 1112 MR#: [id number] Acct: [id number] Name: CHINYERE COOLEY Rep #:[id number] : 1970 54 From: Manju Tong PCP: Dr. True Clarke MD Status:REG S DC Y Race: C Location: [place] [address] Anesthesia Postop Eval I Sum Postop Eval Completion status Anesthesia document: Postop Eval 1 completed: Yes Anesthesia Postop Eval I Summary Anesthesia Postop Eval I Summary: Anesthesia Postop Eval I: Assessment Summary Airway patent Yes 08/29/24 10:35 CHURCH ORGANIST.TNES Spontaneous unlabored Yes 08/29/24 10:35 CHURCH ORGANIST.TNES respirations Mental status nausea No 08/29/24 10:35 CHURCH ORGANIST.TNES Vomiting No 08/29/24 10:35 CHURCH ORGANIST.TNES Anesthesia Postop Eval I: Fluid Summary Crystalloid volume administer 1,200 08/29/24 10:35 CHURCH ORGANIST.TNES (ml) Colloids volume administered ( ml) Blood Product volume administered (ml) Total IV fluid infused 1,200 08/29/24 10:35 CHURCH ORGANIST.TNES Anesthesia Postop Eval I: Summary Notes Anesthesia Complication No 08/29/24 10:35 CHURCH ORGANIST.TNES Anesthesia Complication Comment: Post-operative progress note Anesthesia: Postop Eval II Evaluation Mental status: Awake Pain Level: 3 nausea: No Vomiting: No 08/29/24 1112 a> Date _ Manju Zeng Signature: Date CC: ~ Signed [facility]04-09-2025 Radiology Diagnostic study note [facility] Imaging Services [address] [place] [address] Shoulder min 2 Views MR#: [id number] Acct: [id number] Name: CHINYERE COOLEY Rep #: [id number] : 1970 M 54 From: Patricia Lugo MD PCP: Dr. True Clarke MD Status: REG S DC Study:Shoulder min 2 Views Date of Exam: 08/29/24 Exam# [id number] Ordering Dr: Duc Smith MD PROCEDURE: SHOULDER 1 VIEW 08/29/2024 REASON FOR EXAM: TOTAL SHOULDER REPLACEMENT TECHNIQUE: One (1) view of the left shoulder Fluoroscopy: 2.1 sec Dose: 0.31 mGy COMPARISON: No relevant prior FINDINGS: Bones: A total left humeral arthroplasty has been inserted. Joints: Glenohumeral articulation in good alignment. Soft tissues: Unremarkable. Other: No periprosthetic fractures. RAD/Shoulder min 2 Views IMPRESSION: Status post insertion of left total humeral arthroplasty. Reading Location: [place] [address] CC: Dr. True Clarke MD; Dr. Duc Smith MD ~ Client Onboarding Analyst: Signed [facility]04-09-2025 Consult note [facility] Medical Records Department [address] [place] [address] Anesthesia Postop Eval I 08/29/24 1035 MR#: [id number] Acct: [id number] Name: CHINYERE COOLEY Rep #:[id number] : 1970 54 From: David WHATLEY NA PCP: Dr. True Clarke MD Status:REG S DC Y Race: C Location: [place] [address] Anesthesia: Postop Eval I Current Vital Signs Temperature: 97 F Pulse Rate: 72 Blood Pressure: 114/80 Respiratory Rate: 16 Pulse Ox: 97 Assessment Airway patent: Yes Spontaneous unlabored respirations: Yes nausea: No Vomiting: No Anesthesia Complication: No Fluid Hydration Crystalloid volume administer (ml): 1,200 Total IV fluid infused: 1,200 Progress Note Anesthesia document: Postop Eval 1 completed: Yes 08/29/24 1036 CHURCH ORGANIST> Date _ David Parry CHURCH ORGANIST Cosigner Signature: Date CC: ~ Signed [facility]04-09-2025 Discharge summary [facility] Medical Records Department [address] [place] [address] Instructions for Home/Discharge Instructions 08/29/24 1033 MR#: [id number] Acct: [id number] Name: CHINYERE COOLEY Rep #:[id number] : 1970 54 From: Duc Smith MD PCP: Dr. True Clarke MD Status:REG S DC Discharge Instructions Diet Discharge Diet: No restrictions Activity Ice area for (Minutes): 10 Lifting Restrictions: pendulums only 4x/day Additional Activity Instructions:: ok to remove sling at rest Dressing / Incision Call your doctor if your incision/area has: Continuous Slow Oozing, Sudden Increased Bleeding, Increased Pain/ Swelling, Increased Redness, Foul Smelling Discharge and Swelling at the incision site Call your doctor if you observe: Fever of 101 or Higher, Coldness, Increased Pain and Numbness or Tingling Remove Dressing in: leave until fall off Cleanse incision/area with: Do not get Incision Wet Follow Up Care Please Follow Up With: Duc Smith MD When: next week Test Results: Test results from this visit will be discussed in further detail at your follow- up appointment, if applicable. Discharge Plan Admission Attending Provider: Duc Smith Primary Care Provider: True Clarke Instructions Print Language: Mauritian Discharge Orders/Prescriptions Prescriptions: New oxycodone-acetaminophen [Endocet] 5-325 mg tablet 1 tab PO Q4H MDD 6 PRN (Reason: pain) 5 Days Qty: 30 0RF cephalexin 500 mg capsule 500 mg PO Q6H MDD 4 1 Days Qty: 4 0RF No Action doxycycline hyclate 50 mg capsule 50 mg PO DAILY cyclosporine 0.05 % dropperette 1 drp ophthalmic (eye) BID acetaminophen [Tylenol Arthritis Pain] 650 mg tablet extended release 650 mg PO Q12H PRN (Reason: pain) meloxicam 15 mg tablet 15 mg PO DAILY losartan-hydrochlorothiazide 100-25 mg tablet 1 tab PO DAILY bupropion HCl 300 mg tablet extended release 24 hr 300 mg PO DAILY Referrals / Follow Up: True Clarke MD [Primary Care Provider] - Disposition Disposition (needs filled in before D/C Order can be placed): Home, Self Care 08/29/24 1036Duc Smith MD CC: Dr. True Clarke MD ~ Signed [facility]04-09-2025 Procedure note [facility] Medical Records Department [address] [place] [address] Operative Report 08/29/24 1021 MR#: [id number] Acct: [id number] Name: CHINYERE COOLEY Rep #:[id number] : 1970 54 From: Duc Smith MD PCP: Dr. True Clarke MD Status:REG S DC Location: [place] [address]1 Problems Associated Problem List Diagnoses (1) DJD of left shoulder: Procedures Musculoskeletal 20xxx-29xxx: Other Procedure See Report Operative Report (Standard) Operative Information Date of Procedure: 08/29/24 Pre-Operative Diagnosis: Left shoulder osteoarthritis Post-Operative Diagnosis: Same Surgery/Procedure Performed: Left reverse total shoulder arthroplasty and bicepstenodesis shellfish manager: Yes Book Solicitor: eran Tasks completed by first coat sander: Retracting Additional reference assistant?: No Type of Anesthesia: Block,Regional and General RN Documented Start/Stop Times: Operation Date: 08/29/24 08:00 Case Time Into Pre-Op 08/29/24 06:05 Anesthesia Start 08/29/24 08:00 Into Room 08/29/24 08:00 Procedure Start 08/29/24 08:36 Procedure End 08/29/24 10:21 Anesthesia End 08/29/24 10:29 Out of Room 08/29/24 10:29 Procedure Start Time: 08:36 Procedure Stop Time: 10:21 Select all DRAINS/GRAFTS/IMPLANTS that apply: Prosthetic device Prosthetic device details: Colbynier perform reverse total shoulder arthroplasty Estimated Blood Loss: 100 Specimen collected: Yes Description of specimen(s) removed: Humeral head Description of surgery: Patient brought to the operating room theater. Placed supine on the beachchair positioner. General anesthesia induced. 2 g IV Ancef administered prior to thestart of the case. TXA used as well 1 g IVat the beginning and end. All bony prominences padded. SCDs on the legs. Patient sat up at a 45 degree angle. Arm positioner used the patient's left side. Upper extremity prepped and drapedin the usual sterile fashion with chlorhexidine-based prep solution allowing over 3 minutes drying time prior to draping. Preoperative timeout performed to confirm the site patient and the surgery. Began by making a standard deltopectoral incision. Carried the dissection down through skin and subcutaneous tissue achieved meticulous hemostasis. Identifiedthe interval identified the cephalic vein. This was in quite an oblique course. I ligated this in the mid aspect and retracted deltoid laterally without tearing the vein. Identified the conjoined tendon dissected on the lateral aspect of this and retracted it medially. Identified the circumflex humeral vessels ligated and controlled those.Identified the long head of the biceps. Followed this through the rotator interval. I did a biceps tenodesis to the superior aspect of the pectoralis major tendon after releasing a small amount tothesuperior aspect of the pectoralis major insertion. I then performed lesser tuberosity osteotomy with a small cortical bone lavern. I dissected out the capsule and remove the capsule and labrum from the anterior aspect of the glenoid. I protected the axillary nerve. Next I turned my attention to the humerus. I made a standard cut in 30 degrees of retroversion using the extramedullary guide. I released tissue from the inferior medial aspect of the humeral metaphyseal area. I removed the head segment. I excised osteophytes from the inferior medial aspect of the humeral metaphysis. I did achieve full external rotation. I released a small amount ofthe supraspinatus. I then placed my number 2 disc on the guidepin for the reamer for the humeral side. I reamed toa size 2 placed the size 2 broach thisachieved good circumferential press-fit. This I then turned my attention back to the glenoid. I circumferentially excised the labrum and remaining biceps tendon. I slightly released the tricepsattachment inferiorly. I then placed the guidepin in the center of the glenoid slightly anterior and inferior per preoperative templating. I then used a circumferential reaming with 15 degrees retroversion plan for a full wedge baseplate. I placed the wedge at 3:00 on the clock face. This achieved good punctate bleeding bone circumferentially. I then drilled forthe central screw up to a 30 mm length. I selected my baseplate with 15 degreesto reverse full wedge augmented baseplate as well as a 30 mm central screw. I inserted this again with the wedge portion at 3:00 this achieved good backsideseating. Very good purchase. I then inserted the compression screw at the 3 o'clock position followed by the locking screws all 3 of them. This achieved good purchase. I had thoroughly irrigated prior to placing the baseplate as well as using pulse lavage. I then placed the glenosphere a size [address] and going back and forth between screwing and tapping on the glenosphere until thiswas fully seated. I turned my attention back to the humerus. I trialed using a size 2 humeral stem with a 0 mm polyethylene retentive. This achieved good full range of motion without impingement normal shuck test and good tension on the conjoined tendon. I removed the trial components and then assembled the components on theback table. I drilled 2 holes just medial and lateral to the lesser tuberosity osteotomy site on the humerus and then passed a suture. The suture I passed behind the component. I impacted the component into place using a size 2+ Tornier perform humeral stem with 39 mm +0 mm retentive reverse insert. I then reduced the shoulder trialed again good stability no impingement repair of the subscapularispassive tuberosity osteotomy using the sutures in a mattress fashion. I thoroughly irrigated. I took final radiographs to ensure that the component position. I used vancomycin powder. I thoroughly irrigated the wound prior to placing the vancomycin antibiotic powder. Ithen closed the subcutaneous tissuewith 2-0 Vicryl sutures and the 3-0 Monocryl. Skin was cleaned with wet dry dressing followed by patient's Steri-Strips and silver Mepilex borderdressing with an abduction pillow sling. Patient woken up from the general anesthetic transferred off the operating tabletaken to postanesthetic care unit in stable condition. Plan for the patient discharged home according to day surgery criteria when they are comfortable. Follow-up in the office next week. CPT 70868, 94219? Surgical Findings: As above Complications Complications: No Admit VTE Documentation VTE Present on Admission: No VTE Mechan Device Prophylaxis: SCD's VTE Pharm Prophylaxis ordered?: No Reason prophylaxis not ordered: Treatment Not Indicated 08/29/24 1032 Cosigner Signature (if applicable): CC: Dr. True Clarke MD; Dr. Duc Smith MD~ Signed [facility]04-09-2025 History and physical note Author Duc Smith [facility] Note Date/Time August 29, 2024 7:54 am [facility] Medical Records Department [address] [place] [address] History & Physical Exam 08/29/24 0753 MR#: [id number] Acct: [id number] Name: CHINYERE COOLEY Rep #:[id number] : 1970 54 From: Duc Smith MD PCP: Dr. True Clarke MD Status:REG S DC Location: [place] [address] HPI - General HPI Narrative CHINYERE COOLEY, is a 54 M who presents for left reverse total shoulder arthroplasty. NO change to H and P. Had discussed over the phone given retroversion and subluxation. RAB, post op instructions and narcotic counselling. Left shoulder marked. Plan for block. OK to proceed. OFFICE VISIT Date of Service: 07/09/24 MR#: [id number] Acct: [id number] Name: CHINYERE COOLEY Rep #: [id number] : 1970 Provider: Dr. Duc Smith MD Age/Sex: 54/M Location: [facility] Status: Signed Intake Vital Signs 05/10/2415:02 Height 5 ft 3 in Weight: 223 lb 8 oz BMI 39.6 Intake Visit Reasons: RIGHT SHOULDER Chief Complaint: MRI review Is patient in pain?: Yes (Right shoulder ) Pain scale (1-10): 8 Allergies acetaminophen (From Vicodin) Adverse Reaction (Verified 07/09/24 14:46) Nauseacephalexin (From Keflex) Adverse Reaction (Verified 07/09/24 14:46) makes him feel badhydrocodone (From Vicodin) Adverse Reaction (Verified 07/09/2513:46) Nausea Medications ?Medication ?Instructions ?Recorded ?Confirmed ?Type bupropion HCl 300 mg 24 hr tablet, 300 mg PO DAILY 03/11/21 07/09/24 Histor y extended release losartan 100 1 tab PO DAILY 03/11/21 07/09/24 History mg-hydrochlorothiazide 25 mg tablet meloxicam 15 mg tablet 15 mg PO DAILY 03/11/21 07/09/24 History cyclosporine 0.05 % eye drops in a 1 drp ophthalmic (eye) BID 03/07/2306/23 History dropperette doxycycline hyclate 50 mg capsule 50 mg PO DAILY 03/07/23 07/09/24 History multivitamin 1 tab PO DAILY 03/07/23 07/09/24 History acetaminophen 650 mg 650 mg PO Q12H PRN 05/10/24 07/09/24 His tory tablet,extended release (Tylenol Arthritis Pain) PFSH Medical History Bilateral shoulder pain History of steroid therapy Former smoker BiPAP (biphasic positive airway pressure) dependence Loss of hearing Wears glasses Arthritis CPAP (continuous positive airway pressure) dependence Sleep apnea Hammertoe of right foot Bilateral primary osteoarthritis of knee Primary osteoarthritis, right shoulder DJD of both shoulders Hypertension Environmental allergies Depression Surgical History History of ankle surgery History of total right knee replacement s/p lip cyst removal S/P carpal tunnel release S/P inguinal hernia repair Family History Father Arthritis Social History Smoking Status: Former smoker quit date: 05/23/98 alcohol intake: current HPI RIGHT SHOULDER Details: This documentation accurately reflects the service provided and the decisions made by me, Dr. Duc Smith MD 07/09/24 1100. Part of today?s visit was documented by [ ], acting as scribe. CHINYERE COOLEY is a 54 year old M here today for follow-up left shoulder CT and MRI for surgical planning. Patient still has stiffness and pain with lifting. Supplemental Info [facility] Imaging Services [address] [place] [address] Extremity Upper without Contra MR#: [id number] Acct: [id number] Name: CHINYERE COOLEY Rep #: [id number] : 1970 M 54 From: Tito Moran MD PCP: Dr. True Clarke MD Status: REG CLI Study: Extremity Upper without Contra Date of Exam: 05/28/24 Exam# [id number] Ordering Dr: Duc Smith MD STUDY: CT LEFT SHOULDER REASON FOR EXAM: Male, 54 years old. OA, surgical planning. RADIATION DOSAGE (If Supplied By Facility): CTDIvol = ( 40.26 ) mGy, DLP = ( 1101.46 ) mGycm TECHNIQUE: The patient was scanned in a multi detector CT scanner. High resolution transaxial imaging was performed without the administration of intravenous contrast material. Sagittal and coronal images were reconstructed. Individualized dose optimization techniques were used for this CT. COMPARISON: None. FINDINGS: There is advanced glenohumeral arthrosis, with joint space narrowing, siiq-hl-qrzg, marginal osteophyte formation, and subchondral cyst formation. Normal glenoid neck and visualized scapula. Normal humeral head, neck and tuberosities. Normal coracoid process. Normal visualized lateral clavicle. There is minimal acromioclavicular arthrosis. There is a Type II morphology (curved), with a neutral orientation. There is no demonstrated acute fracture. Normal visualized muscles and soft tissue structures. CT/Extremity Upper without Contra IMPRESSION: Advanced glenohumeral arthrosis. Minimal acromioclavicular arthrosis. Electronically Signed: Tito Moran MD at 13:03 EST Reading Location ID and State: [facility] / [place] , Service support , [facility] Imaging Services [address] [place] [address] Upper Ext Joint Only(Routine) MR#: [id number] Acct: [id number] Name: CHINYERE COOLEY Rep #: [id number] : 1970 M 54 From: Tito Moran MD PCP: Dr. True Clarke MD Status: REG CLI Study: Upper Ext Joint Only(Routine) Date of Exam: 06/11/24 Exam# [id number] Ordering Dr: Duc Smith MD STUDY: MRI LEFT SHOULDER REASON FOR EXAM: Male, 54 years old. OA, surgical planning. TECHNIQUE: Standardized fat and water weighted pulse sequences were obtained in all 3 orthogonal planes. COMPARISON: CT left shoulder dated 05/28/2024. FINDINGS: Normal supraspinatus tendon. Normal infraspinatus tendon. Normal subscapularis tendon. Normal teres minor tendon. Normal supraspinatus muscle. Normal infraspinatus muscle. Normal subscapularis muscle. Normal teres minor muscle. There is severe glenohumeral arthrosis with toal-fw-kfvr, marginal osteophyte formation, articular surface remodeling, and subchondral cyst formation. There is overall degeneration of the glenoid labrum. Intact humeral head and visualized proximal humerus. Intact biceps labral complex. Normal intracapsular long biceps tendon. Normal rotator interval. There is minimal acromioclavicular arthrosis. There is a Type II morphology (curved), with a neutral orientation. There is no subacromial-subdeltoid bursal fluid. Normal visualized coracohumeral and coracoacromial ligaments. Normal quadrilateral space. Normal axillary space. Normal deltoid muscle. Normal trapezius muscle. MRI/Upper Ext Joint Only(Routine) IMPRESSION: Severe glenohumeral arthrosis with overall degeneration of the glenoid labrum. Minimal acromioclavicular arthrosis. No rotator cuff tear. Electronically Signed: Tito Moran MD at 10:44 EST , I independently reviewed the imaging. Concur with radiologist report. Coding Level of Care Code Off vis,est,level 3 Diagnoses DJD of left shoulder M19.012 Assessment and Plan Assessment and Plan (1) DJD of left shoulder: Status: Acute Plan: 54-year-old man with left shoulder advanced osteoarthritis with an intact rotator cuff tendon. Typical surgical solution for this would be total shoulderarthroplasty given the patient's age and intact cuff with good strength. Discussed the pros and cons risks and benefits of continued conservative management versus surgery in the form of left anatomic total shoulder arthroplasty. The patient is interested to go ahead with surgery discussed the postoperative recovery for this usually at least 3 months before going back to any sort of significant heavy lifting. He understands no further questions or concerns. Pros and cons risks and benefits were discussed with the patient including but not limited to infection, pain, stiffness, bleeding, damage to surrounding structures, neurovascular injury, recurrence or retear, failure or wear of hardware or fixation, instability, fracture, deep vein thrombosis and pulmonary embolism, anesthetic risks, , patient dissatisfaction, need for further surgery and other risks. Patient understood and wished to proceed with surgery,and signed the informed consent documentation. Patient counselled on non-operative and operative means of treating shoulder pain. Conservative options include but not limited to: 1. Rest and Activity Modification: Giving your shoulder time to heal by avoiding movements that cause pain can help. This may involve limiting overhead activities or heavy lifting. 2. Physical Therapy: A physical therapist can guide you through exercises that strengthen the muscles around the shoulder, improve flexibility, and reduce strain on the rotator cuff tendon. 3. Ice and Heat Therapy: Applying ice to the shoulder can help reduce swelling and pain, especially after activity. Heat can be helpful to relax tense muscles and improve blood flow before exercises. 4. Anti-Inflammatory Medications: Bckf-cdr-kjewqzh medications like ibuprofen or naproxen can help reduce pain and inflammation in the tendon. 5. Corticosteroid Injections: If the pain is more severe, a steroid injection can reduce inflammation in the shoulder and provide relief for a longer period. 6. Platelet-Rich Plasma (PRP) Injection: This treatment involves using your own blood to promote healing in the tendon. The plasma is rich in growth factors that can encourage tissue repair. 7. TENS (Transcutaneous Electrical Nerve Stimulation): This therapy uses a small electrical current to help manage pain and promote healing by stimulating nerves. Ortho Exam General General: Yes no acute distress Neurologic: Yes alert and Yes oriented x3 Psychologic: Yes reasonable and appropriate Left Shoulder Skin/Wound: Yes CDI, No ecchymosis, No erythema and No swelling SHOULDER: Active and passive forward elevation about 80 degrees external rotation 0 degrees. Strength in forward elevation and external rotation both 4/5. [facility] Medical History (Updated 08/15/24 @ 15:39 by Maria Ines Stallings) History of pain when walking History of edema Bilateral shoulder pain Former smoker Wears glasses Arthritis CPAP (continuous positive airway pressure) dependence Hammertoe of right foot Bilateral primary osteoarthritis of knee Primary osteoarthritis, right shoulder DJD of both shoulders Hypertension Depression Home Medications ?Medication ?Instructions ?Recorded ?Last Taken ?Type bupropion HCl 300 mg 24 hr tablet, 300 mg PO DAILY 08/27/24 History extended release losartan 100 1 tab PO DAILY 03/11/2101/14 History mg-hydrochlorothiazide 25 mg tablet meloxicam 15 mg tablet 15 mg PO DAILY 03/11/2107/17 History cyclosporine 0.05 % eye drops in a 1 drp ophthalmic (e ye) BID 03/07/23 08/27/24 History dropperette doxycycline hyclate 50 mg capsule 50 mg PO DAILY 03/0708/27/24 History acetaminophen 650 mg 650 mg PO Q12H PRN pain 04/22 02/13 Unknown History tablet,extended release (Tylenol Arthritis Pain) Allergy/AdvReac Type Severity Reaction Status Date / Time acetaminophen (From Vicodin) AdvReac Nausea Verified 08/15/24 14:42 cephalexin (From Keflex) AdvReac makes him Verified 08/15/24 14:42 feel bad hydrocodone (From Vicodin) AdvReac Nausea Verified 08/15/24 14:42 Family History Father Arthritis Surgical History History of ankle surgery History of total right knee replacement s/p lip cyst removal S/P carpal tunnel release S/P inguinal hernia repair Social History Smoking Status: Former smoker quit date: 05/23/98 alcohol intake: current Vital Signs Vital Signs Vital Signs: 08/29/24 07:01 08/29/24 07:04 Temperature 98.5 F Temperature Source Temporal Pulse Rate 81 Respiratory Rate 16 Respiratory Pattern Normal Blood Pressure 127/92 H Blood Pressure Mean 103 Blood Pressure Source Monitor Blood Pressure Position Semi-Fowlers Blood Pressure Location Right Arm Pulse Ox 98 Oxygen Delivery Method Room Air Weight Weight: 227 lb 1.218 oz Body Mass Index (BMI) 37.8 Results Lab / Micro Data 08/21/24 13:38 08/21/24 13:38 Labs: Laboratory Results - last 24 hr 08/29/24 06:30: POC Glucose 131 H 08/29/24 0754 <Electronically signed by Duc Smith MD> Cosigner Signature (if applicable): CC: Dr. True Clarke MD; Dr. Duc Smith MD~ Signed [facility] Work Phone: 1(167) 968-701104-09-2025 Evaluation note* Diagnosis Onset Date Resolution Status Admit Date DJD of left shoulder acute Apri l 2024 5:56am Bilateral shoulder pain acute A pril 2024 1:22pm Primary osteoarthritis, righ t shoulder acute September 14, 2024 9:05am Bilateral shoulder pain acute M ay 2024 9:10am Cough chronic November 02 8:32am Obstructive sleep apnea chronic J une 2024 8:32am [facility] Work Phone: 1(432) 235-837004-09-2025 Evaluation note* Diagnosis Onset Date Resolution Status Admit Date DJD of left shoulder acute Apri l 2024 5:56am Bilateral shoulder pain acute A pril 2024 1:22pm Primary osteoarthritis, righ t shoulder acute September 14, 2024 9:05am Bilateral shoulder pain acute M ay 2024 9:10am Cough chronic November 02 8:32am Obstructive sleep apnea chronic J une 2024 8:32am DJD of left shoulder acute November 26, 2024 9:15am [facility] Work Phone: 1(204) 662-198904-09-2025 History and physical note [facility] Medical Records Department [address] [place] [address] History & Physical Exam 08/29/24 0753 MR#: [id number] Acct: [id number] Name: LENORACHINYERE DEL VALLE DAQUAN Rep #:[id number] : 1970 54 From: Duc Smith MD PCP: Dr. True Clarke MD Status:REG S DC Location: [place] [address] HPI - General HPI Narrative CHINYERE COOLEY, is a 54 M who presents for left reverse total shoulder arthroplasty. NO change to Hand P. Had discussed over the phone given retroversion and subluxation. RAB, post op instructions and narcotic counselling. Left shoulder marked. Plan for block. OK to proceed. OFFICE VISIT Date of Service: 07/09/24 MR#: [id number] Acct: [id number] Name: CHINYERE COOLEY Rep #: [id number] : 1970 Provider: Dr. Duc Smith MD Age/Sex: 54/M Location: [facility] Status: Signed Intake Vital Signs 05/10/2415:02 Height 5 ft 3 in Weight: 223 lb 8 oz BMI 39.6 Intake Visit Reasons: RIGHT SHOULDER Chief Complaint: MRI review Is patient in pain?: Yes (Right shoulder ) Pain scale (1-10): 8 Allergies acetaminophen (From Vicodin) Adverse Reaction (Verified 07/09/24 14:46) Nauseacephalexin (From Keflex) Adverse Reaction (Verified 07/09/24 14:46) makes him feel badhydrocodone (From Vicodin) Adverse Reaction (Verified 07/09/2513:46) Nausea Medications ?Medication ?Instructions ?Recorded ?Confirmed ?Type bupropion HCl 300 mg 24 hr tablet, 300 mg PO DAILY 03/11/21 07/09/24 Histor y extended release losartan 100 1 tab PO DAILY 03/11/21 07/09/24 History mg-hydrochlorothiazide 25 mg tablet meloxicam 15 mg tablet 15 mg PO DAILY 03/11/21 07/09/24 History cyclosporine 0.05 % eye drops in a 1 drp ophthalmic (eye) BID 03/07/2306/23 History dropperette doxycycline hyclate 50 mg capsule 50 mg PO DAILY 03/07/23 07/09/24 History multivitamin 1 tab PO DAILY 03/07/23 07/09/24 History acetaminophen 650 mg 650 mg PO Q12H PRN 05/10/24 07/09/24 His tory tablet,extended release (Tylenol Arthritis Pain) PFSH Medical History Bilateral shoulder pain History of steroid therapy Former smoker BiPAP (biphasic positive airway pressure) dependence Loss of hearing Wears glasses Arthritis CPAP (continuous positive airway pressure) dependence Sleep apnea Hammertoe of right foot Bilateral primary osteoarthritis of knee Primary osteoarthritis, right shoulder DJD of both shoulders Hypertension Environmental allergies Depression Surgical History History of ankle surgery History of total right knee replacement s/p lip cyst removal S/P carpal tunnel release S/P inguinal hernia repair Family History Father Arthritis Social History Smoking Status: Former smoker quit date: 05/23/98 alcohol intake: current HPI RIGHT SHOULDER Details: This documentation accurately reflects the service provided and the decisions made by me, Dr. Barney MD 07/09/24 1100. Part of today?s visit was documented by [ ], acting as scribe. CHINYERE COOLEY is a 54 year old M here today for follow-up left shoulder CT and MRI for surgical planning. Patient still has stiffness and pain with lifting. Supplemental Info [facility] Imaging Services [address] [place] [address] Extremity Upper without Contra MR#: [id number] Acct: [id number] Name: CHINYERE COOLEY Rep #: [id number] : 1970 M 54 From: Tito Moran MD PCP: Dr. True Clarke MD Status: REG CLI Study: Extremity Upper without Contra Date of Exam: 05/28/24 Exam# [id number] Ordering Dr: Duc Smith MD STUDY: CT LEFT SHOULDER REASON FOR EXAM: Male, 54 years old. OA, surgical planning. RADIATION DOSAGE (If Supplied By Facility): CTDIvol = ( 40.26 ) mGy, DLP = ( 1101.46 ) mGycm TECHNIQUE: The patient was scanned in a multi detector CT scanner. High resolution transaxial imaging was performed without the administration of intravenous contrast material. Sagittal and coronal images were reconstructed. Individualized dose optimization techniques were used for this CT. COMPARISON: None. FINDINGS: There is advanced glenohumeral arthrosis, with joint space narrowing, ztck-wr-kptf, marginal osteophyte formation, and subchondral cyst formation. Normal glenoid neck and visualized scapula. Normal humeral head, neck and tuberosities. Normal coracoid process. Normal visualized lateral clavicle. There is minimal acromioclavicular arthrosis. There is a Type II morphology (curved), with a neutral orientation. There is no demonstrated acute fracture. Normal visualized muscles and soft tissue structures. CT/Extremity Upper without Contra IMPRESSION: Advanced glenohumeral arthrosis. Minimal acromioclavicular arthrosis. Electronically Signed: Tito Moran MD at 13:03 EST Reading Location ID and State: [address] [place] [address] , Service support , [facility] Imaging Services [address] [place] [id number] Upper Ext Joint Only(Routine) MR#: [id number] Acct: [id number] Name: CHINYERE COOLEY Rep #: [id number] : 1970 54 From: Tito Moran MD PCP: Dr. True Clarke MD Status: REG CL Study: Upper Ext Joint Only(Routine) Date of Exam: 06/11/24 Exam# [id number] Ordering Dr: Duc Smith MD STUDY: MRI LEFT SHOULDER REASON FOR EXAM: Male, 54 years old. OA, surgical planning. TECHNIQUE: Standardized fat and water weighted pulse sequences were obtained in all 3 orthogonal planes. COMPARISON: CT left shoulder dated 05/28/2024. FINDINGS: Normal supraspinatus tendon. Normal infraspinatus tendon. Normal subscapularis tendon. Normal teres minor tendon. Normal supraspinatus muscle. Normal infraspinatus muscle. Normal subscapularis muscle. Normal teres minor muscle. There is severe glenohumeral arthrosis with [id number]-ui-[id number], marginal osteophyte formation, articular surface remodeling, and subchondral cyst formation. There is overall degeneration of the glenoid labrum. Intact humeral head and visualized proximal humerus. Intact biceps labral complex. Normal intracapsular long biceps tendon. Normal rotator interval. There is minimal acromioclavicular arthrosis. There is a Type II morphology (curved), with a neutral orientation. There is no subacromial-subdeltoid bursal fluid. Normal visualized coracohumeral and coracoacromial ligaments. Normal quadrilateral space. Normal axillary space. Normal deltoid muscle. Normal trapezius muscle. MRI/Upper Ext Joint Only(Routine) IMPRESSION: Severe glenohumeral arthrosis with overall degeneration of the glenoid labrum. Minimal acromioclavicular arthrosis. No rotator cuff tear. Electronically Signed: Tito Moran MD at 10:44 EST , I independently reviewed the imaging. Concur with radiologist report. Coding Level of Care Code Off vis,est,level 3 Diagnoses DJD of left shoulder M19.012 Assessment and Plan Assessment and Plan (1) DJD of left shoulder: Status: Acute Plan: 54-year-old man with left shoulder advanced osteoarthritis with an intact rotator cuff tendon. Typical surgical solution for this would be total shoulderarthroplasty given the patient's age and intact cuff with good strength. Discussed the pros and cons risks and benefits of continued conservative management versus surgery in the form of left anatomic total shoulder arthr oplasty. The patient is interested to go ahead with surgery discussed the postoperative recovery for this usually at least 3 months before going back to any sort of significant heavy lifting. He understands no further questions or concerns. Pros and cons risks and benefits were discussed with the patient including but not limited to infection, pain, stiffness, bleeding, damage to surrounding structures, neurovascular injury, recurrence or retear, failure or wear of hardware or fixation, instability, fracture, deepvein thrombosis and pulmonary embolism, anesthetic risks, , patient dissatisfaction, need for further surgery and other risks. Patient understood and wished to proceed with surgery,and signed the informed consent documentation. Patient counselled on non-operative and operative means of treating shoulder pain. Conservative options include but not limited to: 1. Rest and Activity Modification: Giving your shoulder time to heal by avoiding movements that cause pain can help. This may involve limiting overhead activities or heavy lifting. 2. Physical Therapy: A physical therapist can guide you through exercises that strengthen the muscles around the shoulder, improve flexibility, and reduce strain on the rotator cuff tendon. 3. Ice and Heat Therapy: Applying ice to the shoulder can help reduce swelling and pain, especially after activity. Heat can be helpful to relax tense muscles and improve blood flow before exercises. 4. Anti-Inflammatory Medications: Vivz-vza-hpdvzii medications like ibuprofen or naproxen can help reduce pain and inflammation in the tendon. 5. Corticosteroid Injections: If the pain is more severe, a steroid injection can reduce inflammation in the shoulder and provide relief for a longer period. 6. Platelet-Rich Plasma (PRP) Injection: This treatment involves using your own blood to promote healing in the tendon. The plasma is rich in growth factors that can encourage tissue repair. 7. TENS (Transcutaneous Electrical Nerve Stimulation): This therapy uses a small electrical current to help manage pain and promote healing by stimulating nerves. Ortho Exam General General: Yes no acute distress Neurologic: Yes alert and Yes oriented x3 Psychologic: Yes reasonable and appropriate Left Shoulder Skin/Wound: Yes CDI, No ecchymosis, No erythema and No swelling SHOULDER: Active and passive forward elevation about 80 degrees external rotation 0 degrees. Strength in forward elevation and external rotation both 4/5. [facility] Medical History (Updated 08/15/24 @ 15:39 by Maria Ines Stallings) History of pain when walking History of edema Bilateral shoulder pain Former smoker Wears glasses Arthritis CPAP (continuous positive airway pressure) dependence Hammertoe of right foot Bilateral primary osteoarthritis of knee Primary osteoarthritis, right shoulder DJD of both shoulders Hypertension Depression Home Medications ?Medication ?Instructions ?Recorded ?Last Taken ?Type bupropion HCl 300 mg 24 hr tablet, 300 mg PO DAILY 08/27/24 History extended release losartan 100 1 tab PO DAILY 03/11/2101/14 History mg-hydrochlorothiazide 25 mg tablet meloxicam 15 mg tablet 15 mg PO DAILY 03/11/2107/17 History cyclosporine 0.05 % eye drops in a 1 drp ophthalmic (e ye) BID 03/07/23 08/27/24 History dropperette doxycycline hyclate 50 mg capsule 50 mg PO DAILY 03/0708/27/24 History acetaminophen 650 mg 650 mg PO Q12H PRN pain 04/22 02/13 Unknown History tablet,extended release (Tylenol Arthritis Pain) Allergy/AdvReac Type Severity Reaction Status Date / Time acetaminophen (From Vicodin) AdvReac Nausea Verified 08/15/24 14:42 cephalexin (From Keflex) AdvReac makes him Verified 08/15/24 14:42 feel bad hydrocodone (From Vicodin) AdvReac Nausea Verified 08/15/24 14:42 Family History Father Arthritis Surgical History History of ankle surgery History of total right knee replacement s/p lip cyst removal S/P carpal tunnel release S/P inguinal hernia repair Social History Smoking Status: Former smoker quit date: 05/23/98 alcohol intake: current Vital Signs Vital Signs Vital Signs: 08/29/24 07:01 08/29/24 07:04 Temperature 98.5 F Temperature Source Temporal Pulse Rate 81 Respiratory Rate 16 Respiratory Pattern Normal Blood Pressure 127/92 H Blood Pressure Mean 103 Blood Pressure Source Monitor Blood Pressure Position Semi-Fowlers Blood Pressure Location Right Arm Pulse Ox 98 Oxygen Delivery Method Room Air Weight Weight: 227 lb 1.218 oz Body Mass Index (BMI) 37.8 Results Lab / Micro Data 08/21/24 13:38 08/21/24 13:38 Labs: Laboratory Results - last 24 hr 08/29/24 06:30: POC Glucose 131 H 08/29/24 0754 Cosigner Signature (if applicable): CC: Dr. True Clarke MD; Dr. Duc Smith MD~ Signed [facility]04-09-2025 [facility] Medical Records Department [address] [place] [address] History Physical Exam 08/29/24 0753 MR#: [id number] Acct: [id number] Name: CHINYERE COOLEY Rep #: [id number] : 1970 54 From: Duc Smith MD PCP: Dr. True Clarke MD Status:REG [facility] Location: [place] [address] HPI - General HPI Narrative CHINYERE COOLEY, is a 54 M who presents for left reverse total shoulder arthroplasty. NO change to H and P. Had discussed over the phone given retroversion and subluxation. RAB, post op instructions and narcotic counselling. Left shoulder marked. Plan for block. OK to proceed. OFFICE VISIT Date of Service: 07/09/24 MR#: [id number] Acct: [id number] Name: CHINYERE COOLEY Rep #: [id number] : 1970 Provider: Dr. Duc Smith MD Age/Sex: 54/M Location: [facility] Status: Signed Intake Vital Signs 05/10/2415:02 Height 5 ft 3 in Weight: 223 lb 8 oz BMI 39.6 Intake Visit Reasons: RIGHT SHOULDER Chief Complaint: MRI review Is patient in pain?: Yes (Right shoulder ) Pain scale (1-10): 8 Allergies acetaminophen (From Vicodin) Adverse Reaction (Verified 07/09/24 14:46) Nauseacephalexin (From Keflex) Adverse Reaction (Verified 07/09/24 14:46) makes him feel badhydrocodone (From Vicodin) Adverse Reaction (Verified 07/09/24 14:46) Nausea Medications ???Medication ???Instructions ???Recorded ???Confirmed ???Type bupropion HCl 300 mg 24 hr tablet, 300 mg PO DAILY 03/11/21 07/09/24 History extended release losartan 100 1 tab PO DAILY 03/11/21 07/09/24 History mg-hydrochlorothiazide 25 mg tablet meloxicam 15 mg tablet 15 mg PO DAILY 03/11/21 07/09/24 History cyclosporine 0.05 % eye drops in a 1 drp ophthalmic (eye) BID 03/07/23 07/09/24 Histo ry dropperette doxycycline hyclate 50 mg capsule 50 mg PO DAILY 03/07/23 07/09/24 History multivitamin 1 tab PO DAILY 03/07/23 07/09/24 History acetaminophen 650 mg 650 mg PO Q12H PRN 05/10/24 07/09/24 History tablet,extended release (Tylenol Arthritis Pain) PFSH Medical History Bilateral shoulder pain History of steroid therapy Former smoker BiPAP (biphasic positive airway pressure) dependence Loss of hearing Wears glasses Arthritis CPAP (continuous positive airway pressure) dependence Sleep apnea Hammertoe of right foot Bilateral primary osteoarthritis of knee Primary osteoarthritis, right shoulder DJD of both shoulders Hypertension Environmental allergies Depression Surgical History History of ankle surgery History of total right knee replacement s/p lip cyst removal S/P carpal tunnel release S/P inguinal hernia repair Family History Father Arthritis Social History Smoking Status: Former smoker quit date: 05/23/98 alcohol intake: current HPI RIGHT SHOULDER Details: This documentation accurately reflects the service provided and the decisions made by me, Dr. Duc Smith MD 07/09/24 1100. Part of today???s visit was documented by [ ], acting as scribe. CHINYERE COOLEY is a 54 year old M here today for follow-up left shoulder CT and MRI for surgical planning. Patient still has stiffness and pain with lifting. Supplemental Info [facility] Imaging Services [address] [place], [place] [id number] Extremity Upper without Contra MR#: [id number] Acct: [id number] Name: CHINYERE COOLEY Rep #: [id number] : 1970 M 54 From: Tito Moran MD PCP: Dr. True Clarke MD Status: REG CLI Study: Extremity Upper without Contra Date of Exam: 05/28/24 Exam# [id number] Ordering Dr: Duc Smith MD STUDY: CT LEFT SHOULDER REASON FOR EXAM: Male, 54 years old. OA, surgical planning. RADIATION DOSAGE (If Supplied By Facility): CTDIvol = ( 40.26 ) mGy, DLP = ( 1101.46 ) mGycm TECHNIQUE: The patient was scanned in a multi detector CT scanner. High resolution transaxial imaging was performed without the administration of intravenous contrast material. Sagittal and coronal images were reconstructed. Individualized dose optimization techniques were used for this CT. COMPARISON: None. FINDINGS: There is advanced glenohumeral arthrosis, with joint space narrowing, [id number], marginal osteophyte formation, and subchondral (more content not included)...[facility]02-17-2025 Evaluation note* Diagnosis Onset Date Resolution Status Admit Date DJD of left shoulder acute Febr uary 2024 2:43pm DJD of left shoulder acute Apri l 2024 5:56am Bilateral shoulder pain acute A pril 2024 1:22pm Primary osteoarthritis, righ t shoulder acute September 14, 2024 9:05am Bilateral shoulder pain acute M ay 2024 9:10am Obstructive sleep apnea chronic J une 2024 8:32am [facility] Work Phone: 1(692) 422-910812-19-2024 Evaluation note* Diagnosis Onset Date Resolution Status Admit Date Bilateral shoulder pain acute D ecember 2023 2:55pm DJD of left shoulder acute Dece mber 2023 2:55pm Primary osteoarthritis, righ t shoulder acute May 10, 2 024 2:55pm DJD of left shoulder acute Febr uary 2024 2:43pm DJD of left shoulder acute Apri l 2024 5:56am [facility] Work Phone: 1(839) 671-700101-26-2024 Procedure [facility] 07-19-2022 Discharge summary Author Donta Adkins [facility] July 19, 2022 10:24am Note Date/Time July 19, 2022 10:24am [facility] Physical Therapy [facility] [address] [place] [address] / REHABILITATION SERVICES DISCHARGE SUMMARY MR#: [id number] Acct: [id number] Name: CHINYERE COOLEY Rep #: [id number] : 1970 52 From: Donta Trent Referring Dr.: Dr. Apolinar Pa, DO Status: REG RCR [facility] SELF [facility]Y INSURANCE CHINYERE COOLEY was seen in my office for initial evaluation on 03/19/22. The following Plan of Care was established for this patient: Initial Frequency: 2x /Week Initial Duration: 4 Weeks Patient/Client Instruction: Educate patient on: Condition, Plan of Care, Risk Factors, Benefits of Fitness Program For the Purpose of:: To foster healthy habits, To improve decision making, To facilitate caregiver knowledge, To improve self management, To prevent re- injury, To improve ability to perform tasks related to life management Therapeutic Exercise to Include: Strength training, Power training, Balance training, Coordination, Postural training, Flexibilty training, Gait and locomotor training, Dynamic Lumbar Stabilization For the Purpose of:: To decrease pain, To increase ROM, To improve nutrient delivery to tissue, To increase oxygenation perfusion, To improve muscle performance and motor function, To improve ability to perform ADL's, To increasetolerance to activity/condition/position, To improve performance and independence with ADL's, To improve gait and locomotor functions, To improve health of tissue, To decrease soft tissue restriction, To increase flexibility/ROM This patient was last seen in our office 07/19/22. Pertinent comments regardingtheir Physical therapy will appear below: I talked to chinyere today. He is doing great. His insurance approval ran out today. I offered to request more, but he reported that he is doing well and wants to be done today. Pt. is doing very well. He is to continue with his anklestrengthening as home as well. Chinyere did great with his R TKR and is progressing with his R ankle instability. Pt. to continue with this on his own at this point in time. At this point I will be discontinuing this patient from physical therapy. I would be happy to see this patient again in the future if found appropriate by the physician. Thank you! Donta Adkins, DPT Balance/Gait/Functional tests - Balance/Special Test Scores Lower Extremity Functional Score: 76 TUG Test Time Seconds: 9.1 Tug Test: <10 sec.=free mobile WOMAC Total Score: 72 WOMAC Percentage: 25.0000 <Electronically signed by Donta Adkins DPT> 07/19/22 1024 CC: Dr. Apolinar Pa DO; Dr. True Clarke MD ~ CLS Signed [facility] Work Phone: Consult note Author David Parry [facility] Note Date/Time August 29, 2024 10:3 6am [facility] Medical Records Department [address] [place] [address] Anesthesia Postop Eval I 08/29/24 1035 MR#: [id number] Acct: [id number] Name: CHINYERE COOLEY Rep #:[id number] : 1970 54 From: David WHATLEY NA PCP: Dr. True Clarke MD Status:REG S DC Y Race: C Location: [place] [address] Anesthesia: Postop Eval I Current Vital Signs Temperature: 97 F Pulse Rate: 72 Blood Pressure: 114/80 Respiratory Rate: 16 Pulse Ox: 97 Assessment Airway patent: Yes Spontaneous unlabored respirations: Yes nausea: No Vomiting: No Anesthesia Complication: No Fluid Hydration Crystalloid volume administer (ml): 1,200 Total IV fluid infused: 1,200 Progress Note Anesthesia document: Postop Eval 1 completed: Yes 08/29/24 1036 <Electronically signed by David Parry CHURCH ORGANIST> Date _ David Mimsbitt CHURCH ORGANIST Cosigner Signature: Date CC: ~ Signed [facility] Work Phone: Consult note Author Manju Tong [facility] Note Date/Time August 29, 2024 12:1 6pm [facility] Medical Records Department [address] [place] [address] Anesthesia Postop Eval II 08/29/24 1112 MR#: [id number] Acct: [id number] Name: CHINYERE COOLEY Rep #:[id number] : 1970 54 From: Manju Tong PCP: Dr. True Clarke MD Status:REG S DC Y Race: C Location: [place] [address] Anesthesia Postop Eval I Sum Postop Eval Completion status Anesthesia document: Postop Eval 1 completed: Yes Anesthesia Postop Eval I Summary Anesthesia Postop Eval I Summary: Anesthesia Postop Eval I: Assessment Summary Airway patent Yes 08/29/24 10:35 CHURCH ORGANIST.TNES Spontaneous unlabored Yes 08/29/24 10:35 CHURCH ORGANIST.TNES respirations Mental status nausea No 08/29/24 10:35 CHURCH ORGANIST.TNES Vomiting No 08/29/24 10:35 CHURCH ORGANIST.TNES Anesthesia Postop Eval I: Fluid Summary Crystalloid volume administer 1,200 08/29/24 10:35 CHURCH ORGANIST.TNES (ml) Colloids volume administered ( ml) Blood Product volume administered (ml) Total IV fluid infused 1,200 08/29/24 10:35 CHURCH ORGANIST.TNES Anesthesia Postop Eval I: Summary Notes Anesthesia Complication No 08/29/24 10:35 CHURCH ORGANIST.TNES Anesthesia Complication Comment: Post-operative progress note Anesthesia: Postop Eval II Evaluation Mental status: Awake Pain Level: 3 nausea: No Vomiting: No 08/29/24 1112 <Electronically signed by Manju rowe> Date _ Manju Zeng Signature: Date CC: ~ Signed [facility] Work Phone: Discharge summary Author Duc Smith [facility] Note Date/Time August 29, 2024 10:3 6am [facility] Medical Records Department [address] [place] [address] Instructions for Home/Discharge Instructions 08/29/24 1033 MR#: [id number] Acct: [id number] Name: CHINYERE COOLEY Rep #:[id number] : 1970 54 From: Duc Smith MD PCP: Dr. True Clarke MD Status:REG S DC Discharge Instructions Diet Discharge Diet: No restrictions Activity Ice area for (Minutes): 10 Lifting Restrictions: pendulums only 4x/day Additional Activity Instructions:: ok to remove sling at rest Dressing / Incision Call your doctor if your incision/area has: Continuous Slow Oozing, Sudden Increased Bleeding, Increased Pain/ Swelling, Increased Redness, Foul Smelling Discharge and Swelling at the incision site Call your doctor if you observe: Fever of 101 or Higher, Coldness, Increased Pain and Numbness or Tingling Remove Dressing in: leave until fall off Cleanse incision/area with: Do not get Incision Wet Follow Up Care Please Follow Up With: Duc Smith MD When: next week Test Results: Test results from this visit will be discussed in further detail at your follow- up appointment, if applicable. Discharge Plan Admission Attending Provider: Duc Smith Primary Care Provider: True Clarke Instructions Print Language: Mauritian Discharge Orders/Prescriptions Prescriptions: New oxycodone-acetaminophen [Endocet] 5-325 mg tablet 1 tab PO Q4H MDD 6 PRN (Reason: pain) 5 Days Qty: 30 0RF cephalexin 500 mg capsule 500 mg PO Q6H MDD 4 1 Days Qty: 4 0RF No Action doxycycline hyclate 50 mg capsule 50 mg PO DAILY cyclosporine 0.05 % dropperette 1 drp ophthalmic (eye) BID acetaminophen [Tylenol Arthritis Pain] 650 mg tablet extended release 650 mg PO Q12H PRN (Reason: pain) meloxicam 15 mg tablet 15 mg PO DAILY losartan-hydrochlorothiazide 100-25 mg tablet 1 tab PO DAILY bupropion HCl 300 mg tablet extended release 24 hr 300 mg PO DAILY Referrals / Follow Up: True Clarke MD [Primary Care Provider] - Disposition Disposition (needs filled in before D/C Order can be placed): Home, Self Care 08/29/24 1036<Electronically signed by Duc Smith MD>Duc Smith MD CC: Dr. True Clarke MD ~ Signed [facility] Work Phone: Evaluation noteNo assessment information available [facility] Work Phone: Evaluation note* Diagnosis Onset Date Resolution Status Bilateral primary osteoarthritis of knee acute DJD of left shoulder acute Primary osteoarthritis, right shoulder acute Bilateral primary osteoarthritis of knee acute Congenital clubfoot acute Obesity acute Patellofemoral arthritis of left knee acute Valgus deformity, not elsewhere classified, right knee acute [facility] Work Phone: Evaluation note* Diagnosis Onset Date Resolution Status Bilateral primary osteoarthritis of knee acute DJD of left shoulder acute Primary osteoarthritis, right shoulder acute Bilateral primary osteoarthritis of knee acute Congenital clubfoot acute Obesity acute Patellofemoral arthritis of left knee acute Valgus deformity, not elsewhere classified, right knee acute Osteoarthritis of right knee acute [facility] Work Phone: Evaluation note* Diagnosis Onset Date Resolution Status Osteoarthritis of right knee acute Right ankle instability none active [facility] Work Phone: Evaluation note* Diagnosis Onset Date Resolution Status Osteoarthritis of left knee acute [facility] Work Phone: Hospital Discharge instructions Additional Instructions [facility] Hospital Discharge instructions Additional Instructions [facility] Used?: [facility] Work Phone: Reason for referral (narrative)No reason for referral information availableMemorial [facility] Work Phone: Summary Purpose Family History No Family History Records Found Relationship Condition Age at Onset Recorded Date/T amy father Arthritis Unknown Advance Directives No Advanced Directives Records Found Advance Directive Response Recorded Date/ Time Living Will No February 10, 2022 8:55am Power of Dispatcher [employer] No January 8:55am Advance Directive Response Recorded Date/ Time Living Will No May 04, 2 022 12:06pm Power of Dispatcher [employer] No May 04, 2022 12:06pm Advance Directive Response Recorded Date/ Time Living Will No February 10, 2022 7:55am Power of Dispatcher [employer] No January 7:55am Advance Directive Response Recorded Date/ Time Living Will No May 04, 2 022 1:06pm Power of Dispatcher [employer] No May 04, 2022 1:06pm Advance Directive Response Recorded Date/ Time Living Will No June 08 2:15pm Power of Dispatcher [employer] No June 08, 2023 2:15pm Advance Directive Response Recorded Date/ Time Living Will No August 15, 2024 3:33pm Do you have a [facility] Power of Dispatcher [employer]? No August 15, 2024 3:33pm Chief Complaint and Reason for Visit Chief Complaint back Chief Complaint back BILAT KNEES RIGHT KNEE room 2 xray POST OP RT TKA. RX HERE TEMPLATING FOR RIGHT TKA Reason for Visit Bilateral primary os teoarthritis of knee DJD of left shoulder Primary osteoarthritis, right shoulder Bilateral primary osteoarthritis of knee Congenital clubfoot Obesity Patellofemoral arthritis of left knee Valgus deformity, not elsewhere classified, right knee Chief Complaint back BILAT KNEES RIGHT KNEE room 2 xray POST OP RT TKA. RX HERE TEMPLATING FOR RIGHT TKA right knee Reason for Visit Bilateral primary os teoarthritis of knee DJD of left shoulder Primary osteoarthritis, right shoulder Bilateral primary osteoarthritis of knee Congenital clubfoot Obesity Patellofemoral arthritis of left knee Valgus deformity, not elsewhere classified, right knee Osteoarthritis of right knee Chief Complaint back BILAT KNEES RIGHT KNEE room 2 xray POST OP RT TKA. RX HERE TEMPLATING FOR RIGHT TKA right knee RT TOTAL KNEE ROBOTIC/ EORDER LABS RT TOTAL KNEE ROBOTIC/ EORDER LABS Reason for Visit Bilateral primary os teoarthritis of knee DJD of left shoulder Primary osteoarthritis, right shoulder Bilateral primary osteoarthritis of knee Congenital clubfoot Obesity Patellofemoral arthritis of left knee Valgus deformity, not elsewhere classified, right knee Osteoarthritis of right knee Chief Complaint TEMPLATING FOR RIGHT TKA right knee RT TOTAL KNEE ROBOTIC/ EORDER LABS RT TOTAL KNEE ROBOTIC/ EORDER LABS right knee right knee room 2 POST OP RT TKA. RX HERE Reason for Visit Osteoarthritis of ri ght knee Right ankle instability Chief Complaint POST OP RT TKA. RX H ERE Amb Documentation Chief Complaint LEFT LEG PAIN/ADD ON Chief Complaint LEFT KNEE RM 1 PREOP Ankle Triple Arthrodesis, right & internal bracin Reason for Visit Osteoarthritis of le ft knee Chief Complaint Admit Date BL SHOULDERS May 10, 2024 2:55pm BILAT SHOULDER PAIN May 28, 2024 6: 50pm BILAT PAIN June 11, 2024 3 :46pm RIGHT SHOULDER July 09, 2024 2:43pm PREOP August 21, 2024 1:31 pm Left anatomic Total Shoulder Replacement August 29, 2024 5:56am Left anatomic Total Shoulder Replacement August 29, 2024 7:53am Reason for Visit Admit Date Bilateral shoulder pain May 10, 024 2:55pm DJD of left shoulder May 10, 2024 2:55pm Primary osteoarthritis, right shoulder D ecember 2023 2:55pm DJD of left shoulder July 09, 2024 2:43pm DJD of left shoulder August 29, 2024 5:5 6am Chief Complaint Admit Date RIGHT SHOULDER July 09, 2024 2:43pm PREOP August 21, 2024 1:31 pm Left anatomic Total Shoulder Replacement August 29, 2024 5:56am Left anatomic Total Shoulder Replacement August 29, 2024 7:53am left shoulder September 03, 2024 1:2 2pm Room 5 September 03, 2024 1:3 6pm left shoulder September 14, 2024 9:0 5am LEFT SHOULDER October 12, 2024 9:10a m BILATERAL SHOULDER PAIN. RX HERE November 012024 10:30am Sleep apnea November 02, 2024 8:32 am Reason for Visit Admit Date DJD of left shoulder July 09, 2024 2:43pm DJD of left shoulder August 29, 2024 5:5 6am Bilateral shoulder pain September 03, 2024 1:22pm Primary osteoarthritis, right shoulder A pril 2024 9:05am Bilateral shoulder pain October 12, 2024 9 :10am Obstructive sleep apnea November 02, 2024 8:32am Chief Complaint Admit Date PREOP August 21, 2024 1:31 pm Left anatomic Total Shoulder Replacement August 29, 2024 5:56am Left anatomic Total Shoulder Replacement August 29, 2024 7:53am left shoulder September 03, 2024 1:2 2pm Room 5 September 03, 2024 1:3 6pm left shoulder September 14, 2024 9:0 5am LEFT SHOULDER October 12, 2024 9:10a m Sleep apnea November 02, 2024 8:32 am BILATERAL SHOULDER PAIN. RX HERE November 162024 9:00am Reason for Visit Admit Date DJD of left shoulder August 29, 2024 5:5 6am Bilateral shoulder pain September 03, 2024 1:22pm Primary osteoarthritis, right shoulder A pril 2024 9:05am Bilateral shoulder pain October 12, 2024 9 :10am Cough November 02, 2024 8:32 am Obstructive sleep apnea November 02, 2024 8:32am Chief Complaint Admit Date PREOP August 21, 2024 1:31 pm Left anatomic Total Shoulder Replacement August 29, 2024 5:56am Left anatomic Total Shoulder Replacement August 29, 2024 7:53am left shoulder September 03, 2024 1:2 2pm Room September 03, 2024 1:3 6pm left shoulder September 14, 2024 9:0 5am LEFT SHOULDER October 12, 2024 9:10a m Sleep apnea November 02, 2024 8:32 am BILATERAL SHOULDER PAIN. RX HERE November 162024 9:00am LEFT SHOULDER November 26, 2024 9:15a m Reason for Visit Admit Date DJD of left shoulder August 29, 2024 5:5 6am Bilateral shoulder pain September 03, 2024 1:22pm Primary osteoarthritis, right shoulder A pril 2024 9:05am Bilateral shoulder pain October 12, 2024 9 :10am Cough November 02, 2024 8:32 am Obstructive sleep apnea November 02, 2024 8:32am DJD of left shoulder November 26, 2024 9:15 am Additional Source Comments (unrecognized sect ion and content) No Status Records FoundNo Status Records FoundNo Status Records FoundNo Status Records Found INFORMATION SOURCE (unrecogn ized section and content) DATE CREATED AUTHOR 11/10/2017 [facility] DATE CREATED AUTHOR AUTHOR'S ORGANIZ ATION 02/27/2025 [facility] DATE CREATED AUTHOR AUTHOR'S ORGANIZ ATION 03/15/2025 [facility] DATE CREATED AUTHOR AUTHOR'S ORGANIZ ATION 03/29/2025 [facility] Goals (unrecognized section and content) Goals may be documented in a n alternate sectionGoals may be documented in an alternate sectionGoals may be documented in an alternate sectionGoals may be documented in an alternate sectionGoals may be documented in an alternate section Care Teams (unrecognized sec tion and content) Team Status: Active Member Role Status Dates Dr. True Clarke MD Family Provider Active Dr. True Clarke MD Primary Care Provider Active Team Status: Inactive Member Role Status Dates Dr. True Clarke MD Primary Care Provider, Referring Provider Active Dr. Apolinar Pa DO Attending Provider Active Team Status: Inactive Member Role Status Dates Dr. True Clarke MD Primary Care Provider, Referring Provider Active Dante SCHNEIDER, PA Attending Provider Active Team Status: Active Member Role Status Dates Dr. Ture Clarke MD Primary Care Provider Active Dr. Apolinar Pa DO Attending Provid er, Referring Provider, Other Provider Active Dr. Jerald Green MD Other Provider Active Team Status: Inactive Member Role Status Dates Dr. True Clarke MD Primary Care Provider Active Dr. Miguel Angel Garibay MD Attending Provider Active Team Status: Inactive Member Role Status Dates Dr. True Clarke MD Primary Care Provider Active Dr. Apolinar Pa DO Attending Provider, Referring Provider Active Team Status: Inactive Member Role Status Dates Dr. True Clarke MD Primary Care Provider Active Dr. Apolinar Pa DO Attending Provider, Referring Provider Active Dr. Jerald Green MD Other Provider Active Team Status: Inactive Member Role Status Dates Dr. True Clarke MD Primary Care Provider, Attending Provider Active Team Status: Active Member Role Status Dates Dr. True Clarke MD Primary Care Provider Active Kim Trinh Attending Provider Active Team Status: Inactive Member Role Status Dates Dr. True Clarke MD Primary Care Provi scar, Attending Provider, Referring Provider Active Team Status: Active Member Role Status Dates Dr. True Clarke MD Primary Care Provider Active Dr. Miguel Angel Garibay MD Attending Provider Active Dr. Rod Kim DPM Referring Provider Active Team Status: Inactive Member Role Status Dates Dr. True Clarke MD Primary Care Provider Active Dr. Rod Kim DPM Attending Provider, Referring P darren Active Team Status: Active Member Role Status Dates Dr. True Clarke MD Primary Care Provider Active Team Status: Inactive Member Role Status Dates Dr. True Clarke MD Primary Care Provider Active Start: May 10, 2024 End: May 10, 2024 Dr. True Clarke MD Referring Provider Active Start: May 10, 2024 End: May 10, 2024 Duc Smith MD Attending Provider Active St art: May 10, 2024 End: May 10, 2024 Team Status: Inactive Member Role Status Dates Dr. True Clarke MD Primary Care Provider Active Start: May 21, 2024 End: May 21, 2024 Dr. True Clarke MD Attending Provider Active Start: May 21, 2024 End: May 21, 2024 Dr. True Clarke MD Referring Provider Active Start: May 21, 2024 End: May 21, 2024 Team Status: Inactive Member Role Status Dates Dr. True Clarke MD Primary Care Provider Active Start: May 28, 2024 End: May 28, 2024 Duc Smith MD Attending Provider Active St art: May 28, 2024 End: May 28, 2024 Duc Smith MD Referring Provider Active St art: May 28, 2024 End: May 28, 2024 Team Status: Inactive Member Role Status Dates Dr. True Clakre MD Primary Care Provider Active Start: June 11, 2024 End: June 11, 2024 Duc Smith MD Attending Provider Active St art: June 11, 2024 End: June 11, 2024 Duc Smith MD Referring Provider Active St art: June 11, 2024 End: June 11, 2024 Team Status: Inactive Member Role Status Dates Dr. True Clarke MD Primary Care Provider Active Start: July 09, 2024 End: July 09, 2024 Dr. True Clarke MD Referring Provider Active Start: July 09, 2024 End: July 09, 2024 Duc Smith MD Attending Provider Active St art: July 09, 2024 End: July 09, 2024 Team Status: Active Member Role Status Dates Dr. True Clarke MD Primary Care Provider Active Start: August 21, 2024 End: August 21, 2024 Dr. Miguel Angel Garibay MD Attending Provider Active S tart: August 21, 2024 End: August 21, 2024 Duc Smith MD Referring Provider Active St art: August 21, 2024 End: August 21, 2024 Team Status: Inactive Member Role Status Dates Dr. True Clarke MD Primary Care Provider Active Start: August 29, 2024 End: August 29, 2024 Duc Smith MD Attending Provider Active St art: August 29, 2024 End: August 29, 2024 Duc Smith MD Referring Provider Active St art: August 29, 2024 End: August 29, 2024 Team Status: Active Member Role Status Dates Dr. True Clarke MD Primary Care Provider Active Start: August 29, 2024 Duc Smith MD Attending Provider Active St art: August 29, 2024 Duc Smith MD Referring Provider Active St art: August 29, 2024 Duc Smith MD Other Provider Active Start: August 29, 2024 Team Status: Inactive Member Role Status Dates Dr. True Clarke MD Primary Care Provider Active Start: September 03, 2024 End: September 03, 2024 Dr. True Clarke MD Referring Provider Active Start: September 03, 2024 End: September 03, 2024 Duc Smith MD Attending Provider Active St art: September 03, 2024 End: September 03, 2024 Team Status: Inactive Member Role Status Dates Dr. True Clarke MD Primary Care Provider Active Start: September 03, 2024 End: September 03, 2024 Dr. Miguel Angel Garibay MD Attending Provider Active S tart: September 03, 2024 End: September 03, 2024 Team Status: Inactive Member Role Status Dates Dr. True Clarke MD Primary Care Provider Active Start: September 14, 2024 End: September 14, 2024 Dr. True Clarke MD Referring Provider Active Start: September 14, 2024 End: September 14, 2024 Duc Smith MD Attending Provider Active St art: September 14, 2024 End: September 14, 2024 Team Status: Inactive Member Role Status Dates Dr. True Clarke MD Primary Care Provider Active Start: October 12, 2024 End: October 12, 2024 Dr. True Clarke MD Referring Provider Active Start: October 12, 2024 End: October 12, 2024 Duc Smith MD Attending Provider Active St art: October 12, 2024 End: October 12, 2024 Team Status: Active Member Role Status Dates Dr. True Clarke MD Primary Care Provider Active Start: November 01, 2024 Duc Smith MD Attending Provider Active St art: November 01, 2024 Duc Smith MD Referring Provider Active St art: November 01, 2024 Team Status: Inactive Member Role Status Dates Dr. True Clarke MD Primary Care Provider Active Start: November 02, 2024 End: November 02, 2024 Dr. True Clarke MD Referring Provider Active Start: November 02, 2024 End: November 02, 2024 DANIELLE Lopez Attending Provider Active Start: November 02, 2024 End: November 02, 2024 Team Status: Active Member Role/Relationship Status Dates Dr. True Clarke MD Primary Care Provider Active Team Status: Active Member Role/Relationship Status Dates Dr. True Clarke MD Primary Care Provider Active Start: August 21, 2024 End: August 21, 2024 Dr. Miguel Angel Garibay MD Attending Provider Active S tart: August 21, 2024 End: August 21, 2024 Duc Smith MD Referring Provider Active St art: August 21, 2024 End: August 21, 2024 Team Status: Inactive Member Role/Relationship Status Dates Dr. True Clarke MD Primary Care Provider Active Start: August 29, 2024 End: August 29, 2024 Duc Smith MD Attending Provider Active St art: August 29, 2024 End: August 29, 2024 Duc Smith MD Referring Provider Active St art: August 29, 2024 End: August 29, 2024 Team Status: Active Member Role/Relationship Status Dates Dr. True Clarke MD Primary Care Provider Active Start: August 29, 2024 Duc Smith MD Attending Provider Active St art: August 29, 2024 Duc Smith MD Referring Provider Active St art: August 29, 2024 Duc Smith MD Other Provider Active Start: August 29, 2024 Team Status: Inactive Member Role/Relationship Status Dates Dr. True Clarke MD Primary Care Provider Active Start: September 03, 2024 End: September 03, 2024 Dr. True Clarke MD Referring Provider Active Start: September 03, 2024 End: September 03, 2024 Duc Smith MD Attending Provider Active St art: September 03, 2024 End: September 03, 2024 Team Status: Inactive Member Role/Relationship Status Dates Dr. True Clarke MD Primary Care Provider Active Start: September 03, 2024 End: September 03, 2024 Dr. Miguel Angel Garibay MD Attending Provider Active S tart: September 03, 2024 End: September 03, 2024 Team Status: Inactive Member Role/Relationship Status Dates Dr. True Clarke MD Primary Care Provider Active Start: September 14, 2024 End: September 14, 2024 Dr. True Clarke MD Referring Provider Active Start: September 14, 2024 End: September 14, 2024 Duc Smith MD Attending Provider Active St art: September 14, 2024 End: September 14, 2024 Team Status: Inactive Member Role/Relationship Status Dates Dr. True Clarke MD Primary Care Provider Active Start: October 12, 2024 End: October 12, 2024 Dr. True Clarke MD Referring Provider Active Start: October 12, 2024 End: October 12, 2024 Duc Smith MD Attending Provider Active St art: October 12, 2024 End: October 12, 2024 Team Status: Inactive Member Role/Relationship Status Dates Dr. True Clarke MD Primary Care Provider Active Start: November 02, 2024 End: November 02, 2024 Dr. True Clarke MD Referring Provider Active Start: November 02, 2024 End: November 02, 2024 DANIELLE Lopez Attending Provider Active Start: November 02, 2024 End: November 02, 2024 Team Status: Inactive Member Role/Relationship Status Dates Dr. True Clarke MD Primary Care Provider Active Start: November 16, 2024 End: November 16, 2024 Duc Smith MD Attending Provider Active St art: November 16, 2024 End: November 16, 2024 Duc Smith MD Referring Provider Active St art: November 16, 2024 End: November 16, 2024 Team Status: Inactive Member Role/Relationship Status Dates Dr. True Clarke MD Primary Care Provider Active Start: November 26, 2024 End: November 26, 2024 Dr. True Clarke MD Referring Provider Active Start: November 26, 2024 End: November 26, 2024 Duc Smith MD Attending Provider Active St art: November 26, 2024 End: November 26, 2024 FOR RECORDS PERTAINING TO PATIENTS WHO ARE [...] BE BASED ON THE PRIMARY CLINICAL RECORDS. [employer] provides no warranty or guarantee of the accuracy or completeness of information in this document.
--- NOTE | 2025-05-15 10:39 | RAD_ITS ---
PROCEDURE: CHEST PA AND LATERAL 05/15/2025 REASON FOR EXAM: COUGH FOR OVER 6 MONTHS TECHNIQUE: Procedure Code: RADCXR Modality: DX Procedure: CHEST PA AND LATERAL FINDINGS: No focal consolidation. No pleural effusion or pneumothorax. Cardiac silhouette is within normal limits. No acute fractures. Left shoulder prosthesis. RAD/Chest PA and Lateral IMPRESSION: No focal consolidations. Reading Location: [facility]
== END | disposition home or self-care (01) ==
PROVIDERS: PCP Family Medicine; Referring Provider Nurse Practitioner Family; Visit Provider Nurse Practitioner Family
DX: R05.9 Cough, unspecified (principal)
CPT/HCPCS: 71046; 94060; 94726; 94729